=== PATIENT | female | born 1975 | race Caucasian/White ===

== ENCOUNTER 2020-05-17 10:04 | Outpatient (REF) | payer MEDICARE, SELFPAY ==
--- NOTE | 2020-05-17 09:30 | EMG_ITS ---
HISTORY OF PRESENT ILLNESS: This is a 45-year-old woman with a 5-month history of right foot weakness and numbness, previous history of lumbar diskectomy in 2007. She cannot dorsiflex the foot. There has been some improvement recently. PHYSICAL EXAMINATION: On examination, she has weakness of the right foot, especially and EHL have no function. Tibialis anterior 4+/5 normal. IMPRESSION: Peroneal neuropathy, rule out L5 radiculopathy. 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 EMG evidence of denervation in peroneal nerve distribution on the right with sparing of the tibialis anterior muscle relatively. An L5 radiculopathy cannot be ruled out. Clinical correlation is suggested. MD MIKEL Dodge/RACHELL / [id number]
== END 2020-05-17 10:05 | disposition home or self-care (01) ==
LOC: HO.NEURO 10:04
PROVIDERS: PCP Internal Medicine; Visit Provider Internal Medicine
DX: M54.41 Lumbago with sciatica, right side (principal)
CPT/HCPCS: 95860; 95886; 95910

== ENCOUNTER 2021-12-13 13:43 | Outpatient (REF) | payer MEDICARE, SELFPAY ==
--- NOTE | ~2021-12-13 | MM_ITS ---
EXAMINATION: MM DIAGNOSTIC DIGITAL BREAST TOMOSYNTHESIS, RIGHT US DIAGNOSTIC ULTRASOUND BREAST, RIGHT CLINICAL INFORMATION: 46-year-old with palpable ridge anterior lower right breast noted by patient for past week. No discharge. Due for yearly. Prior outside mammography at unknown facility, unavailable. Family history breast cancer, maternal aunt. The lifetime risk of breast cancer based on the Tyrer-Cuzick Model is 17%. COMPARISON: None. TECHNIQUE: Digital breast tomosynthesis is performed in both the craniocaudal and mediolateral oblique views along with computer-aided detection (CAD). Synthesized 2D images are generated from the tomosynthesis. Ultrasound right breast is targeted to the area of clinical concern anterior lower breast. Patient is able to point to area of concern at time of imaging. Grayscale imaging and color Doppler are performed without and with harmonics. FINDINGS: There are scattered areas of fibroglandular density (ACR BI-RADS breast composition Category b). There are no significant masses, abnormal calcifications, or other abnormalities. No architectural abnormality. The axilla and skin contours are unremarkable. No skin thickening or coarsening of the Antwan's ligaments. No mammographic correlate for patient's symptoms. Ultrasound right breast demonstrates no cystic or solid mass, architectural abnormality, or focal duct ectasia. No skin thickening or edema tracking in soft tissue planes. Results are discussed with the patient at time of visit. Patient should be managed based on the clinical impression. If clinically indicated, further evaluation may be considered with surgical consult. Decision to proceed with biopsy should be based on clinical grounds and degree of clinical concern. MM/MM diagnostic mammo BI IMPRESSION: -No mammographic evidence of malignancy. -Unremarkable right breast ultrasound. ASSESSMENT: BI-RADS 1: Negative RECOMMENDATION: 1. Patient should be managed based on the clinical impression. If clinically indicated, further evaluation may be considered with surgical consult. Decision to proceed with biopsy should be based on clinical grounds and degree of clinical concern. 2. Otherwise, routine annual screening mammography. This patient's information was entered into a reminder system with a target due date for their next mammogram.
== END 2021-12-13 13:44 | disposition home or self-care (01) ==
LOC: HO.MAMMO 13:43
PROVIDERS: PCP Internal Medicine; Visit Provider Student in an Organized Health Care Education/Training Program
DX: N63.15 Unspecified lump in the right breast, overlapping quadrants (principal); Z80.3 Family history of malignant neoplasm of breast
CPT/HCPCS: 76642; 77062; 77066

== ENCOUNTER 2022-12-23 13:52 | Outpatient (REF) | payer MEDICARE, SELFPAY ==
--- NOTE | ~2022-12-23 | MM_ITS ---
EXAMINATION: MM SCREENING DIGITAL BREAST TOMOSYNTHESIS, BILATERAL CLINICAL INFORMATION: Screening. Asymptomatic. The lifetime risk of breast cancer based on the Tyrer-Cuzick Model is 20.7.%. COMPARISON: Mammography: This study is compared with prior exams dating back to 2021. TECHNIQUE: Digital breast tomosynthesis is performed in both the craniocaudal and mediolateral oblique views along with computer-aided detection (CAD). Synthesized 2D images are generated from the tomosynthesis. FINDINGS: There are scattered areas of fibroglandular density (ACR BI-RADS breast composition Category b). There is a focal asymmetry in the upper inner quadrant of the right breast. . There is a small focal asymmetry in the upper outer quadrant of the right breast. Additional mammographic imaging of these findings are advised. Sonography may be performed at the discretion of the diagnostic radiologist. There are no other significant findings in the right breast. In the left breast, near are no significant masses, abnormal calcifications, or other abnormalities. MM/MM tomosynthesis screening BI IMPRESSION: Focal asymmetries of the right breast warrant additional mammographic imaging. Targeted sonography may be performed at the discretion of the diagnostic radiologist. No mammographic signs of malignancy left breast. Please note that the breast cancer risk assessment score above exceeds 20%. ASSESSMENT: BI-RADS BI-RADS 0 - Incomplete: Needs additional Imaging. RECOMMENDATION: 1. Additional views of the right breast 2. Targeted ultrasound if warranted after review of the additional views. 3. Radiology department staff will contact the patient for additional imaging. Additional Imaging required This examination should not preclude the clinical evaluation of a suspicious palpable abnormality. This patient's information was entered into a reminder system with a target due date for their next mammogram.
== END 2022-12-23 13:53 | disposition home or self-care (01) ==
LOC: HO.MAMMO 13:52
PROVIDERS: PCP Internal Medicine; Visit Provider Internal Medicine
DX: Z12.31 Encounter for screening mammogram for malignant neoplasm of breast (principal)
CPT/HCPCS: 77063; 77067

== ENCOUNTER → 2022-12-23 14:00 | Outpatient (BNV) | payer MEDICARE, SELFPAY | PROVIDERS: PCP Internal Medicine; Visit Provider Radiology Diagnostic Radiology | DX: Z12.31 Encounter for screening mammogram for malignant neoplasm of breast (principal) | CPT/HCPCS: 77063; 77067 ==

== ENCOUNTER 2023-01-30 13:27 | Outpatient (REF) | payer MEDICARE, SELFPAY ==
--- NOTE | ~2023-01-30 | US_ITS ---
EXAMINATION: MM DIAGNOSTIC DIGITAL BREAST TOMOSYNTHESIS, RIGHT US BREAST LIMITED, RIGHT MAMMOGRAPHY: CLINICAL INFORMATION: Follow-up focal asymmetries seen right breast on screening examination. The lifetime risk of breast cancer based on the Tyrer-Cuzick Model is 20.7%. COMPARISON: Mammography: 01/10/2023, 01/12/2022. TECHNIQUE: Digital right breast tomosynthesis is performed in both the craniocaudal and mediolateral oblique views along with computer-aided detection (CAD). Synthesized 2D images are generated from the tomosynthesis. In addition, full-field 3 right mediolateral view, 3-D right mediolateral spot compression view, 3-D right MLO spot compression view, and 3-D right CC spot compression views were performed. FINDINGS: There are scattered areas of fibroglandular density (ACR BI-RADS breast composition Category b). There are numerous small circumscribed masses in both breasts measuring 4-5 mm, statistically benign, most likely representing small cysts. In the left breast posterior depth, approximately 2:30 o'clock axis, there is a lobular mass measuring 7 x 7 mm with internal regions of fat density, likely representing a region of fat necrosis or a breast hamartoma. This will be evaluated with ultrasound. Results were provided to the patient at time of visit by the technologist. ULTRASOUND: CLINICAL INFORMATION: Evaluate right breast lobular 7 mm mass, posterior depth, 2:30 o'clock axis. COMPARISON: 12/13/2021. TECHNIQUE: Targeted sonographic evaluation was performed using a high frequency linear transducer. Selected archived documentation. FINDINGS: RIGHT BREAST: In the 2:00 axis of the right breast, 12 cm from the nipple, just beneath the skin, is a mixed echogenic and hypoechoic lobular mass measuring approximately 0.7 x 0.5 x 1.0 cm. This has features most consistent with a region of fat necrosis. As per the technologist, there is bruising at the skin in this region. This correlates well with the abnormality seen on mammography. No suspicious abnormalities identified. US/US breast RT limited mamm only IMPRESSION: Findings at the 2:00 axis of the right breast consistent with a region of subcutaneous fat necrosis. No findings suspicious for malignancy. Numerous circumscribed small low density right breast masses on mammography, and in retrospect several are also present in the left breast as well. These are statistically benign and consistent with numerous small cysts. Recommend the patient resume annual routine screening mammography. OVERALL ASSESSMENT: Mammography: BI-RADS 2 - Benign Findings Ultrasound: BI-RADS 2 - Benign Findings RECOMMENDATION: 1 year F/U This patient's information was entered into a reminder system with a target due date for their next mammogram.
== END 2023-01-30 13:28 | disposition home or self-care (01) ==
LOC: HO.MAMMO 13:27
PROVIDERS: PCP Internal Medicine; Visit Provider Internal Medicine
DX: N64.89 Other specified disorders of breast (principal)
CPT/HCPCS: 76642; 77061; 77065

== ENCOUNTER → 2023-01-30 13:30 | Outpatient (BNV) | payer MEDICARE, SELFPAY | PROVIDERS: PCP Internal Medicine; Visit Provider Radiology Diagnostic Radiology | DX: R92.8 Other abnormal and inconclusive findings on diagnostic imaging of breast (principal) | CPT/HCPCS: 76642; 77065 ==

== ENCOUNTER 2023-07-23 11:54 | Outpatient (REF) | payer MEDICARE, SELFPAY | END 2023-07-23 11:55 | disposition home or self-care (01) | LOC: HO.CHCLNP 11:54 | PROVIDERS: Visit Provider Internal Medicine | DX: L02.414 Cutaneous abscess of left upper limb (principal) | CPT/HCPCS: 87070; 87205 ==

== ENCOUNTER 2024-01-29 15:43 | Outpatient (REF) | payer MEDICARE, SELFPAY ==
[2024-01-29 18:09] LABS: Creatinine Urine 110.52 mg/dL; Microalbumin Urine < 5.0 mg/L
[2024-01-29 18:11] LABS: Alanine Aminotransferase 43 U/L (0-31); Albumin Level 4.2 g/dL (3.5-5.0); Alkaline Phosphatase 203 U/L (39-117); Anion Gap 14 (12-20); Aspartate Amino Transferase 31 U/L (5-31); Bilirubin Total 0.3 mg/dL (0.0-1.0); Blood Urea Nitrogen 22 mg/dL (9-16); Calcium 9.8 mg/dL (8.4-10.2); Carbon Dioxide 26 mmol/L (22-29); Chloride 105 mmol/L (96-108); Cholesterol 269 mg/dL (<200); Estimated Glomerular Filt Rate 41; Glucose Random 103 mg/dL (60-115); HDL Cholesterol 42 mg/dL (>40); LDL Cholesterol Calculated 182 mg/dL (<100); Sodium 141 mmol/L (135-145); Triglycerides 229 mg/dL (<150)
== END 2024-01-29 15:44 | disposition home or self-care (01) ==
LOC: HO.CHCLDS 15:43
PROVIDERS: Visit Provider Internal Medicine
DX: R80.9 Proteinuria, unspecified (principal)
CPT/HCPCS: 36415; 80053; 80061; 82570

== ENCOUNTER 2024-03-24 10:55 | Outpatient (AMB) | payer MEDICARE, MEDICAID, SELFPAY ==
[2024-03-24 10:56] VITALS: BP 102/60; PULSE 87; O2SAT 97; BMI 33.6
--- NOTE | 2024-03-24 10:56 | HO.NEPHOV_ITS ---
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 She recently underwent back surgey Currently has Right foot drop She has a history of using IV [facility]roine [facility] Social History Patient Tobacco Use Status: Never used Tobacco Tobacco use type: Cigarette Review of Systems Const Denies fever(s) and Denies weight loss Card Denies chest pain Resp Denies cough and Denies hemoptysis GI Denies abdominal pain, Denies diarrhea and Denies nausea Musc Denies back pain Neuro Denies focal weakness Physical Exam Vital Signs: Last Vital Signs Pulse 87 03/24/24 10:56 BP 102/60 03/24/24 10:56 Pulse Ox 97 03/24/24 10:56 Oxygen Delivery Method Room Air 03/24/24 10:56 BMI result Body Mass Index 33.6 Awake. Comfortable. Neck is supple. Mucosa moist. Lungs air entry Heart S1-S2 heard no gallop. Abdomen soft. Extremities no edema. No involuntary movements. No myoclonus. Multiple scars from peripheral IV injection Results Reviewed Nephrology Results: Sodium 137 mmol/L (135-145) 03/26/24 Potassium 4.5 mmol/L (3.3-5.1) 03/26/24 Chloride 101 mmol/L (96-108) 03/26/24 Carbon Dioxide 27 mmol/L (22-29) 03/26/24 BUN 12 mg/dL (9-16) 03/26/24 Creatinine 1.44 mg/dL (0.5-1.4) H 03/26/24 Calcium 9.9 mg/dL (8.4-10.2) 03/26/24 Urine Protein Negative mg/dL (Neg-Trace) 03/24/24 Urine Creatinine 242.20 mg/dL 03/24/24 Renal US 03/31/24 Assessment & Plan Assessment & Plan (1) CKD (chronic kidney disease): Code(s): N18.9 - Chronic kidney disease, unspecified Category: Medical Plan 49-year-old woman with IV drug abuse has CKD. Recent creatinine was 1.3 mg/dL. Glomerular nephritis should be ruled out. Obstruction seems unlikely nevertheless needs to be ruled out. I have initiated workup as outlined below. The meantime continue current medications Maintain blood pressure less than 130/80 Continue overt nephrotoxic agents including NSAIDs. Further workup will depend on the baseline investigations. I will keep you updated Orders: Orders Complement C4 03/26/24 N18.9 - Chronic kidney disease, unspecified UA and rflx microscopic 03/26/24 N18.9 - Chronic kidney disease, unspecified Hemoglobin A1c 03/26/24 N18.9 - Chronic kidney disease, unspecified SETH Reflex Titer and Pattern 03/26/24 N18.9 - Chronic kidney disease, unspecified Neutrophil Cytoplasma Ab 03/26/24 N18.9 - Chronic kidney disease, unspecified Complement C3 03/26/24 N18.9 - Chronic kidney disease, unspecified Protein Electrophoresis, Serum 03/26/24 N18.9 - Chronic kidney disease, unspecified Basic Metabolic Panel 03/26/24 N18.9 - Chronic kidney disease, unspecified Total Protein Urine Random 03/24/24 N18.9 - Chronic kidney disease, unspecified Creatinine Urine 03/24/24 N18.9 - Chronic kidney disease, unspecified US renal BI 03/31/24 N18.9 - Chronic kidney disease, unspecified Coding Level of Care Code New Pt Level 4 (37863) Diagnoses CKD (chronic kidney disease) N18.9
== END 2024-03-24 11:18 | disposition home or self-care (01) ==
PROVIDERS: PCP Internal Medicine; Referring Provider Internal Medicine; Visit Provider Internal Medicine Hypertension Specialist
DX: N18.9 Chronic kidney disease, unspecified (principal)
CPT/HCPCS: 99204

== ENCOUNTER 2024-03-24 10:55 | Outpatient (REF) | payer MEDICARE, MEDICAID, SELFPAY ==
[2024-03-24 13:04] LABS: Appearance Urine Clear; Color Urine Dark Yellow; Glucose Urine UA Negative (Negative); Leukocyte Esterase Urine Moderate (2+) (Negative); Nitrite Urine Negative (Negative); UMIC TRIGGER UA YES; Urine Blood Negative (Negative); Urine Ketones Negative (Negative); Urine Protein Negative (Neg-Trace)
[2024-03-24 13:09] LABS: Bacteria Urine Trace (None Seen); Hyaline Casts Urine 0-2 /LPF (0-2); RBC Urine 0-2 /HPF (0-2)
[2024-03-24 13:32] LABS: Total Protein Urine Random 17 mg/dL (<12)
== END 2024-03-24 10:56 | disposition home or self-care (01) ==
LOC: HO.LAB 10:55
PROVIDERS: PCP Internal Medicine; Referring Provider Internal Medicine; Visit Provider Internal Medicine Hypertension Specialist
DX: N18.9 Chronic kidney disease, unspecified (principal)
CPT/HCPCS: 81001; 81003; 82570; 84156; 99202

== ENCOUNTER 2024-03-26 13:47 | Outpatient (REF) | payer MEDICARE, MEDICAID, SELFPAY ==
[2024-03-26 15:21] LABS: Estimated Average Glucose 108 mg/dL; Hemoglobin A1C 105.3995 umol/L; Hemoglobin A1c % 5.4 % (<6.0); Total Hemoglobin (HGBA1C) 3003.7186 umol/L
[2024-03-26 17:55] LABS: Anion Gap 14 (12-20); Blood Urea Nitrogen 12 mg/dL (9-16); Calcium 9.9 mg/dL (8.4-10.2); Carbon Dioxide 27 mmol/L (22-29); Chloride 101 mmol/L (96-108); Estimated Glomerular Filt Rate 39; Glucose Random 87 mg/dL (60-115); Potassium 4.5 mmol/L (3.3-5.1); Sodium 137 mmol/L (135-145)
[2024-03-29 11:34] LABS: Complement C3 197 mg/dL (83-193)
[2024-03-29 22:48] LABS: Prot Elec - Albumin 4.4 g/dL (3.8-4.8); Prot Elec - Alpha1 0.4 g/dL (0.2-0.3); Prot Elec - Alpha2 0.8 g/dL (0.5-0.9); Prot Elec - Beta 1 0.5 g/dL (0.4-0.6); Prot Elec - Beta 2 0.4 g/dL (0.2-0.5); Prot Elec - Gamma 1.6 g/dL (0.8-1.7); Prot Elec - Total Protein 8.1 g/dL (6.1-8.1)
[2024-03-30 16:14] LABS: Neutrophil Cyto Ab Screen NEGATIVE (NEGATIVE)
[2024-04-01 11:03] LABS: Anti Nuclear Antibody Pattern Nuclear, Homogeneous; Anti Nuclear Antibody Screen POSITIVE (NEGATIVE)
== END 2024-03-26 13:48 | disposition home or self-care (01) ==
LOC: HO.LAB 13:47
PROVIDERS: PCP Internal Medicine; Visit Provider Internal Medicine Hypertension Specialist
DX: N18.9 Chronic kidney disease, unspecified (principal); Z13.1 Encounter for screening for diabetes mellitus
CPT/HCPCS: 36415; 80048; 83036; 84165; 86036; 86038; 86039; 86160

== ENCOUNTER 2024-03-31 15:58 | Outpatient (REF) | payer MEDICARE, MEDICAID, SELFPAY ==
--- NOTE | ~2024-03-31 | US_ITS ---
EXAMINATION: US RETROPERITONEAL LIMITED (RENAL ONLY) CLINICAL INFORMATION: Chronic kidney disease, unspecified. COMPARISON: None available. TECHNIQUE: Real-time imaging of the kidneys using grayscale and color Doppler technique. FINDINGS: RIGHT KIDNEY: 11 x 4 x 4 cm (SAG x AP x TRV). Volume is 96 cc solid or cystic lesion. No hydronephrosis. LEFT KIDNEY: 9 x 4 x 4 cm (SAG x AP x TRV). Volume is 79 cc. There is a 4 mm hyperechoic lesion in the anterior upper pole. No hydronephrosis. US/US renal BI IMPRESSION: 4 mm lesion, left kidney nonspecific. Recommend dedicated contrast enhanced CT renal mass protocol. No hydronephrosis.. Electronically signed by: Kelvin Hector MD 04/30/2024 03:35 PM EST
== END 2024-03-31 15:59 | disposition home or self-care (01) ==
LOC: HO.US 15:58
PROVIDERS: PCP Internal Medicine; Visit Provider Internal Medicine Hypertension Specialist
DX: N18.9 Chronic kidney disease, unspecified (principal)
CPT/HCPCS: 76775

== ENCOUNTER → 2024-03-31 16:01 | Outpatient (BNV) | payer MEDICARE, MEDICAID, SELFPAY | PROVIDERS: PCP Internal Medicine; Visit Provider Radiology Diagnostic Radiology | DX: N18.9 Chronic kidney disease, unspecified (principal) | CPT/HCPCS: 76775 ==

== ENCOUNTER 2024-05-05 10:05 | Outpatient (AMB) | payer MEDICARE, MEDICAID, SELFPAY ==
[2024-05-05 10:08] VITALS: BP 114/68; PULSE 89; O2SAT 96; BMI 33.9
--- NOTE | 2024-05-05 10:08 | HO.NEPHOV ---
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 She recently underwent back surgey Currently has Right foot drop She has a history of using IV [facility]roine [facility] Social History Patient Tobacco Use Status: Never used Tobacco Tobacco use type: Cigarette Physical Exam Vital Signs: Last Vital Signs Pulse 89 05/05/24 10:08 BP 114/68 05/05/24 10:08 Pulse Ox 96 05/05/24 10:08 Oxygen Delivery Method Room Air 05/05/24 10:08 BMI result Body Mass Index 33.9 Awake. Comfortable. Neck is supple. Mucosa moist. Lungs air entry Heart S1-S2 heard no gallop. Abdomen soft. Extremities no edema. No involuntary movements. No myoclonus. Multiple scars from peripheral IV injection Results Reviewed Results Reviewed: RIGHT KIDNEY: 11 x 4 x 4 cm (SAG x AP x TRV). Volume is 96 cc solid or cystic lesion. No hydronephrosis. LEFT KIDNEY: 9 x 4 x 4 cm (SAG x AP x TRV). Volume is 79 cc. There is a 4 mm hyperechoic lesion in the anterior upper pole. No hydronephrosis. US/US renal BI IMPRESSION: 4 mm lesion, left kidney nonspecific. Recommend dedicated contrast enhanced CT renal mass protocol. No hydronephrosis.. Nephrology Results: Sodium 137 mmol/L (135-145) 03/26/24 Potassium 4.5 mmol/L (3.3-5.1) 03/26/24 Chloride 101 mmol/L (96-108) 03/26/24 Carbon Dioxide 27 mmol/L (22-29) 03/26/24 BUN 12 mg/dL (9-16) 03/26/24 Creatinine 1.44 mg/dL (0.5-1.4) H 03/26/24 Calcium 9.9 mg/dL (8.4-10.2) 03/26/24 Urine Protein Negative mg/dL (Neg-Trace) 03/24/24 Urine Creatinine 242.20 mg/dL 03/24/24 Renal US 03/31/24 Assessment & Plan Assessment & Plan (1) CKD (chronic kidney disease): Code(s): N18.9 - Chronic kidney disease, unspecified Category: Medical Plan 49-year-old woman with IV drug abuse/ Heroine - has CKD. creatinine was 1.3 mg/dL. Repeat creatinine was 1.44 No evidence of active Glomerular nephritis No RBCs or protienuria No Obstruction based on USG Interstitial Nephritis cannot be ruled out yet UA has WBCs Repeat UA and urine culture If Urine c/s is negative, will proceed with kidney biopsy The meantime continue current medications Maintain blood pressure less than 130/80 Continue overt nephrotoxic agents including NSAIDs. Discussed stopping heroine use. 4 mm renal cyst on left kidney Repeat USG in 6- 12 months Orders: Orders Creatinine Today N18.9 - Chronic kidney disease, unspecified, N39.0 - Urinary tract infection, site not specified UA and rflx microscopic Today N18.9 - Chronic kidney disease, unspecified, N39.0 - Urinary tract infection, site not specified Urine Culture Today N18.9 - Chronic kidney disease, unspecified, N39.0 - Urinary tract infection, site not specified Blood Urea Nitrogen Today N18.4 - Chronic kidney disease, stage 4 (severe), N18.9 - Chronic kidney disease, unspecified, N39.0 - Urinary tract infection, site not specified Coding Level of Care Code Est Pt Level 4 (19558) Diagnoses CKD (chronic kidney disease) N18.9
== END 2024-05-05 10:31 | disposition home or self-care (01) ==
PROVIDERS: PCP Internal Medicine; Visit Provider Internal Medicine Hypertension Specialist
DX: N18.9 Chronic kidney disease, unspecified (principal)
CPT/HCPCS: 99214

== ENCOUNTER → 2024-05-05 10:05 | Outpatient (BNVA) | payer MEDICARE, MEDICAID, SELFPAY | PROVIDERS: PCP Internal Medicine; Visit Provider Internal Medicine Hypertension Specialist | DX: N18.9 Chronic kidney disease, unspecified (principal) | CPT/HCPCS: 99212 ==

== ENCOUNTER 2024-06-09 11:02 | Outpatient (AMB) | payer MEDICARE, MEDICAID, SELFPAY ==
[2024-06-09 11:04] VITALS: BP 114/62; PULSE 97; O2SAT 98; BMI 34.4
--- NOTE | 2024-06-09 11:04 | HO.NEPHOV_ITS ---
Vital Signs 06/09/24 11:04 Height 5 ft 8 in Weight 226 lb BMI 34.4 BP 114/62 Blood Pressure Location Lt brachial Position Sitting Pulse 97 Pulse Source Pulse Oximeter Pulse Oximetry (%) 98 Oxygen Delivery Method Room Air Intake Visit Reasons: 6 wks follow up Breadman Required: No Accompanied by: Self / Same As Patient Allergies haloperidol [From Haldol] Allergy (Unknown, Verified 06/09/24 11:07) Unknown Medication List - Last Reconciled 06/09/24 by Lazarus Sykes MD amlodipine 5 mg PO DAILY bupropion HCl XL 300 mg PO DAILY dextroamphetamine-amphetamine 30 mg (Adderall) 60 mg PO DAILY methadone 145 mg PO Q4H sertraline 200 mg PO DAILY HPI Comments Details: 49-year-old woman with a history of IV drug abuse referred for LUIS. She recently underwent back surgey Currently has Right foot drop She has a history of using IV HEroine 06/09/24 Tried statin, but stopepd due to knee pain. [facility] Social History Patient Tobacco Use Status: Never used Tobacco Tobacco use type: Cigarette Physical Exam Vital Signs: Last Vital Signs Pulse 97 06/09/24 11:04 BP 114/62 06/09/24 11:04 Pulse Ox 98 06/09/24 11:04 Oxygen Delivery Method Room Air 06/09/24 11:04 BMI result Body Mass Index 34.4 Results Reviewed Nephrology Results: Sodium 137 mmol/L (135-145) 03/26/24 Potassium 4.5 mmol/L (3.3-5.1) 03/26/24 Chloride 101 mmol/L (96-108) 03/26/24 Carbon Dioxide 27 mmol/L (22-29) 03/26/24 BUN 12 mg/dL (9-16) 03/26/24 Creatinine 1.44 mg/dL (0.5-1.4) H 03/26/24 Calcium 9.9 mg/dL (8.4-10.2) 03/26/24 Urine Protein Negative mg/dL (Neg-Trace) 03/24/24 Urine Creatinine 242.20 mg/dL 03/24/24 Renal US 03/31/24 Assessment & Plan Assessment & Plan (1) CKD (chronic kidney disease): Code(s): N18.9 - Chronic kidney disease, unspecified Category: Medical Plan 49-year-old woman with IV drug abuse/ Heroine - has CKD. creatinine was 1.3 mg/dL. Repeat creatinine was 1.44 No evidence of active Glomerular nephritis No RBCs or protienuria No Obstruction based on USG Interstitial Nephritis cannot be ruled out yet UA has WBCs Repeat UA and urine culture If Urine c/s is negative, will proceed with kidney biopsy The meantime continue current medications Maintain blood pressure less than 130/80 Continue overt nephrotoxic agents including NSAIDs. Discussed stopping heroine use. 4 mm renal cyst on left kidney Repeat USG in 6- 12 months Orders: Orders Basic Metabolic Panel 4 Months N18.9 - Chronic kidney disease, unspecified Coding Level of Care Code Est Pt Level 4 (95043) Diagnoses CKD (chronic kidney disease) N18.9
== END 2024-06-09 11:21 | disposition home or self-care (01) ==
PROVIDERS: PCP Internal Medicine; Visit Provider Internal Medicine Hypertension Specialist
DX: N18.9 Chronic kidney disease, unspecified (principal)
CPT/HCPCS: 99214

== ENCOUNTER → 2024-06-09 11:02 | Outpatient (BNVA) | payer MEDICARE, MEDICAID, SELFPAY | PROVIDERS: PCP Internal Medicine; Visit Provider Internal Medicine Hypertension Specialist | DX: N18.9 Chronic kidney disease, unspecified (principal) | CPT/HCPCS: 99212 ==

== ENCOUNTER 2024-07-05 13:08 | Outpatient (AMB) | payer MEDICARE, MEDICAID, SELFPAY ==
--- NOTE | 2024-07-05 13:12 | A.OFFVIS_ITS ---
Vital Signs 07/05/24 13:14 Height 5 ft 8 in Weight 224 lb 13.944 oz BMI 34.2 BP 113/57 L Blood Pressure Location Lt brachial Position Sitting Pulse 86 Intake Visit Reasons: Elevated LFTS Intake Note: Dana presents in the office as a new patient for Elevated LFTs. CC: She states that she is has constipation because she does still occasionally use drugs. She is trying to have a referral to get on zepbound. She was told to see a specialist for that! Cultural Historian Required: No Allergies haloperidol [From Haldol] Allergy (Unknown, Verified 07/05/24 13:14) Unknown HPI Comments Details: 49 y.o F with PMH of IVDU, CKD stage III, HTN, who is here for elevated LFTs. Reports finding about abnormal LFTs almost 6 months ago. Reports ongoing IVDU but doesn't share needles - last used yesterday. Reports has been checked for HCV and was negative 2 years ago. Prev hx of heavy etOH drinking for 5-10 years, was drinking upwards of 32oz of hard liquor/day completely sober x 14 years now. No abd pain, N,V,D. No blood in stool. Has never had a colonoscopy. Cologuard in 2023 was negative per her report. [facility] Social History Patient Tobacco Use Status: Never used Tobacco Tobacco use type: Cigarette Review of Systems Const All systems reviewed & are unremarkable except as noted in HPI and below Physical Exam Vital Signs: Last Vital Signs Pulse 86 07/05/24 13:14 BP 113/57 L 07/05/24 13:14 BMI result Body Mass Index 34.2 No apparent distress Nonicteric Abdomen soft, nondistended Alert and oriented x3, normal gait Assessment & Plan Assessment & Plan (1) Elevated LFTs: Code(s): R79.89 - Other specified abnormal findings of blood chemistry Category: Medical (2) IVDU (intravenous drug user): Code(s): F19.90 - Other psychoactive substance use, unspecified, uncomplicated Category: Social Hx Plan LFTs <3UNL. Ddx include infectious hep, etOH related fatty liver, metALD, AIH, iron overload, wilsons etc. Plan: - Labs and US ordered - Further mgmt determined by results Follow up 3 months Orders: Orders HCV RNA QN PROG TO GENOTYPE Today F19.90 - Other psychoactive substance use, unspecified, uncomplicated, R79.89 - Other specified abnormal findings of blood chemistry Alpha Fetoprotein Today R79.89 - Other specified abnormal findings of blood chemistry Comprehensive Met. Panel Today R79.89 - Other specified abnormal findings of blood chemistry Gamma Glutamyl Transpeptidase Today R79.89 - Other specified abnormal findings of blood chemistry Hepatitis A IgG Today R79.89 - Other specified abnormal findings of blood chemistry Hepatitis B Core Antibody Today R79.89 - Other specified abnormal findings of blood chemistry Hepatitis B Surface Antigen Today R79.89 - Other specified abnormal findings of blood chemistry Hepatitis C Antibody Today R79.89 - Other specified abnormal findings of blood chemistry HIV Ab/Ag Today R79.89 - Other specified abnormal findings of blood chemistry IRON PROFILE Today R79.89 - Other specified abnormal findings of blood chemistry Transglutaminase IgA Today R79.89 - Other specified abnormal findings of blood chemistry Hemoglobin A1c Today R79.89 - Other specified abnormal findings of blood chemistry Alpha 1 Anti-trypsin Today R79.89 - Other specified abnormal findings of blood chemistry Ceruloplasmin Today R79.89 - Other specified abnormal findings of blood chemistry Ferritin Today R79.89 - Other specified abnormal findings of blood chemistry Hepatitis B Surface Antibody Today R79.89 - Other specified abnormal findings of blood chemistry Immunoglobulin A Today R79.89 - Other specified abnormal findings of blood chemistry Liver Kidney Microsomal Ab Today R79.89 - Other specified abnormal findings of blood chemistry Mitochondrial Antibody Today R79.89 - Other specified abnormal findings of blood chemistry Phosphatidylethanol, Blood Today R79.89 - Other specified abnormal findings of blood chemistry Smooth Muscle Antibody Today R79.89 - Other specified abnormal findings of blood chemistry TSH reflex Free T4 Today R79.89 - Other specified abnormal findings of blood chemistry Lipid Panel Today R79.89 - Other specified abnormal findings of blood chemistry US abdomen complete Today R79.89 - Other specified abnormal findings of blood chemistry Coding Level of Care Code New Pt Level 4 (44559) Complex EM visit Add On G2211 Diagnoses Elevated LFTs R7. IVDU (intravenous drug user) F19.90
[2024-07-05 13:14] VITALS: BP 113/57; PULSE 86; BMI 34.2
== END 2024-07-05 14:08 | disposition home or self-care (01) ==
PROVIDERS: PCP Internal Medicine; Visit Provider Internal Medicine
DX: R79.89 Other specified abnormal findings of blood chemistry (principal); F19.90 Other psychoactive substance use, unspecified, uncomplicated
CPT/HCPCS: 99204; G2211

== ENCOUNTER → 2024-07-05 13:08 | Outpatient (BNVA) | payer MEDICARE, MEDICAID, SELFPAY | PROVIDERS: PCP Internal Medicine; Visit Provider Internal Medicine | DX: R79.89 Other specified abnormal findings of blood chemistry (principal); F19.90 Other psychoactive substance use, unspecified, uncomplicated | CPT/HCPCS: 99202 ==

== ENCOUNTER 2024-07-15 13:34 | Outpatient (REF) | payer MEDICARE, SELFPAY ==
--- NOTE | ~2024-07-15 | US_ITS ---
EXAMINATION: US ABDOMEN HISTORY: R79.89 - Other specified abnormal findings of blood chemistry TECHNIQUE: Real-time grayscale ultrasound imaging of the abdomen was performed and images were reviewed. COMPARISON: Correlation is made with a renal ultrasound dated 03/31/2024. FINDINGS: Liver: The liver is normal in size and demonstrates homogeneous echotexture. No focal mass or intrahepatic biliary ductal dilatation is identified. Gallbladder and biliary tree: There are multiple calculi in the gallbladder. There is no wall thickening or pericholecystic fluid. There is no sonographic Meadows sign. The common bile duct is dilated, measuring 10 mm in diameter. Kidneys: The right kidney measures 9.6 cm in length. The left kidney measures 8.2 cm in length. Again seen is a 6 mm echogenic lesion at the upper pole of the left kidney which may represent an angiomyolipoma. The kidneys are otherwise unremarkable, without evidence of hydronephrosis or calculi. Pancreas: The pancreas is not well visualized. Spleen: The spleen is enlarged, measuring 14.0 cm in length. Abdominal aorta and inferior vena cava: The visualized portions of the abdominal aorta and inferior vena cava are normal in caliber. There is no free fluid in the abdomen. US/US abdomen complete IMPRESSION: 1. Cholelithiasis. Dilated common bile duct. This could be secondary to choledocholithiasis or mass. MRI of the abdomen with MRCP is suggested. 2. 6 mm echogenic lesion at the upper pole of the left kidney which could represent an angiomyolipoma. This could likely be characterized on MRI of the abdomen. 3. Splenomegaly. Electronically signed by: Lawson Madison MD 07/16/2024 07:26 AM EST
== END 2024-07-15 13:35 | disposition home or self-care (01) ==
LOC: HO.US 13:34
PROVIDERS: PCP Internal Medicine; Visit Provider Internal Medicine
DX: R79.89 Other specified abnormal findings of blood chemistry (principal)
CPT/HCPCS: 76700

== ENCOUNTER → 2024-07-15 13:42 | Outpatient (BNV) | payer MEDICARE, SELFPAY | PROVIDERS: PCP Internal Medicine; Visit Provider Radiology Diagnostic Radiology | DX: K80.00 Calculus of gallbladder with acute cholecystitis without obstruction (principal); N28.1 Cyst of kidney, acquired | CPT/HCPCS: 76700; 76981 ==

== ENCOUNTER → 2024-07-31 14:58 | Outpatient (BNV) | payer MEDICARE, SELFPAY | PROVIDERS: PCP Internal Medicine; Visit Provider Radiology Diagnostic Radiology | DX: K80.43 Calculus of bile duct with acute cholecystitis with obstruction (principal); R16.0 Hepatomegaly, not elsewhere classified; D17.71 Benign lipomatous neoplasm of kidney | CPT/HCPCS: 74183 ==

== ENCOUNTER 2024-07-31 15:02 | Outpatient (REF) | payer MEDICARE, SELFPAY ==
[2024-07-31] MEDS: gadobutroL 10 ML VIAL IVPUSH (16:25)
== END 2024-07-31 15:03 | disposition home or self-care (01) ==
LOC: HO.MRI 15:02
PROVIDERS: PCP Internal Medicine; Visit Provider Internal Medicine
DX: R74.8 Abnormal levels of other serum enzymes (principal); K83.8 Other specified diseases of biliary tract
CPT/HCPCS: 74183; A9585

== ENCOUNTER 2024-09-01 10:31 | Day surgery (SDC) | payer MEDICARE, SELFPAY ==
--- OUTSIDE RECORDS SUMMARY | 2024-08-10 06:54 | XMS_ITS | Encounter Summary ---
Author Organization [employer] Address [address] [place] [address] [place] [address] Care Team Providers Care Fur Blower Name Role Phone Dougie Vela MD Primary Care Prov ider Encounter Details Date Type Department Care Team ([facility] Contact Info) Description 06/13/2022 Orders Only [facility] MEDICINE [address] [place] [address] Dougie Vela MD [address] [place], [place] [phone] Cellulitis of right breast (Primary Dx); Primary hypertension Social History Tobacco Use Types Packs/Day Years Used Date Smoking Tobacco: Never Passive Smoke Exposure: Never Smokeless Tobacco: Never Alcohol Use Standard Drinks/Week Comments Never 0 (1 standard drink = 0.6 oz pur e alcohol) Comments Unknown Sex and Gender Information Value Date Recorded Sex Assigned at Female 04/22/2022 10:37 AM EDT Legal Sex Female 10:37 AM EDT Gender Identity Female 04/22/2022 10:37 AM EDT Sexual Orientation Straight 04/22/2022 10 :37 AM EDT COVID-19 Exposure Response Date Recorded In the last 10 days, have yo u been in contact with someone who was confirmed or suspected to have Coronavirus/COVID-19? No / Unsure 05/31/2022 10:45 AM EST documented as of this encounter Plan of Treatment Upcoming Encounters Date Type Department Care Team ([facility] Contact Info) Description 08/10/2024 3:30 PM EST Telemedicine [facility] CH[facility] MED & PEDS [address] [place], [place] [phone] Dougie Vela MD [address] [place] [address] 09/01/2024 3:00 PM EDT Telemedicine [facility] CH[facility] MED & PEDS [address] [place], [place] [phone] Dougie Vela MD [address] [place], [place] [phone] Scheduled Orders Name Type Priority Associated Diagnoses Orde r Schedule Electrolyte Panel Lab Routine Primary hypertension Expected: 06/21/2022 (Approximate), Expires: 06/21/2023 documented as of this encounter Procedures Procedure Name Priority Date/Time Associated Diagnosis Comments BASIC METABOLIC PANEL Routine 06/21/2022 3:34 PM EST Primary hypertension documented in this encounter Results * (ABNORMAL) Basic Metabolic Panel (06/21/2022 3:34 PM EST) Glucose 71 65 - 139 mg/dL [facility] [place] [facility] Comment: ? Non-fasting reference interval Urea Nitrogen (BUN) 46(H) 7 - 25 mg/dL [facility] [place] [facility] Creatinine, Serum 2.44(H) 0.50 - 0.99 mg/dL [facility] [place] [facility] eGFR 24(L) > OR = 60 mL/min/1. 73m2 [facility] [place] [facility] Comment: The eGFR is based on the CKD-EPI 2020 equation. To calculate the new eGFR from a previous Creatinine or Cystatin C result, go to https://www.kidney.org/professionals/ kdoqi/gfr%5Fcalculator BUN/Creatinine Ratio 19 6 - 22 (calc) [facility] Sodium 136 135 - 146 mmol/L [facility] [place] [facility] Potassium 5.0 3.5 - 5.3 mmol/L [facility] [place] [facility] Chloride 102 98 - 110 mmol/L [facility] [place] [facility] Carbon Dioxide 27 20 - 32 mmol/L [facility] Calcium 9.6 8.6 - 10.2 mg/dL [facility] [place] [facility] Blood Venous blood specimen / Unknown 06/21/2022 3:34 PM EST 06/21/2022 3:34 PM EST Narrative [facility] - 06/22/2022 1:37 AM EST FASTING:NO FASTING: NO us Dougie Cook MD LAB BLOOD ORDERABL ES Final Result [facility] [address], [place] [address] [facility] [address] [facility], ([address]) [place] [address] documented in this encounter Visit Diagnoses Diagnosis Cellulitis of right breast- Primary Primary hypertension Unspecified essential hypertension documented in this encounter Care Teams Fur Blower Relationship Specialty Start Date End Date Dougie Vela MD [address] [place] [phone] PCP - General Internal Medicine 03/28/20 documented as of this encounter
--- OUTSIDE RECORDS SUMMARY | 2024-08-10 06:54 | XMS_ITS | Encounter Summary ---
Author Organization [employer] Address [address] [place] [address] [place] [address] Care Team Providers Care Transformation Architect Name Role Phone Dougie Vela MD Primary Care Prov ider Reason for Visit * Reason Onset Date Comments Medication Question 05/18/2024 Encounter Details Date Type Department Care Team ([facility] st Contact Info) Description 05/18/2024 Telephone [facility] MEDICINE [address] [place] [address] Dougie Vela MD [address] [place] [address] Medication Question Social History Tobacco Use Types Packs/Day Years Used Date Smoking Tobacco: Never Passive Smoke Exposure: Never Smokeless Tobacco: Never Alcohol Use Standard Drinks/Week Comments Never 0 (1 standard drink = 0.6 oz pur e alcohol) Depression Answer Date Recorded Patient Health Questionnaire-9 Score 10 02/26/2024 Patient Health Questionnaire-9 Score 10 02/26/2024 Last PHQ-9: Questionnaire Data Not on file 0 02/26/2024 Housing Stability Answer Date Recorded What is your housing situation today? I have tanisha holloway 02/26/[address] you li ve. Do you have problems with any of the following? None of the above 02/26/2024 Food Insecurity Answer Date Recorded Within the past 12 months, y ou worried that your food would run out before you got money to buy more: Never True 02/26/2024 Within the past 12 months,th e food you bought just didn't last and you didn't have enough money to get more: Never True 10/2023 Transportation Answer Date Recorded In the past 12 months, has l ack of transportation kept you from medical appts, meetings, work or from getting things needed for daily living? No 02/26/2024 Utilities Answer Date Recorded In the past 12 months, has t he electric, gas, oil or water company threatened to shut off services in your home? No 02/26/2024 Depression Answer Date Recorded Patient Health Questionnaire-2 Score 4 02/26/2024 Internet Access Answer Date Recorded Internet Access Q1 Yes 02/26/2024 Internet Access Q2 Not on file 02/26/2024 Comments Unknown Sex and Gender Information Value Date Recorded Sex Assigned at Female 04/22/2022 10:37 AM EDT Legal Sex Female 10:37 AM EDT Gender Identity Female 04/22/2022 10:37 AM EDT Sexual Orientation Straight 04/22/2022 10 :37 AM EDT documented as of this encounter Miscellaneous Notes * Telephone Encounter - Bev Gonzales RN - 05/18/2024 3:58 PM EST TC placed to pt who states that she would like to be prescribed a GLP-1 drug like Wegovy to 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 The pt was advised that the medication will most likely need prior authorization from her insurance but the request will be sent to PCP for review. Pt agreeable to this plan and stated understanding. * Telephone Encounter - Mauro Trejo - 05/18/2024 3:38 PM EST Tc from pt requesting a callback in regards a med that pt will like some info on (wegovy) Callback number [phone] documented in this encounter Plan of Treatment Upcoming Encounters Date Type Department Care Team (Late st Contact Info) Description 08/10/2024 3:30 PM EST Telemedicine [facility] CH[facility] MED & PEDS [address] [place], [place] [phone] Dougie Vela MD [address] [place], [place] [phone] 09/01/2024 3:00 PM EDT Telemedicine [facility] CH[facility] MED & PEDS [address] [place] [address] Dougie Vela MD [address] [place] [address] documented as of this encounter Visit Diagnoses Not on filedocumented in this encounter Additional Health Concerns Assessment Noted Time PHQ-9 Depression Total Score: 10 024 12:43 PM EDT documented as of this encounter Care Teams Transformation Architect Relationship Specialty Start Date End Date Dougie Vela MD [address] [place] [address] PCP - General Internal Medicine 03/28/20 documented as of this encounter
--- OUTSIDE RECORDS SUMMARY | 2024-08-10 06:54 | XMS_ITS | Encounter Summary ---
Author Organization [employer] Address [address] [place] [address] 7[address] [place] [address] Care Team Providers Care Agricultural Technician Name Role Phone Dougie Vela MD Primary Care Prov ider Encounter Details Date Type Department Care Team (Late st Contact Info) Description 07/31/2024 Orders Only [facility] External Provider, [facility] Social History Tobacco Use Types Packs/Day Years [...] AM EDT documented as of this encounter Plan of Treatment Upcoming Encounters Date Type Department Care Team ([facility] st Contact Info) Description 08/10/2024 3:30 PM EST Telemedicine [facility] MED & PEDS [address] [place], [place] [phone] Dougie Vela MD [address] [place] [address] 09/01/2024 3:00 PM EDT Telemedicine [facility] MED & PEDS [address] [place] [address] Dougie Vela MD [address] [place] [address] documented as of this encounter Procedures Procedure Name Priority Date/Time Associated Diagnosis Comments MR ABDOMEN W AND WO CONTRAST Routine 07/31/2024 6:00 PM EST documented in this encounter Results * MR Abdomen w/ and w/o Contrast (07/31/2024 6:00 PM EST) Anatomical Region Laterality Modality Abdomen Magnetic Resonan ce 07/31/2024 6:00 PM EST Narrative 07/31/2024 6:01 PM EST ? [facility] ?[address] ?[place] [address] ? Magnetic Resonance Report ? Signed ? Patient: Reid,Dana ?MR#: [id number] ? : 1975 ?Acct:[id number] ? Age/Sex: 49 / F ?ADM Date: 07/31/25 ? Loc: HO.MRI ? Attending Dr: Palak Morales MD ? Ordering Physician: Palak Morales MD ?? Date of Service: 07/31/24 ?? Procedure(s): MR abdomen wo/w con ?? Accession Number(s): [id number] ? cc: FossDougie Collins MD; Palak Morales MD ? CLINICAL HISTORY: R74.8 - Abnormal levels of other serum enzymes , pt was not NPO for test ? MR abdomen with and without gadolinium ? Comparison: [place]/SR - US ABDOMEN COMPLETE - 07/15/24 13:41 EST ? Findings: ?? Liver, pancreas, adrenal glands are within normal limits. ?? Cholelithiasis. No wall thickening or pericholecystic fluid. ?? Dilated CBD measuring up to 13 mm with multiple stones in the mid to ?? distal duct measuring up to 3 mm. ?? Splenomegaly measuring 16 cm in the AP dimension. ?? Small focus of signal dropout in the upper pole of the left kidney likely ?? an angiomyolipoma. ?? No hydronephrosis. ?? No ascites. ? IMPRESSION: ? 1. Choledocholithiasis with CBD dilation up to 13 mm. ?? 2. Splenomegaly measuring 16 cm. ?? 3. Small left renal upper pole angiomyolipoma. ? This document has been electronically signed by: Baron Collazo MD on ?? 07/31/2024 18:00:05 ? Dictated By: ?Baron Collazo MD ? Signed By: ?<Electronically signed by Baron Collazo MD in OV> ?07/31/24 1801 ? DD/ 1800 ? TD/TT: 07/31/24 1800 ? Vacuum Cleaner Operator: ? Procedure Note Michael Ray - 07/31/2024 [place] [address] Magnetic Resonance Report Signed Patient: Angelica Reid#: [id number] : 1975Acct:[id number] Age/Sex: 49 / FADM Date: 07/31/24 Loc: HO.MRI Attending Dr: Palak Morales MD Ordering Physician: Palak Morales MD Date of Service: 07/31/24 Procedure(s): MR abdomen wo/w con Accession Number(s): [id number] cc: Dougie Vela MD; Palak Morales MD CLINICAL HISTORY: R74.8 - Abnormal levels of other serum enzymes , pt wasnot NPO for test MR abdomen with and without gadolinium Comparison: US/[place]/SR - US ABDOMEN COMPLETE - 07/15/24 13:41 EST Findings: Liver, pancreas, adrenal glands are within normal limits. Cholelithiasis. No wall thickening or pericholecystic fluid. Dilated CBD measuring up to 13 mm with multiple stones in the mid to distal duct measuring up to 3 mm. Splenomegaly measuring 16 cm in the AP dimension. Small focus of signal dropout in the upper pole of the left kidney likely an angiomyolipoma. No hydronephrosis. No ascites. IMPRESSION: 1. Choledocholithiasis with CBD dilation up to 13 mm. 2. Splenomegaly measuring 16 cm. 3. Small left renal upper pole angiomyolipoma. This document has been electronically signed by: Baron Collazo MD on 07/31/2024 18:00:05 Dictated By: Baron Collazo MD Signed By: <Electronically signed by Baron Collazo MD in OV> 07/31/24 1801 DD/ 1800 TD/TT: 07/31/24 1800 Vacuum Cleaner Operator: [facility] External Provider IMG MRI PROCEDURES Edited Result - Final documented in this encounter Visit Diagnoses Not on filedocumented in this encounter Additional Health Concerns Assessment Noted Time PHQ-9 Depression Total Score: 10 024 12:43 PM EDT documented as of this encounter Care Teams Agricultural Technician Relationship Specialty Start Date End Date [facility] Dougie Cook MD [address] [place] [address] PCP - General Internal Medicine 03/28/20 documented as of this encounter
--- OUTSIDE RECORDS SUMMARY | 2024-08-10 06:54 | XMS_ITS | Encounter Summary ---
Author Organization [employer] Address [address] [place] [address] Care Team Providers Care Supervisor Small Appliance Assembly Name Role Phone Dougie Vela MD Primary Care Prov ider Encounter Details Date Type Department Care Team ([facility] Contact Info) Description 11/13/2022 Orders Only [facility] MED & PEDS [address] [place] [address] Sona Hart LPN Social History Tobacco Use Types Packs/Day Years [...] Encounters Date Type Department Care Team (Late Contact Info) Description 08/10/2024 3:30 PM EST Telemedicine [facility] CHC MED & PEDS [address] [place] [address] Dougie Vela MD [address] [place] [address] 09/01/2024 3:00 PM EDT Telemedicine [facility] MED & PEDS [address] [place] [address] Dougie Vela MD [address] [place] [address] documented as of this encounter Visit Diagnoses Not on filedocumented in this encounter Care Teams Supervisor Small Appliance Assembly Relationship Specialty Start Date End Date Dougie Vela MD [address] [place] [address] PCP - General Internal Medicine 03/28/20 documented as of this encounter
--- OUTSIDE RECORDS SUMMARY | 2024-08-10 06:54 | XMS_ITS | Encounter Summary ---
Author Organization [employer] Address [address] [place] [address] Care Team Providers Care Aoc Aadc Operations Staff Officer Name Role Phone Dougie Vela MD Primary Care Prov ider Reason for Visit * Reason Onset Date Comments Results 07/30/2024 Referral 07/30/2024 Encounter Details Date Type Department Care Team ([facility] st Contact Info) Description 07/30/2024 Telephone [facility] CH[facility] MED & PEDS [address] [place] [address] Dougie Vela MD [address] [place] [address] Results; Referral Social History Tobacco Use Types Packs/Day Years [...] encounter Miscellaneous Notes * Telephone Encounter - Wing Wesley RN - 08/06/2024 4:18 PM EST Tc to pt as PCP recommended televisit to discuss weight loss options. Televisit made for 08/10 at 3:30 pm. Pt also requesting for PCP to go over MRI results of abdomen done on 07/31 at the televisit. Was ordered by external provider. * Telephone Encounter - Wing Wesley RN - 07/30/2024 2:12 PM EST Images from the original note were not included. Please advise, tc to pt to relay below results and MRI orders. Pt states Dr. Morales already ordered a MRI of the bile duct. In addition pt is requesting for a new referral to be prescribed weight loss medication. States bariatric surgery does not prescribe and she does not want bariatric surgery. Pt last seen on 06/03/24.Stated message would be sent to PCP. Pt verbalized understanding and agreement with plan. Dougie Cook MD [place] [facility] Med & Peds Nurses Please call the patient regarding her abnormal result. U/s Showed dilated common bile duct. Will order MRI 6 mm echogenic lesion at the left kidney will order a MRI documented in this encounter Plan of Treatment Upcoming Encounters Date Type Department Care Team (Late st Contact Info) Description 08/10/2024 3:30 PM EST Telemedicine [facility] MED & PEDS [address] [place] [address] Dougie Vela MD [address] [place] [address] 09/01/2024 3:00 PM EDT Telemedicine [facility] MED & PEDS [address] [place] [address] Dougie Vela MD [address] [place] [address] documented as of this encounter Visit Diagnoses Not on filedocumented in this encounter Additional Health Concerns Assessment Noted Time PHQ-9 Depression Total Score: 10 024 12:43 PM EDT documented as of this encounter Care Teams Aoc Aadc Operations Staff Officer Relationship Specialty Start Date End Date Dougie Vela MD [address] [place] [address] PCP - General Internal Medicine 03/28/20 documented as of this encounter
--- OUTSIDE RECORDS SUMMARY | 2024-08-10 06:54 | XMS_ITS | Encounter Summary ---
Author Organization [employer] Address [address] [place] [address] 7 [place] [address] Care Team Providers Care Fuller Brush Man Name Role Phone Dougie Vela MD Primary Care Prov ider Encounter Details Date Type Department Care Team ([facility] st Contact Info) Description 05/07/2024 Orders Only [facility] MED & PEDS [address] [place], [place] [phone] Dougie Vela MD [address] [place] [address] Social History Tobacco Use Types Packs/Day Years [...] Info) Description 08/10/2024 3:30 PM EST Telemedicine [facility] MED & PEDS [address] [place] [address] Douige Vela MD [address] [place] [address] 09/01/2024 3:00 PM EDT Telemedicine [facility] MED & PEDS [address] [place] [address] Dougie Vela MD [address] [place] [address] documented as of this encounter Visit Diagnoses Not on filedocumented in this encounter Additional Health Concerns Assessment Noted Time PHQ-9 Depression Total Score: 10 024 12:43 PM EDT documented as of this encounter Care Teams Fuller Brush Man Relationship Specialty Start Date End Date Dougie Vela MD [address] [place] [address] PCP - General Internal Medicine 03/28/20 documented as of this encounter
--- OUTSIDE RECORDS SUMMARY | 2024-08-10 06:54 | XMS_ITS | Encounter Summary ---
Author Organization [employer] Address [address] [place] [address] 7[address] [place] [address] Care Team Providers Care Configuration Management Advisor Name Role Phone Dougie Vela MD Primary Care Prov ider Encounter Details Date Type Department Care Team (Late st Contact Info) Description 07/15/2024 Orders Only [facility] External Provider, [facility] Social History Tobacco Use Types Packs/Day [...] Upcoming Encounters Date Type Department Care Team ([facility] st Contact Info) Description 08/10/2024 3:30 PM EST Telemedicine [facility] [address] [place] [address] Dougie Vela MD [address] [place] [address] 09/01/2024 3:00 PM EDT Telemedicine [facility] [address] [place] [address] Dougie Vela MD [address] [place] [address] documented as of this encounter Procedures Procedure Name Priority Date/Time Associated Diagnosis Comments US ABDOMEN COMPLETE Routine 07/15/2024 1 :43 PM EST documented in this encounter Results * US Abdomen Complete (07/15/2024 1:43 PM EST) Anatomical Region Laterality Modality Abdomen Ultrasound 07/15/2024 1:43 PM EST Narrative 07/16/2024 7:29 AM EST ? [facility] ?[address] ?[place] [address] ? Ultrasound Report ? Signed ? Patient: Reid,Dana ?MR#: [id number] ? : 1975 ?Acct:[id number] ? Age/Sex: 49 / F ?ADM Date: 01/23/25 ? Loc: HO.US ? Attending Dr: Palak Morales MD ? Ordering Physician: Palak Morales MD ?? Date of Service: 07/15/24 ?? Procedure(s): US abdomen complete ?? Accession Number(s): [id number] ? cc: Dougie Vela MD; Palak Morales MD ? EXAMINATION: ??US ABDOMEN ? HISTORY: R79.89 - Other specified abnormal findings of blood chemistry ? TECHNIQUE: Real-time grayscale ultrasound imaging of the abdomen was ?? performed and images were reviewed. ? COMPARISON: Correlation is made with a renal ultrasound dated 03/31/2024. ? FINDINGS: ?? Liver: ??The liver is normal in size and demonstrates homogeneous ?? echotexture. ??No focal mass or intrahepatic biliary ductal dilatation ?? is identified. ? Gallbladder and biliary tree: There are multiple calculi in the ?? gallbladder. There is no wall thickening or pericholecystic fluid. ? There is no sonographic Meadows sign. ??The common bile duct is dilated, ?? measuring 10 mm in diameter. ? Kidneys: ??The right kidney measures 9.6 cm in length. The left kidney ?? measures 8.2 cm in length. Again seen is a 6 mm echogenic lesion at the ?? upper pole of the left kidney which may represent an angiomyolipoma. ? The kidneys are otherwise unremarkable, without evidence of ?? hydronephrosis or calculi. ? Pancreas: The pancreas is not well visualized. ? Spleen: The spleen is enlarged, measuring 14.0 cm in length. ? Abdominal aorta and inferior vena cava: The visualized portions of the ?? abdominal aorta and inferior vena cava are normal in caliber. ? There is no free fluid in the abdomen. ? US/US abdomen complete ?? IMPRESSION: ? 1. Cholelithiasis. Dilated common bile duct. This could be secondary to ?? choledocholithiasis or mass. MRI of the abdomen with MRCP is suggested. ? 2. 6 mm echogenic lesion at the upper pole of the left kidney which ?? could represent an angiomyolipoma. This could likely be characterized ?? on MRI of the abdomen. ? 3. Splenomegaly. ? Electronically signed by: ??Lawson Madison MD ??07/16/2024 07:26 AM EST ?? RP ? Dictated By: ?Lawson Madison MD ? Signed By: ?<Electronically signed by Lawson Madison MD in OV> ?07/16/24725 ? DD/ 1343 ? TD/TT: 07/15/24 1357 ? Electrophysiology Tech: ? Procedure Note Donotuseinterpreter, Image - 07/16/2024 [place] [id number] Ultrasound Report Signed Patient: Angelica Reid#: [id number] : 1975Acct:[id number] Age/Sex: 49 / FADM Date: 07/15/24 Loc: .US Attending Dr: Palak Morales MD Ordering Physician: Palak Morales MD Date of Service: 07/15/24 Procedure(s): US abdomen complete Accession Number(s): [id number] cc: Dougie Vela MD; Palak Morales MD EXAMINATION: US ABDOMEN HISTORY: R79.89 - Other specified abnormal findings of blood chemistry TECHNIQUE: Real-time grayscale ultrasound imaging of the abdomen was performed and images were reviewed. COMPARISON: Correlation is made with a renal ultrasound dated 03/31/2024. FINDINGS: Liver: The liver is normal in size and demonstrates homogeneous echotexture. No focal mass or intrahepatic biliary ductal dilatation is identified. Gallbladder and biliary tree: There are multiple calculi in the gallbladder. There is no wall thickening or pericholecystic fluid. There is no sonographic Meadows sign. The common bile duct is dilated, measuring 10 mm in diameter. Kidneys: The right kidney measures 9.6 cm in length. The left kidney measures 8.2 cm in length. Again seen is a 6 mm echogenic lesion at the upper pole of the left kidney which may represent an angiomyolipoma. The kidneys are otherwise unremarkable, without evidence of hydronephrosis or calculi. Pancreas: The pancreas is not well visualized. Spleen: The spleen is enlarged, measuring 14.0 cm in length. Abdominal aorta and inferior vena cava: The visualized portions of the abdominal aorta and inferior vena cava are normal in caliber. There is no free fluid in the abdomen. US/US abdomen complete IMPRESSION: 1. Cholelithiasis. Dilated common bile duct. This could be secondary to choledocholithiasis or mass. MRI of the abdomen with MRCP is suggested. 2. 6 mm echogenic lesion at the upper pole of the left kidney which could represent an angiomyolipoma. This could likely be characterized on MRI of the abdomen. 3. Splenomegaly. Electronically signed by: Lawson Madison MD 07/16/2024 07:26 AM [facility] Dictated By: Lawson Madison MD Signed By: <Electronically signed by Lawson Madison MD in OV> 07/16/24 0726 DD/ 1343 TD/TT: 07/15/24 1357 Electrophysiology Tech: [facility] External Provider IMG US PROCEDURES Final Result documented in this encounter Visit Diagnoses Not on filedocumented in this encounter Additional Health Concerns Assessment Noted Time PHQ-9 Depression Total Score: 10 024 12:43 PM EDT documented as of this encounter Care Teams Configuration Management Advisor Relationship Specialty Start Date End Date Dougie Vela MD [address] [place] [address] PCP - General Internal Medicine 03/28/20 documented as of this encounter
--- OUTSIDE RECORDS SUMMARY | 2024-08-10 06:54 | XMS_ITS | Clinical Summary ---
Author Organization [facility] Address [address] [place] [address] Care Team Providers Care Cover Making Machine Operator Name Role Phone Shay Castro MD Primary Care Provider Allergies Active Allergy Reactions Criticality Noted Date Comments Haloperidol Nausea And Vomiting 02/07/2020 Medications Medication Sig Dispensed Refills Start Date End Date Status amphetamine-dextroa mphetamine (ADDERALL XR) 30 MG 24 hr capsule Take 60 mg by mouth daily. 0 01/16/2020 Active buPROPion (WELLBUTRIN XL) 300 MG 24 hr tablet 0 02/04/2020 Active busPIRone (BUSPAR) 5 MG tablet 0 02/06/2020 Active escitalopram (LEXAPRO) tablet 10 mg 0 02/04/2020 Active escitalopram (LEXAPRO) 20 MG tablet 0 02/06/2020 Active methylPREDNISolone (MEDROL DOSEPACK) 4 MG tabletIndications:C hronic right-sided low back pain with right-sided sciatica follow package directions 21 tablet 0 02/07/2020 Active Active Problems No known active problems Family History Medical History Relation Name Comments Diabetes Father Cancer Maternal Aunt breast Cancer Maternal Grandmother Alcohol abuse Mother Lupus Mother Diabetes Paternal Aunt Diabetes Paternal Grandfather Depression Paternal Grandmother Relation Name Status Comments Father Alive Maternal Aunt Maternal Grandmother Mother Alive Paternal Aunt Paternal Grandfather Paternal Grandmother Social History Tobacco Use Types Packs/Day Years Used Date Smoking Tobacco: Former Cigarettes 1 8 Q uit: 2004 Smokeless Tobacco: Never Alcohol Use Standard Drinks/Week Comments No 0 (1 standard drink = 0.6 oz pur e alcohol) no drinks in 13 yrs Sex and Gender Information Value Date Recorded Sex Assigned at Not on file Gender Identity Not on file Sexual Orientation Not on file Plan of Treatment Health Maintenance Due Date Last Done Comments Hepatitis B Vaccines (1 of 3 - 3-dose series) 1973 Hepatitis C Screening 1975 COVID-19 Vaccine (#1) 1973 Pneumococcal Vaccine (1 of 2 - PCV) 1979 Depression Screening 1985 Preventative Health Evaluation 1991 DTap / Tdap / Td (1 - Tdap) 1992 Cervical Cancer Screening (P ap Smear) 1994 Colon Cancer Screening (Colonoscopy) 2018 Breast Cancer Screening (Mammogram) 2023 Shingrix-Zoster Vaccine (1 of 2) 2023 Influenza Vaccine (#1) 2024 RSV Ped < 20 months Aged Out No longe r eligible based on patient's age to complete this topic Care Teams Cover Making Machine Operator Relationship Specialty Start Date End Date Shay Castro MD [address] [place] [address] PCP - General Family Medicine 02/07/20
--- OUTSIDE RECORDS SUMMARY | 2024-08-10 06:54 | XMS_ITS | Encounter Summary ---
Author Organization [employer] Address [address] [place] [address] [address] [place] [address] Care Team Providers Care Residential Tech Name Role Phone Dougie eVla MD Primary Care Prov ider Encounter Details Date Type Department Care Team (Latest Contact Info) Description 08/06/2024 Travel Social History Tobacco Use Types Packs/Day Years [...] Info) Description 08/10/2024 3:30 PM EST Telemedicine [facility] [address] [place] [address] Dougie Vela MD [address] [place] [address] 09/01/2024 3:00 PM EDT Telemedicine [facility] [address] [place] [address] Dougie Vela MD [address] [place] [address] documented as of this encounter Visit Diagnoses Not on filedocumented in this encounter Additional Health Concerns Assessment Noted Time PHQ-9 Depression Total Score: 10 024 12:43 PM EDT documented as of this encounter Care Teams Residential Tech Relationship Specialty Start Date End Date Dougie Vela MD [address] [place] [address] PCP - General Internal Medicine 03/28/20 documented as of this encounter
--- OUTSIDE RECORDS SUMMARY | 2024-08-10 06:54 | XMS_ITS | Encounter Summary ---
Author Organization [employer] Address [address] [place] [address] Care Team Providers Care Decaler Name Role Phone Dougie Vela MD Primary Care Prov ider Reason for Referral * Imaging (Routine) - Closed Specialty Diagnoses / Procedures Referred By Michael t Referred To Contact Radiology Diagnoses Cyst of left kidney Procedures MR Abdomen w/o Contrast Dougie Vela MD [address] [place] [address] Phone: tel: fax: [address] Phone: tel: fax: Referral ID Status Reason Start Date Expiration Date Visits Re quested Visits Authorized [id number] Closed 07/30/2024 07/30/2025 1 1 * Imaging (Routine) - Closed Specialty Diagnoses / Procedures Referred By Contac t Referred To Contact Radiology Diagnoses Common bile duct dilatation Procedures MR MRCP Dougie Vela MD [address] [place] [address] Phone: tel: fax: [address] Phone: tel: fax: Referral ID Status Reason Start Date Expiration Date Visits Re quested Visits Authorized [id number] Closed 07/30/2024 07/30/2025 1 1 Encounter Details Date Type Department Care Team (Late st Contact Info) Description 07/30/2024 Orders Only [facility] [address] [place] [address] Dougie Vela MD [address] [place] [address] Common bile duct dilatation (Primary Dx); Cyst of left kidney Social History Tobacco Use Types Packs/Day Years [...] Description 08/10/2024 3:30 PM EST Telemedicine [facility] [address] [place] [address] Dougie Vela MD [address] [place] [address] 09/01/2024 3:00 PM EDT Telemedicine [facility] [address] [place] [address] Dougie Vela MD [address] [place] [address] Scheduled Orders Name Type Priority Associated Diagnoses Orde r Schedule MR MRCP Imaging Routine Common bile duct dilatation Expected: 07/30/2024, Expires: 07/30/2025 MR Abdomen w/o Contrast Imaging Routine Cyst of left kidney Expected: 07/30/2024, Expires: 07/30/2025 documented as of this encounter Visit Diagnoses Diagnosis Common bile duct dilatation- Primary Other specified disorders of biliary tract Cyst of left kidney Unspecified congenital cystic kidney disease documented in this encounter Additional Health Concerns Assessment Noted Time PHQ-9 Depression Total Score: 10 024 12:43 PM EDT documented as of this encounter Care Teams Decaler Relationship Specialty Start Date End Date Dougie Vela MD [address] [place] [address] PCP - General Internal Medicine 03/28/20 documented as of this encounter
--- OUTSIDE RECORDS SUMMARY | 2024-08-10 06:54 | XMS_ITS | Clinical Summary ---
Author Organization [facility] Address [address] [place] [address] Care Team Providers Care Tip Cutter Name Role Phone Unavailable Primary Care Provider Unavailabl e Source Comments PLEASE NOTE, if this patient is a minor, it may be UNLAWFUL to discuss sensitive information that is contained in these records (such as FAMILY PLANNING, MENTAL HEALTH or SUBSTANCE ABUSE) with the minor patient's parent or other person without the patient's specific authorization.[facility] Allergies Active Allergy Reactions Criticality Noted Date Comments Haloperidol Other (See Comments) 09/20/2016 dystonia Medications ARIPiprazole (ABILIFY) 15 mg tablet 7 Active SUBOXONE 8-2 mg SL film 7 Active buPROPion (WELLBUTRIN XL) 300 mg 24 hr tablet 7 Active clonazePAM (KLONOPIN) 1 mg tablet 7 Active dextroamphetamin e-amphetamine (ADDERALL XR) 30 mg 24 hr capsule 7 Active gabapentin (NEURONTIN) 300 mg capsule 7 Active methocarbamol (ROBAXIN) 750 mg tablet 7 Active NARCAN 4 mg/actuation nasal spray 7 Active sertraline (ZOLOFT) 100 mg tablet 7 Active traZODone (DESYREL) 100 mg tablet 7 Active docusate sodium (COLACE) 100 mg capsuleIndicatio ns:Constipation, unspecified constipation type Take 1 Cap by mouth 2 (two) times daily as needed for constipation 60 Cap 3 7 Active albuterol sulfate hfa 90 mcg/actuation inhalerIndicatio ns:Mild intermittent asthma without complication Inhale 2 Puffs into the lungs every 6 (six) hours as needed for shortness of breath or wheezing 1 Inhaler 1 7 Active multivitamins with calcium and minerals-folic acid 267 mcg per tablet Take 1 Tab by mouth once daily 30 Tab 3 7 Active Active Problems Problem Noted Date Diagnosed Date Depression with anxiety 09/20/2016 Overview (09/20/2016): Has anxiety/depression, ADHD, following at [facility]. On meds. Mild intermittent asthma without complication Opioid abuse ([facility]) 09/20/2016 Overview (09/20/2016): H/O IV Heroin use, recent admission to [facility] 07/2016 with possible OD and right ankle displaced fracture, fracture of the base of the third, fourth and possible second metatarsals. Now in remission since 07/29/16, [facility]. Closed fracture of right ankle 09/20/2016 Overview (09/20/2016): admitted to [facility] 07/2016 with possible Heroin OD and right ankle displaced fracture, fracture of the base of the third, fourth and possible second metatarsals. A closed reduction of the ankle fracture was attempted with insufficient reduction/alignment. Orthopedic surgery did ORIF and I&D of the right ankle on 07/31. Following [facility]. Obesity (BMI 30.0-34.9) 09/20/2016 Chronic midline low back pain with right-sided s ciatica 09/20/2016 Overview (09/20/2016): Per pt she had herniated disc, s/p microdiscectomy in [place] in 2007. Dyslipidemia 09/20/2016 Constipation 09/20/2016 Social History Tobacco Use Types Packs/Day Years Used Date Smoking Tobacco: Former Alcohol Use Standard Drinks/Week Comments No 0 (1 standard drink = 0.6 oz pur e alcohol) Social Connections Answer Date Recorded Social Connections and Isolation 0 02/14/2019 Financial Resource Strain Answer Date R ecorded Financial Resource Strain 0 2018 Stress Answer Date Recorded Stress 0 02/14/2019 Physical Activity Answer Date Recorded Physical Activity 0 02/14/2019 Food Insecurity Answer Date Recorded Food 0 02/14/2019 Transportation Needs Answer Date Record ed Transportation 0 02/14/2019 Housing Stability Answer Date Recorded Housing 0 02/14/2019 Safety and Environment Answer Date Drew rded Safety 0 02/14/2019 Utilities Answer Date Recorded Utilities 0 02/14/2019 Employment Answer Date Recorded Employment 0 02/14/2019 Comments No Sex and Gender Information Value Date Recorded Sex Assigned at Not on file Legal Sex Female 11:06 AM PST Gender Identity Not on file Sexual Orientation Not on file Last Filed Vital Signs Vital Sign Reading Time Taken Comments Blood Pressure 120/74 09/20/2016 9:33 AM EDT Pulse 92 09/20/2016 9:33 AM EDT Temperature 36.1 ??C (97 ??F) 09/20/2016 9:33 AM EDT Respiratory Rate 20 09/20/2016 9:33 AM EDT Oxygen Saturation - - Inhaled Oxygen Concentration - - Weight 104.3 kg (230 lb) 09/20/2016 9:33 AM EDT Pt has boot Height 175.3 cm (5' 9 ) 09/20/2016 9:33 AM EDT Body Mass Index 33.97 09/20/2016 9:33 AM EDT Plan of Treatment Not on file Insurance [facility] Member Subscriber Plan / Payer (Ef fective 2015-Present) Name:Dana Reid Relation to Subscriber:Self Name:Dana Reid Payer ID:[id number] Group ID:Not on file Type:Medicaid Address: [facility] [id number] [id number]
--- OUTSIDE RECORDS SUMMARY | 2024-08-10 06:54 | XMS_ITS | Encounter Summary ---
Author Organization [employer] Address [address] [place] [address] [place] [address] Care Team Providers Care Skidway Man Name Role Phone Dougie Vela MD Primary Care Prov ider Reason for Visit * Reason Onset Date Comments Call Back Request 07/14/2024 Encounter Details Date Type Department Care Team ([facility] st Contact Info) Description 07/14/2024 Telephone [facility] [address] [place] [address] Dougie Vela MD [address] [place] [address] Call Back Request Social History Tobacco Use Types Packs/Day Years [...] encounter Miscellaneous Notes * Telephone Encounter - Abeba Kirk - 07/28/2024 2:08 PM EST Tc from pt requesting a call back . States has tried contacting [facility] and was inform they do not prescribe any weight lost injection . Pt wants to see if pcp can referral her to a different location that prescribes injections for weight lost . Please call pt to further discuss. * Telephone Encounter - Fiona Knutson RN - 07/15/2024 1:29 PM EST TC to pt in regards to message below. Pt states that she has been trying to get on medication for quite some time and no one will prescribe it. Pt states that she cannot talk at the moment and would like to have a call back. Nurse to set call for tomorrow. * Telephone Encounter - Mauro Trejo - 07/14/2024 2:53 PM EST Tc from pt requesting a callback as she will like to try (Zepbound) weight loss medication as pt inform she doesn't want to do the surgery. Callback requested [phone] documented in this encounter Plan of Treatment Upcoming Encounters Date Type Department Care Team (Late st Contact Info) Description 08/10/2024 3:30 PM EST Telemedicine [facility] [address] [place] [address] Dougie Vela MD [address] [place] [address] 09/01/2024 3:00 PM EDT Telemedicine [facility] [address] [place] [address] Dougie Vela MD [address] [place] [address] documented as of this encounter Visit Diagnoses Not on filedocumented in this encounter Additional Health Concerns Assessment Noted Time PHQ-9 Depression Total Score: 10 024 12:43 PM EDT documented as of this encounter Care Teams Skidway Man Relationship Specialty Start Date End Date Dougie Vela MD [address] [place] [address] PCP - General Internal Medicine 03/28/20 documented as of this encounter
--- OUTSIDE RECORDS SUMMARY | 2024-08-10 06:55 | XMS_ITS | Clinical Summary ---
Author Organization [employer] Address [address] [place] [address] 7[address] [place] [address] Care Team Providers Care Moveman Name Role Phone Dougie Vela MD Primary Care Prov ider Allergies Active Allergy Reactions Criticality Noted Date Comments Haloperidol Hallucinations Low 05/31/2022 Medications albuterol (ProAir HFA) 108 (90 Base) MCG/ACT inhaler Inhale 2 puffs. 7 Active Adderall XR 30 MG 24 hr capsule TAKE 2 CAPSULE BY MOUTH ONCE A DAY BRAND NAME ONLY 2 Active Blood Pressure Monitoring (Omron 3 Series BP Monitor) device Check blood pressure on arm as directed 2 Active buPROPion XL (Wellbutrin XL) 300 MG 24 hr tablet Take 300 mg by mouth in the morning. 2 Active naloxone (Narcan) 4 mg/0.1 mL nasal spray 7 Active sertraline (Zoloft) 100 MG tablet 2 Active traZODone (Desyrel) 50 MG tablet Take 50 mg by mouth if needed at bedtime. 2 Active docusate sodium (Colace) 100 MG capsuleIndication s:Drug-induced constipation TAKE 1 CAPSULE BY MOUTH TWICE A DAY 180 capsule 3 Active gabapentin (Neurontin) 100 MG capsule Take 1 capsule (100 mg) by mouth every 8 (eight) hours. 90 capsule 4 Active atorvastatin (Lipitor) 20 MG tablet TAKE 1 TABLET BY MOUTH EVERY DAY 90 tablet 1 4 Active amLODIPine (Norvasc) 5 MG tabletIndications :Primary hypertension TAKE 1 TABLET BY MOUTH EVERY DAY 90 tablet 1 4 Active Active Problems Problem Noted Date Diagnosed Date Chronic pain of right ankle 07/11/2024 Assessment & Plan (07/11/2024 4:02 PM EST): Patient had right ankle fracture wants to see ortho, will place referral Stage 3b chronic kidney disease 02/26/2024 Assessment & Plan (02/26/2024 1:30 PM EDT): Will refer to nephrology for follow up Elevated liver enzymes 02/26/2024 Assessment & Plan (02/26/2024 1:31 PM EDT): Elevated liver enzymes, alk phos and ggt, has hx of fatty liver, will refer to gi for evaluation Drug-induced constipation 07/01/2022 Assessment & Plan (07/01/2022 3:33 PM EST): Will provide docusate to be taken BID, increase water and fiber in diet LUIS (acute kidney injury) 07/01/2022 Assessment & Plan (07/01/2022 3:37 PM EST): Her creatine decreased to 1.9, her baseline is around 1.1-1.2, started on amlodipine 5mg, stopped lisinopril and hydrochlorothiazide, told to maintain well hydrated new lab ordered to be done on Primary hypertension 07/01/2022 Assessment & Plan (07/11/2024 4:04 PM EST): Controlled, continue low sodium diet and exercise as tolerated, keep bp log, target <140/90 Assessment & Plan (02/26/2024 1:27 PM EDT): Controlled, no changes will be made, keep low sodium diet and exercise as tolerated Assessment & Plan (02/15/2024 10:43 PM EDT): Controlled on amlodipine, keep low sodium diet and exercise as tolerated, follow up in 4 months, keep bp log target <140/90 Assessment & Plan (03/10/2023 10:21 PM EDT): Patient not monitoring her bp, refer today was 116/82, reinforced importance of monitoring, will order new cmp for renal/liver follow up. Assessment & Plan (11/22/2022 10:11 PM EDT): Patient only taking amlodipine 5mg, refers since her bp was stable for a couple of weeks she stopped monitoring her bp, told to restart daily monitoring, reinforced low sodium diet and exercise as tolerated, will order new blood work to evaluate renal function, follow up in 3 months Assessment & Plan (07/31/2022 12:57 PM EST): Stable, continue amlodipine, no side effects reported, new BMP will be ordered for renal function follow up Assessment & Plan (07/01/2022 3:38 PM EST): Controlled with amlodipine 5mg, no changes will be made, reinforced low sodium diet and exercise as tolerated Cellulitis of right breast 05/31/2022 Assessment & Plan (07/01/2022 3:36 PM EST): Patient injects her breast, right side got infected, on examination no induration, no discharge, no erythema, no tenderness. Told to clean with soap and water, wound healing by secondary intention, in case of new symptoms or changes revisit clinic. Assessment & Plan (05/31/2022 11:24 AM EST): No indurations or signs of abscess. Will rx cephalexin and bactrim. Chronic midline low back pain with right-sided s ciatica 09/20/2016 Overview (05/31/2022): Per pt she had herniated disc, s/p microdiscectomy in [place] in 2007. Closed fracture of right ankle 09/20/2016 Overview (05/31/2022): admitted to [facility] 07/2016 with possible Heroin OD and right ankle displaced fracture, fracture of the base of the third, fourth and possible second metatarsals. A closed reduction of the ankle fracture was attempted with insufficient reduction/alignment. Orthopedic surgery did ORIF and I&D of the right ankle on 07/31. Following [facility]. Constipation 09/20/2016 Assessment & Plan (11/22/2022 10:11 PM EDT): Will add metamucil, reinforced high fiber diet, increase water intake Depression with anxiety 09/20/2016 Overview (05/31/2022): Has anxiety/depression, ADHD, following at [facility]. On meds. Dyslipidemia 09/20/2016 Assessment & Plan (02/26/2024 1:29 PM EDT): Ascvd 7.0% will start on atorvastatin, risk vs benefits discussed, follow up in 3 months Mild intermittent asthma without complication Obesity (BMI 30.0-34.9) 09/20/2016 Assessment & Plan (07/11/2024 3:49 PM EST): Will refer to bariatric surgery for evaluation Opioid abuse 09/20/2016 Overview (05/31/2022): H/O IV Heroin use, recent [place] [facility] [place] with possible OD and right ankle displaced fracture, fracture of the base of the third, fourth and possible second metatarsals. Now in remission since 07/29/16, now in suboxone clinic through [facility]. Encounters Date Type Department Care Team Description 08/06/2024 Travel 07/31/2024 Orders Only [facility] External Provider, [facility] 07/30/2024 Telephone [facility] [address] [place] [address] Dougie Vela MD Results; Referral 07/30/2024 Orders Only [facility] [address] [place], [place] [phone] Dougie Vela MD Common bile duct dilatation (Primary Dx); Cyst of left kidney 07/15/2024 Orders Only [facility] External Provider, [facility] 07/14/2024 Telephone [facility] [address] [place] [phone] Dougie Vela MD Call Back Request 06/09/[address] [address] Dougie Vela MD Referral 06/03/2024 3:30 PM EST Office Visit [facility] [address] [place], [place] [phone] Dougie Vela MD Obesity (BMI 30.0-34.9) (Primary Dx); Chronic pain of right ankle; Primary hypertension 06/03/2024 Travel 05/27/2024 Telephone [facility] [address] [place] [phone] Dougie Vela MD Medication Question 05/23/2024 Refill [facility] [address] [place] [address] Dougie Vela MD Primary hypertension 05/23/2024 Refill [facility] [address] [place], [place] [phone] Madhu Godinez MD Primary hypertension 05/18/2024 Telephone [facility] [address] [place] [phone] Dougie Vela MD Medication Question from Last 3 Months Immunizations Name Administration Dates Next Due Pfizer Covid-19 Vaccine 12+ zelda-sucrose (Merino C ap) 08/27/2021 Social History Tobacco Use Types Packs/Day Years Used Date Smoking Tobacco: Never Passive Smoke Exposure: Never Smokeless Tobacco: Never Tobacco Cessation:Counseling Given: Not Answered Alcohol Use Standard Drinks/Week Comments Never 0 (1 standard drink = 0.6 oz pur e alcohol) Depression Answer Date Recorded Patient Health Questionnaire-9 Score 10 02/26/2024 Patient Health Questionnaire-9 Score 10 02/26/2024 Last PHQ-9: Questionnaire Data Not on file 0 02/26/2024 Housing Stability Answer Date Recorded What is your housing situation today? I have tanisha sing 02/26/[address] you li [...] Orientation Straight 04/22/2022 10 :37 AM EDT Last Filed Vital Signs Vital Sign Reading Time Taken Comments Blood Pressure 138/76 06/03/2024 3:49 PM EST Pulse 72 06/03/2024 3:49 PM EST Temperature 35.9 ??C (96.7 ??F) 06/03/2024 3:49 PM ES T Respiratory Rate 20 06/03/2024 3:49 PM EST Oxygen Saturation 98% 01/27/2024 3:41 PM EDT Inhaled Oxygen Concentration - - Weight 98.9 kg (218 lb) 06/03/2024 3:49 PM EST Height 172.7 cm (5' 8 ) 06/03/2024 3:49 PM EST Body Mass Index 33.15 06/03/2024 3:49 PM EST Plan of Treatment Upcoming Encounters Date Type Department Care Team (Late st Contact Info) Description 08/10/2024 3:30 PM EST [facility] [address] [place] [address] Dougie Vela MD [address] [place] [address] 09/01/2024 3:00 PM EDT Telemedicine [facility] [address] [place] [address] Dougie Vela MD [address] [place] [address] Health Maintenance Due Date Last Done Comments CT Colonography 1973 Colonoscopy 1973 FIT 1973 FOBT 1975 Sigmoidoscopy 1973 Alcohol/Substance Use Screening 1985 Family Planning (PISQ) 1988 DTaP/Tdap/Td Vaccines (1 - Tdap) 1992 Hepatitis A Vaccines (1 of 2 - Risk 2-dose series) 1992 Hepatitis B Vaccines (1 of 3 - 19+ 3-dose series) 1992 Pneumococcal Vaccine: 50+ Years (1 of 2 - PCV) 1992 COVID-19 Vaccine ( season) 2024 09/24/2023, 05/03/2022, 08/27/2021, Additional history exists Influenza Vaccine (#1) 2024 Tobacco Screening 07/23/2024 07/23/2023 Depression Monitoring (PHQ-9) 08/25/2024 02/26/2024, 02/26/2024 Mammogram 01/30/2025 01/30/2023, 07/0 08/2022, 12/13/2021 Depression Screening 02/25/2025 02/26/2024, 02/26/20 24 SDOH Screening 02/25/2025 02/26/2024 Pap Smear 03/19/2025 03/19/2022 Colorectal Cancer Screening 12/09/2025 FIT DNA/Cologuard 12/09/2025 Cervical Cancer Screening 03/19/2027 HPV/Cotest 03/19/2027 03/19/2022 Lipid Panel 01/28/2029 01/29/2024, 01/03/2022 RSV Patients and Patients Aged 60 years or older (1 - 1-dose 75+ series) 2048 HIV Screening Completed 01/03/2022 Hepatitis C Screening Completed 12/13/2022, 022 Zoster Vaccines Completed 12/03/2023, 09/24/2023 HIB Vaccines Aged Out No longer eligi ble based on patient's age to complete this topic HPV Vaccines Aged Out No longer eligi ble based on patient's age to complete this topic IPV Vaccines Aged Out No longer eligi ble based on patient's age to complete this topic Meningococcal Vaccine Aged Out No ru jv eligible based on patient's age to complete this topic RSV under 20 months Aged Out No longe r eligible based on patient's age to complete this topic Rotavirus Vaccines Aged Out No longer eligible based on patient's age to complete this topic Procedures Procedure Name Priority Date/Time Associated Diagnosis Comments MR ABDOMEN W AND WO CONTRAST Routine 07/31/2024 6:00 PM EST US ABDOMEN COMPLETE Routine 07/15/2024 1 :43 PM EST LIPID PANEL, STANDARD Routine 01/29/2024 3:45 PM EDT Albuminuria BI MAMMOGRAM DIAGNOSTIC RIGHT Routine 01/30/2023 3:05 PM EDT HEPATITIS C AB W/REFL TO HCV RNA, QN, PCR Routine 12/13/2022 2:32 PM EDT Primary hypertension THINPREP IMAGING PAP AND HPV MRNA E6/E7 WITH REFLEX TO HPV 16,18/45 Routine 03/19/2022 2:17 PM EDT HIV 1/2 ANTIGEN/ANTIBODY, FOURTH GENERATION W/RFL Routine 01/03/2022 12:04 PM EDT from Last 3 Months or Most Recently Relevant to Health Maintenance Results * MR Abdomen w/ and w/o Contrast (07/31/2024 6:00 PM EST) Anatomical Region Laterality Modality Abdomen Magnetic Resonan ce 07/31/2024 6:00 PM EST Narrative 07/31/2024 6:01 PM EST ? [facility] ?[address] ?[place] [address] ? Magnetic Resonance Report ? Signed ? Patient: Reid,Dana ?MR#: [id number] ? : 1975 ?Acct:[id number] ? Age/Sex: 49 / F ?ADM Date: 07/31/24 ? Loc: HO.MRI ? Attending Dr: Palak Morales MD ? Ordering Physician: Palak Morales MD ?? Date of Service: 07/31/24 ?? Procedure(s): MR abdomen wo/w con ?? Accession Number(s): [id number] ? cc: FossDougie Collins MD; Palak Morales MD ? CLINICAL HISTORY: R74.8 - Abnormal levels of other serum enzymes , pt was not NPO for test ? MR abdomen with and without gadolinium ? Comparison: US/FL/SR - US ABDOMEN COMPLETE - 07/15/24 13:41 [...] DD/ 1800 ? TD/TT: 07/31/24 1800 ? Audit Consultant: ? Procedure Note Cory, Michael - 07/31/[address] [place] [address] Magnetic Resonance Report Signed Patient: Angelica Reid#: [id number] : 1975Acct:[id number] Age/Sex: 49 / FADM Date: 07/31/24 Loc: HO.MRI Attending Dr: Palak Morales MD Ordering Physician: Palak Morales MD Date of Service: 07/31/24 Procedure(s): MR abdomen wo/w con Accession Number(s): [id number] cc: Dougie Vela MD; Palak Morales MD CLINICAL HISTORY: R74.8 - Abnormal levels of other serum enzymes , pt wasnot NPO for test MR abdomen with and without gadolinium Comparison: US/FL/SR - US ABDOMEN COMPLETE - 07/15/24 13:41 [...] 07/31/24 1801 DD/ 1800 TD/TT: 07/31/24 1800 Audit Consultant: [facility] External Provider IMG MRI PROCEDURES Edited Result - Final * US Abdomen Complete (07/15/2024 1:43 PM EST) Anatomical Region Laterality Modality Abdomen Ultrasound 07/15/2024 1:43 PM EST Narrative 07/16/2024 7:29 AM EST ? [place] [facility] ?[address] ?[place] [address] ? Ultrasound Report ? Signed ? Patient: Reid,Dana ?MR#: [id number] ? : 1975 ?Acct:[id number] ? Age/Sex: 49 / F ?ADM Date: 07/15/24 ? Loc: HO.US ? Attending Dr: Palak Morales MD ? Ordering Physician: Palak Morales MD ?? Date of Service: 07/15/24 ?? Procedure(s): US abdomen complete ?? Accession Number(s): [id number] ? cc: Foss Dougie Cook MD; Palak Morales MD ? EXAMINATION: ??US [...] signed by Lawson Madison MD in OV> ?07/16/24 0726 ? DD/ 1343 ? TD/TT: 07/15/24 1357 ? Audit Consultant: ? Procedure Note Donotshaunter, Image - 07/16/2024 [place] [address] Ultrasound Report Signed Patient: Angelica Reid#: [id number] : 1975Acct:[id number] Age/Sex: 49 / FADM Date: 07/15/24 Loc: HO.US Attending Dr: Palak Morales MD Ordering Physician: Palak Morales MD Date of Service: 07/15/24 Procedure(s): US abdomen complete Accession Number(s): [id number] cc: Dougie Vela MD; Palak Morales MD [...] by: Lawson Madison MD 07/16/2024 07:26 AM EST Dictated By: Lawson Madison MD Signed By: <Electronically signed by Lawson Madison MD in OV> 07/16/24 0726 DD/ 1343 TD/TT: 07/15/24 1357 Audit Consultant: us [facility] External Provider IMG US PROCEDURES Final Result * (ABNORMAL) Lipid Panel, Standard (01/29/2024 3:45 PM EDT) Triglycerides 229(H) <150 mg/dL [facility] Comment:Desirable Triglyceri de: less than 150 mg/dLBorderline High Triglyceride 150-199 mg/dLHigh Triglyceride: 200-499 mg/dLVery High Triglyceride: greater than or equal to 5OO mg/dL Cholesterol 269(H) <200 mg/dL [facility] Comment:Desirable Cholestero l: less than 200 mg/dLBorderline High Cholesterol: 200-239 mg/dLHigh Cholesterol: greater than 239 mg/dL LDL Cholesterol Calculated 182(H) <100 mg/dL [facility] Comment:Desirable LDL: less than 100 mg/dLNear Optimal/Above Optimal LDL: 110- 129 mg/dLBorderline High LDL: 130-159 mg/dLHigh LDL: 160-189 mg/dLVery High LDL: greater than or equal to 190 mg/dL HDL Cholesterol 42 >40 mg/dL [facility] Comment:Desirable HDL: great er than 40 mg/dL Note: This HDL assay may give artificially low results in patients with liver disease. Blood Venous blood specimen / Unknown 01/29/2024 3:45 PM EDT 01/29/2024 5:43 PM EDT us Dougie Cook MD LAB BLOOD ORDERABL ES Final Result [facility] [address] [place] [address] [phone] * Mammogram Diagnostic Right (01/30/2023 3:05 PM EDT) Anatomical Region Laterality Modality Breast Right Mammography 01/30/2023 3:05 PM EDT Narrative 01/30/2023 3:32 PM EDT ? [facility] ? [address] ?[place] [address] ? Ultrasound Report ? Signed ? Patient: Reid,Dana ?MR#: [id number] ? : 1975 ?Acct:[id number] ? Age/Sex: 47 / F ?ADM Date: 01/30/23 ? Loc: HO.MAMMO ? Attending Dr: Dougie Cook MD ? Ordering Physician: Dougie Vela MD ?? Date of Service: 01/30/23 ?? Procedure(s): US breast RT limited mamm only ?? Accession Number(s): [id number] ? cc: Dougie Vela MD ? EXAMINATION: ?? MM DIAGNOSTIC DIGITAL BREAST TOMOSYNTHESIS, RIGHT ?? US BREAST LIMITED, RIGHT ? MAMMOGRAPHY: ?? CLINICAL INFORMATION: ? Follow-up focal asymmetries seen right breast on screening examination. ? The lifetime risk of breast cancer based on the Aarti-Kelleyck Model is ?? 20.7%. ? COMPARISON: ?? Mammography: 01/10/2023, 01/12/2022. ? TECHNIQUE: ?? Digital right breast tomosynthesis is performed in both the ?? craniocaudal and mediolateral oblique views along with computer-aided ?? detection (CAD). Synthesized 2D images are generated from the ?? tomosynthesis. In addition, full-field 3 right mediolateral view, 3-D ?? right mediolateral spot compression view, 3-D right MLO spot ?? compression view, and 3-D right CC spot compression views were ?? performed. ? FINDINGS: ?? There are scattered areas of fibroglandular density (ACR BI-RADS breast ?? composition Category b). ? There are numerous small circumscribed masses in both breasts measuring ?? 4-5 mm, statistically benign, most likely representing small cysts. ? In the left breast posterior depth, approximately 2:30 o'clock axis, ?? there is a lobular mass measuring 7 x 7 mm with internal regions of fat ?? density, likely representing a region of fat necrosis or a breast ?? hamartoma. This will be evaluated with ultrasound. ? Results were provided to the patient at time of visit by the ?? technologist. ? ULTRASOUND: ?? CLINICAL INFORMATION: ?? Evaluate right breast lobular 7 mm mass, posterior depth, 2:30 o'clock ?? axis. ? COMPARISON: ?? 12/13/2021. ? TECHNIQUE: ?? Targeted sonographic evaluation was performed using a high frequency ?? linear transducer. ??Selected archived documentation. ? FINDINGS: ? RIGHT BREAST: ? In the 2:00 axis of the right breast, 12 cm from the nipple, just ?? beneath the skin, is a mixed echogenic and hypoechoic lobular mass ?? measuring approximately 0.7 x 0.5 x 1.0 cm. This has features most ?? consistent with a region of fat necrosis. As per the technologist, ?? there is bruising at the skin in this region. This correlates well with ?? the abnormality seen on mammography. ? No suspicious abnormalities identified. ? US/US breast RT limited mamm only ?? IMPRESSION: ?? Findings at the 2:00 axis of the right breast consistent with a region ?? of subcutaneous fat necrosis. No findings suspicious for malignancy. ? Numerous circumscribed small low density right breast masses on ?? mammography, and in retrospect several are also present in the left ?? breast as well. These are statistically benign and consistent with ?? numerous small cysts. ?? Recommend the patient resume annual routine screening mammography. ? OVERALL ASSESSMENT: ?? Mammography: BI-RADS 2 - Benign Findings ?? Ultrasound: BI-RADS 2 - Benign Findings ? RECOMMENDATION: ?? 1 year F/U ? This patient's information was entered into a reminder system with a ?? target due date for their next mammogram. ? Dictated By: ?Raffaele Freedman MD ? Signed By: ?<Electronically signed by Raffaele Freedman MD in OV> ?08/10/23 1529 ? DD/ 1505 ? TD/TT: ? Audit Consultant: ? Procedure Note Donlimater, Image - 01/31/2023 [place] [facility] [address] [place] [address] Ultrasound Report Signed Patient: Angelica Reid#: [id number] : 1975Acct:[id number] Age/Sex: 47 / FADM Date: 01/30/23 Loc: HO.MAMMO Attending Dr: Dougie Cook MD Ordering Physician: Dougie Vela MD Date of Service: 01/30/23 Procedure(s): US breast RT limited mamm only Accession Number(s): [id number] cc: Dougie Vela MD EXAMINATION: MM DIAGNOSTIC DIGITAL BREAST TOMOSYNTHESIS, RIGHT US BREAST LIMITED, RIGHT MAMMOGRAPHY: CLINICAL INFORMATION: Follow-up focal asymmetries seen right breast on screening examination. The lifetime risk of breast cancer based on the Tyrer-Cuzick Model is 20.7%. COMPARISON: Mammography: 01/10/2023, 01/12/2022. TECHNIQUE: Digital right breast tomosynthesis is performed in both the craniocaudal and mediolateral oblique views along with computer-aided detection (CAD). Synthesized 2D images are generated from the tomosynthesis. In addition, full-field 3 right mediolateral view, 3-D right mediolateral spot compression view, 3-D right MLO spot compression view, and 3-D right CC spot compression views were performed. FINDINGS: There are scattered areas of fibroglandular density (ACR BI-RADS breast composition Category b). There are numerous small circumscribed masses in both breasts measuring 4-5 mm, statistically benign, most likely representing small cysts. In the left breast posterior depth, approximately 2:30 o'clock axis, there is a lobular mass measuring 7 x 7 mm with internal regions of fat density, likely representing a region of fat necrosis or a breast hamartoma. This will be evaluated with ultrasound. Results were provided to the patient at time of visit by the technologist. ULTRASOUND: CLINICAL INFORMATION: Evaluate right breast lobular 7 mm mass, posterior depth, 2:30 o'clock axis. COMPARISON: 12/13/2021. TECHNIQUE: Targeted sonographic evaluation was performed using a high frequency linear transducer. Selected archived documentation. FINDINGS: RIGHT BREAST: In the 2:00 axis of the right breast, 12 cm from the nipple, just beneath the skin, is a mixed echogenic and hypoechoic lobular mass measuring approximately 0.7 x 0.5 x 1.0 cm. This has features most consistent with a region of fat necrosis. As per the technologist, there is bruising at the skin in this region. This correlates well with the abnormality seen on mammography. No suspicious abnormalities identified. US/US breast RT limited mamm only IMPRESSION: Findings at the 2:00 axis of the right breast consistent with a region of subcutaneous fat necrosis. No findings suspicious for malignancy. Numerous circumscribed small low density right breast masses on mammography, and in retrospect several are also present in the left breast as well. These are statistically benign and consistent with numerous small cysts. Recommend the patient resume annual routine screening mammography. OVERALL ASSESSMENT: Mammography: BI-RADS 2 - Benign Findings Ultrasound: BI-RADS 2 - Benign Findings RECOMMENDATION: 1 year F/U This patient's information was entered into a reminder system with a target due date for their next mammogram. Dictated By: Raffaele Freedman MD Signed By: <Electronically signed by Raffaele Freedman MD in OV> 01/30/23 1529 DD/ 1505 TD/TT: Audit Consultant: Dougie Cook MD IM BI PROCEDURES Edited Result - Final * Hepatitis C Antibody with Reflex to HCV, RNA, Quantitative, Real-Time PCR (12/13/2022 2:32 PM EDT) Hepatitis C Antibody NON-REACT NELY NON-REACT NELY [facility] Comment: HCV antibody was non-reactive. There is no laboratory evidence of HCV infection. In most cases, no further action is required. However, if recent HCV exposure is suspected, a test for HCV RNA (test code 91249) is suggested. For additional information please refer to http://education.Lyatiss/faq/FKJ21v8 (This link is being provided for informational/ educational purposes only.) Blood Venous blood specimen / Unknown 12/13/2022 2:32 PM EDT 12/13/2022 2:33 PM EDT Narrative [facility] - 12/14/2022 7:42 AM EDT FASTING:NO FASTING: NO Dougie Cook MD LAB BLOOD ORDERABL ES Final Result [address], [place] [address] [facility] [phone] * THINPREP TIS PAP AND HPV mRNA E6/E7 WITH REFLEX TO HPV 16,18/45 (03/19/2022 2:17 PM EDT) [facility] Clinical Information: None given CONVERTED LEGACY LABS COMMENT SEE COMMENT [facility] Comment: EXPLANATORY NOTE: ? The Pap is a screening test for cervical cancer. It is ?? not a diagnostic test and is subject to false negative ?? and false positive results. It is most reliable when a ?? satisfactory sample, regularly obtained, is submitted ?? with relevant clinical findings and history, and when ?? the Pap result is evaluated along with historic and ?? current clinical information. ?? COMMENT: This Pap test has been evaluated with computer assisted technology. CONVERTED LEGACY LABS Preschool Assistant Director : SEE COMMENT CONVERTED LEGACY LABS Comment: ED, CT(ASCP) CT screening location: ?? [facility] ?? [address] [place] [address] ?? [place], [place] [address] HPV nRNA E6/E7 Not Detected Not Detected CONVERTED LEGACY LABS Comment: Methodology: Final Inspector Paper-Mediated Amplification This assay detects E6/E7 viral messenger RNA (mRNA) from 14 high-risk HPV types (16,18,31,33,35,39,45,51,52,56,58,59,66,68). ? Cervical sources are required for HPV testing. If a vaginal source from a patient who has had a total hysterectomy with removal of cervix was ?? submitted, please contact the testing laboratory for alternative testing options. ?? For additional information, please refer to http://education.Lyatiss/faq/APT354y9 (This link if provided for information/ educational purposes only.) Infection Shift in vaginal meenu suggestive of bacterial vaginosis. CONVERTED LEGACY LABS Interpretation/R esult: Negative for intraepithelial lesion or malignancy. CONVERTED LEGACY LABS LMP: 06/2021 CONVERTED LEGACY LABS Prev. BX: NONE GIVEN CONVERTED LEGACY LABS Prev. PAP: 4X ABNL PAP,COLPOSCOPY NIL AFTER CONVERTED LEGACY LABS Review Preschool Assistant Director : SEE COMMENT CONVERTED LEGACY LABS Comment: SL, CT(ASCP) CT screening location: [address] ??[address] SOURCE: None given CONVERTED LEGACY LABS Statement Of Adequacy: SEE COMMENT CONVERTED LEGACY LABS Comment: Satisfactory for evaluation. Endocervical/transformation zone component absent. 03/19/2022 2:17 PM EDT Amalia SAHNI LAB PATHOLOGY ORDERABLES Final Result CONVERTED LEGACY LABS * (ABNORMAL) HIV 1/2 ANTIGEN/ANTIBODY,FOURTH GENERATION W/RFL (01/03/2022 12:04 PM EDT) HIV-1/2 ANTIGEN AND ANTIBODIES, 4TH GENERATION W/ REFLEX REPEATEDLY REACTIVE(A) [facility] Comment: The repeatedly reactive screening assay result is confirmed by duplicate repeat testing, and indicates a POSSIBLE presence of HIV-1 antibodies or HIV-2 ?? antibodies, and/or HIV-1 p24 antigen. Additional testing is required for diagnosis. ? Therefore, these screening results must be correlated ?? with results of reflex confirmatory tests, including the HIV-1/HIV-2 antibody differentiation assay and, if necessary, HIV-1 RNA, Qualitative Real-Time PCR. ?? The 4th generation HIV-1/2 Antigen/Antibody combination immunoassay is a screening test and should not be used alone for diagnosis. Repeatedly reactive results from the 4th generation screening test are only indicative of HIV infection when those screening results are confirmed to be positive by either the HIV-1/2 Antibody Differentiation Assay or the HIV-1 RNA, Qualitative Real-Time PCR test. ?? PLEASE NOTE: This information has been disclosed to you from records whose confidentiality may be protected by state law. If your state requires such protection, then the state law prohibits you from making any further disclosure of the information without the specific written consent of the person to whom it pertains, or as otherwise permitted by law. A general authorization for the release of medical or other information is NOT sufficient for this purpose. ?? The performance of this assay has not been clinically validated in patients less than 2 years old. ?? 01/03/2022 12:0 4 PM EDT Dougie Cook MD LAB BLOOD ORDERABL ES Final Result [facility] Anywhere [address] from Last 3 Months or Most Recently Relevant to Health Maintenance Insurance MEDICARE ADVANTAGE HMO Care Teams Moveman Relationship Specialty Start Date End Date Dougie Vela MD [address] [place] [address] PCP - General Internal Medicine 03/28/20
[2024-08-30 15:56] VITALS: BMI 34.1
--- NOTE | 2024-08-31 08:16 | HO.ANESPROP2 ---
Documented by User: Shahla Nugent NP 08/31/24 08:20 HPI - Anesthesia Eval Consult details Narrative: 49yo F for ERCP IVDA - reports daily heroin Methadone? PMFSH Active Problems Active Problems: All Active Problems Dilated bile duct (Acute) Elevated alkaline phosphatase level (Acute) IVDU (intravenous drug user) (Acute) Elevated LFTs (Acute) UTI (urinary tract infection) (Acute) CKD (chronic kidney disease) (Acute) Past Medical History Medical History (Updated 08/30/24 @ 16:01 by Keily Damon, RN) Ambulates with cane Asthma CKD (chronic kidney disease) IVDU (intravenous drug user) Foot drop, right Surgical History Surgical History (Updated 08/30/24 @ 15:29 by Keily Damon, RN) History of back surgery Social History Social History (Updated 08/30/24 @ 15:59 by Keily Damon, GELACIO) Household Members: Friend(s) Housing: House Are you a primary respiratory care instructor to a significant other at home: No Do you presently have visiting nurse or other home services: No Comment: right foot drop Patient Tobacco Use Status: Former Tobacco user Tobacco use type: Cigarette Smoked in Last 30 Days: No Use of substances other than those prescribed or required for medical reasons: Yes Substance Use Type: Heroin and IV Drugs Substance Use Frequency: Daily Have you been hit, kicked, punched, or otherwise hurt by someone within the past year? If so, by whom?: No Are you DNR?: No Advance Directives: No Advance Directives Information Provided: Yes Advance Directives on File: No Recently lost weight without trying: No Meds Allergies Allergy/AdvReac Type Severity Reaction Status Date / Time haloperidol [From Haldol] Allergy Unknown Unknown Verified 07/05/24 13:14 Home Medications ?Medication ?Instructions ?Recorded ?Confirmed ?Last Taken ?Type amlodipine 5 mg tablet 5 mg PO DAILY 03/24/24 08/30/24 Unknown History bupropion HCl 300 mg 24 hr tablet, 300 mg PO DAILY 03/24/24 08/30/24 Unknown History extended release methadone 10 mg/5 mL oral solution 145 mg PO DAILY 03/24/24 08/30/24 Unknown History sertraline 100 mg tablet 200 mg PO DAILY 03/24/24 08/30/24 Unknown History dextroamphetamine-amphetamine ER 60 cap PO DAILY 07/05/24 08/30/24 Unknown History 30 mg 24hr capsule,extend release (Adderall XR) trazodone 150 mg tablet 150 mg PO BEDTIME 07/05/24 08/30/24 Unknown History Exam Height,Weight and Vital Signs: Height 5 ft 8 in Weight 101.605 kg Pertinent Lab Results Pertinent Lab Results: Laboratory Tests 03/26/24 14:38 Sodium 137 Potassium 4.5 Chloride 101 Carbon Dioxide 27 BUN 12 Creatinine 1.44 H Total Protein (PEP) 8.1 Albumin (PEP) 4.4 Assessment and Plan Assessment Anesthesia Assessment: Chart Reviewed Documented by User: Ivania Hallman MD 09/01/24 13:15 [facility] Past Medical History Medical History (Updated 08/30/24 @ 16:01 by Keily Damon, GELACIO) Ambulates with cane Asthma CKD (chronic kidney disease) IVDU (intravenous drug user) Foot drop, right Family History Family history of problems with anesthesia: No Surgical History Surgical History (Updated 08/30/24 @ 15:29 by Keily Damon, RN) History of back surgery History of Problems with Anesthesia: No Social History Social History (Updated 08/30/24 @ 15:59 by Keily Damon RN) Household Members: Friend(s) Housing: House Are you a primary respiratory care instructor to a significant other at home: No Do you presently have visiting nurse or other home services: No Comment: right foot drop Patient Tobacco Use Status: Former Tobacco user Tobacco use type: Cigarette Smoked in Last 30 Days: No Use of substances other than those prescribed or required for medical reasons: Yes Substance Use Type: Heroin and IV Drugs Substance Use Frequency: Daily Have you been hit, kicked, punched, or otherwise hurt by someone within the past year? If so, by whom?: No Are you DNR?: No Advance Directives: No Advance Directives Information Provided: Yes Advance Directives on File: No Recently lost weight without trying: No Meds Allergies Allergy/AdvReac Type Severity Reaction Status Date / Time haloperidol [From Haldol] Allergy Unknown Unknown Verified 07/05/24 13:14 Home Medications ?Medication ?Instructions ?Recorded ?Confirmed ?Last Taken ?Type amlodipine 5 mg tablet 5 mg PO DAILY 03/24/24 08/30/24 Unknown History bupropion HCl 300 mg 24 hr tablet, 300 mg PO DAILY 03/24/24 08/30/24 Unknown History extended release methadone 10 mg/5 mL oral solution 145 mg PO DAILY 03/24/24 08/30/24 Unknown History sertraline 100 mg tablet 200 mg PO DAILY 03/24/24 08/30/24 Unknown History dextroamphetamine-amphetamine ER 60 cap PO DAILY 07/05/24 08/30/24 Unknown History 30 mg 24hr capsule,extend release (Adderall XR) trazodone 150 mg tablet 150 mg PO BEDTIME 07/05/24 08/30/24 Unknown History Exam Airway Mallampati Class: II TM Dist: >3cm Neck ROM: Full Heart: rrr Lungs: cta Assessment and Plan Assessment Anesthesia Assessment: Anesthesia Plan Discussed Final Anesthetic Review Family History of Problems with Anesthesia: No History of Problems with Anesthesia: No NPO: Yes ASA Class: III Final Preanesthetic Review: No Changes in Pt Med Stat, Meds/Allgs Chart Reviewed and Consent Obtained/Reviewed Patient Risk: Low Procedure Risk: Low Anesthetic Plan Anesthetic Plan: GA Disposition: Standard PACU
[2024-09-01] VITALS (8 sets, daily range): BP systolic 109–149; BP diastolic 50–67; PULSE 63–96; RESP 14–18; TEMP 36.1–36.7; O2SAT 95–100
--- NOTE | ~2024-09-01 | FL_ITS ---
EXAMINATION: FL GUIDANCE ONLY HISTORY: ERCP COMPARISON: Correlation is made with an MRI of the abdomen dated 07/31/2024. TECHNIQUE: Fluoroscopy time: 62.4 seconds. Cumulative Dose: 33.21 mGy. Images: 4. FINDINGS: Images demonstrate partial opacification of the common bile duct which is normal in caliber. There is a faintly visualized filling defect in the distal common bile duct, compatible with a calculus. FL/FL guidance in OR IMPRESSION: Fluoroscopy during procedure. Please see procedure report for additional information. Electronically signed by: Lawson Madison MD 09/01/2024 03:52 PM EDT
[2024-09-01 11:56] LABS: Amphetamine Screen Urine Not Detected (Not Detect); Barbiturates, Urine Not Detected (Not Detect); Benzodiazepines Screen Urine Not Detected (Not Detect); Buprenorphine Scr Not Detected (Not Detect); Cannabinoid Screen Urine Not Detected (Not Detect); Cocaine Screen Urine Not Detected (Not Detect); Fentanyl, urine POSITIVE (Not Detect); Methadone Screen, Urine Positive (Not Detect); Opiate Screen Urine POSITIVE (Not Detect); Oxycodone Screen Urine Not Detected (Not Detect); Phencyclidine Screen Urine Not Detected (Not Detect)
[2024-09-01] MEDS: Lactated Ringers 1,000 ML 100 ML IVCONT (12:00)
--- NOTE | 2024-09-01 13:08 | MHC.SHP ---
Pre-Procedural Eval Section A - 24 Hr Update-Section A only Date of Service: 09/01/24 Section B - Complete if H&P > 30 days Chief Complaint: Calculus of bile duct without cholangitis or anu Relevant Family History (Specify if Yes): No Relevant Social History: Other (specify) Present Medications: see Short Stay Collaborative assessment Medical History: Significant History (Ambulates with cane Asthma CKD (chronic kidney disease) IVDU (intravenous drug user) Foot drop, right) History of Previous Operations: Relevant previous surgery/procedure and date(s) (History of back surgery) Allergies: Allergies Allergy/AdvReac Type Severity Reaction Status Date / Time haloperidol [From Haldol] Allergy Unknown Unknown Verified 07/05/24 13:14 Review of Systems Sugical H&P ROS: Negative: Constitution, Cardiovascular, Respiratory, Neurological, Psychiatric, Hem-Onc, Allergic/Immunologic, Gastrointestinal, Genitourinary, Musculoskeletal, Integumentary, Endocrine and Eyes/Ears/Nose/Throat Exam Surgical H&P Exam: Normal: HEENT, Normal: Heart, Normal: Lungs, Normal: Extremities, Normal: Abdomen and Normal: Neurological and Significant Findings: Skin (romero on arms, and scars ) Plan Diagnosis/Plan: Unchanged I have reviewed the history and physical and performed a pertinent physical examination on my patient. No changes have occurred unless specified. ERCP due to CBD stones seen on MRI imaging Time Spent With Patient Time: Total time managing care of this patient today ____ minutes.
--- NOTE | 2024-09-01 15:23 | P.OP_ITS ---
Operative Note Operative Note Date of Service: 09/01/24 Narrative: Description:?Endoscopic retrograde cholangiopancreatography (ERCP) , EGD PROCEDURE:? 1/Endoscopic retrograde cholangiopancreatography with sphincterotomy, stone extraction and interpretation of intra op cholangiogram 2/EGD with pyloric balloon dilation INDICATION FOR THE PROCEDURE:?Patient with a history of choledocholithiasis noted on MRCP MEDICATIONS:?General anesthesia. The risks of the procedure were made aware to the patient and consisted of medication reaction, bleeding, perforation, aspiration, and post ERCP pancre atitis. DESCRIPTION OF PROCEDURE:?After informed consent and appropriate sedation, the duodenoscope was inserted into the oropharynx, down the esophagus, and into the stomach. The scope was then advanced but could not be advanced to the pyloric outlet which was tight. An EGD scope was then used and using a balloon the pylorus was dilated to 20 mm. The ERCP was then reintroduced and passed easily. The ampulla was scarred and atrophic. The tome was lined up, and using wire guided technique entered the CBD. Contrast was used and revealed a few filling defects in the distal CBD which was dilated. A sphincterotomy was then performed and an 12 mm extraction balloon was used to removed x 3 oblong shaped yellowish -green stones measuring about 8-10 mm in diameter. An occlusion cholangiogram revealed no filling defects. FINDINGS: 1. choledocholithiasis 2. pyloric outlet obstruction s/p dilation RECOMMENDATIONS: 1. clears today and advance diet tomorrow 2. if any worsening abdominal pain, fever, jaundice needs to come to the ED
[2024-09-01] MEDS: Mag&Al/Sim/Diphenhyd/Lidocaine 10 ML ORAL.SUSP PO (15:45)
[2024-09-01] MEDS: ondansetron HCL 4 MG/2 ML VIAL IVPUSH (16:03)
== END 2024-09-01 16:50 | disposition home or self-care (01) ==
PROVIDERS: Nurse Practitioner; PCP Internal Medicine; Visit Provider Internal Medicine Gastroenterology
PROC: (CPT 43260; principal; 2024-09-01 13:50)
DX: K80.50 Calculus of bile duct without cholangitis or cholecystitis without obstruction (principal); K83.8 Other specified diseases of biliary tract; R79.89 Other specified abnormal findings of blood chemistry; J45.909 Unspecified asthma, uncomplicated; N18.9 Chronic kidney disease, unspecified; F19.90 Other psychoactive substance use, unspecified, uncomplicated
CPT/HCPCS: 43274; 80307; C1726; J0330; J0690; J1100; J1610; J2003; J2405; J2704; J3010; Q9967

== ENCOUNTER → 2024-09-01 10:31 | Outpatient (BNV) | payer MEDICARE, SELFPAY | PROVIDERS: PCP Internal Medicine; Visit Provider Internal Medicine Gastroenterology | DX: K80.50 Calculus of bile duct without cholangitis or cholecystitis without obstruction (principal) | CPT/HCPCS: 43274 ==

== ENCOUNTER 2024-10-13 12:15 | Outpatient (AMB) | payer MEDICARE, MEDICAID, SELFPAY ==
--- NOTE | 2024-10-13 12:13 | HO.NEPHOV ---
Vital Signs 10/13/24 12:14 Height 5 ft 8 in Weight 230 lb BMI 35.0 BP 110/58 L Blood Pressure Location Lt brachial Position Sitting Pulse 93 Pulse Source Pulse Oximeter Pulse Oximetry (%) 97 Oxygen Delivery Method Room Air Intake Visit Reasons: 4mon follow up /labs LVM Allergies haloperidol [From Haldol] Allergy (Unknown, Verified 10/13/24 12:14) Unknown Medication List - Last Reconciled 10/13/24 by Lazarus Sykes MD amlodipine 5 mg PO DAILY bupropion HCl XL 300 mg PO DAILY dextroamphetamine-amphetamine 30 mg ER (Adderall XR) 60 caps PO DAILY methadone 145 mg PO DAILY rosuvastatin 10 mg PO BEDTIME sertraline 200 mg PO DAILY trazodone 150 mg PO BEDTIME HPI Comments Details: 49-year-old woman with a history of IV drug abuse referred for LUIS. She recently underwent back surgey Currently has Right foot drop She has a history of using IV HEroine 06/09/24; Tried statin, but stopepd due to knee pain. [facility] Medical History Ambulates with cane Asthma CKD (chronic kidney disease) IVDU (intravenous drug user) Foot drop, right Surgical History History of back surgery Social History Household Members: Friend(s) Housing: House Are you a primary intensive care unit nurse to a significant other at home: No Do you presently have visiting nurse or other home services: No Comment: right foot drop Patient Tobacco Use Status: Former Tobacco user Tobacco use type: Cigarette Substance Use Type: Heroin and IV Drugs Physical Exam Vital Signs: Last Vital Signs Pulse 93 10/13/24 12:14 BP 110/58 L 10/13/24 12:14 Pulse Ox 97 10/13/24 12:14 Oxygen Delivery Method Room Air 10/13/24 12:14 BMI result Body Mass Index 35.0 Awake. Comfortable. Neck is supple. Mucosa moist. Lungs air entry Heart S1-S2 heard no gallop. Abdomen soft. Extremities no edema. No involuntary movements. No myoclonus. Multiple scars from peripheral IV injection Results Reviewed Nephrology Results: Urine Protein Negative mg/dL (Neg-Trace) 10/13/24 Urine Creatinine 124.77 mg/dL 10/13/24 Assessment & Plan Assessment & Plan (1) CKD (chronic kidney disease): Code(s): N18.9 - Chronic kidney disease, unspecified Category: Medical Plan 49-year-old woman with IV drug abuse/ Heroine - has CKD. creatinine was 1.3 mg/dL. Repeat creatinine was 1.44 and down to 1.2 as of September 2024 No evidence of active Glomerulo nephritis No RBCs or protienuria No Obstruction based on USG Interstitial Nephritis cannot be ruled out yet UA has WBCs Repeat UA and urine culturewas negative, will hold off on kidney biopsy continue current medications Maintain blood pressure less than 130/80 Continue to avoid nephrotoxic agents including NSAIDs. Discussed stopping heroine use. 4 mm renal cyst on left kidney Repeat USG in 6- 12 months Orders: Orders Comprehensive Met. Panel 6 Months N18.9 - Chronic kidney disease, unspecified Complete Blood Count Auto Diff 6 Months N18.9 - Chronic kidney disease, unspecified UA and rflx microscopic 10/13/24 N18.9 - Chronic kidney disease, unspecified Total Protein Urine Random 10/13/24 N18.9 - Chronic kidney disease, unspecified Creatinine Urine 10/13/24 N18.9 - Chronic kidney disease, unspecified Creatinine Urine 6 Months N18.9 - Chronic kidney disease, unspecified UA and rflx microscopic 6 Months N18.9 - Chronic kidney disease, unspecified Total Protein Urine Random 6 Months N18.9 - Chronic kidney disease, unspecified Coding Level of Care Code Est Pt Level 4 (49207) Diagnoses CKD (chronic kidney disease) N18.9
[2024-10-13 12:14] VITALS: BP 110/58; PULSE 93; O2SAT 97; BMI 35.0
--- OUTSIDE RECORDS SUMMARY | 2024-10-13 14:30 | XMS_ITS | Clinical Summary ---
Author Organization [facility] Address [address] [place] [address] Care Team Providers Care Diabetologist Name Role Phone Unavailable Primary Care Provider [...] mcg/actuation inhalerIndicatio ns:Mild intermittent asthma without complication ([facility]) Inhale 2 Puffs into the lungs every 6 (six) hours as needed for shortness of breath or wheezing 1 Inhaler 1 7 Active multivitamins with calcium and minerals-folic acid 267 mcg per tablet Take 1 Tab by mouth once daily 30 Tab 3 7 Active Active Problems Problem Noted Date Diagnosed Date Depression with anxiety 09/20/2016 Overview (09/20/2016): Has anxiety/depression, ADHD, following at [facility]. On meds. Mild intermittent asthma without complication ([facility]) 09/20/2016 Opioid abuse ([facility]) 09/20/2016 Overview (09/20/2016): H/O IV Heroin use, recent admission to [facility] 07/2016 with possible OD and right ankle displaced fracture, fracture of the base of the third, fourth and possible second metatarsals. Now in remission since 07/29/16, now in suboxone clinic through [facility]. Closed fracture of right ankle 09/20/2016 Overview (09/20/2016): admitted to [facility] 07/2016 with possible Heroin OD and right [...] she had herniated disc, s/p microdiscectomy in [place] in 2007. Dyslipidemia 09/20/2016 Constipation 09/20/2016 Social [...] Plan of Treatment Not on file Insurance [facility] Member Subscriber Plan / Payer (Ef fective 2015-Present) Name:Dana Reid Relation to Subscriber:Self Name:Dana Reid Payer ID:[id number] Group ID:Not on file Type:Medicaid Address: [facility] [id number] [place] [address]
--- OUTSIDE RECORDS SUMMARY | 2024-10-13 14:31 | XMS_ITS | Encounter Summary ---
Author Organization [employer] Address [address] [place] [address] 7 [place] [address] Care Team Providers Care Supervisor Inspection And Testing Name Role Phone Dougie Vela MD Primary Care Prov ider Encounter Details Date Type Department Care Team ([facility] st Contact Info) Description 05/07/2024 Orders Only [facility] [address] [place], [place] [phone] Dougie Vela MD [address] [place] [address] Social History Tobacco Use Types Packs/Day Years [...] as of this encounter Plan of Treatment Not on file documented as of this encounter Visit Diagnoses Not on filedocumented in this encounter Additional Health Concerns Assessment Noted Time PHQ-9 Depression Total Score: 10 024 12:43 PM EDT documented as of this encounter Care Teams Supervisor Inspection And Testing Relationship Specialty Start Date End Date Dougie Vela MD [address] [place] [address] PCP - General Internal Medicine 03/28/20 documented as of this encounter
--- OUTSIDE RECORDS SUMMARY | 2024-10-13 14:31 | XMS_ITS | Encounter Summary ---
Author Organization [employer] Address [address] [place] [address] [place] [address] Care Team Providers Care Business Improvement Manager Name Role Phone Dougie Vela MD Primary Care Prov ider Reason for Visit * Reason Onset Date Comments Appointment Request 09/01/2024 Encounter Details Date Type Department Care Team ([facility] st Contact Info) Description 09/01/2024 Telephone [facility] [address] [place] [address] Dougie Vela MD [address] [place] [address] Appointment Request Social History Tobacco Use Types Packs/Day [...] encounter Miscellaneous Notes * Telephone Encounter - Mireya Sanders - 09/01/2024 2:06 PM EDT Tc from pt to reports she's at hospital and needs reschedule telephone visit. Tongue And Groove Machine Setter unable to cancel appt status was arrived . documented in this encounter Plan of Treatment Not on file documented as of this encounter Visit Diagnoses Not on filedocumented in this encounter Additional Health Concerns Assessment Noted Time PHQ-9 Depression Total Score: 10 024 12:43 PM EDT documented as of this encounter Care Teams Business Improvement Manager Relationship Specialty Start Date End Date Dougie Vela MD [address] [place] [address] PCP - General Internal Medicine 03/28/20 documented as of this encounter
--- OUTSIDE RECORDS SUMMARY | 2024-10-13 14:31 | XMS_ITS | Encounter Summary ---
Author Organization [employer] Address [address] [place] [address] [place] [address] Care Team Providers Care Conference Organizer Name Role Phone Dougie Vela MD Primary Care Prov ider Reason for Visit * Reason Comments Med Change Request Encounter Details Date Type Department Care Team ([facility] st Contact Info) Description 08/16/2024 Refill [facility] MED [facility] PEDS [address] [place], [place] [phone] Dougie Vela MD [address] [place] [address] Social History Tobacco Use Types Packs/Day Years [...] documented as of this encounter Care Teams Conference Organizer Relationship Specialty Start Date End Date Dougie Vela MD [address] [place] [address] PCP - General Internal Medicine 03/28/20 documented as of this encounter
--- OUTSIDE RECORDS SUMMARY | 2024-10-13 14:31 | XMS_ITS | Encounter Summary ---
Author Organization [employer] Address [address] [place] [address] [address] [place] [address] Care Team Providers Care Home Companion Name Role Phone Dougie Vela MD Primary Care Prov ider Encounter Details Date Type Department Care Team (Late st Contact Info) Description 06/13/2022 Orders Only [facility] [address] [place] [address] Dougie Vela MD [address] [place] [address] Cellulitis of right breast (Primary Dx); Primary [...] as of this encounter Plan of Treatment Scheduled Orders Name Type Priority Associated Diagnoses [...] EST) Glucose 71 65 - 139 mg/dL [employer] [employer] Comment: ? Non-fasting reference interval Urea Nitrogen (BUN) 46(H) 7 - 25 mg/dL [facility] [place] [facility] Creatinine, Serum 2.44(H) 0.50 - 0.99 mg/dL [facility] [place] [facility] eGFR 24(L) > OR = 60 mL/min/1. 73m2 [facility] [place] [facility] Comment: The eGFR is based on the CKD-EPI 2020 equation. To calculate the new eGFR from a previous Creatinine or Cystatin C result, go to https://www.kidney.org/professionals/ kdoqi/gfr%5Fcalculator BUN/Creatinine Ratio 19 6 - 22 (calc) [facility] [place] [facility] Sodium 136 135 - 146 mmol/L [facility] [place] [facility] Potassium 5.0 3.5 - 5.3 mmol/L [facility] [place] [facility] Chloride 102 98 - 110 mmol/L [facility] [place] [facility] Carbon Dioxide 27 20 - 32 mmol/L [facility] [place] [facility] Calcium 9.6 8.6 - 10.2 mg/dL [facility] [place] [facility] Blood Venous blood specimen / Unknown 06/21/2022 3:34 PM EST 06/21/2022 3:34 PM EST Narrative [facility] - 06/22/2022 1:37 AM EST FASTING:NO FASTING: NO us Dougie Cook MD LAB BLOOD ORDERABL ES Final Result [facility] [address], [place] [address] [employer] [place] [facility] [address] [facility], (N[address]) [place] [address] documented in this encounter Visit Diagnoses Diagnosis Cellulitis of right breast- Primary Primary hypertension Unspecified essential hypertension documented in this encounter Care Teams Home Companion Relationship Specialty Start Date End Date Dougie Vela MD [address] [place] [address] PCP - General Internal Medicine 03/28/20 documented as of this encounter
--- OUTSIDE RECORDS SUMMARY | 2024-10-13 14:31 | XMS_ITS | Clinical Summary ---
Author Organization [facility] Address [address] [place] [address] Care Team Providers Care Driver Retraining Instructor Name Role Phone Shay Castro MD Primary Care Provider [phone] Allergies Active Allergy Reactions Criticality Noted Date [...] age to complete this topic Care Teams Driver Retraining Instructor Relationship Specialty Start Date End Date Shay Castro MD PCP - General Family Medicine 02/07/20
--- OUTSIDE RECORDS SUMMARY | 2024-10-13 14:31 | XMS_ITS | Encounter Summary ---
Author Organization [employer] Address [address] [place] [address] [place] [address] Care Team Providers Care Able Bodied Tankerman Name Role Phone Dougie Vela MD Primary Care Prov ider Reason for Visit * Reason Onset Date Comments Medication Question 08/13/2024 Encounter Details Date Type Department Care Team ([facility] st Contact Info) Description 08/13/2024 Telephone [facility] MEDICINE [address] [place] [address] Dougie Vela MD [address] [place] [phone] Medication Question Social History Tobacco Use Types [...] encounter Miscellaneous Notes * Telephone Encounter - Carolyn Reno RN - 08/16/2024 10:30 AM EST TC to pt pharmacy to confirm pharmacy ability to fill script. Pharmacy stated that prior auth needsto be completed prior to fill. Routing information to PA specialist. * Telephone Encounter - Carolyn Reno RN - 08/13/2024 4:21 PM EST TC to pt. Pt requesting to be prescribed zepbound. Pt stated that current insurance will cover 2 injections per month. Pt stated bariatric surgery was unable to prescribe zepbound. Author informed ptthat message will be routed to provider for review and recommendation. * Telephone Encounter - Juventino Corey - 08/13/2024 3:44 PM EST Tc from pt requesting a script for Zepbound and that pt called insurance and insurance will cover only 2 injection per month. Pt is requesting to start injection at a higher dosage. documented in this encounter Plan of Treatment Not on file documented as of this encounter Visit Diagnoses Not on filedocumented in this encounter Additional Health Concerns Assessment Noted Time PHQ-9 Depression Total Score: 10 024 12:43 PM EDT documented as of this encounter Care Teams Able Bodied Tankerman Relationship Specialty Start Date End Date Dougie Vela MD [address] [place] [address] PCP - General Internal Medicine 03/28/20 documented as of this encounter
--- OUTSIDE RECORDS SUMMARY | 2024-10-13 14:31 | XMS_ITS | Clinical Summary ---
Author Organization [employer] Address [address] [place] [address] 7[address] [place] [address] Care Team Providers Care Web Pressman Name Role Phone Dougie Vela MD Primary [...] TWICE A DAY 180 capsule 3 Active amLODIPine (Norvasc) 5 MG tabletIndications :Primary hypertension TAKE 1 TABLET BY MOUTH EVERY DAY 90 tablet 1 4 Active Tirzepatide-Weigh t Management (Zepbound) 2.5 MG/0.5ML solution auto-injector Inject 0.5 mL (2.5 mg) under the skin every 14 (fourteen) days. 1 mL 5 Active gabapentin (Neurontin) 100 MG capsule Take 1 capsule (100 mg) by mouth every 8 (eight) hours. 90 capsule 5 Active rosuvastatin (Crestor) 10 MG tablet Take 1 tablet (10 mg) by mouth Once per day. 30 tablet 11 5 09/14/19 26 Active Active Problems Problem Noted Date Diagnosed [...] on Primary hypertension 07/01/2022 Assessment & Plan (09/13/2024 3:11 PM EDT): Controlled, no changes will be made, continue low sodium diet and exercise as tolerated, follow up in 4 months Assessment & Plan (07/11/2024 4:04 PM EST): [...] she had herniated disc, s/p microdiscectomy in [place] in 2007. Closed fracture of right ankle 09/20/2016 Overview (05/31/2022): admitted to [facility] 07[place]2016 with possible Heroin OD and right [...] Overview (05/31/2022): Has anxiety/depression, ADHD, following at [facility] On meds. Dyslipidemia 09/20/2016 Assessment & Plan (02/26/2024 1:29 PM EDT): Ascvd 7.0% will start on atorvastatin, risk vs benefits discussed, follow up in 3 months Mild intermittent asthma without complication Obesity (BMI 30.0-34.9) 09/20/2016 Assessment & Plan (07/11/2024 3:49 PM EST): Will refer to bariatric surgery for evaluation Opioid abuse 09/20/2016 Overview (05/31/2022): H/O IV Heroin use, recent admission to [facility] 07/2016 with possible OD and right ankle displaced fracture, fracture of the base of the third, fourth and possible second metatarsals. Now in remission since 2/6/17, now in suboxone clinic through [facility]. Encounters Date Type Department Care Team Description 09/13/2024 2:15 PM EDT Telemedicine [facility] MED & PEDS [address] [place] [address] Dougie Vela MD Chronic pain of left knee (Primary Dx); Primary hypertension 09/13/2024 Travel 09/01/2024 Telephone [facility] MED & PEDS [address] [place] [address] Dougie Vela MD No Show 09/01/2024 Telephone [facility] MED & PEDS [address] [place] [address] Dougie Vela MD 09/01/2024 Telephone [facility] MEDICINE [address] [place] [address] Dougie Vela MD Appointment Request 09/01/2024 Orders Only GENERIC EXTERNAL DATA DEPARTMENT Provider, Generic External Data 09/01/2024 Travel 08/31/2024 Telephone [facility] MED & PEDS [address] [place] [address] Dougie Vlea MD chart prep (/ ) 08/20/2024 Telephone [facility] MED & PEDS [address] [place] [address] Dougie Vela MD Prior Authorization (Zepbound 2.5) 08/16/2024 Refill [facility] MED & PEDS [address] [place] [address] Dougie Vela MD 08/16/2024 Orders Only [facility] MED & PEDS [address] [place] [address] Dougie Vela MD 08/13/2024 Telephone [facility] MEDICINE [address] [place] [address] Dougie Vela MD Medication Question 08/10/2024 3:30 PM EST Telemedicine [facility] MED & PEDS [address] [place] [address] Dougie Vela MD Calculus of gallbladder without cholecystitis without obstruction (Primary Dx); Obesity (BMI 30.0-34.9) 08/10/2024 Travel 08/06/2024 Travel 07/31/2024 Orders Only [facility] External Provider, [facility] 07/30/2024 Telephone [facility] MED [facility] PEDS [address] [place] [address] Dougie Vela MD Results; Referral 07/30/2024 Orders Only [facility] MEDICINE [address] [place] [address] Dougie Vela MD Common bile duct dilatation (Primary Dx); Cyst of left kidney 07/15/2024 Orders Only [facility] External Provider, [facility] from Last 3 Months Immunizations Name Administration [...] 06/03/2024 3:49 PM EST Plan of Treatment Health Maintenance Due Date Last Done Comments CT Colonography 1973 Colonoscopy 1973 FIT 1973 FOBT 1973 Sigmoidoscopy 1973 Alcohol/Substance Use Screening 1985 Family Planning (PISQ) 1988 DTaP/Tdap/Td Vaccines (1 - Tdap) 1992 Hepatitis B Vaccines (1 of 3 - 19+ 3-dose series) 1992 Pneumococcal Vaccine: 50+ Years (1 of 2 - PCV) 1992 COVID-19 Vaccine ( - season) 2024 09/24/2023, 05/03/2022, 08/27/2021, Additional history exists Influenza Vaccine (#1) 2024 Tobacco Screening 07/23/2024 07/23/2023 Depression Monitoring 08/25/2024 02/26/2024, 024 Mammogram 01/30/2025 01/30/2023, 07/0 08/2022, 12/13/2021 Depression [...] on patient's age to complete this topic Hepatitis A Vaccines Aged Out No long er eligible based on patient's age to complete [...] Procedure Name Priority Date/Time Associated Diagnosis Comments FL GUIDANCE IN OR Routine 09/01/2024 2:4 0 PM EDT DRUG MONITOR, PANEL 1, SCREEN, URINE Routine 09/01/2024 11:32 AM EDT MR ABDOMEN W AND WO CONTRAST Routine [...] Recently Relevant to Health Maintenance Results * FL Guidance in OR (09/01/2024 2:40 PM EDT) Anatomical Region Laterality Modality X-Ray Angiograph y 09/01/2024 2:40 PM EDT Narrative 09/01/2024 3:55 PM EDT ? [facility] ?[address] ?[place] [address] ? Fluoroscopy Report ? Signed ? Patient: Reid,Dana ?MR#: [id number] ? : 1975 ?Acct:[id number] ? Age/Sex: 49 / F ?ADM Date: 09/01/24 ? Loc: HO.SSS ? Attending Dr: Gertrude Flaherty MD ? Ordering Physician: Gertrude Flaherty MD ?? Date of Service: 09/01/24 ?? Procedure(s): FL guidance in OR ?? Accession Number(s): [id number] ? cc: Dougie Vela MD; Gertrude Flaherty MD ? EXAMINATION: ??FL GUIDANCE ONLY ? HISTORY: ERCP ? COMPARISON: ?? Correlation is made with an MRI of the abdomen dated 07/31/2024. ? TECHNIQUE: ?? Fluoroscopy time: 62.4 seconds. ?? Cumulative Dose: 33.21 mGy. ?? Images: 4. ? FINDINGS: ?? Images demonstrate partial opacification of the common bile duct which ?? is normal in caliber. There is a faintly visualized filling defect in ?? the distal common bile duct, compatible with a calculus. ? FL/FL guidance in OR ?? IMPRESSION: ?? Fluoroscopy during procedure. Please see procedure report for ?? additional information. ? Electronically signed by: ??Lawson Madison MD ??09/01/2024 03:52 PM EDT ? Dictated By: ?Lawson Madison MD ? Signed By: ?<Electronically signed by Lawson Madison MD in OV> ?09/01/24 1552 ? DD/ 1440 ? TD/TT: 09/01/24 1520 ? Woods Warden: ? Procedure Note Donlimater, Image - 09/01/[address] [address] Fluoroscopy Report Signed Patient: Angelica Reid#: [id number] : 1975Acct:[id number] Age/Sex: 49 / FADM Date: 09/01/24 Loc: .[facility] Attending Dr: Gertrude Flaherty MD Ordering Physician: Gertrude Flaherty MD Date of Service: 09/01/24 Procedure(s): FL guidance in OR Accession Number(s): [id number] cc: Dougie Vela MD; Gertrude Flaherty MD EXAMINATION: FL GUIDANCE ONLY HISTORY: ERCP COMPARISON: Correlation is made with an MRI of the abdomen dated 07/31/2024. TECHNIQUE: Fluoroscopy time: 62.4 seconds. Cumulative Dose: 33.21 mGy. Images: 4. FINDINGS: Images demonstrate partial opacification of the common bile duct which is normal in caliber. There is a faintly visualized filling defect in the distal common bile duct, compatible with a calculus. FL/FL guidance in OR IMPRESSION: Fluoroscopy during procedure. Please see procedure report for additional information. Electronically signed by: Lawson Madison MD 09/01/2024 03:52 PM EDT Dictated By: Lawson Madison MD Signed By: <Electronically signed by Lawson Madison MD in OV> 09/01/24 1552 DD/ 1440 TD/TT: 09/01/24 1520 Woods Warden: [facility] External Provider IMG IR PROCEDURES Final Result * (ABNORMAL) Drug Monitoring, Panel 1, Screen, Urine (09/01/2024 11:32 AM EDT) Opiate Screen Urine POSITIVE(A) Not Detect [facility] Comment:Opiate cut-off is 30 0 ng/mL.Positive results are unconfirmed and should not be used fornon-medical purposes. Barbiturates, Urine Not Detected Not Detect [facility] Comment:Barbiturate cut-off is 200 ng/mL.Positive results are unconfirmed and should not be used fornon-medical purposes. Phencyclidine Screen Urine Not Detected Not Detect [facility] Comment:Phencyclidine cut-of f is 25 ng/mL.Positive results are unconfirmed and should not be used fornon-medical purposes. Amphetamine Screen Urine Not Detected Not Detect [facility] Comment:Amphetamine cut-off is 1000 ng/mL.Positive results are unconfirmed and should not be used fornon-medical purposes. Benzodiazepines Screen Urine Not Detected Not Detect [facility] Comment:Benzodiazepine cut-o ff is 200 ng/mL.Positive results are unconfirmed and should not be used fornon-medical purposes. Cocaine Screen Urine Not Detected Not Detect [facility] Comment:Cocaine cut-off is 3 00 ng/mL.Positive results are unconfirmed and should not be used fornon-medical purposes. Cannabinoid Screen Urine Not Detected Not Detect [facility] Comment:Cannabinoid cut-off is 50 ng/mL.Positive results are unconfirmed and should not be used fornon-medical purposes. Methadone Screen, Urine Positive(A) Not Detect ng/mL [facility] Comment:Methadone cut-off is 300 ng/mL.Positive results are unconfirmed and should not be used fornon-medical purposes. FENTANYL URINE POSITIVE(A) Not Detect [facility] Comment:Fentanyl cut-off is 1 ng/mL.Positive results are unconfirmed and should not be used fornon-medical purposes. Oxycodone Urine Screen Not Detected Not Detect ng/mL [facility] Comment:Oxycodone cut-off is 100 ng/mL.Positive results are unconfirmed and should not be used fornon-medical purposes. Buprenorphine Screen Not Detected Not Detect ng/mL [facility] Comment:Buprenorphine cut-of f is 5 ng/mL.Positive results are unconfirmed and should not be used fornon-medical purposes. 09/01/2024 11:3 2 AM EDT 09/01/2024 11:39 AM EDT us Generic External Data Provider LAB URINE ORDERAB LES Final Result [facility] [address] [place] [address] [phone] * MR Abdomen w/ and w/o Contrast (07/31/2024 6:00 PM EST) Anatomical Region Laterality Modality Abdomen Magnetic Resonan ce 07/31/2024 6:00 PM EST Narrative 07/31/2024 6:01 PM EST ? [facility] ?[address] ?[place] [address] ? Magnetic Resonance Report ? Signed ? Patient: Reid,Dana ?MR#: [id number] ? : 1975 ?Acct:[id number] ? Age/Sex: 49 / F ?ADM Date: 07/31/24 ? Loc: HO.MRI ? Attending Dr: Palak Morales MD ? Ordering Physician: Palak Morales MD ?? Date of Service: 07/31/24 ?? Procedure(s): MR abdomen wo/w con ?? Accession Number(s): [id number] ? cc: Dougie Vela MD; Palak Morales MD ? CLINICAL HISTORY: R74.8 - Abnormal levels of other serum enzymes , pt was not NPO for test ? MR abdomen with and without gadolinium ? Comparison: US/NH/SR - US ABDOMEN COMPLETE - 07/15/24 13:41 [...] on ?? 07/31/2024 18:00:05 ? Dictated By: ?Baorn Collazo MD ? Signed By: ?<Electronically signed by Baron Collazo MD in OV> ?07/31/24 1801 ? DD/ 1800 ? TD/TT: 07/31/24 1800 ? Woods Warden: ? Procedure Note Cory, Michael - 07/31/2024 [place] [address] Magnetic Resonance Report Signed Patient: Angelica Reid#: [id number] : 1975Acct:[id number] Age/Sex: 49 / FADM Date: 07/31/24 Loc: HO.MRI Attending Dr: Palak Morales MD Ordering Physician: Palak Morales MD Date of Service: 07/31/24 Procedure(s): MR abdomen wo/w con Accession Number(s): [id number] cc: Dougie Vela MD; Palak Morales MD CLINICAL HISTORY: R74.8 - Abnormal levels of other serum enzymes , pt wasnot NPO for test MR abdomen with and without gadolinium Comparison: US/NH/SR - US ABDOMEN COMPLETE - 07/15/24 13:41 [...] 07/31/24 1801 DD/ 1800 TD/TT: 07/31/24 1800 Woods Warden: [facility] External Provider IMG MRI PROCEDURES Edited Result - Final * US Abdomen Complete (07/15/2024 1:43 PM EST) Anatomical Region Laterality Modality Abdomen Ultrasound 07/15/2024 1:43 PM EST Narrative 07/16/2024 7:29 AM EST ? [facility] ?[address] ?[place] [address] ? Ultrasound Report ? Signed ? Patient: Reid,Dana ?MR#: [id number] ? : 1975 ?Acct:[id number] ? Age/Sex: 49 / F ?ADM Date: 07/15/24 ? Loc: HO.US ? Attending Dr: Palak Morales MD ? Ordering Physician: Palak Morales MD ?? Date of Service: 07/15/24 ?? Procedure(s): US abdomen complete ?? Accession Number(s): [id number] ? cc: Dougie Vela MD; Palak Morales [...] ??Lawson Madison MD ??07/16/2024 07:26 AM EST ? Dictated By: ?Lawson Madison MD ? Signed By: ?<Electronically signed by Lawson Madison MD in OV> ?07/16/24 0726 ? DD/ 1343 ? TD/TT: 07/15/24 1357 ? Woods Warden: ? Procedure Note Michael Ray - 07/16/2024 [place] [address] Ultrasound Report Signed Patient: Angelica Reid#: [id number] : 1975Acct:[id number] Age/Sex: 49 / FADM Date: 07/15/24 Loc: HO.US Attending Dr: Palak Morales MD Ordering Physician: Palak Morales MD Date of Service: 07/15/24 Procedure(s): US abdomen complete Accession Number(s): [id number] cc: Dougie Vela MD; Palak Morales MD [...] 07/16/24 0726 DD/ 1343 TD/TT: 07/15/24 1357 Woods Warden: us [facility] External Provider IMG US PROCEDURES Final Result * (ABNORMAL) Lipid Panel, Standard (01/29/2024 3:45 PM EDT) Triglycerides 229(H) <150 mg/dL [facility] Comment:Desirable Triglyceri de: less than 150 mg/dLBorderline High Triglyceride 150-199 mg/dLHigh Triglyceride: 200-499 mg/dLVery High Triglyceride: greater than or equal to 5OO mg/dL Cholesterol 269(H) <200 mg/dL [facility] Comment:Desirable Cholestero l: less than 200 mg/dLBorderline High Cholesterol: 200-239 mg/dLHigh Cholesterol: greater than 239 mg/dL LDL Cholesterol Calculated 182(H) <100 mg/dL [facility] Comment:Desirable LDL: less than 100 mg/dLNear Optimal/Above Optimal LDL: 110- 129 mg/dLBorderline High LDL: 130-159 mg/dLHigh LDL: 160-189 mg/dLVery High LDL: greater than or equal to 190 mg/dL HDL Cholesterol 42 >40 mg/dL [facility] Comment:Desirable HDL: great er than 40 mg/dL Note: This HDL assay may give artificially low results in patients with liver disease. Blood Venous blood specimen / Unknown 01/29/2024 3:45 PM EDT 01/29/2024 5:43 PM EDT Dougie Cook MD LAB BLOOD ORDERABL ES Final Result [facility] [address] [place] [phone] * Mammogram Diagnostic Right (01/30/2023 3:05 PM EDT) Anatomical Region Laterality Modality Breast Right Mammography 01/30/2023 3:05 PM EDT Narrative 01/30/2023 3:32 PM EDT ? [facility] ? [address] ?[place] [address] ? Ultrasound Report ? Signed ? Patient: Reid,Dana ?MR#: [id number] ? : 1975 ?Acct:[id number] ? Age/Sex: 47 / F ?ADM Date: 08/10/23 ? Loc: HO.MAMMO ? Attending Dr: Dougie Cook MD ? Ordering Physician: Dougie Vela MD ?? Date of Service: 01/30/23 ?? Procedure(s): US breast RT limited mamm only ?? Accession Number(s): [id number] ? cc: Dougie Vela MD ? EXAMINATION: ?? MM DIAGNOSTIC DIGITAL BREAST TOMOSYNTHESIS, RIGHT ?? US BREAST LIMITED, RIGHT ? MAMMOGRAPHY: ?? CLINICAL INFORMATION: ? Follow-up focal asymmetries seen right breast on screening examination. ? The lifetime risk of breast cancer based on the Tyrer-Cuzick Model is ?? 20.7%. ? COMPARISON: ?? [...] signed by Raffaele Freedman MD in OV> ?01/30/23 1529 ? DD/ 1505 ? TD/TT: ? Woods Warden: ? Procedure Note Cory, Image - 01/31/2023 [facility] [address] [place] [address] Ultrasound Report Signed Patient: Angelica Reid#: [id number] : 1975Acct:[id number] Age/Sex: 47 / FADM Date: 01/30/23 Loc: HO.MAMMO Attending Dr: Dougie Cook MD Ordering Physician: Dougie Vela MD Date of Service: 01/30/23 Procedure(s): US breast RT limited mamm only Accession Number(s): [id number] cc: Dougie Vela MD EXAMINATION: MM DIAGNOSTIC [...] in OV> 01/30/23 1529 DD/ 1505 TD/TT: Woods Warden: Dougie Cook MD IMG BI PROCEDURES Edited Result - Final * Hepatitis C Antibody with Reflex to HCV, RNA, Quantitative, Real-Time PCR (12/13/2022 2:32 PM EDT) Hepatitis C Antibody NON-REACT NELY NON-REACT NELY [facility] Comment: HCV antibody was non-reactive. There is no laboratory evidence of HCV infection. In most cases, no further action is required. However, if recent HCV exposure is suspected, a test for HCV RNA (test code 64751) is suggested. For additional information please refer to http://education.Smart [employer]/faq/UPZ92l4 (This link is being provided for informational/ educational purposes only.) Blood Venous blood specimen / Unknown 12/13/2022 2:32 PM EDT 12/13/2022 2:33 PM EDT Narrative [facility] - 12/14/2022 7:42 AM EDT FASTING:NO FASTING: NO Dougie Cook MD LAB BLOOD ORDERABL ES Final Result [facility] [address], [place] [address] [employer] [facility] [employer] [address] [place] [address] * THINPREP TIS PAP AND HPV mRNA E6/E7 WITH REFLEX TO HPV 16,18/45 (03/19/2022 2:17 PM EDT) Clinical Information: None given CONVERTED LEGACY LABS [...] with computer assisted technology. CONVERTED LEGACY LABS Steam Station Supervisor : SEE COMMENT CONVERTED LEGACY LABS Comment: ED, CT(ASCP) CT screening location: ?? [facility] ?? [address] [place] [address] ?? [place], [place] [address] HPV nRNA E6/E7 Not Detected Not Detected [facility] LAB[facility] Comment: Methodology: Corporate Technical Recruiter-Mediated Amplification This assay detects E6/E7 viral messenger RNA (mRNA) from 14 high-risk HPV types (16,18,31,33,35,39,45,51,52,56,58,59,66,68). ? Cervical sources are required for HPV testing. If a vaginal source from a patient who has had a total hysterectomy with removal of cervix was ?? submitted, please contact the testing laboratory for alternative testing options. ?? For additional information, please refer to http://education.[employer]/faq/VTG552f5 (This link if provided for information/ educational purposes only.) Infection Shift in vaginal meenu suggestive of bacterial vaginosis. CONVERTED LEGACY LABS Interpretation/R esult: Negative for intraepithelial lesion or malignancy. CONVERTED LEGACY LABS LMP: 06/2021 CONVERTED LEGACY LABS Prev. BX: NONE GIVEN CONVERTED LEGACY LABS Prev. PAP: 4X ABNL PAP,COLPOSCOPY NIL AFTER CONVERTED LEGACY LABS Review Steam Station Supervisor : SEE COMMENT CONVERTED LEGACY LABS Comment: SL, CT(ASCP) CT screening location: [address] ??[id number] SOURCE: None given CONVERTED LEGACY LABS Statement Of Adequacy: SEE COMMENT CONVERTED [facility]GACY LABS Comment: Satisfactory for evaluation. Endocervical/transformation zone component absent. 03/19/2022 2:17 PM EDT Amalia SAHNI LAB PATHOLOGY ORDERABLES Final Result CONVERTED LEGACY LABS * (ABNORMAL) HIV 1/2 ANTIGEN/ANTIBODY,FOURTH GENERATION W/RFL (01/03/2022 12:04 PM EDT) Pathologist [facility] HIV-1/2 ANTIGEN AND ANTIBODIES, 4TH GENERATION W/ REFLEX REPEATEDLY REACTIVE(A) NON-REAC TIVE [facility] Comment: The repeatedly reactive screening [...] old. ?? 01/03/2022 12:0 4 PM EDT us Dougie Cook MD LAB BLOOD ORDERABL ES Final Result [facility] [address] from Last 3 Months or Most Recently Relevant to Health Maintenance Insurance [employer] MEDICARE ADVANTAGE HMO Care Teams Web Pressman Relationship Specialty Start Date End Date Dougie Vela MD [address] [place] [address] PCP - General Internal Medicine 03/28/20
--- OUTSIDE RECORDS SUMMARY | 2024-10-13 14:31 | XMS_ITS | Encounter Summary ---
Author Organization [employer] Address [address] [place] [address] 7 [place] [address] Care Team Providers Care Women Nurse Name Role Phone Dougie Vela MD Primary Care Prov ider Encounter Details Date Type Department Care Team ([facility] st Contact Info) Description 08/16/2024 Orders Only [facility] [address] [place], [place] [phone] Dougie Vela MD [address] [place] [address] Social History Tobacco Use Types Packs/Day Years [...] documented as of this encounter Care Teams Women Nurse Relationship Specialty Start Date End Date Dougie Vela MD [address] [place] [address] PCP - General Internal Medicine 03/28/20 documented as of this encounter
--- OUTSIDE RECORDS SUMMARY | 2024-10-13 14:31 | XMS_ITS | Encounter Summary ---
Author Organization [employer] Address [address] [place] [address] [place] [address] Care Team Providers Care Board Of Directors Name Role Phone Dougie Vela MD Primary Care Prov ider Encounter Details Date Type Department Care Team ([facility] st Contact Info) Description 11/13/2022 Orders Only [facility]S [address] [place] [address] Sona Hart LPN Social History Tobacco Use [...] on filedocumented in this encounter Care Teams Board Of Directors Relationship Specialty Start Date End Date Dougie Vela MD [address] [place] [address] PCP - General Internal Medicine 03/28/20 documented as of this encounter
--- OUTSIDE RECORDS SUMMARY | 2024-10-13 14:31 | XMS_ITS | Encounter Summary ---
Author Organization [email or web address] Address [address] [place] [address] [place] [address] Care Team Providers Care Buffing Line Set Up Worker Name Role Phone Dougie Vela MD Primary Care Prov ider Reason for Visit * Reason Onset Date Comments Medication Question 05/18/2024 Encounter Details Date Type Department Care Team ([facility] st Contact Info) Description 05/18/2024 Telephone [facility] MEDICINE [address] [place] [address] Dougie Vela MD [address] [place] [phone] Medication Question Social History Tobacco Use Types [...] prescribed a GLP-1 drug like Wegovy to it help desk associate in weight loss. The pt was advised [...] like some info on (wegovy) Callback number [phone] documented in this encounter Plan of Treatment Not on file documented as of this encounter Visit Diagnoses Not on filedocumented in this encounter Additional Health Concerns Assessment Noted Time PHQ-9 Depression Total Score: 10 024 12:43 PM EDT documented as of this encounter Care Teams Buffing Line Set Up Worker Relationship Specialty Start Date End Date Dougie Vela MD [address] [place] [address] [phone] PCP - General Internal Medicine 03/28/20 documented as of this encounter
== END 2024-10-13 12:34 | disposition home or self-care (01) ==
LOC: HO.HKAS 12:16
PROVIDERS: PCP Internal Medicine; Visit Provider Internal Medicine Hypertension Specialist
DX: N18.9 Chronic kidney disease, unspecified (principal)
CPT/HCPCS: 99214

== ENCOUNTER 2024-10-13 12:15 | Outpatient (REF) | payer MEDICARE, MEDICAID, SELFPAY ==
--- OUTSIDE RECORDS SUMMARY | 2024-10-13 14:53 | XMS_ITS | Encounter Summary ---
Author Organization [employer] Address [address] [place] [address] [place] [address] Care Team Providers Care Circular Saw Filer Name Role Phone Dougie Vela MD Primary Care Prov ider Reason for Visit * Reason Comments Med Change Request Encounter Details Date Type Department Care Team ([facility] st Contact Info) Description 08/16/2024 Refill [facility]S [address] [place], [place] [phone] Dougie Vela MD [address] [place] [address] Social History Tobacco Use Types Packs/Day Years [...] documented as of this encounter Care Teams Circular Saw Filer Relationship Specialty Start Date End Date Dougie Vela MD [address] [place] [address] PCP - General Internal Medicine 03/28/20 documented as of this encounter
--- OUTSIDE RECORDS SUMMARY | 2024-10-13 14:53 | XMS_ITS | Encounter Summary ---
Author Organization [employer] Address [address] [place] [address] [place] [address] Care Team Providers Care Supervisor Refining Name Role Phone Dougie Vela MD Primary Care Prov ider Encounter Details Date Type Department Care Team ([facility] st Contact Info) Description 11/13/2022 Orders Only [facility] MED & PEDS [address] [place] [address] Sona Hart LPN Social History Tobacco Use [...] filedocumented in this encounter Care Teams Supervisor Refining Relationship Specialty Start Date End Date Dougie Vela MD [address] [place] [address] PCP - General Internal Medicine 03/28/20 documented as of this encounter
--- OUTSIDE RECORDS SUMMARY | 2024-10-13 14:53 | XMS_ITS | Clinical Summary ---
Author Organization [facility] Address [address] [place] [address] Care Team Providers Care Music Industry Internship Name Role Phone Shay Castro MD Primary Care Provider [phone] Allergies Active Allergy Reactions Criticality Noted Date [...] age to complete this topic Care Teams Music Industry Internship Relationship Specialty Start Date End Date Shay Castro MD PCP - General Family Medicine 02/07/20
--- OUTSIDE RECORDS SUMMARY | 2024-10-13 14:53 | XMS_ITS | Clinical Summary ---
Author Organization [facility] Address [address] [place] [address] Care Team Providers Care Volunteer Specialist Name Role Phone Unavailable Primary Care Provider [...] mcg/actuation inhalerIndicatio ns:Mild intermittent asthma without complication ([facility]) Inhale 2 Puffs into the lungs every [...] Has anxiety/depression, ADHD, following at [facility]. On meds. Mild intermittent asthma without complication ([facility]) 09/20/2016 Opioid abuse ([facility]) 09/20/2016 Overview (09/20/2016): H/O IV Heroin use, recent admission [place] [facility] 07/[place] with possible OD and right ankle displaced fracture, fracture of the base of the third, fourth and possible second metatarsals. Now in remission since 07/29/16, now in suboxone clinic through [facility]. Closed fracture of right ankle 09/20/2016 Overview (09/20/2016): admitted to [facility] 07/2016 with possible Heroin OD and right [...] she had herniated disc, s/p microdiscectomy in [place] in 2007. Dyslipidemia 09/20/2016 Constipation 09/20/2016 Social [...] Plan of Treatment Not on file Insurance [facility] Member Subscriber Plan / Payer (Ef fective 2015-Present) Name:Dana Reid Relation to Subscriber:Self Name:Dana Reid Payer ID:[id number] Group ID:Not on file Type:Medicaid Address: [facility] [id number] [place] [address]
--- OUTSIDE RECORDS SUMMARY | 2024-10-13 14:53 | XMS_ITS | Encounter Summary ---
Author Organization [employer] Address [address] [place] [address] 7 [place] [address] Care Team Providers Care Slitting Machine Operator Helper Name Role Phone Dougie Vela MD Primary Care Prov ider Encounter Details Date Type Department Care Team ([facility] st Contact Info) Description 08/16/2024 Orders Only [facility] MED & PEDS [address] [place], [place] [phone] Dougie Vela MD [address] [place] [address] Social History Tobacco Use Types Packs/Day Years [...] documented as of this encounter Care Teams Slitting Machine Operator Helper Relationship Specialty Start Date End Date Dougie Vela MD [address] [place] [address] PCP - General Internal Medicine 03/28/20 documented as of this encounter
--- OUTSIDE RECORDS SUMMARY | 2024-10-13 14:53 | XMS_ITS | Encounter Summary ---
Author Organization [employer] Address [address] [place] [address] [place] [address] Care Team Providers Care Management Professor Name Role Phone Dougie Vela MD Primary Care Prov ider Reason for Visit * Reason Onset Date Comments Medication Question 08/13/2024 Encounter Details Date Type Department Care Team ([facility] st Contact Info) Description 08/13/2024 Telephone [facility] MEDICINE [address] [place] [address] Dougie Vela MD [address] [place] [address] Medication Question Social History Tobacco Use Types [...] documented as of this encounter Care Teams Management Professor Relationship Specialty Start Date End Date Dougie Vlea MD [address] [place] [address] PCP - General Internal Medicine 03/28/20 documented as of this encounter
--- OUTSIDE RECORDS SUMMARY | 2024-10-13 14:54 | XMS_ITS | Encounter Summary ---
Author Organization [employer] Address [address] [place] [address] 7 [place] [address] Care Team Providers Care Cork Grinder Name Role Phone Dougie Vela MD Primary Care Prov ider Encounter Details Date Type Department Care Team ([facility] st Contact Info) Description 05/07/2024 Orders Only [facility] MED & PEDS [address] [place], [place] [phone] Dougie Vela MD [address] [place] [address] Social History Tobacco Use Types Packs/Day Years [...] documented as of this encounter Care Teams Cork Grinder Relationship Specialty Start Date End Date Dougie Vela MD [address] [place] [address] PCP - General Internal Medicine 03/28/20 documented as of this encounter
--- OUTSIDE RECORDS SUMMARY | 2024-10-13 14:54 | XMS_ITS | Clinical Summary ---
Author Organization [employer] Address [address] [place] [address] 7t [place] [address] Care Team Providers Care Calendering Supervisor Name Role Phone Dougie Vela MD Primary [...] right ankle 09/20/2016 Overview (05/31/2022): admitted to [facility] 07/2016 with possible Heroin OD and right [...] Overview (05/31/2022): Has anxiety/depression, ADHD, following at [facility]. On meds. Dyslipidemia 09/20/2016 Assessment & Plan (02/26/2024 1:29 PM EDT): Ascvd 7.0% will start on atorvastatin, risk vs benefits discussed, follow up in 3 months Mild intermittent asthma without complication Obesity (BMI 30.0-34.9) 09/20/2016 Assessment & Plan (07/11/2024 3:49 PM EST): Will refer to bariatric surgery for evaluation Opioid abuse 09/20/2016 Overview (05/31/2022): H/O IV Heroin use, recent admission to [facility] 07/2016 with possible OD and right ankle displaced fracture, fracture of the base of the third, fourth and possible second metatarsals. Now in remission since 2/6/17, now in suboxone clinic through [facility]. Encounters Date Type Department Care Team Description 09/13/2024 2:15 PM EDT Telemedicine [facility] MED & PEDS [address] [place] [address] Dougie Vela MD Chronic pain of left knee (Primary Dx); Primary hypertension 09/13/2024 Travel 09/01/2024 Telephone [facility] MED & PEDS [address] [place] [address] Dougie Vela MD No Show 09/01/2024 Telephone [facility] MED & PEDS [address] [place] [address] Dougie Vela MD 09/01/[address] [facility] MEDICINE [address] [place] [address] Dougie Vela MD Appointment Request 09/01/2024 Orders Only GENERIC EXTERNAL DATA DEPARTMENT Provider, Generic External Data 09/01/2024 Travel 08/31/2024 Telephone [facility] MED & PEDS [address] [place] [address] Dougie Vela MD chart prep (/ ) 08/20/2024 Telephone [facility] MED & PEDS [address] [place] [address] Dougie Vela MD Prior Authorization ([employer] 2.5) 08/16/2024 Refill [facility] MED & PEDS [address] [place] [address] Dougie Vela MD 08/16/2024 Orders Only [facility] MED & PEDS [address] [place] [address] Dougie Vela MD 08/13/[address] [facility] MEDICINE [address] [place] [address] Dougie Vela MD Medication Question 08/10/2024 3:30 PM EST Telemedicine [facility] MED & PEDS [address] [place] [address] Dougie Vela MD Calculus of gallbladder without cholecystitis without obstruction (Primary Dx); Obesity (BMI 30.0-34.9) 08/10/2024 Travel 08/06/2024 Travel 07/31/2024 Orders Only [facility] External Provider, [facility] 07/30/[address] [facility]C MED & PEDS [address] [place] [address] Dougie Vela MD Results; Referral 07/30/2024 Orders Only [facility] MEDICINE [address] [place] [address] Dougie Vela MD Common bile duct dilatation (Primary Dx); Cyst of left kidney 07/15/2024 Orders Only [facility] External Provider, [facility] from Last 3 Months Immunizations Name Administration [...] EDT Narrative 09/01/2024 3:55 PM EDT ? [facility] ?[address] ?[place] [address] ? Fluoroscopy Report ? Signed ? Patient: Reid,Dana ?MR#: [id number] ? : 1975 ?Acct:[id number] ? Age/Sex: 49 / F ?ADM Date: 09/01/24 ? Loc: HO.SSS ? Attending Dr: Gertrude Flaherty MD ? Ordering Physician: Gertrude Flaherty MD ?? Date of Service: 09/01/24 ?? Procedure(s): FL guidance in OR ?? Accession Number(s): [id number] ? cc: Dougie Vela MD; Gertrude Flaherty [...] DD/ 1440 ? TD/TT: 09/01/24 1520 ? Mechanotherapist: ? Procedure Note Donlimater, Image - 09/01/[address] [address] Fluoroscopy Report Signed Patient: Angelica Reid#: [id number] : 1975Acct:[id number] Age/Sex: 49 / FADM Date: 09/01/24 Loc: .[facility] Attending Dr: Gertrude Flaherty MD Ordering Physician: Gertrude Flaherty MD Date of Service: 09/01/24 Procedure(s): FL guidance in OR Accession Number(s): [id number] cc: Dougie Vela MD; Gertrude Flaherty MD [...] 09/01/24 1552 DD/ 1440 TD/TT: 09/01/24 1520 Mechanotherapist: [facility] External Provider IMG IR PROCEDURES Final Result * (ABNORMAL) Drug Monitoring, Panel 1, Screen, Urine (09/01/2024 11:32 AM EDT) Opiate Screen Urine POSITIVE(A) Not Detect [facility] Comment:Opiate cut-off is 30 0 ng/mL.Positive results are unconfirmed and should not be used fornon-medical purposes. Barbiturates, Urine Not Detected Not Detect [facility] Comment:Barbiturate cut-off is 200 ng/mL.Positive results are unconfirmed and should not be used fornon-medical purposes. Phencyclidine Screen Urine Not Detected Not Detect [facility] Comment:Phencyclidine cut-of f is 25 ng/mL.Positive results are unconfirmed and should not be used fornon-medical purposes. Amphetamine Screen Urine Not Detected Not Detect [facility] Comment:Amphetamine cut-off is 1000 ng/mL.Positive results are unconfirmed and should not be used fornon-medical purposes. Benzodiazepines Screen Urine Not Detected Not Detect [facility] Comment:Benzodiazepine cut-o ff is 200 ng/mL.Positive results are unconfirmed and should not be used fornon-medical purposes. Cocaine Screen Urine Not Detected Not Detect [facility] Comment:Cocaine cut-off is 3 00 ng/mL.Positive results are unconfirmed and should not be used fornon-medical purposes. Cannabinoid Screen Urine Not Detected Not Detect [facility] Comment:Cannabinoid cut-off is 50 ng/mL.Positive results are unconfirmed and should not be used fornon-medical purposes. Methadone Screen, Urine Positive(A) Not Detect ng/mL [facility] Comment:Methadone cut-off is 300 ng/mL.Positive results are unconfirmed and should not be used fornon-medical purposes. FENTANYL URINE POSITIVE(A) Not Detect [facility] Comment:Fentanyl cut-off is 1 ng/mL.Positive results are unconfirmed and should not be used fornon-medical purposes. Oxycodone Urine Screen Not Detected Not Detect ng/mL [facility] Comment:Oxycodone cut-off is 100 ng/mL.Positive results are unconfirmed and should not be used fornon-medical purposes. Buprenorphine Screen Not Detected Not Detect ng/mL [facility] Comment:Buprenorphine cut-of f is 5 ng/mL.Positive results are unconfirmed and should not be used fornon-medical purposes. 09/01/2024 11:3 2 AM EDT 09/01/2024 11:39 AM EDT us Generic External Data Provider LAB URINE ORDERAB LES Final Result [facility] [address] [place] [address] [phone] * MR Abdomen w/ and w/o Contrast (07/31/2024 6:00 PM EST) Anatomical Region Laterality Modality Abdomen Magnetic Resonan ce 07/31/2024 6:00 PM EST Narrative 07/31/2024 6:01 PM EST ? [facility] ?[address] ?[place] [address] ? Magnetic Resonance Report ? Signed ? Patient: Reid,Dana ?MR#: [id number] ? : 1975 ?Acct:[id number] ? Age/Sex: 49 / F ?ADM Date: 07/31/24 ? Loc: HO.MRI ? Attending Dr: Palak Morales MD ? Ordering Physician: Palak Morales MD ?? Date of Service: 07/31/24 ?? Procedure(s): MR abdomen wo/w con ?? Accession Number(s): [id number] ? cc: Dougie Vela MD; Palak Morales [...] DD/ 1800 ? TD/TT: 07/31/24 1800 ? Mechanotherapist: ? Procedure Note Cory, Michael - 07/31/2024 [place] [address] Magnetic Resonance Report Signed Patient: Angelica Reid#: [id number] : 1975Acct:[id number] Age/Sex: 49 / FADM Date: 07/31/24 Loc: HO.MRI Attending Dr: Palak Morales MD Ordering Physician: Palak Morales MD Date of Service: 07/31/24 Procedure(s): MR abdomen wo/w con Accession Number(s): [id number] cc: Dougie Vela MD; Palak Morales MD [...] 07/31/24 1801 DD/ 1800 TD/TT: 07/31/24 1800 Mechanotherapist: [facility] External Provider IMG MRI PROCEDURES Edited Result - Final * US Abdomen Complete (07/15/2024 1:43 PM EST) Anatomical Region Laterality Modality Abdomen Ultrasound 07/15/2024 1:43 PM EST Narrative 07/16/2024 7:29 AM EST ? [facility] ?[address] ?[place] [address] ? Ultrasound Report ? Signed ? Patient: Reid,Dana ?MR#: [id number] ? : 1975 ?Acct:[id number] ? Age/Sex: 49 / F ?ADM Date: 07/15/24 ? Loc: HO.US ? Attending Dr: Palak Morales MD ? Ordering Physician: Palak Morales MD ?? Date of Service: 07/15/24 ?? Procedure(s): US abdomen complete ?? Accession Number(s): [id number] ? cc: Dougie Vela MD; Palak Morales [...] DD/ 1343 ? TD/TT: 07/15/24 1357 ? Mechanotherapist: ? Procedure Note Michael Ray - 07/16/2024 [place] [address] Ultrasound Report Signed Patient: Angelica Reid#: [id number] : 1975Acct:[id number] Age/Sex: 49 / FADM Date: 07/15/24 Loc: HO.US Attending Dr: Palak Morales MD Ordering Physician: Palak Morales MD Date of Service: 07/15/24 Procedure(s): US abdomen complete Accession Number(s): [id number] cc: Dougie Vela MD; Palak Morales MD [...] 07/16/24 0726 DD/ 1343 TD/TT: 07/15/24 1357 Mechanotherapist: us [facility] External Provider IMG US PROCEDURES Final Result * (ABNORMAL) Lipid Panel, Standard (01/29/2024 3:45 PM EDT) Triglycerides 229(H) <150 mg/dL [facility] Comment:Desirable Triglyceri de: less than 150 mg/dLBorderline High Triglyceride 150-199 mg/dLHigh Triglyceride: 200-499 mg/dLVery High Triglyceride: greater than or equal to 5OO mg/dL Cholesterol 269(H) <200 mg/dL [facility] Comment:Desirable Cholestero l: less than 200 mg/dLBorderline High Cholesterol: 200-239 mg/dLHigh Cholesterol: greater than 239 mg/dL LDL Cholesterol Calculated 182(H) <100 mg/dL [facility] Comment:Desirable LDL: less than 100 mg/dLNear Optimal/Above Optimal LDL: 110- 129 mg/dLBorderline High LDL: 130-159 mg/dLHigh LDL: 160-189 mg/dLVery High LDL: greater than or equal to 190 mg/dL HDL Cholesterol 42 >40 mg/dL [facility] Comment:Desirable HDL: great er than 40 mg/dL Note: This HDL assay may give artificially low results in patients with liver disease. Blood Venous blood specimen / Unknown 01/29/2024 3:45 PM EDT 01/29/2024 5:43 PM EDT Dougie Cook MD LAB BLOOD ORDERABL ES Final Result [facility] [address] [place] [address] [phone] * Mammogram Diagnostic Right (01/30/2023 3:05 PM EDT) Anatomical Region Laterality Modality Breast Right Mammography 01/30/2023 3:05 PM EDT Narrative 01/30/2023 3:32 PM EDT ? [facility] ? [address] ?[place] [address] ? Ultrasound Report ? Signed ? Patient: Reid,Dana ?MR#: [id number] ? : 1975 ?Acct:[id number] ? Age/Sex: 47 / F ?ADM Date: 08/10/23 ? Loc: HO.MAMMO ? Attending Dr: Dougie Cook MD ? Ordering Physician: Dougie Vela MD ?? Date of Service: 01/30/23 ?? Procedure(s): US breast RT limited mamm only ?? Accession Number(s): [id number] ? cc: Dougie Vela MD ? EXAMINATION: [...] 1529 ? DD/ 1505 ? TD/TT: ? Mechanotherapist: ? Procedure Note Cory, Image - 01/31/2023 [facility] [address] [place] [address] Ultrasound Report Signed Patient: Angelica Reid#: [id number] : 1975Acct:[id number] Age/Sex: 47 / FADM Date: 01/30/23 Loc: HO.MAMMO Attending Dr: Dougie Cook MD Ordering Physician: Dougie Vela MD Date of Service: 01/30/23 Procedure(s): US breast RT limited mamm only Accession Number(s): [id number] cc: Dougie Vela MD EXAMINATION: MM DIAGNOSTIC [...] in OV> 01/30/23 1529 DD/ 1505 TD/TT: Mechanotherapist: Dougie Cook MD IMG BI PROCEDURES Edited Result - Final * Hepatitis C Antibody with Reflex to HCV, RNA, Quantitative, Real-Time PCR (12/13/2022 2:32 PM EDT) Hepatitis C Antibody NON-REACT NELY NON-REACT NELY [facility] Comment: HCV antibody was non-reactive. There is no laboratory evidence of HCV infection. In most cases, no further action is required. However, if recent HCV exposure is suspected, a test for HCV RNA (test code 28186) is suggested. For additional information please refer to http://education.[employer]/faq/CDS20a3 (This link is being provided for informational/ educational purposes only.) Blood Venous blood specimen / Unknown 12/13/2022 2:32 PM EDT 12/13/2022 2:33 PM EDT Narrative [facility] - 12/14/2022 7:42 AM EDT FASTING:NO FASTING: NO Dougie Cook MD LAB BLOOD ORDERABL ES Final Result [facility] [address], [place] [address] [facility] [address] [place] [address] * THINPREP TIS PAP AND HPV mRNA [...] with computer assisted technology. CONVERTED LEGACY LABS [employer] [facility] : SEE COMMENT CONVERTED LEGACY LABS Comment: ED, CT(ASCP) CT screening location: ?? [facility] ?? [address] [place] [address] ?? [place], [place] [address] HPV nRNA E6/E7 Not Detected Not Detected CONVERTED LEGACY LABS Comment: Methodology: Heating And Cooling Systems Engineer-Mediated Amplification This assay detects E6/E7 viral messenger RNA (mRNA) from 14 high-risk HPV types (16,18,31,33,35,39,45,51,52,56,58,59,66,68). ? Cervical sources are required for HPV testing. If a vaginal source from a patient who has had a total hysterectomy with removal of cervix was ?? submitted, please contact the testing laboratory for alternative testing options. ?? For additional information, please refer to http://education.[employer]/faq/MHY227g1 (This link if provided for information/ educational purposes only.) Infection Shift in vaginal meenu suggestive of bacterial vaginosis. CONVERTED LEGACY LABS Interpretation/R esult: Negative for intraepithelial lesion or malignancy. CONVERTED LEGACY LABS LMP: 06/2021 CONVERTED LEGACY LABS Prev. BX: NONE GIVEN CONVERTED LEGACY LABS Prev. PAP: 4X ABNL PAP,COLPOSCOPY NIL AFTER CONVERTED LEGACY LABS Review [employer] : SEE COMMENT CONVERTED LEGACY LABS Comment: SL, CT(ASCP) CT screening location: [address] ??[address] SOURCE: None given CONVERTED LEGACY LABS Statement Of Adequacy: SEE COMMENT CONVERTED LEGACY LABS Comment: Satisfactory for evaluation. Endocervical/transformation zone component absent. 03/19/2022 2:17 PM EDT Amalia SAHNI LAB PATHOLOGY ORDERABLES Final Result CONVERTED LEGACY LABS * (ABNORMAL) HIV 1/2 ANTIGEN/ANTIBODY,FOURTH GENERATION W/RFL (01/03/2022 12:04 PM EDT) Pathologist [facility] HIV-1/2 ANTIGEN AND ANTIBODIES, 4TH GENERATION W/ REFLEX REPEATEDLY REACTIVE(A) NON-REAC TIVE [facility] Comment: The repeatedly reactive screening [...] MD LAB BLOOD ORDERABL ES Final Result [facility] [address] from Last 3 Months or Most Recently Relevant to Health Maintenance Insurance [employer] MEDICARE ADVANTAGE HMO Care Teams Calendering Supervisor Relationship Specialty Start Date End Date Dougie Vela MD [address] [place] [address] PCP - General Internal Medicine 03/28/20
--- OUTSIDE RECORDS SUMMARY | 2024-10-13 14:54 | XMS_ITS | Encounter Summary ---
Author Organization [employer] Address [address] [place] [address] [place] [address] Care Team Providers Care Binding Machine Operator Name Role Phone Dougie Vela MD Primary Care Prov ider Reason for Visit * Reason Onset Date Comments Medication Question 05/18/2024 Encounter Details Date Type Department Care Team ([facility] st Contact Info) Description 05/18/2024 Telephone [facility] MEDICINE [address] [place] [address] Dougie Vela MD [address] [place] [phone] Medication Question Social History Tobacco Use Types [...] prescribed a GLP-1 drug like Wegovy 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 The pt was advised [...] like some info on (wegovy) Callback number [phone] documented in this encounter Plan of Treatment Not on file documented as of this encounter Visit Diagnoses Not on filedocumented in this encounter Additional Health Concerns Assessment Noted Time PHQ-9 Depression Total Score: 10 024 12:43 PM EDT documented as of this encounter Care Teams Binding Machine Operator Relationship Specialty Start Date End Date Dougie Vela MD [address] [place] [address] [phone] PCP - General Internal Medicine 03/28/20 documented as of this encounter
--- OUTSIDE RECORDS SUMMARY | 2024-10-13 14:54 | XMS_ITS | Encounter Summary ---
Author Organization [employer] Address [address] [place] [address] [place] [address] Care Team Providers Care Conservator Artifacts Name Role Phone Dougie Vela MD Primary Care Prov ider Reason for Visit * Reason Onset Date Comments Appointment Request 09/01/2024 Encounter Details Date Type Department Care Team ([facility] st Contact Info) Description 09/01/2024 Telephone [facility] MEDICINE [address] [place] [address] Dougie Vela MD [address] [place] [phone] Appointment Request Social History Tobacco Use Types [...] at hospital and needs reschedule telephone visit. License Clerk unable to cancel appt status was arrived . documented in this encounter Plan of Treatment Not on file documented as of this encounter Visit Diagnoses Not on filedocumented in this encounter Additional Health Concerns Assessment Noted Time PHQ-9 Depression Total Score: 10 024 12:43 PM EDT documented as of this encounter Care Teams Conservator Artifacts Relationship Specialty Start Date End Date Dougie Vela MD [address] [place] [address] PCP - General Internal Medicine 03/28/20 documented as of this encounter
--- OUTSIDE RECORDS SUMMARY | 2024-10-13 14:54 | XMS_ITS | Encounter Summary ---
Author Organization [employer] Address [address] [place] [address] 7t [place] [address] Care Team Providers Care Pencil Inspector Name Role Phone Dougie Vela MD Primary Care Prov ider Encounter Details Date Type Department Care Team (Late st Contact Info) Description 06/13/2022 Orders Only [facility] MEDICINE [address] [place] [address] Dougie Vela MD [address] [place] [address] Cellulitis of right breast (Primary Dx); Primary [...] EST) Glucose 71 65 - 139 mg/dL [employer] [place] [employer] Comment: ? Non-fasting reference interval Urea Nitrogen (BUN) 46(H) 7 - 25 mg/dL [employer] [place] [employer] Creatinine, Serum 2.44(H) 0.50 - 0.99 mg/dL [employer] [place] [employer] eGFR 24(L) > OR = 60 mL/min/1. 73m2 [employer] [place] [employer] Comment: The eGFR is based on the CKD-EPI 2020 equation. To calculate the new eGFR from a previous Creatinine or Cystatin C result, go to https://www.kidney.org/professionals/ kdoqi/gfr%5Fcalculator BUN/Creatinine Ratio 19 6 - 22 (calc) [employer] [place] [employer] [facility] Sodium 136 135 - 146 mmol/L [employer] [place] [employer] Potassium 5.0 3.5 - 5.3 mmol/L [employer] [place] [employer] [facility] Chloride 102 98 - 110 mmol/L [employer] [place] [employer] Carbon Dioxide 27 20 - 32 mmol/L [employer] [place] [employer] [facility] Calcium 9.6 8.6 - 10.2 mg/dL [employer] [place] [employer] Blood Venous blood specimen / Unknown 06/21/2022 3:34 PM EST 06/21/2022 3:34 PM EST Narrative [facility] - 06/22/2022 1:37 AM EST FASTING:NO FASTING: NO us Dougie Cook MD LAB BLOOD ORDERABL ES Final Result [facility] [address], [place] [address] [employer] [place] [employer] [address] [facility], (Nl[address]) [place] [address] documented in this encounter Visit Diagnoses Diagnosis Cellulitis of right breast- Primary Primary hypertension Unspecified essential hypertension documented in this encounter Care Teams Pencil Inspector Relationship Specialty Start Date End Date Dougie Vela MD [address] [place] [id number] PCP - General Internal Medicine 03/28/20 documented as of this encounter
[2024-10-13 17:49] LABS: Appearance Urine Clear; Color Urine Yellow; Glucose Urine UA Negative (Negative); Leukocyte Esterase Urine Moderate (2+) (Negative); Nitrite Urine Negative (Negative); UMIC TRIGGER UA YES; Urine Blood Negative (Negative); Urine Ketones Negative (Negative); Urine Protein Negative (Neg-Trace)
[2024-10-13 17:52] LABS: Bacteria Urine None Seen (None Seen); Hyaline Casts Urine 0-2 /LPF (0-2); RBC Urine 0-2 /HPF (0-2); Squamous Epithelial Cell Urine 0-2 /HPF (0-2)
[2024-10-13 18:35] LABS: Creatinine Urine 124.77 mg/dL; Total Protein Urine Random 9 mg/dL (<12)
== END 2024-10-13 12:16 | disposition home or self-care (01) ==
LOC: HO.HKASLDS 12:15
PROVIDERS: PCP Internal Medicine; Visit Provider Internal Medicine Hypertension Specialist
DX: N18.9 Chronic kidney disease, unspecified (principal); F11.11 Opioid abuse, in remission
CPT/HCPCS: 81001; 82570; 84156; 99212

== ENCOUNTER 2024-11-03 09:41 | Outpatient (REF) | payer MEDICARE, MEDICAID, SELFPAY ==
--- NOTE | ~2024-11-03 | XR_ITS ---
EXAMINATION: XR KNEE 3 VIEWS LEFT HISTORY: M25.562 - Pain in left knee COMPARISON: There are no prior studies available for comparison. FINDINGS: Standing AP views of both knees and additional lateral and sunrise patellar views of the left knee are submitted. Osseous mineralization is normal. There is no fracture or dislocation. The joint spaces are preserved. The soft tissues are unremarkable. There is no joint effusion. XR/XR knee LT 3V IMPRESSION: Unremarkable examination of the left knee. Electronically signed by: Lawson Madison MD 11/04/2024 08:29 AM EDT
--- OUTSIDE RECORDS SUMMARY | 2024-11-04 10:31 | XMS_ITS | Encounter Summary ---
Author Organization [employer] Address [address] [place] [address] 7 [place] [address] Care Team Providers Care Manager Internal Name Role Phone Dougie Vela MD Primary Care Prov ider Encounter Details Date Type Department Care Team ([facility] st Contact Info) Description 05/07/2024 Orders Only [facility] MED & PEDS [address] [place], [place] [phone] Dougie Vela MD [address] [place] [address] Social History Tobacco Use Types Packs/Day Years [...] documented as of this encounter Care Teams Manager Internal Relationship Specialty Start Date End Date Dougie Vela MD [address] [place] [address] PCP - General Internal Medicine 03/28/20 documented as of this encounter
--- OUTSIDE RECORDS SUMMARY | 2024-11-04 10:31 | XMS_ITS | Encounter Summary ---
Author Organization [employer] Address [address] [place] [address] [place] [address] Care Team Providers Care Revenue Investigator Name Role Phone Dougie Vela MD Primary Care Prov ider Reason for Visit * Reason Onset Date Comments Medication Question 05/18/2024 Encounter Details Date Type Department Care Team ([facility] st Contact Info) Description 05/18/2024 Telephone [facility] MEDICINE [address] [place] [address] Dougie Vela MD [address] [place] [address] Medication Question Social History Tobacco Use Types [...] prescribed a GLP-1 drug like 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 The pt was [...] like some info on (wegovy) Callback number [phone] documented in this encounter Plan of Treatment Not on file documented as of this encounter Visit Diagnoses Not on filedocumented in this encounter Additional Health Concerns Assessment Noted Time PHQ-9 Depression Total Score: 10 024 12:43 PM EDT documented as of this encounter Care Teams Revenue Investigator Relationship Specialty Start Date End Date Dougie Vela MD [address] [place] [id number] PCP - General Internal Medicine 03/28/20 documented as of this encounter
--- OUTSIDE RECORDS SUMMARY | 2024-11-04 10:31 | XMS_ITS | Clinical Summary ---
Author Organization [facility] Address [address] [place] [address] Care Team Providers Care Quality Assurance Representative Name Role Phone Unavailable Primary Care Provider [...] mcg/actuation inhalerIndicatio ns:Mild intermittent asthma without complication ([facility]) Inhale 2 Puffs into the lungs every [...] without complication ([facility]) 09/20/2016 Opioid abuse ([facility]) 09/20/2016 Overview (09/20/2016): H/O IV Heroin use, recent admission to [facility] 07/2016 with possible OD and right ankle displaced fracture, fracture of the base of the third, fourth and possible second metatarsals. Now in remission since 07/29/16, now in suboxone clinic through [facility]. Closed fracture of right ankle 09/20/2016 Overview (09/20/2016): admitted to [facility] 07/2016 with possible Heroin OD and right [...] she had herniated disc, s/p microdiscectomy in [place] in 2007. Dyslipidemia 09/20/2016 Constipation 09/20/2016 Social [...] Plan of Treatment Not on file Insurance [facility] Member Subscriber Plan / Payer (Ef fective 2015-Present) Name:Dana Reid Relation to Subscriber:Self Name:Dana Reid Payer ID:[id number] Group ID:Not on file Type:Medicaid Address: [facility] [address] [place] [address]
--- OUTSIDE RECORDS SUMMARY | 2024-11-04 10:31 | XMS_ITS | Clinical Summary ---
Author Organization [facility] Address [address] [place] [address] Care Team Providers Care Clay Burner Name Role Phone Shay Castro MD Primary Care Provider [phone] Allergies Active Allergy Reactions Criticality Noted Date [...] age to complete this topic Care Teams Clay Burner Relationship Specialty Start Date End Date Shay Castro MD PCP - General Family Medicine 02/07/20
--- OUTSIDE RECORDS SUMMARY | 2024-11-04 10:31 | XMS_ITS | Encounter Summary ---
Author Organization [employer] Address [address] [place] [address] 7 [place] [address] Care Team Providers Care Apparel Machinery Instructor Name Role Phone Dougie Vela MD Primary Care Prov ider Reason for Visit * Reason Comments Med Change Request Encounter Details Date Type Department Care Team ([facility] st Contact Info) Description 08/16/2024 Refill [facility] MED & PEDS [address] [place], [place] [phone] Dougie Vela MD [address] [place] [address] Social History Tobacco Use Types Packs/Day Years [...] documented as of this encounter Care Teams Apparel Machinery Instructor Relationship Specialty Start Date End Date Dougie Vela MD [address] [place] [address] PCP - General Internal Medicine 03/28/20 documented as of this encounter
--- OUTSIDE RECORDS SUMMARY | 2024-11-04 10:31 | XMS_ITS | Encounter Summary ---
Author Organization [employer] Address [address] [place] [address] [place] [address] Care Team Providers Care Data Security Coordinator Name Role Phone Dougie Vela MD Primary Care Prov ider Reason for Visit * Reason Onset Date Comments Medication Question 08/13/2024 Encounter Details Date Type Department Care Team ([facility] st Contact Info) Description 08/13/2024 Telephone [facility] MEDICINE [address] [place] [address] Dougie Vela MD [address] [place] [address] Medication Question Social History Tobacco Use Types [...] documented as of this encounter Care Teams Data Security Coordinator Relationship Specialty Start Date End Date Dougie Vela MD [address] [place] [address] PCP - General Internal Medicine 03/28/20 documented as of this encounter
--- OUTSIDE RECORDS SUMMARY | 2024-11-04 10:31 | XMS_ITS | Encounter Summary ---
Author Organization [employer] Address [address] [place] [address] [place] [address] Care Team Providers Care Life Skills Educator Name Role Phone Dougie Vela MD Primary Care Prov ider Encounter Details Date Type Department Care Team ([facility] st Contact Info) Description 11/13/2022 Orders Only [facility] CHC MED & PEDS [address] [place] [address] Sona Hart LPN Social History Tobacco Use [...] on filedocumented in this encounter Care Teams Life Skills Educator Relationship Specialty Start Date End Date Dougie Vela MD [address] [place] [address] PCP - General Internal Medicine 03/28/20 documented as of this encounter
--- OUTSIDE RECORDS SUMMARY | 2024-11-04 10:31 | XMS_ITS | Encounter Summary ---
Author Organization [employer] Address [address] [place] [address] 7 [place] [address] Care Team Providers Care Linux Kernel Developer Name Role Phone Dougie Vela MD Primary Care Prov ider Encounter Details Date Type Department Care Team ([facility] st Contact Info) Description 08/16/2024 Orders Only [facility] CHC MED & PEDS [address] [place], [place] [phone] Dougie Vela MD [address] [place] [address] Social History Tobacco Use Types Packs/Day Years [...] documented as of this encounter Care Teams Linux Kernel Developer Relationship Specialty Start Date End Date Dougie Vela MD [address] [place] [address] PCP - General Internal Medicine 03/28/20 documented as of this encounter
--- OUTSIDE RECORDS SUMMARY | 2024-11-04 10:32 | XMS_ITS | Data Portability ---
Author Organization [facility], [facility] Address [address] [place] [address] Care Team Providers Care Mail Clerks Supervisor Name Role Phone BEBETO LESLIE Primary Care Provider [phone] Assessment No assessment recorded. Plan of Treatment Reminders Order Date Submit Date Provider Last Modified By Organization Details Last Modified Time Details Appointments None recorded. Lab None recorded. Referral None recorded. Procedures None recorded. Surgeries None recorded. Imaging XR, ankle + foot - # 118 ---3V ANKLE WB, 2V FOOT WB NEW PATIENT [id number] [email or web address] [facility], [address] [facility], [facility] [address], [address], 14:35:46 Medication Orders None recorded. Patient TargetsNo targets recorded. Patient InstructionsNo instructions recorded. Reason for Referral None Reported. Results Created Date Observation Date Name Description Value Unit Range Abnormal Flag Note LastModifiedBy Organization Detail LastModifiedTime 07/23/19 25 07/23/2024 XR, ankle + foot http:/ [email or web address] ?Encry pted=s hAaTro YD8dLq bEUv6g %2BXZw aYqtaq 0bqfl% 2Fg9IQ a4ajBk vP9nXo QUaueC m3YtLR FvZlgJ JJ8mAn HZtai3 1r0807 AC0Kqb H%2BNW aekKiQ trMwF INTERFACE [facility] [address], [place], [address], 07/23/2024 15:44:03 07/23/19 25 07/23/2024 XR, ankle + foot http:/ [email or web address] ?Encry pted=s hAaTro YD8dLq bEUv6g %2BXZw aYqtaq 0bqfl% 2Fg9IQ a4ajBk vP9nXo QUaueC m3YtLR FvZlgJ JJ8mAn HZtai3 2m3982 AC0Kqb H%2BNW aekKiQ trMwF INTERFACE [facility] [address], [place], [address], 07/23/2024 15:44:05 Result Notes None recorded. Problems Name Problem SNOMED Code Status Onset Date Resolution Date Notes Provider Name and Address Organization Details Recorded Time No complaint s 940767883 Active Status: 'I'; Not Available [facility] 4 09:15:25 Ankle pain 664265081 Active 2024 Roxann Solis PA-C [address], [place], [address] , [facility] 5 14:32:34 Acquired cavovarus deformity of right foot 774568265726 9104 Active 2024 Roxann Solis PA-C [address], [place], [address] , [facility] 5 14:32:34 Closed trimalleo lar fracture 1785519 Active 2016 Problem Code: S82.851A ; Problem Code Type: ICD-10; Status: 'A'; Not Available [facility] 4 11:43:00 Problem Notes None recorded. Procedures Surgical History None recorded. Imaging Results Imaging Date Name Status LastModified by [facility] Details LastModified Time 07/23/2024 XR, ankle + foot completed INTERFACE [employer] [address], [place], [address], 07/23/2024 15:44:03 07/23/2024 XR, ankle + foot completed INTERFACE [employer] [facility] [address], [place], [address], 07/23/2024 15:44:05 Procedure Notes None recorded. Medical Equipment None Reported. Allergies Allergen ID Allergen Name Allergen Category Reaction Reaction Severity Criticality Documentation Date Start Date Code Code System Note Provider Name and Address Organization Details Recorded Time 48533 Haldol medicatio n Not available Not available Not available 08/25/20232016 99397 9 RxNorm Aller gyNam e: 'Hald ol Soln' ; Not Available [employer] 14:03:43 Medications Name Sig Start Date Stop Date Status Note LastModified by Organization Details LastModified Time atorvastatin 20 mg tablet TAKE 1 TABLET (20 MG) BY MOUTH ONCE PER DAY. active Not Available Not Available No t Available trazodone 50 mg tablet TAKE 1 TO 2 TABLETS BY MOUTH AT BEDTIME NEEDED active Not Available Not Available No t Available sertraline 100 mg tablet TAKE 2 TABLETS BY MOUTH EVERY DAY active Not Available Not Available No t Available amlodipine 5 mg tablet TAKE 1 TABLET BY MOUTH EVERY DAY active Not Available Not Available No t Available sulfamethoxa zole 800 mg-trimethop rim 160 mg tablet TAKE 1 TABLET BY MOUTH TWICE A DAY FOR 7 DAYS active Not Available Not Available No t Available Adderall XR 30 mg capsule,exte nded release active Not Available Not Available Not Available trazodone 150 mg tablet active Not Available Not Available Not Available gabapentin 100 mg capsule TAKE 1 CAPSULE (100 MG) BY MOUTH EVERY 8 HOURS active Not Available Not Available No t Available rosuvastatin 10 mg tablet TAKE 1 TABLET BY MOUTH EVERY DAY active Not Available Not Available No t Available bupropion HCl XL 300 mg 24 hr tablet, extended release TAKE 1 TABLET BY MOUTH EVERY DAY IN THE MORNING active Not Available Not Available No t Available ramelteon 8 mg tablet TAKE 1 TABLET BY MOUTH EVERY NIGHT AT BEDTIME NEEDED INSOMNIA active Not Available Not Available No t Available oxycodone HCl-oxycodon e-ASA 1 every [address] under this medication 2020 active Statu s: 'Curr ent'; Not Available Not Available Not Available Vitals Date Recorded Body height Body mass index (BMI) Body weight Provider Name and Address Organization Details Last Updated DateTime 07/23/2024 172.72 cm 33.5 kg/m2 70652.32 g GABE DAVISOS [facility] 07/23/2024 16:16:58 Date Recorded Body height Body mass index (BMI) Body weight Provider Name and Address Organization Details Last Updated DateTime 10/15/2024 172.72 cm 34.2 kg/m2 436247.28 g Carolyn Meghan [facility] 10/15/2024 15:39:10 Social History None recorded. Functional Status None recorded. Mental Status None recorded. Family History Nothing Reported. Medical History No medical history recorded. Gynecological HistoryNo gynecological history recorded. Obstetrics History GPAL:G 0 P 0 0 0 0 Past Encounters Encounter ID Performer Location Encounter Start Date Encounter Closed Date Diagnosis/Indication Diagnosis SNOMED-CT Code Diagnosis ICD10 Code Diagnosis Note [id number] Roxann Solis PA-C [facility] [address] [place] [address] 07/23/2024 15:28:02 08/02/2024 14:35:46 Ankle pain 786453312 M25.571 Acquired c avovarus deformity of right foot 2805721945 471302 M21.6X1 [id number] Roxann Solis PA-C [facility] [address] [place] [address] 10/15/2024 15:35:03 10/22/2024 12:50:07 Acquired cavovarus deformity of right foot 2912911076 913860 M21.6X1 Health Concerns Section Related Observation LastModified by Organization Detai ls LastModified Time None Recorded Concern Status LastModified by Organization Details LastModified Time None Recorded Advance Directives Directive None Recorded Payers Encounter Date Sequence Insurance Name Policy Number Policy Roberts Covered Member ID Roberts Member ID Guarantor Name 07/23/2024 1 [facility] (MEDICARE REPLACEMENT/A DVANTAGE - PPO) [id number] Dana Reid [id number] Dana Reid 07/23/2024 2 [place] [facility] Dana Reid [id number] Dana Reid 10/15/2024 1 [facility] (MEDICARE REPLACEMENT/A DVANTAGE - PPO) [id number] Dana Reid [id number] Dana Reid 10/15/2024 2 [place] [facility] Dana Reid [id number] Dana Svetlana Franklin Notes Date Note Type Note Provider Name and Address Organization Details Recorded Time 07/23/2024 text/html I am seeing this patient under the supervision of Dr. Rodriguez, who was available but who did not see the patient. HPI: Patient is a 49-year-old female presenting today in regards to right foot and ankle pain. We recall that she is status post right posterior tibial tendon transfer to the lateral cuneiform, medial capsular and spring ligament releases, ankle hardware removal in 2020 for treatment of L5 radiculopathy, peroneal weakness, and foot drop with cavovarus deformity. Unfortunately she feels that the surgery did not make a significant difference. She continues to feel she is walking on the lateral border of her foot and feels that this has gotten worse. She has tried physical therapy in the past without much relief. She was last seen here in 2021. She is contemplating wanting to go forward with triple arthrodesis but is hesitant to proceed with another surgery. Denies any interval trauma. Denies any fevers, chills, or paresthesias. PFMSH, Meds and ROS reviewed, updated and signed by me, and is located in the patient's chart. PHYSICAL EXAMINATION: The patient is well appearing and in no apparent distress. Alert and oriented x 3. With shoe removed, she has a tendency toward cavovarus when standing. In the seated position, her ankle and hindfoot rests in a varus position. She has well-healed incisions. She is able to dorsiflex her ankle to neutral and her tibialis anterior tendon is intact. I am not able to palpate her transferred posterior tibial tendon. She has absent peroneal function. There is stiffness of the hindfoot such that it cannot be fully corrected out of varus. Her ankle is stable to varus and valgus stress. Her neurovascular exam is at his baseline. RADIOLOGY: X-rays were ordered, obtained, and reviewed today in our office. 5 views of the right foot and ankle reveal cavovarus alignment with mild hindfoot arthritis IMPRESSION: Persistent cavovarus deformity and peroneal weakness status post surgery in 2020 PLAN: Discussed the findings and situation with the patient today. We had a long discussion regarding her symptoms and treatment options. She was previously wearing a carbon fiber AFO brace. We discussed use of an articulating polypropylene AFO brace that she does have some ankle sagittal plane motion and it seems that her pain is related to weakness from her peroneal's. We discussed the role of triple hindfoot arthrodesis which I do think would be an appropriate surgery for her when she wants to proceed with this. She will follow-up in 2 to 3 months for recheck. Call with questions or concerns. The patient is ambulatory, but has weakness and/or instability of their extremity which requires stabilization from this semi-rigid/rigid orthosis to improve their function. Verbal and written instructions for the use and application of this item were given. Patient was instructed that should the brace result in increased pain, decreased sensation, increased swelling or an overall worsening of their medical condition, to please contact our office immediately. Roxann Solis PA-C [address] [facility] [address] [facility], [place], [address], [facility] 07/27/2024 12:27:30 10/15/2024 text/html I am seeing this patient under the supervision of Dr. Rodriguez, who was available but who did not see the patient. HPI: Patient is a 49-year-old female presenting today for re-check in regards to right foot and ankle pain. We recall that she is status post right posterior tibial tendon transfer to the lateral cuneiform, medial capsular and spring ligament releases, ankle hardware removal in 2020 for treatment of L5 radiculopathy, peroneal weakness, and foot drop with cavovarus deformity. Unfortunately she feels that the surgery did not make a significant difference. She continues to feel she is walking on the lateral border of her foot and feels that this has gotten worse. She has tried physical therapy in the past without much relief. She was last seen here in June. She was able to obtain a polypropylene AFO brace and feels that this is helping somewhat although continues to have pain. Denies any interval trauma. Denies any fevers, chills, or paresthesias. PFMSH, Meds and ROS reviewed, updated and signed by me, and is located in the patient's chart.PHYSICAL EXAMINATION: The patient is well appearing and in no apparent distress. Alert and oriented x 3. With shoe removed, she has a tendency toward cavovarus when standing. In the seated position, her ankle and hindfoot rests in a varus position. She has well-healed incisions. She is able to dorsiflex her ankle to neutral and her tibialis anterior tendon is intact. I am not able to palpate her transferred posterior tibial tendon. She has absent peroneal function. There is stiffness of the hindfoot such that it cannot be fully corrected out of varus. Her ankle is stable to varus and valgus stress. Her neurovascular exam is at his baseline. IMPRESSION: Persistent cavovarus deformity and peroneal weakness status post surgery in 2020 PLAN: Discussed the findings and situation with the patient today. We had a long discussion regarding her symptoms and treatment options. She will continue with her polypropylene AFO brace. We discussed the role of triple hindfoot arthrodesis which I do think would be an appropriate surgery for her when she wants to proceed with this. She will follow-up in 2 to 3 months for recheck. Call with questions or concerns. Roxann Solis PA-C [address], [place], [address], [facility] 10/18/2024 14:32:48 OBGyn Episode No OBEpisode recorded.
--- OUTSIDE RECORDS SUMMARY | 2024-11-04 10:32 | XMS_ITS | Clinical Summary ---
Author Organization [employer] Address [address] [place] [address] 7t [place] [address] Care Team Providers Care Air Quality Specialist Name Role Phone Dougie Vela MD Primary [...] she had herniated disc, s/p microdiscectomy in [place] in 2007. 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 Now in remission since 2/6/17, now in suboxone clinic through [facility]. Encounters Date Type Department Care Team Description 10/13/2024 Orders Only GENERIC EXTERNAL DATA DEPARTMENT Provider, Generic External Data 09/13/2024 2:15 PM EDT Telemedicine [facility] [address] [place] [address] Dougie Vela MD Chronic pain of left knee (Primary Dx); Primary hypertension 09/13/2024 Travel 09/01/2024 Telephone [facility] [address] [place] [address] Dougie Vela MD No Show 09/01/2024 Telephone [facility] [address] [place] [address] Dougie Vela MD 09/01/2024 Telephone [facility] [address] [place] [address] [phone] Dougie Vela MD Appointment Request 09/01/2024 Orders Only GENERIC EXTERNAL DATA DEPARTMENT Provider, Generic External Data 09/01/2024 Travel 08/31/2024 Telephone [facility] [address] [place] [address] Dougie Vela MD chart prep (/ ) 08/20/2024 Telephone [facility] [address] [place] [address] Dougie Vela MD Prior Authorization (Zepbound 2.5) 08/16/2024 Refill [facility] [address] [place] [address] Dougie Vela MD 08/16/2024 Orders Only [facility] [address] [place] [address] Dougie Vela MD 08/13/2024 Telephone [facility] [address] [place] [phone] Dougie Vela MD Medication Question 08/10/2024 3:30 PM EST Telemedicine [facility] [address] [place] [address] Dougie Vela MD Calculus of gallbladder without cholecystitis without obstruction (Primary Dx); Obesity (BMI 30.0-34.9) 08/10/2024 Travel from Last 3 Months Immunizations Immunization [...] Protein, Total, Random Urine 9 <12 mg/dL [facility] 10/13/2024 12:4 0 PM EDT 10/13/2024 5:44 PM EDT Generic External Data Provider LAB URINE ORDERAB LES Final Result Performing Organization Address City/[facility]/ZIP Co de Phone Number [facility] [address] [place] [phone] * Creatinine, Random Urine (10/13/2024 12:40 PM EDT) Creatinine, Urine 124.77 mg/dL [facility] 10/13/2024 12:4 0 PM EDT 10/13/2024 5:44 PM EDT Generic External Data Provider LAB URINE ORDERAB LES Final Result Performing Organization Address City/[facility]/ZIP Co de Phone Number [facility] [address] [place] [phone] * (ABNORMAL) Urinalysis Complete (10/13/2024 12:40 PM EDT) Color Urine Yellow [facility] Appearance Urine Clear [facility] PH 6.0 5.0 - 9.0 [facility] Glucose Urine UA Negative Negative mg/dL [facility] Urine Blood Negative Negative [facility] Specific [place] - Urine 1.020 1.005 - 1.025 [facility] Urine Protein Negative Neg-Trace mg/dL [facility] Urine Ketones Negative Negative mg/dL [facility] Nitrite Urine Negative Negative [facility] Leukocyte Esterase Urine Moderate (2+)(A) Negative [facility] RBC Urine 0-2 0 - 2 /HPF [facility] Urine WBC 6-10(A) 0 - 5 /HPF [facility] Urine Squamous Epithelial Cell 0-2 0 - 2 /HPF [facility] Urine Bacteria None Seen None Seen [facility] Hyaline Casts, Urine 0-2 0 - 2 /LPF [facility] 10/13/2024 12:4 0 PM EDT 10/13/2024 5:44 PM EDT us Generic External Data Provider LAB URINE ORDERAB LES Final Result Performing Organization Address City/State/[facility] Co de Phone Number [facility] [address] [place] [phone] * FL Guidance in OR (09/01/2024 2:40 PM EDT) Anatomical Region Laterality Modality X-Ray Angiograph y 09/01/2024 2:40 PM EDT Narrative 09/01/2024 3:55 PM EDT ? [facility] ?[address] ?[place] [address] ? Fluoroscopy Report ? Signed ? Patient: Reid,Dana ?MR#: [id number] ? : 1975 ?Acct:[id number] ? Age/Sex: 49 / F ?ADM Date: 09/01/24 ? Loc: HO.SSS ? Attending Dr: Gertrude Flhaerty MD ? Ordering Physician: Gertrude Flaherty MD ?? Date of Service: 09/01/24 ?? Procedure(s): FL guidance in OR ?? Accession Number(s): [id number] ? cc: Dougie Vela MD; Gertrude Flaherty [...] DD/ 1440 ? TD/TT: 09/01/24 1520 ? Flat Lock Operator: ? Procedure Note Donotuseinterpreter, Image - 09/01/2024 [place] [address] Fluoroscopy Report Signed Patient: Angelica Reid#: [id number] : 1975Acct:[id number] Age/Sex: 49 / FADM Date: 09/01/24 Loc: .[facility] Attending Dr: Gertrude Flaherty MD Ordering Physician: Gertrude Flaherty MD Date of Service: 09/01/24 Procedure(s): FL guidance in OR Accession Number(s): [id number] cc: Dougie Vela MD; Gertrude Flaherty MD [...] 09/01/24 1552 DD/ 1440 TD/TT: 09/01/24 1520 Flat Lock Operator: [facility] External Provider IMG IR PROCEDURES Final [...] ORDERAB LES Final Result [facility] [address] [place] [phone] * (ABNORMAL) Lipid Panel, Standard (01/29/2024 3:45 PM EDT) Triglycerides 229(H) <150 mg/dL [facility] Comment:Desirable Triglyceri de: less than 150 [...] mg/dL HDL Cholesterol 42 >40 mg/dL [facility] Comment:Desirable HDL: great er than 40 mg/dL Note: This HDL assay may give artificially low results in patients with liver disease. Blood Venous blood specimen / Unknown 01/29/2024 3:45 PM EDT 01/29/2024 5:43 PM EDT us Dougie Cook MD LAB BLOOD ORDERABL ES Final Result Performing Organization Address [facility]/State/ZIP Co de Phone Number [facility] [address] [place] [address] [phone] * Mammogram Diagnostic Right (01/30/2023 3:05 PM EDT) Anatomical Region Laterality Modality Breast Right Mammography 01/30/2023 3:05 PM EDT Narrative 01/30/2023 3:32 PM EDT ? [facility] ? [address] ?[place] [address] ? Ultrasound Report ? Signed ? Patient: Reid,Dana ?MR#: [id number] ? : 1975 ?Acct:[id number] ? Age/Sex: 47 / F ?ADM Date: 01/30/23 ? Loc: HO.MAMMO ? Attending Dr: Dougie Cook MD ? Ordering Physician: Dougie Vela MD ?? Date of Service: 01/30/23 ?? Procedure(s): US breast RT limited mamm only ?? Accession Number(s): [id number] ? cc: Dougie Vela MD ? EXAMINATION: [...] 1529 ? DD/ 1505 ? TD/TT: ? Flat Lock Operator: ? Procedure Note Donotolvininterpreter, Image - 01/31/2023 [place] [facility] [address] [place] [address] Ultrasound Report Signed Patient: Angelica Reid#: [id number] : 1975Acct:[id number] Age/Sex: 47 / FADM Date: 01/30/23 Loc: HO.MAMMO Attending Dr: Dougie Cook MD Ordering Physician: Dougie Vela MD Date of Service: 01/30/23 Procedure(s): US breast RT limited mamm only Accession Number(s): [id number] cc: Douige Vela MD EXAMINATION: MM DIAGNOSTIC DIGITAL BREAST [...] in OV> 01/30/23 1529 DD/ 1505 TD/TT: Flat Lock Operator: Dougie Cook MD [facility] PROCEDURES Edited Result - Final * Hepatitis C Antibody with Reflex to HCV, RNA, Quantitative, Real-Time PCR (12/13/2022 2:32 PM EDT) Hepatitis C Antibody NON-REACT NELY NON-REACT NELY [facility] Comment: HCV antibody was non-reactive. There is no laboratory evidence of HCV infection. In most cases, no further action is required. However, if recent HCV exposure is suspected, a test for HCV RNA (test code 22090) is suggested. For additional information please refer to http://education.RatePoint/faq/RKP63m8 (This link is being provided for informational/ educational purposes only.) Blood Venous blood specimen / Unknown 12/13/2022 2:32 PM EDT 12/13/2022 2:33 PM EDT Narrative [facility] - 12/14/2022 7:42 AM EDT FASTING:NO FASTING: NO us Dougie Cook MD LAB BLOOD ORDERABL ES Final Result [facility] [address] [place] [address], [place] [address] [facility] [address] [place] [phone] * THINPREP TIS PAP AND HPV mRNA [...] with computer assisted technology. CONVERTED [facility]GACY LABS Biostatistics Manager : SEE COMMENT [facility] Comment: ED, CT(ASCP) CT screening location: ?? [facility] ?? [address] [place] [address] ?? [place] [address] HPV nRNA E6/E7 Not Detected Not Detected CONVERTED [employer] [facility] Comment: Methodology: Cogeneration Technician-Mediated Amplification This assay detects E6/E7 viral messenger RNA (mRNA) from 14 high-risk HPV types (16,18,31,33,35,39,45,51,52,56,58,59,66,68). ? Cervical sources are required for HPV testing. If a vaginal source from a patient who has had a total hysterectomy with removal of cervix was ?? submitted, please contact the testing laboratory for alternative testing options. ?? For additional information, please refer to http://education.RatePoint/faq/HVL798m6 (This link if provided for information/ educational purposes only.) Infection Shift in vaginal meenu suggestive of bacterial vaginosis. CONVERTED [facility] Interpretation/R esult: Negative for intraepithelial lesion or malignancy. [facility] LMP: 06/2021 [facility] Prev. BX: NONE GIVEN [facility]VERTED [facility] Prev. PAP: 4X ABNL PAP,COLPOSCOPY NIL AFTER CONVERTED [facility]GACY LAB[facility] Review Biostatistics Manager : SEE COMMENT [facility]VERTED [facility] Comment: SL, CT(ASCP) CT screening location: [address] ??[phone] SOURCE: None given [facility]VERTED [facility] Statement Of Adequacy: SEE COMMENT [facility] Comment: Satisfactory for evaluation. Endocervical/transformation zone component absent. 03/19/2022 2:17 PM EDT [facility] LAB PATHOLOGY ORDERABLES Final Result [facility] * (ABNORMAL) HIV 1/2 ANTIGEN/ANTIBODY,FOURTH GENERATION W/RFL (01/03/2022 12:04 PM EDT) Pathologist [facility] HIV-1/2 ANTIGEN AND ANTIBODIES, 4TH GENERATION W/ REFLEX REPEATEDLY REACTIVE(A) [facility] Comment: The repeatedly reactive [...] ORDERABL ES Final Result Performing Organization Address [facility]/State/[facility] Co ma Phone Number [facility] [address] from Last 3 Months or Most Recently Relevant to Health Maintenance Insurance MEDICARE ADVANTAGE HMO Care Teams Air Quality Specialist Relationship Specialty Start Date End Date Dougie Vela MD [address] [place] [phone] PCP - General Internal Medicine 03/28/20
--- OUTSIDE RECORDS SUMMARY | 2024-11-04 10:32 | XMS_ITS | Encounter Summary ---
Author Organization [employer] Address [address] [place] [address] [place] [address] Care Team Providers Care Community Living Coach Name Role Phone Dougie Vela MD Primary Care Prov ider Reason for Visit * Reason Onset Date Comments Appointment Request 09/01/2024 Encounter Details Date Type Department Care Team ([facility] st Contact Info) Description 09/01/2024 Telephone [facility] [address] [place] [address] Dougie Vela MD [address] [place] [phone] Appointment Request Social History Tobacco Use Types [...] at hospital and needs reschedule telephone visit. Activity Assistant unable to cancel appt status was arrived . documented in this encounter Plan of Treatment Not on file documented as of this encounter Visit Diagnoses Not on filedocumented in this encounter Additional Health Concerns Assessment Noted Time PHQ-9 Depression Total Score: 10 024 12:43 PM EDT documented as of this encounter Care Teams Community Living Coach Relationship Specialty Start Date End Date Dougie Vela MD [address] [place] [phone] PCP - General Internal Medicine 03/28/20 documented as of this encounter
--- OUTSIDE RECORDS SUMMARY | 2024-11-04 10:32 | XMS_ITS | Encounter Summary ---
Author Organization [employer] Address [address] [place] [address] 7t [place] [address] Care Team Providers Care Working Manager Name Role Phone Dougie Vela MD Primary Care Prov ider Encounter Details Date Type Department Care Team (Late st Contact Info) Description 06/13/2022 Orders Only [facility] [address] [place] [address] Dougie Vela MD [address] [place] [address] Cellulitis of right breast (Primary Dx); Primary [...] EST) Glucose 71 65 - 139 mg/dL [facility] [employer] Comment: ? Non-fasting reference interval Urea Nitrogen (BUN) 46(H) 7 - 25 mg/dL [facility] Creatinine, Serum 2.44(H) 0.50 - 0.99 mg/dL [facility] eGFR 24(L) > OR = 60 mL/min/1. 73m2 [facility] Comment: The eGFR is based on the CKD-EPI 2020 equation. To calculate the new eGFR from a previous Creatinine or Cystatin C result, go to https://www.kidney.org/professionals/ kdoqi/gfr%5Fcalculator BUN/Creatinine Ratio 19 6 - 22 (calc) [facility] Sodium 136 135 - 146 mmol/L [facility] Potassium 5.0 3.5 - 5.3 mmol/L [facility] Chloride 102 98 - 110 mmol/L [facility] Carbon Dioxide 27 20 - 32 mmol/L [facility] Calcium 9.6 8.6 - 10.2 mg/dL [facility] Blood Venous blood specimen / Unknown 06/21/2022 3:34 PM EST 06/21/2022 3:34 PM EST Narrative [facility] - 06/22/2022 1:37 AM EST FASTING:NO FASTING: NO us Dougie Cook MD LAB BLOOD ORDERABL ES Final Result [facility] [address], [place] [address] [facility] [address] [facility] ([address]) [place] [address] documented in this encounter Visit Diagnoses Diagnosis Cellulitis of right breast- Primary Primary hypertension Unspecified essential hypertension documented in this encounter Care Teams Working Manager Relationship Specialty Start Date End Date Dougie Vela MD [address] [place] [phone] PCP - General Internal Medicine 03/28/20 documented as of this encounter
== END 2024-11-03 09:42 | disposition home or self-care (01) ==
LOC: HO.HOSX 09:41
PROVIDERS: Visit Provider Physician Assistant
DX: M25.562 Pain in left knee (principal); M17.12 Unilateral primary osteoarthritis, left knee
CPT/HCPCS: 73562; 99202

== ENCOUNTER 2024-11-03 14:43 | Outpatient (AMB) | payer MEDICARE, SELFPAY ==
--- OUTSIDE RECORDS SUMMARY | 2024-11-03 14:47 | XMS_ITS | Encounter Summary ---
Author Organization [employer] Address [address] [place] [address] 7 [place] [address] Care Team Providers Care Water Reuse Program Manager Name Role Phone Dougie Vela MD Primary Care Prov ider Encounter Details Date Type Department Care Team ([facility] st Contact Info) Description 08/16/2024 Orders Only [facility] CHC MED & PEDS [address] [place], [place] [phone] Dougie Vela MD [address] [place] [address] Social History Tobacco Use Types Packs/Day Years [...] documented as of this encounter Care Teams Water Reuse Program Manager Relationship Specialty Start Date End Date Dougie Vela MD [address] [place] [address] PCP - General Internal Medicine 03/28/20 documented as of this encounter
--- OUTSIDE RECORDS SUMMARY | 2024-11-03 14:47 | XMS_ITS | Clinical Summary ---
Author Organization [facility] Address [address] [place] [address] Care Team Providers Care Staker Surveying Name Role Phone Shay Castro MD Primary Care Provider [phone] Allergies Active Allergy Reactions Criticality Noted Date [...] age to complete this topic Care Teams Staker Surveying Relationship Specialty Start Date End Date Shay Castro MD PCP - General Family Medicine 02/07/20
--- OUTSIDE RECORDS SUMMARY | 2024-11-03 14:47 | XMS_ITS | Encounter Summary ---
Author Organization [employer] Address [address] [place] [address] 7 [place] [address] Care Team Providers Care Fly Winder Name Role Phone Dougie Vela MD Primary Care Prov ider Reason for Visit * Reason Comments Med Change Request Encounter Details Date Type Department Care Team ([facility] st Contact Info) Description 08/16/2024 Refill [facility] CHC MED & PEDS [address] [place], [place] [phone] Dougie Vela MD [address] [place] [address] Social History Tobacco Use Types Packs/Day Years [...] documented as of this encounter Care Teams Fly Winder Relationship Specialty Start Date End Date Dougie Vela MD [address] [place] [address] PCP - General Internal Medicine 03/28/20 documented as of this encounter
--- OUTSIDE RECORDS SUMMARY | 2024-11-03 14:47 | XMS_ITS | Clinical Summary ---
Author Organization [facility] Address [address] [place] [address] Care Team Providers Care Public Relations Name Role Phone Unavailable Primary Care Provider [...] mcg/actuation inhalerIndicatio ns:Mild intermittent asthma without complication ([facility]) Inhale 2 Puffs into the lungs every 6 (six) hours as needed for shortness of breath or wheezing 1 Inhaler 1 7 Active multivitamins with calcium and minerals-folic acid 267 mcg per tablet Take 1 Tab by mouth once daily 30 Tab 3 7 Active Active Problems Problem Noted Date Diagnosed Date Depression with anxiety 09/20/2016 Overview (09/20/2016): Has anxiety/depression, ADHD, following at [facility]. On meds. Mild intermittent asthma without complication ([facility]) 09/20/2016 Opioid abuse (HCC-[facility]) 09/20/2016 Overview (09/20/2016): H/O IV Heroin use, recent admission to [facility] 07/2016 with possible OD and right ankle displaced fracture, fracture of the base of the third, fourth and possible second metatarsals. Now in remission since 07/29/16, now in suboxone clinic through [facility]. Closed fracture of right ankle 09/20/2016 Overview (09/20/2016): admitted to [facility] 07/2016 with possible Heroin OD and right [...] she had herniated disc, s/p microdiscectomy in [place] in 2007. Dyslipidemia 09/20/2016 Constipation 09/20/2016 Social [...] Plan of Treatment Not on file Insurance [facility] Member Subscriber Plan / Payer (Ef fective 2015-Present) Name:Dana Reid Relation to Subscriber:Self Name:Dana Reid Payer ID:[id number] Group ID:Not on file Type:Medicaid Address: [facility] [id number] [place] [address]
--- OUTSIDE RECORDS SUMMARY | 2024-11-03 14:47 | XMS_ITS | Encounter Summary ---
Author Organization [employer] Address [address] [place] [address] [place] [address] Care Team Providers Care Cracker Off Name Role Phone Dougie Vela MD Primary Care Prov ider Reason for Visit * Reason Onset Date Comments Medication Question 08/13/2024 Encounter Details Date Type Department Care Team ([facility] st Contact Info) Description 08/13/2024 Telephone [facility] MEDICINE [address] [place] [address] Dougie Vela MD [address] [place] [phone] Medication Question Social History Tobacco Use Types [...] documented as of this encounter Care Teams Cracker Off Relationship Specialty Start Date End Date Dougie Vela MD [address] [place] [address] PCP - General Internal Medicine 03/28/20 documented as of this encounter
--- OUTSIDE RECORDS SUMMARY | 2024-11-03 14:47 | XMS_ITS | Encounter Summary ---
Author Organization [employer] Address [address] [place] [address] [place] [address] Care Team Providers Care Procurement Representative Name Role Phone Dougie Vela MD Primary Care Prov ider Encounter Details Date Type Department Care Team ([facility] st Contact Info) Description 11/13/2022 Orders Only [facility] CHC MED & PEDS [address] [place] [address] Sona Hart LPN Social History Tobacco Use [...] on filedocumented in this encounter Care Teams Procurement Representative Relationship Specialty Start Date End Date Dougie Vela MD [address] [place] [address] PCP - General Internal Medicine 03/28/20 documented as of this encounter
--- OUTSIDE RECORDS SUMMARY | 2024-11-03 14:48 | XMS_ITS | Encounter Summary ---
Author Organization [employer] Address [address] [place] [address] 7[address] [place] [address] Care Team Providers Care Cutting And Splicing Supervisor Name Role Phone Dougie Vela MD Primary Care Prov ider Encounter Details Date Type Department Care Team (Late st Contact Info) Description 06/13/2022 Orders Only [facility] MEDICINE [address] [place] [address] Dougie Vela MD [address] [place] [address] Cellulitis of right breast (Primary Dx); Primary [...] EST) Glucose 71 65 - 139 mg/dL [employer] [place] [employer] Comment: ? Non-fasting reference interval Urea Nitrogen (BUN) 46(H) 7 - 25 mg/dL [employer] [place] [facility] Creatinine, Serum 2.44(H) 0.50 - 0.99 mg/dL [employer] [place] [facility] [employer] eGFR 24(L) > OR = 60 mL/min/1. 73m2 [employer] [place] [employer] Comment: The eGFR is based on the CKD-EPI 2020 equation. To calculate the new eGFR from a previous Creatinine or Cystatin C result, go to https://www.kidney.org/professionals/ kdoqi/gfr%5Fcalculator BUN/Creatinine Ratio 19 6 - 22 (calc) [employer] [place] [employer] [facility] Sodium 136 135 - 146 mmol/L [employer] [place] [facility] Potassium 5.0 3.5 - 5.3 mmol/L [employer] [place] [employer] [facility] Chloride 102 98 - 110 mmol/L [employer] [place] [employer] [facility] [employer] Carbon Dioxide 27 20 - 32 mmol/L [employer] [place] [employer] [facility] Calcium 9.6 8.6 - 10.2 mg/dL [employer] [place] [facility] [facility] [employer] Blood Venous blood specimen / Unknown 06/21/2022 3:34 PM EST 06/21/2022 3:34 PM EST Narrative [facility] - 06/22/2022 1:37 AM EST FASTING:NO FASTING: NO us Dougie Cook MD LAB BLOOD ORDERABL ES Final Result [facility] [address], [place] [address] [employer] [place] [facility] 200 [facility], (N[address]) [place] [address] documented in this encounter Visit Diagnoses Diagnosis Cellulitis of right breast- Primary Primary hypertension Unspecified essential hypertension documented in this encounter Care Teams Cutting And Splicing Supervisor Relationship Specialty Start Date End Date Dougie Vela MD [address] [place] [id number] PCP - General Internal Medicine 03/28/20 documented as of this encounter
--- OUTSIDE RECORDS SUMMARY | 2024-11-03 14:48 | XMS_ITS | Clinical Summary ---
Author Organization [employer] Address [address] [place] [address] 7t [place] [address] Care Team Providers Care Farm Equipment Assembler Name Role Phone Dougie Vela MD Primary [...] she had herniated disc, s/p microdiscectomy in [place] in 2007. Closed fracture of right ankle 09/20/2016 Overview (05/31/2022): [place] [facility] [place] with possible Heroin OD and right [...] Overview (05/31/2022): Has anxiety/depression, ADHD, following at [facility]. On meds. Dyslipidemia 09/20/2016 Assessment & Plan (02/26/2024 1:29 PM EDT): Ascvd 7.0% will start on atorvastatin, risk vs benefits discussed, follow up in 3 months Mild intermittent asthma without complication Obesity (BMI 30.0-34.9) 09/20/2016 Assessment & Plan (07/11/2024 3:49 PM EST): Will refer to bariatric surgery for evaluation Opioid abuse 09/20/2016 Overview (05/31/2022): H/O IV Heroin use, recent admission to [facility] [place] with possible OD and right ankle displaced fracture, fracture of the base of the third, fourth and possible second metatarsals. Now in remission since 2/6/17, now in suboxone clinic through [facility]. Encounters Date Type Department Care Team Description 10/13/2024 Orders Only GENERIC EXTERNAL DATA DEPARTMENT Provider, Generic External Data 09/13/2024 2:15 PM EDT Telemedicine [facility] [address] [place] [address] Dougie Vela MD Chronic pain of left knee (Primary Dx); Primary hypertension 09/13/2024 Travel 09/01/2024 Telephone [facility] [address] [place] [address] Dougie Vela MD No Show 09/01/2024 Telephone [facility] [address] [place] [address] Dougie Vela MD 09/01/2024 Telephone [facility] [address] [place] [address] [phone] Dougie Vela MD Appointment Request 09/01/2024 Orders Only GENERIC EXTERNAL DATA DEPARTMENT Provider, Generic External Data 09/01/2024 Travel 08/31/2024 Telephone [facility] [address] [place] [address] Dougie Vela MD chart prep (/ ) 08/20/2024 Telephone [facility] [address] [place] [address] Dougie Vela MD Prior Authorization (Zepbound 2.5) 08/16/2024 Refill [facility] [address] [place] [address] Dougie Vela MD 08/16/2024 Orders Only [facility] [address] [place] [address] Dougie Vela MD 08/13/2024 Telephone [facility] [address] [place] [address] Dougie Vela MD Medication Question 08/10/2024 3:30 PM EST Telemedicine [facility] [address] [place] [address] Dougie Vela MD Calculus of gallbladder without cholecystitis without obstruction (Primary Dx); Obesity (BMI 30.0-34.9) 08/10/2024 Travel 08/06/2024 Travel from Last 3 Months Immunizations Immunization Administration Dates Next Due Pfizer Covid-19 Vaccine [...] is your housing situation today? I have tanishafauzia holloway 02/26/[address] you [...] the past 12 months, has t he [employer], gas, oil or water fundfindr threatened to shut off services in your [...] Vaccine (#1) 2024 Tobacco Screening 07/23/2024 07/23/2023 Mammogram 01/30/2025 01/30/2023, 07/0 08/2022, 12/13/2021 Depression [...] patient's age to complete this topic Meningococcal B Vaccine Aged Out No l onger eligible based on patient's age to complete [...] Procedure Name Priority Date/Time Associated Diagnosis Comments URINE PROTEIN, TOTAL, RANDOM (W/O CREATININE) Routine 10/13/2024 12:40 PM EDT CREATININE, RANDOM URINE Routine 10/13/2024 12:40 PM EDT URINALYSIS, COMPLETE Routine 10/13/2024 12:40 PM EDT FL GUIDANCE IN OR Routine 09/01/2024 2:4 0 PM EDT DRUG MONITOR, PANEL 1, SCREEN, URINE Routine 09/01/2024 11:32 AM EDT LIPID PANEL, STANDARD Routine 01/29/2024 3:45 PM [...] Recently Relevant to Health Maintenance Results * Urine Protein, Total, Random without Creatinine (10/13/2024 12:40 PM EDT) Protein, Total, Random Urine 9 <12 mg/dL [facility] 10/13/2024 12:4 0 PM EDT 10/13/2024 5:44 PM EDT Generic External Data Provider LAB URINE ORDERAB LES Final Result Performing Organization Address [facility]/ZIP Co de Phone Number [facility] [address] [place] [phone] * Creatinine, Random Urine (10/13/2024 12:40 PM EDT) Creatinine, Urine 124.77 mg/dL [facility] 10/13/2024 12:4 0 PM EDT 10/13/2024 5:44 PM EDT Generic External Data Provider LAB URINE ORDERAB LES Final Result Performing Organization Address [facility]/ZIP Co de Phone Number [facility] [address] [place] [phone] * (ABNORMAL) Urinalysis Complete (10/13/2024 12:40 PM EDT) Color Urine Yellow [facility] Appearance Urine Clear [facility] PH 6.0 5.0 - 9.0 [facility] Glucose Urine UA Negative Negative mg/dL [facility] Urine Blood Negative Negative [facility] Specific [place] - Urine 1.020 1.005 - 1.025 [facility] Urine Protein Negative Neg-Trace mg/dL [facility] Urine Ketones Negative Negative mg/dL [facility] Nitrite Urine Negative Negative [facility] Leukocyte Esterase Urine Moderate (2+)(A) Negative [facility] RBC Urine 0-2 0 - 2 /HPF [facility] Urine WBC 6-10(A) 0 - 5 /HPF [facility] Urine Squamous Epithelial Cell 0-2 0 - 2 /HPF [facility] Urine Bacteria None Seen None Seen [facility] Hyaline Casts, Urine 0-2 0 - 2 /LPF [facility] 10/13/2024 12:4 0 PM EDT 10/13/2024 5:44 PM EDT us Generic External Data Provider LAB URINE ORDERAB LES Final Result [facility] [address] [place] [address] [phone] * FL Guidance in OR (09/01/2024 2:40 PM EDT) Anatomical Region Laterality Modality X-Ray Angiograph y 09/01/2024 2:40 PM EDT Narrative 09/01/2024 3:55 PM EDT ? [facility] ?[address] ?[place] [address] ? Fluoroscopy Report ? Signed ? Patient: Reid,Dana ?MR#: [id number] ? : 1975 ?Acct:[id number] ? Age/Sex: 49 / F ?ADM Date: /12/25 ? Loc: HO.SSS ? Attending Dr: Gertrude Flaherty MD ? Ordering Physician: Gertrude Flaherty MD ?? Date of Service: 09/01/24 ?? Procedure(s): FL guidance in OR ?? Accession Number(s): [id number] ? cc: Dougie Vela MD; Gertrude Flaherty [...] ??Lawson Madison MD ??09/01/2024 03:52 PM EDT ?? RP ? Dictated By: ?Lawson Madison MD ? Signed By: ?<Electronically signed by Lawson Madison MD in OV> ?09/01/24 1552 ? DD/ 1440 ? TD/TT: 09/01/24 1520 ? Conference Center Coordinator: ? Procedure Note Donlimater, Image - 09/01/2024 [place] [address] Fluoroscopy Report Signed Patient: Angelica Reid#: [id number] : 1975Acct:[id number] Age/Sex: 49 / FADM Date: 09/01/24 Loc: [facility] Attending Dr: Gertrude Flaherty MD Ordering Physician: Gertrude Flaherty MD Date of Service: 09/01/24 Procedure(s): FL guidance in OR Accession Number(s): [id number] cc: Dougie Vela MD; Gertrude Flaherty MD [...] Lawson Madison MD 09/01/2024 03:52 PM EDT RP Dictated By: Lawson Madison MD Signed By: <Electronically signed by Lawson Madison MD in OV> 09/01/24 1552 DD/ 1440 TD/TT: 09/01/24 1520 Conference Center Coordinator: [facility] External Provider IMG IR PROCEDURES Final Result * (ABNORMAL) Drug Monitoring, Panel 1, Screen, Urine (09/01/2024 11:32 AM EDT) Opiate Screen Urine POSITIVE(A) Not Detect [facility] Comment:Opiate cut-off is 30 0 ng/mL.Positive results are unconfirmed and should not be used fornon-medical purposes. Barbiturates, Urine Not Detected Not Detect [facility] Comment:Barbiturate cut-off is 200 ng/mL.Positive results are unconfirmed and should not be used fornon-medical purposes. Phencyclidine Screen Urine Not Detected Not Detect [facility] Comment:Phencyclidine cut-of f is 25 ng/mL.Positive results are unconfirmed and should not be used fornon-medical purposes. Amphetamine Screen Urine Not Detected Not Detect [facility] Comment:Amphetamine cut-off is 1000 ng/mL.Positive results are unconfirmed and should not be used fornon-medical purposes. Benzodiazepines Screen Urine Not Detected Not Detect [facility] Comment:Benzodiazepine cut-o ff is 200 ng/mL.Positive results are unconfirmed and should not be used fornon-medical purposes. Cocaine Screen Urine Not Detected Not Detect [facility] Comment:Cocaine cut-off is 3 00 ng/mL.Positive results are unconfirmed and should not be used fornon-medical purposes. Cannabinoid Screen Urine Not Detected Not Detect [facility] Comment:Cannabinoid cut-off is 50 ng/mL.Positive results are unconfirmed and should not be used fornon-medical purposes. Methadone Screen, Urine Positive(A) Not Detect ng/mL [facility] Comment:Methadone cut-off is 300 ng/mL.Positive results are unconfirmed and should not be used fornon-medical purposes. FENTANYL URINE POSITIVE(A) Not Detect [facility] Comment:Fentanyl cut-off is 1 ng/mL.Positive results are unconfirmed and should not be used fornon-medical purposes. Oxycodone Urine Screen Not Detected Not Detect ng/mL [facility] Comment:Oxycodone cut-off is 100 ng/mL.Positive results are unconfirmed and should not be used fornon-medical purposes. Buprenorphine Screen Not Detected Not Detect ng/mL [facility] Comment:Buprenorphine cut-of f is 5 ng/mL.Positive results are unconfirmed and should not be used fornon-medical purposes. 09/01/2024 11:3 2 AM EDT 09/01/2024 11:39 AM EDT us Generic External Data Provider LAB URINE ORDERAB LES Final Result [facility] [address] [place] [address] [phone] * (ABNORMAL) Lipid Panel, Standard (01/29/2024 3:45 PM EDT) Triglycerides 229(H) <150 mg/dL [facility] Comment:Desirable Triglyceri de: less than 150 mg/dLBorderline High Triglyceride 150-199 mg/dLHigh Triglyceride: 200-499 mg/dLVery High Triglyceride: greater than or equal to 5OO mg/dL Cholesterol 269(H) <200 mg/dL [facility] Comment:Desirable Cholestero l: less than 200 mg/dLBorderline High Cholesterol: 200-239 mg/dLHigh Cholesterol: greater than 239 mg/dL LDL Cholesterol Calculated 182(H) <100 mg/dL [facility] Comment:Desirable LDL: less than 100 mg/dLNear Optimal/Above Optimal LDL: 110- 129 mg/dLBorderline High LDL: 130-159 mg/dLHigh LDL: 160-189 mg/dLVery High LDL: greater than or equal to 190 mg/dL HDL Cholesterol 42 >40 mg/dL [facility] Comment:Desirable HDL: great er than 40 mg/dL Note: This HDL assay may give artificially low results in patients with liver disease. Blood Venous blood specimen / Unknown 01/29/2024 3:45 PM EDT 01/29/2024 5:43 PM EDT us Dougie Cook MD LAB BLOOD ORDERABL ES Final Result [facility] [address] [facility] [place] [address] [phone] * Mammogram Diagnostic Right (01/30/2023 3:05 PM EDT) Anatomical Region Laterality Modality Breast Right Mammography 01/30/2023 3:05 PM EDT Narrative 01/30/2023 3:32 PM EDT ? [facility] ? [address] ?[place] [address] ? Ultrasound Report ? Signed ? Patient: Reid,Dana ?MR#: [id number] ? : 1975 ?Acct:[id number] ? Age/Sex: 47 / F ?ADM Date: 01/30/23 ? Loc: HO.MAMMO ? Attending Dr: Dougie Cook MD ? Ordering Physician: Dougie Vela MD ?? Date of Service: 01/30/23 ?? Procedure(s): US breast RT limited mamm only ?? Accession Number(s): [id number] ? cc: Dougie Vela MD ? EXAMINATION: [...] 1529 ? DD/ 1505 ? TD/TT: ? Conference Center Coordinator: ? Procedure Note Khanhter, Image - [facility] [address] [place] [address] Ultrasound Report Signed Patient: Angelica Reid#: [id number] : 1975Acct:[id number] Age/Sex: 47 / FADM Date: 01/30/23 Loc: HO.MAMMO Attending Dr: Dougie Cook MD Ordering Physician: Dougie Vela MD Date of Service: 01/30/23 Procedure(s): US breast RT limited mamm only Accession Number(s): [id number] cc: Dougie Vela MD EXAMINATION: MM DIAGNOSTIC [...] in OV> 01/30/23 1529 DD/ 1505 TD/TT: Conference Center Coordinator: Dougie Cook MD [facility] Edited Result - Final * Hepatitis C Antibody with Reflex to HCV, RNA, Quantitative, Real-Time PCR (12/13/2022 2:32 PM EDT) Hepatitis C Antibody NON-REACT NELY NON-REACT NELY [facility] [facility] Comment: HCV antibody was non-reactive. There is no laboratory evidence of HCV infection. In most cases, no further action is required. However, if recent HCV exposure is suspected, a test for HCV RNA (test code 19964) is suggested. For additional information please refer to http://education.[employer]/faq/OOL27i1 (This link is being provided for informational/ educational purposes only.) Blood Venous blood specimen / Unknown 12/13/2022 2:32 PM EDT 12/13/2022 2:33 PM EDT Narrative [facility] - 12/14/2022 7:42 AM EDT FASTING:NO FASTING: NO Dougie Cook MD LAB BLOOD ORDERABL ES Final Result [facility] [address] [place] [address], [address] [place] [address] [facility] [address] [place] [phone] * THINPREP TIS PAP AND HPV mRNA [...] with computer assisted technology. CONVERTED LEGACY LABS Neuroscience Specialist : SEE COMMENT CONVERTED LEGACY LABS Comment: ED, CT(ASCP) CT screening location: ?? [facility] ?? [address] [place] [address] ?? [place] [address] HPV nRNA E6/E7 Not Detected Not Detected CONVERT[facility]GACY LABS Comment: Methodology: Paint Supervisor-Mediated Amplification This assay detects E6/E7 viral messenger RNA (mRNA) from 14 high-risk HPV types (16,18,31,33,35,39,45,51,52,56,58,59,66,68). ? Cervical sources are required for HPV testing. If a vaginal source from a patient who has had a total hysterectomy with removal of cervix was ?? submitted, please contact the testing laboratory for alternative testing options. ?? For additional information, please refer to http://[employer]/faq/BPU344o2 (This link if provided for information/ educational purposes only.) Infection Shift in vaginal meenu suggestive of bacterial vaginosis. CONVERTED LEGACY LABS Interpretation/R esult: Negative for intraepithelial lesion or malignancy. CONVERTED LEGACY LABS LMP: 06/2021 CONVERTED LEGACY LABS Prev. BX: NONE GIVEN CONVERTED LEGACY LABS Prev. PAP: 4X ABNL PAP,COLPOSCOPY NIL AFTER CONVERTED LEGACY LABS Review Neuroscience Specialist : SEE COMMENT CONVERTED LEGACY LABS Comment: SL, CT(ASCP) CT screening location: [address] ??[address] SOURCE: None given CONVERTED LEGACY LABS Statement Of Adequacy: SEE COMMENT CONVERTED LEGACY LABS Comment: Satisfactory for evaluation. Endocervical/transformation zone component absent. 03/19/2022 2:17 PM EDT Amalia SAHNI LAB PATHOLOGY ORDERABLES Final Result CONVERTED LEGACY LABS * (ABNORMAL) HIV 1/2 ANTIGEN/ANTIBODY,FOURTH GENERATION W/RFL (01/03/2022 12:04 PM EDT) HIV-1/2 ANTIGEN AND ANTIBODIES, 4TH GENERATION W/ REFLEX REPEATEDLY REACTIVE(A) NON-[facility] Comment: The repeatedly reactive screening [...] MD LAB BLOOD ORDERABL ES Final Result Performing Organization Address City/State/[facility] Co de Phone Number [facility] [address] from Last 3 Months or Most Recently Relevant to Health Maintenance Insurance MEDICARE ADVANTAGE HMO Care Teams Farm Equipment Assembler Relationship Specialty Start Date End Date Dougie Vela MD [address] [place] [phone] PCP - General Internal Medicine 03/28/20
--- OUTSIDE RECORDS SUMMARY | 2024-11-03 14:48 | XMS_ITS | Encounter Summary ---
Author Organization [email or web address] Address [address] [place] [address] [place] [address] Care Team Providers Care Leather Splitter Name Role Phone Dougie Vela MD Primary Care Prov ider Reason for Visit * Reason Onset Date Comments Appointment Request 09/01/2024 Encounter Details Date Type Department Care Team ([facility] st Contact Info) Description 09/01/2024 Telephone [facility] [address] [place] [address] Dougie Vela MD [address] [place] [phone] Appointment Request Social History Tobacco Use Types [...] at hospital and needs reschedule telephone visit. Supervisor [employer] unable to cancel appt status was arrived . documented in this encounter Plan of Treatment Not on file documented as of this encounter Visit Diagnoses Not on filedocumented in this encounter Additional Health Concerns Assessment Noted Time PHQ-9 Depression Total Score: 10 024 12:43 PM EDT documented as of this encounter Care Teams Leather Splitter Relationship Specialty Start Date End Date Dougie Vela MD [address] [place] [phone] PCP - General Internal Medicine 03/28/20 documented as of this encounter
--- OUTSIDE RECORDS SUMMARY | 2024-11-03 14:48 | XMS_ITS | Encounter Summary ---
Author Organization [employer] Address [address] [place] [address] [address] [place] [address] Care Team Providers Care Head Pastry Chef Name Role Phone Dougie Vela MD Primary Care Prov ider Encounter Details Date Type Department Care Team ([facility] st Contact Info) Description 05/07/2024 Orders Only [facility] [address] [place], [place] [phone] Dougie Vela MD [address] [place] [address] Social History Tobacco Use Types Packs/Day Years [...] documented as of this encounter Care Teams Head Pastry Chef Relationship Specialty Start Date End Date Dougie Vela MD [address] [place] [address] PCP - General Internal Medicine 03/28/20 documented as of this encounter
--- OUTSIDE RECORDS SUMMARY | 2024-11-03 14:48 | XMS_ITS | Encounter Summary ---
Author Organization [employer] Address [address] [place] [address] [place] [address] Care Team Providers Care Plug Overwrap Machine Tender Name Role Phone Dougie Vela MD Primary Care Prov ider Reason for Visit * Reason Onset Date Comments Medication Question 05/18/2024 Encounter Details Date Type Department Care Team ([facility] st Contact Info) Description 05/18/[address] 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 The pt was [...] like some info on (wegovy) Callback number [phone] documented in this encounter Plan of Treatment Not on file documented as of this encounter Visit Diagnoses Not on filedocumented in this encounter Additional Health Concerns Assessment Noted Time PHQ-9 Depression Total Score: 10 024 12:43 PM EDT documented as of this encounter Care Teams Plug Overwrap Machine Tender Relationship Specialty Start Date End Date Dougie Vela MD [address] [place] [address] [phone] PCP - General Internal Medicine 03/28/20 documented as of this encounter
--- NOTE | 2024-11-03 14:55 | MHC.OFFVIS ---
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 Patient reports her pain has been present for about 3 months. States intermittent pain that is located inside her knee. Difficulty with climbing stairs when her pain is present. Denies injury. No numbness or tingling. She is not able to take much for OTC pain relief due to a fatty liver and stage 3 CKD. Hx of right foot drop and right ankle surgery. She uses a cane with ambulation. No other treatment. 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 She denies injury. States the pain has been present for several weeks. Pain is located along the medial aspect of the knee but also along the anterior aspect and explains it to being deep inside the joint. She has discomfort with stairs. She ambulates with a cane due to right-sided foot drop. [facility] Medical History (Updated 11/03/24 @ 15:17 by Palak Prado PA-C) Ambulates with cane Asthma CKD (chronic kidney disease) IVDU (intravenous drug user) Foot drop, right Surgical History (Updated 11/03/24 @ 15:03 by PRIYANKA Singh) Hx of endoscopic retrograde cholangiopancreatography History of surgery on lower extremity History of back surgery Social History (Updated 11/03/24 @ 15:01 by PRIYANKA Singh) Household Members: Friend(s) Housing: House Are you a primary medicare interviewer to a significant other at home: No Do you presently have visiting nurse or other home services: No Comment: right foot drop Patient Tobacco Use Status: Former Tobacco user Tobacco use type: Cigarette Substance Use Type: Heroin and IV Drugs Current occupational status: disabled Review of Systems Const All systems reviewed & are unremarkable except as noted in HPI and below Physical Exam Vital Signs: BMI result Body Mass Index 35.0 Const General: cooperative and no acute distress Orientation/consciousness: patient oriented x3 Resp Effort & Inspection: normal respiratory effort and able to speak in complete sentences Cardio Peripheral pulses: Peripheral pulses 2+ throughout Neuro General: patient oriented x3 Extrem Other: Left knee skin is normal to inspection. No open wounds or abrasions. Significant tenderness over the medial joint line. Range of motion full with no crepitus. Calf supple nontender neurovascularly intact. Results Reviewed Results Reviewed: X-rays of the left knee obtained in the office today and reviewed by me show mild medial compartment and patellofemoral arthritis. Assessment & Plan Assessment & Plan (1) Arthritis of left knee: Code(s): M17.12 - Unilateral primary osteoarthritis, left knee Category: Medical Plan: We discussed options today which include physical therapy, knee bracing and steroid injection. She is unable to take anti-inflammatories and needs to limit her Tylenol use due to fatty liver disease and stage III CKD. She was fit for a knee brace today to help with ambulation and stability. She will hold off on an injection at this time. I did place an order for physical therapy which she is unsure if she will attend but the order is available for her. If there is any questions or concerns she will contact our office otherwise follow up as needed. Orders: Orders XR knee LT 3V Today M25.562 - Pain in left knee Coding Level of Care Code New Pt Level 3 (64121) Complex EM visit Add On G2211 Diagnoses Arthritis of left knee M17.12
[2024-11-03 15:06] VITALS: BMI 35.0
== END 2024-11-03 15:43 | disposition home or self-care (01) ==
LOC: HO.HOS 14:44
PROVIDERS: PCP Internal Medicine; Visit Provider Physician Assistant
DX: M17.12 Unilateral primary osteoarthritis, left knee (principal)
CPT/HCPCS: 99203; G2211

== ENCOUNTER → 2024-11-03 14:49 | Outpatient (BNV) | payer MEDICARE, MEDICAID, SELFPAY | PROVIDERS: Visit Provider Radiology Diagnostic Radiology | DX: M25.562 Pain in left knee (principal) | CPT/HCPCS: 73562 ==

== ENCOUNTER 2025-03-02 14:34 | Outpatient (AMB) | payer MEDICARE, MEDICAID, SELFPAY ==
--- NOTE | 2025-03-02 14:35 | A.OFFVIS_ITS ---
Vital Signs 03/02/25 14:37 Height 5 ft 8 in Weight 220 lb 7.396 oz BMI 33.5 BP 150/76 H Blood Pressure Location Lt brachial Position Sitting Pulse 85 Intake Visit Reasons: 3 mo lab and US f/u R/S from 12/27/24 Intake Note: Dana presents in the office as a 3 month follow up. CC: States that her ankles has been swelling with red and itchiness. she states that she was having lots of edema. Constipation has not been here and there and states that she has the methadone and uses off and on. Allergies haloperidol (From Haldol) Allergy (Unknown, Verified 03/02/25 14:37) Unknown nickel Allergy (Verified 03/02/25 14:37) Rash HPI Comments Details: 49 y.o F with PMH of IVDU, CKD stage III, HTN, who is here for elevated LFTs. Reports finding about abnormal LFTs almost 6 months ago. Reports ongoing IVDU but doesn't share needles - last used yesterday. Reports has been checked for HCV and was negative 2 years ago. Prev hx of heavy etOH drinking for 5-10 years, was drinking upwards of 32oz of hard liquor/day completely sober x 14 years now. No abd pain, N,V,D. No blood in stool. Has never had a colonoscopy. Cologuard in 2023 was negative per her report. 03/02/25: here for follow up. US 06/2024 was + for choledocholithiasis. s/p ERCP 08/2024. Today, reports no acute issues including abd pain, N,V,D. Reports increasing lower extremity swelling. Cont to use IV heroin. Does not think methadone was helpful. [facility] Medical History (Updated 03/02/25 @ 15:05 by Palak Morales MD) Ambulates with cane Asthma CKD (chronic kidney disease) IVDU (intravenous drug user) Foot drop, right Surgical History (Updated 11/03/24 @ 15:03 by PRIYANKA Singh) Hx of endoscopic retrograde cholangiopancreatography History of surgery on lower extremity History of back surgery Social History (Updated 11/03/24 @ 15:01 by PRIYANKA Singh) Household Members: Friend(s) Housing: House Are you a primary child care associate to a significant other at home: No Do you presently have visiting nurse or other home services: No Comment: right foot drop Patient Tobacco Use Status: Former Tobacco user Tobacco use type: Cigarette Substance Use Type: Heroin and IV Drugs Current occupational status: disabled Review of Systems Const All systems reviewed & are unremarkable except as noted in HPI and below Physical Exam Vital Signs: Last Vital Signs Pulse 85 03/02/25 14:37 BP 150/76 H 03/02/25 14:37 BMI result Body Mass Index 33.5 No apparent distress Nonicteric Abdomen soft, nondistended Alert and oriented x3, normal gait multiple track romero on both arms Results Reviewed Results Reviewed: LABS SC[facility]ED [facility]: Reviewed. Immune to Hep A and B. HCV Ab NEGATIVE. AIH, ceruloplasmin, A1At normal. Iron levels LOW. Assessment & Plan Assessment & Plan (1) Elevated LFTs: Code(s): R79.89 - Other specified abnormal findings of blood chemistry Category: Medical (2) IVDU (intravenous drug user): Code(s): F19.90 - Other psychoactive substance use, unspecified, uncomplicated Category: Social Hx (3) Choledocholithiasis: Code(s): K80.50 - Calculus of bile duct without cholangitis or cholecystitis without obstruction Category: Medical (4) Elevated alkaline phosphatase level: Code(s): R74.8 - Abnormal levels of other serum enzymes Category: Medical (5) Bilateral edema of lower extremity: Code(s): R60.0 - Localized edema Category: Medical Plan 1. Elevated LFTs IVDU ongoing but neg for chronic hep. Other work up for chronic liver disease negative (see under scanned). Discussed with the pt that would favor repeat LFTs post ERCP since predominantly had ALP and GGT elevation. If normalize, no further work up. If still isolated ALP high may need to be fractionated +/- liver bx for seronegative PBC. Plan: - Labs - US Abd with elastography - Resources discussed for safely using IVDU including helplines such as never use alone hotline. 2. Choledocholithiasis Now s/p ERCP. Plan: - Surg referral for interval anu 3. She also reports lower extremity swelling, no ascites. Urinary protein very small. Plan: - Will check echo. Follow up 3 months Orders: Orders Prothrombin Time INR Today R79.89 - Other specified abnormal findings of blood chemistry CA echo transthoracic complete Today R60.0 - Localized edema Complete Blood Count no Diff Today R79.89 - Other specified abnormal findings of blood chemistry Comprehensive Met. Panel Today R79.89 - Other specified abnormal findings of blood chemistry Alkaline Phosphatase Isoenzyme Today R79.89 - Other specified abnormal findings of blood chemistry Liver Panel Today R79.89 - Other specified abnormal findings of blood chemistry US abdomen comp w elastography Today R79.89 - Other specified abnormal findings of blood chemistry Referrals General Surgery Referral K80.50 - Calculus of bile duct without cholangitis or cholecystitis without obstruction Coding Level of Care Code Est Pt Level 4 (55549) Complex EM visit Add On G2211 Diagnoses Elevated LFTs R79.89 IVDU (intravenous drug user) F19.90 Choledocholithiasis K80.50 Elevated alkaline phosphatase level R74.8 Bilateral edema of lower extremity R60.0
[2025-03-02 14:37] VITALS: BP 150/76; PULSE 85; BMI 33.5
--- OUTSIDE RECORDS SUMMARY | 2025-03-02 17:50 | XMS_ITS | Clinical Summary ---
Author Organization [employer] Address [address] [place] [address] 7t [place] [address] Care Team Providers Care Event Representative Name Role Phone Dougie Vela MD [...] TWICE A DAY 180 capsule 3 Active Tirzepatide-Weigh t Management (Zepbound) 2.5 MG/0.5ML [...] 30 tablet 11 5 09/14/19 26 Active amLODIPine (Norvasc) 5 MG tabletIndications :Primary hypertension TAKE 1 TABLET BY MOUTH EVERY DAY 90 tablet 1 5 Active Active Problems Problem Noted Date Diagnosed [...] disc, s/p microdiscectomy in [place] in 2007. Closed fracture of right ankle 09/20/2016 Overview (05/31/2022): admitted to [facility] 07/2016 with possible Heroin OD and right [...] Overview (05/31/2022): Has anxiety/depression, ADHD, following at [facility]. On meds. Dyslipidemia 09/20/2016 Assessment & Plan (02/26/2024 1:29 PM EDT): Ascvd 7.0% will start on atorvastatin, risk vs benefits discussed, follow up in 3 months Mild intermittent asthma without complication Obesity (BMI 30.0-34.9) 09/20/2016 Assessment & Plan (07/11/2024 3:49 PM EST): Will refer to bariatric surgery for evaluation Opioid abuse 09/20/2016 Overview (05/31/2022): H/O IV Heroin use, recent admission to [facility] 07/2016 with possible OD and right ankle displaced fracture, fracture of the base of the third, fourth and possible second metatarsals. Now in remission since 2/6/17, now in suboxone clinic through [facility]. Encounters Date Type Department Care Team Description 01/07/2025 Refill [facility] MED & PEDS [address] [place] [address] Dougie Vela MD Primary hypertension 12/20/2024 Orders Only [facility] [address] [place] [address] Provider, MD Kristel from Last 3 Months Immunizations Immunization Administration [...] 72 06/03/2024 3:49 PM EST Temperature 35.9 C (96.7 F) 06/03/2024 3:49 PM EST Respiratory Rate 20 06/03/2024 3:49 PM EST Oxygen Saturation 98% 01/27/2024 3:41 PM EDT Inhaled Oxygen Concentration - - Weight 98.9 kg (218 lb) 06/03/2024 3:49 PM EST Height 172.7 cm (5' 8 ) 06/03/2024 3:49 PM EST Body Mass Index 33.15 06/03/2024 3:49 PM EST Plan of Treatment Health Maintenance Due Date Last Done Comments CT Colonography 1973 Colonoscopy 1973 FIT 1973 Sigmoidoscopy 1973 Disability Screening 1973 Alcohol/Substance Use Screening 1985 Family Planning (PISQ) 1988 DTaP/Tdap/Td Vaccines (1 - Tdap) 1992 Hepatitis B Vaccines (1 of 3 - 19+ 3-dose series) 1992 Pneumococcal Vaccine: 50+ Years (1 of 2 - PCV) 1992 FOBT 12/10/2023 12/09/2022 Tobacco Screening 07/23/2024 07/23/2023 Depression Monitoring 08/25/2024 02/26/2024, 024 Mammogram 01/30/2025 01/30/2023, 07/0 08/2022, 12/13/2021 COVID-19 Vaccine ( season) 2025 09/24/2023, 05/03/2022, 08/27/2021, Additional history exists Influenza Vaccine (#1) 2025 SDOH Screening 02/25/2025 02/26/2024 Pap Smear 03/19/2025 03/19/2022 Colorectal Cancer Screening 12/09/2025 FIT DNA/Cologuard 12/09/2025 12/09/2022 Cervical Cancer Screening 03/19/2027 HPV/Cotest 03/19/2027 03/19/2022 Lipid Panel 01/28/2029 01/29/2024, 01/03/2022 RSV Patients and Patients Aged 60 years or older (1 - 1-dose 75+ series) 2048 HIV Screening Completed 01/03/2022, 09/20/2016 Hepatitis C Screening Completed 12/13/2022, 022 Zoster [...] Procedure Name Priority Date/Time Associated Diagnosis Comments LIPID PANEL, STANDARD Routine 01/29/2024 3:45 PM EDT Albuminuria BI MAMMOGRAM DIAGNOSTIC RIGHT Routine 01/30/2023 3:05 PM EDT HEPATITIS C AB W/REFL TO HCV RNA, QN, PCR Routine 12/13/2022 2:32 PM EDT Primary hypertension HM FIT DNA/COLOGUARD CANCER SCREENING Routine 12/09/2022 4:01 PM EDT THINPREP IMAGING PAP AND HPV MRNA E6/E7 WITH REFLEX TO HPV 16,18/45 Routine 03/19/2022 2:17 PM EDT HIV 1/2 ANTIGEN/ANTIBODY, FOURTH GENERATION W/RFL Routine 01/03/2022 12:04 PM EDT from Last 3 Months or Most Recently Relevant to Health Maintenance Results * (ABNORMAL) Lipid Panel, Standard (01/29/2024 3:45 PM EDT) Triglycerides 229(H) <150 mg/dL [facility] Comment:Desirable Triglyceri de: less than 150 mg/dLBorderline High Triglyceride 150-199 mg/dLHigh Triglyceride: 200-499 mg/dLVery High Triglyceride: greater than or equal to 5OO mg/dL Cholesterol 269(H) <200 mg/dL [facility] Comment:Desirable Cholestero l: less than 200 mg/dLBorderline High Cholesterol: 200-239 mg/dLHigh Cholesterol: greater than 239 mg/dL LDL Cholesterol Calculated 182(H) <100 mg/dL [facility] Comment:Desirable LDL: less than 100 mg/dLNear Optimal/Above Optimal LDL: 110- 129 mg/dLBorderline High LDL: 130-159 mg/dLHigh LDL: 160-189 mg/dLVery High LDL: greater than or equal to 190 mg/dL HDL Cholesterol 42 >40 mg/dL [facility] Comment:Desirable HDL: great er than 40 mg/dL Note: This HDL assay may give artificially low results in patients with liver disease. Blood Venous blood specimen / Unknown 01/29/2024 3:45 PM EDT 01/29/2024 5:43 PM EDT us Dougie Cook MD LAB BLOOD ORDERABL ES Final Result [facility] [address] [place] [address] [phone] * Mammogram Diagnostic Right (01/30/2023 3:05 PM EDT) Anatomical Region Laterality Modality Breast Right Mammography 01/30/2023 3:05 PM EDT Narrative 01/30/2023 3:32 PM EDT [facility] [address] [place] [address] Ultrasound Report Signed Patient: Dana Reid MR#: [id number] : 1975 Acct:[id number] Age/Sex: 47 / F ADM Date: 01/30/23 Loc: HO.MAMMO Attending Dr: Dougie Cook MD Ordering Physician: Dougie Vela MD Date of Service: 01/30/23 Procedure(s): US breast RT limited mamm only Accession Number(s): [id number] cc: Dougie Vela MD EXAMINATION: MM DIAGNOSTIC [...] in OV> 01/30/23 1529 DD/ 1505 TD/TT: Visual Display Manager: Procedure Note Donotuseinterpreter, Image - 01/31/2023 [facility] [address] [place] [address] Ultrasound Report Signed Patient: Angelica Reid#: [id number] : 1975Acct:[id number] Age/Sex: 47 / FADM Date: 01/30/23 Loc: HO.MAMMO Attending Dr: Dougie Cook MD Ordering Physician: Dougie Vela MD Date of Service: 01/30/23 Procedure(s): US breast RT limited mamm only Accession Number(s): [id number] cc: Dougie Vela MD EXAMINATION: MM DIAGNOSTIC [...] in OV> 01/30/23 1529 DD/ 1505 TD/TT: Visual Display Manager: Dougie Cook MD [facility] BI PROCEDURES Edited Result - Final * Hepatitis C Antibody with Reflex to HCV, RNA, Quantitative, Real-Time PCR (12/13/2022 2:32 PM EDT) Hepatitis C Antibody NON-REACT NELY NON-REACT NELY [employer] [place] [facility] Comment: HCV antibody was non-reactive. There is no laboratory evidence of HCV infection. In most cases, no further action is required. However, if recent HCV exposure is suspected, a test for HCV RNA (test code 83888) is suggested. For additional information please refer to http://education.Kleek/faq/VFH36e1 (This link is being provided for informational/ educational purposes only.) Blood Venous blood specimen / Unknown 12/13/2022 2:32 PM EDT 12/13/2022 2:33 PM EDT Narrative [facility] - 12/14/2022 7:42 AM EDT FASTING:NO FASTING: NO Dougie Cook MD LAB BLOOD ORDERABL ES Final Result [facility] [address], [place] [address] [employer] [place] [facility] [address] [place] [address] * FIT DNA/Cologuard Cancer Screening (12/09/2022 4:01 PM EDT) Stool [facility] Provider HEALTH MAINTENANCE Final Result * THINPREP TIS PAP AND HPV mRNA E6/E7 WITH REFLEX TO HPV 16,18/45 (03/19/2022 2:17 PM EDT) Clinical Information: None given [facility] COMMENT SEE COMMENT [facility] Comment: EXPLANATORY NOTE: The Pap is a screening test for cervical cancer. It is not a diagnostic test and is subject to false negative and false positive results. It is most reliable when a satisfactory sample, regularly obtained, is submitted with relevant clinical findings and history, and when the Pap result is evaluated along with historic and current clinical information. COMMENT: This Pap test has been evaluated with computer assisted technology. [facility] Claims Director : SEE COMMENT [facility] Comment: ED, CT(ASCP) CT screening location: [place] [address] HPV nRNA E6/E7 Not Detected Not Detected [facility] Comment: Methodology: Paperhanger Apprentice-Mediated Amplification This assay detects E6/E7 viral messenger RNA (mRNA) from 14 high-risk HPV types (16,18,31,33,35,39,45,51,52,56,58,59,66,68). Cervical sources are required for HPV testing. If a vaginal source from a patient who has had a total hysterectomy with removal of cervix was submitted, please contact the testing laboratory for alternative testing options. For additional information, please refer to http://education.Kleek/faq/BLG427h1 (This link if provided for information/ educational purposes only.) Infection Shift in vaginal meenu suggestive of bacterial vaginosis. [facility] Interpretation/R esult: Negative for intraepithelial lesion or malignancy. [facility] LMP: 06/2021 [facility] Prev. BX: NONE GIVEN [facility] Prev. PAP: 4X ABNL PAP,COLPOSCOPY NIL AFTER [facility] Review Claims Director : SEE COMMENT [facility] Comment: SL, CT(ASCP) CT screening location: [place] [address] SOURCE: None given [facility] Statement Of Adequacy: SEE COMMENT [facility] Comment: Satisfactory for evaluation. Endocervical/transformation zone component absent. 03/19/2022 2:17 PM EDT Amalia Alcaraz CNM LAB PATHOLOGY ORDERABLES Final Result [facility] * (ABNORMAL) HIV 1/2 ANTIGEN/ANTIBODY,FOURTH GENERATION W/RFL (01/03/2022 12:04 PM EDT) Pathologist [facility] HIV-1/2 ANTIGEN AND ANTIBODIES, 4TH GENERATION W/ REFLEX REPEATEDLY REACTIVE(A) NON-REAC TIVE [facility] Comment: The repeatedly reactive screening assay result is confirmed by duplicate repeat testing, and indicates a POSSIBLE presence of HIV-1 antibodies or HIV-2 antibodies, and/or HIV-1 p24 antigen. Additional testing is required for diagnosis. Therefore, these screening results must be correlated with results of reflex confirmatory tests, including the HIV-1/HIV-2 antibody differentiation assay and, if necessary, HIV-1 RNA, Qualitative Real-Time PCR. The 4th generation HIV-1/2 Antigen/Antibody combination immunoassay is a screening test and should not be used alone for diagnosis. Repeatedly reactive results from the 4th generation screening test are only indicative of HIV infection when those screening results are confirmed to be positive by either the HIV-1/2 Antibody Differentiation Assay or the HIV-1 RNA, Qualitative Real-Time PCR test. PLEASE NOTE: This information has been disclosed [...] information is NOT sufficient for this purpose. The performance of this assay has not been clinically validated in patients less than 2 years old. 01/03/2022 12:0 4 PM EDT Dougie Cook MD LAB BLOOD ORDERABL ES Final Result [facility] [address] from Last 3 Months or Most Recently Relevant to Health Maintenance Insurance [employer] HMO Care Teams Event Representative Relationship Specialty Start Date End Date Dougie Vela MD [address] [place] [phone] PCP - General Internal Medicine 03/28/20
--- OUTSIDE RECORDS SUMMARY | 2025-03-02 17:50 | XMS_ITS | Encounter Summary ---
Author Organization [employer] Address [address] [place] [address] [place] [address] Care Team Providers Care Strike Plate Attacher Name Role Phone Dougie Vela MD Primary Care Prov ider Reason for Visit * Reason Onset Date Comments Appointment Request 09/01/2024 Encounter Details Date Type Department Care Team ([facility] st Contact Info) Description 09/01/2024 Telephone [facility] MEDICINE [address] [place] [address] Dougie Vela MD [address] [place] [address] Appointment Request Social History Tobacco Use Types [...] at hospital and needs reschedule telephone visit. Campus Security Director unable to cancel appt status was arrived . documented in this encounter Plan of Treatment Not on file documented as of this encounter Visit Diagnoses Not on filedocumented in this encounter Additional Health Concerns Assessment Noted Time PHQ-9 Depression Total Score: 10 024 12:43 PM EDT documented as of this encounter Care Teams Strike Plate Attacher Relationship Specialty Start Date End Date Dougie Vela MD [address] [place] [address] PCP - General Internal Medicine 03/28/20 documented as of this encounter
--- OUTSIDE RECORDS SUMMARY | 2025-03-02 17:50 | XMS_ITS | Encounter Summary ---
Author Organization [employer] Address [address] [place] [address] Care Team Providers Care Point Of Sale Associate Name Role Phone Dougie Vela MD Primary Care Prov ider Reason for Visit * Reason Onset Date Comments Prior Authorization 11/22/2024 Encounter Details Date Type Department Care Team ([facility] st Contact Info) Description 11/22/2024 Telephone [facility] CHC MED & PEDS [address] [place] [address] Dougie Vela MD [address] [place] [address] Prior Authorization Social History Tobacco Use Types Packs/Day Years [...] encounter Miscellaneous Notes * Telephone Encounter - Imani Sarkar LPN - 11/22/2024 3:59 PM EDT Please review pt message below and advise, Pt has been generated twice with insurance decision Being Denials TC from pt stating a PA is needed for a new script for Tirzepatide-Weight Management (Zepbound) 2.5MG/0.5ML solution auto-injector . Pt says new script needs to include this medication is also for high cholesterol, hypertension and fatty liver. Contact pt at [phone] * Telephone Encounter - Eduardo Tamayo - 11/22/2024 1:26 PM EDT TC from pt stating a PA is needed for a new script for Tirzepatide-Weight Management (Zepbound) 2.5MG/0.5ML solution auto-injector . Pt says new script needs to include this medication is also for high cholesterol, hypertension and fatty liver. Contact pt at [phone] documented in this encounter Plan of Treatment Not on file documented as of this encounter Visit Diagnoses Not on filedocumented in this encounter Additional Health Concerns Assessment Noted Time PHQ-9 Depression Total Score: 10 024 12:43 PM EDT documented as of this encounter Care Teams Point Of Sale Associate Relationship Specialty Start Date End Date Dougie Vela MD [address] [place] [address] PCP - General Internal Medicine 03/28/20 documented as of this encounter
--- OUTSIDE RECORDS SUMMARY | 2025-03-02 17:50 | XMS_ITS | Encounter Summary ---
Author Organization [employer] Address [address] [place] [address] [place] [address] Care Team Providers Care African Studies Professor Name Role Phone Dougie Vela MD Primary Care Prov ider Reason for Visit * Reason Onset Date Comments Medication Question 08/13/2024 Encounter Details Date Type Department Care Team ([facility] st Contact Info) Description 08/13/2024 Telephone [facility] MEDICINE [address] [place] [address] Dougie Vela MD [address] [place] [phone] Medication Question Social History Tobacco Use Types [...] documented as of this encounter Care Teams African Studies Professor Relationship Specialty Start Date End Date Dougie Vela MD [address] [place] [address] PCP - General Internal Medicine 03/28/20 documented as of this encounter
--- OUTSIDE RECORDS SUMMARY | 2025-03-02 17:50 | XMS_ITS | Encounter Summary ---
Author Organization [employer] Address [address] [place] [address] [place] [address] Care Team Providers Care Medical Orderly Name Role Phone Dougie Vela MD Primary Care Prov ider Reason for Visit * Reason Onset Date Comments Medication Question 05/18/2024 Encounter Details Date Type Department Care Team ([facility] st Contact Info) Description 05/18/2024 Telephone [facility] MEDICINE [address] [place] [address] Dougie Vela MD [address] [place] [address] Medication Question Social History Tobacco Use Types [...] prescribed a GLP-1 drug like Wegovy to diamond driller helper in weight loss. The pt was [...] like some info on (wegovy) Callback number [phone] documented in this encounter Plan of Treatment Not on file documented as of this encounter Visit Diagnoses Not on filedocumented in this encounter Additional Health Concerns Assessment Noted Time PHQ-9 Depression Total Score: 10 024 12:43 PM EDT documented as of this encounter Care Teams Medical Orderly Relationship Specialty Start Date End Date Dougie Vela MD [address] [place] [address] [phone] PCP - General Internal Medicine 03/28/20 documented as of this encounter
--- OUTSIDE RECORDS SUMMARY | 2025-03-02 17:50 | XMS_ITS | Encounter Summary ---
Author Organization [employer] Address [address] [place] [address] 7 [place] [address] Care Team Providers Care Photographic Process Worker Name Role Phone Dougie Vela MD Primary Care Prov ider Encounter Details Date Type Department Care Team ([facility] st Contact Info) Description 08/16/[address] [facility] CHC MED & PEDS [address] [place], [place] [phone] Dougie Vela MD [address] [place] [address] Social History Tobacco Use Types Packs/Day Years [...] documented as of this encounter Care Teams Photographic Process Worker Relationship Specialty Start Date End Date Dougie Vela MD [address] [place] [address] PCP - General Internal Medicine 03/28/20 documented as of this encounter
--- OUTSIDE RECORDS SUMMARY | 2025-03-02 17:50 | XMS_ITS | Clinical Summary ---
Author Organization [facility] Address [address] [place] [address] Care Team Providers Care Research And Development Chemist Name Role Phone Unavailable Primary Care Provider [...] mcg/actuation inhalerIndicatio ns:Mild intermittent asthma without complication ([facility]) Inhale 2 Puffs into the lungs [...] Overview (09/20/2016): Has anxiety/depression, ADHD, following at [facility]. On meds. Mild intermittent asthma without complication ([facility]) 09/20/2016 Opioid abuse ([facility]) 09/20/2016 Overview (09/20/2016): H/O IV Heroin use, recent admission to [facility] 07/2016 with possible OD and right ankle displaced fracture, fracture of the base of the third, fourth and possible second metatarsals. Now in remission since 07/29/16, now in suboxone clinic through [facility]. Closed fracture of right ankle 09/20/2016 Overview (09/20/2016): admitted to [facility] 07/2016 with possible Heroin OD and right [...] she had herniated disc, s/p microdiscectomy in [place] in 2007. Dyslipidemia 09/20/2016 Constipation 09/20/2016 Social [...] 92 09/20/2016 9:33 AM EDT Temperature 36.1 C (97 F) 09/20/2016 9:33 AM EDT Respiratory Rate 20 09/20/2016 9:33 AM EDT Oxygen Saturation - - Inhaled Oxygen Concentration - - Weight 104.3 kg (230 lb) 09/20/2016 9:33 AM EDT Pt has boot Height 175.3 cm (5' 9 ) 09/20/2016 9:33 AM EDT Body Mass Index 33.97 09/20/2016 9:33 AM EDT Plan of Treatment Not on file Insurance [facility] Member Subscriber Plan / Payer (Ef fective 2015-Present) Name:Dana Reid Relation to Subscriber:Self Name:Dana Reid Payer ID:[id number] Group ID:Not on file Type:Medicaid Address: [facility] [address] [place] [address]
--- OUTSIDE RECORDS SUMMARY | 2025-03-02 17:50 | XMS_ITS | Encounter Summary ---
Author Organization [email or web address] Address [address] [place] [address] [address] [place] [address] Care Team Providers Care Office Helper Clerical Name Role Phone Dougie Vela MD Primary Care Prov ider Reason for Visit * Reason Comments Med Change Request Encounter Details Date Type Department Care Team ([facility] st Contact Info) Description 08/16/2024 Refill [facility] MED & PEDS [address] [place], [place] [phone] Dougie Vela MD [address] [place] [address] Social History Tobacco Use Types Packs/Day Years [...] documented as of this encounter Care Teams Office Helper Clerical Relationship Specialty Start Date End Date Dougie Vela MD [address] [place] [address] PCP - General Internal Medicine 03/28/20 documented as of this encounter
--- OUTSIDE RECORDS SUMMARY | 2025-03-02 17:50 | XMS_ITS | Clinical Summary ---
Author Organization [facility] Address [address] [place] [address] Care Team Providers Care Medical Reception Specialist Name Role Phone Shay Castro MD Primary Care Provider [phone] Allergies Active Allergy Reactions Criticality Noted Date [...] (1 of 2) 2023 Influenza Vaccine (#1) 2025 RSV Ped < 20 months Aged Out No longe r eligible based on patient's age to complete this topic Care Teams Medical Reception Specialist Relationship Specialty Start Date End Date Shay Castro MD PCP - General Family Medicine 02/07/20
--- OUTSIDE RECORDS SUMMARY | 2025-03-02 17:50 | XMS_ITS | Encounter Summary ---
Author Organization [employer] Address [address] [place] [address] 7[address] [place] [address] Care Team Providers Care Hydroelectric Station Operator Name Role Phone Dougie Vela MD Primary Care Prov ider Encounter Details Date Type Department Care Team (Late st Contact Info) Description 12/20/2024 Orders Only [facility] CHC MED & PEDS [address] [place] [address] ProviderKristel MD Social History Tobacco Use Types Packs/Day Years [...] your housing situation today? I have tanisha jewel 02/26/[address] you li [...] t he electric, gas, oil or water [employer] threatened to shut off services in your [...] on file documented as of this encounter Procedures Procedure Name Priority Date/Time Associated Diagnosis Comments HM FIT DNA/COLOGUARD CANCER SCREENING Routine 12/09/2022 4:01 PM EDT documented in this encounter Results * FIT DNA/Cologuard Cancer Screening (12/09/2022 4:01 PM EDT) Stool Historical Provider HEALTH MAINTENANCE Final Result documented in this encounter Visit Diagnoses Not on filedocumented in this encounter Additional Health Concerns Assessment Noted Time PHQ-9 Depression Total Score: 10 024 12:43 PM EDT documented as of this encounter Care Teams Hydroelectric Station Operator Relationship Specialty Start Date End Date Dougie Vela MD [address] [place] [phone] PCP - General Internal Medicine 03/28/20 documented as of this encounter
--- OUTSIDE RECORDS SUMMARY | 2025-03-02 17:50 | XMS_ITS | Encounter Summary ---
Author Organization [employer] Address [address] [place] [address] 7t [place] [address] Care Team Providers Care Deicer Repairer Pneumatic Name Role Phone Dougie Vela MD Primary Care Prov ider Encounter Details Date Type Department Care Team (Late st Contact Info) Description 06/13/2022 Orders Only [facility] MEDICINE [address] [place] [address] Dougie Vela MD 505 [place] [address] Cellulitis of right breast (Primary Dx); Primary [...] EST) Glucose 71 65 - 139 mg/dL [facility] [place] [employer] Comment: Non-fasting reference interval Urea Nitrogen (BUN) 46(H) 7 - 25 mg/dL [facility] [place] [facility] Creatinine, Serum 2.44(H) 0.50 - 0.99 mg/dL [facility] [place] [employer] [facility] eGFR 24(L) > OR = 60 mL/min/1. 73m2 [facility] [place] [facility] Comment: The eGFR is based on the CKD-EPI 2020 equation. To calculate the new eGFR from a previous Creatinine or Cystatin C result, go to https://www.kidney.org/professionals/ kdoqi/gfr%5Fcalculator BUN/Creatinine Ratio 19 6 - 22 (calc) [facility] [place] [employer] [facility] Sodium 136 135 - 146 mmol/L [facility] [place] [employer] [facility] Potassium 5.0 3.5 - 5.3 mmol/L [facility] [place] [employer] [facility] Chloride 102 98 - 110 mmol/L [facility] [place] [facility] Carbon Dioxide 27 20 - 32 mmol/L [facility] [place] [employer] [facility] Calcium 9.6 8.6 - 10.2 mg/dL [facility] [place] [facility] Blood Venous blood specimen / Unknown 06/21/2022 3:34 PM EST 06/21/2022 3:34 PM EST Narrative [facility] - 06/22/2022 1:37 AM EST FASTING:NO FASTING: NO us Dougie Cook MD LAB BLOOD ORDERABL ES Final Result [facility] [address], [place] [address] [facility] [place] [facility] 200 [facility], (Nl2) [place] [address] documented in this encounter Visit Diagnoses Diagnosis Cellulitis of right breast- Primary Primary hypertension Unspecified essential hypertension documented in this encounter Care Teams Deicer Repairer Pneumatic Relationship Specialty Start Date End Date FossDougie Collins MD [address] [place] [address] PCP - General Internal Medicine 03/28/20 documented as of this encounter
--- OUTSIDE RECORDS SUMMARY | 2025-03-02 17:50 | XMS_ITS | Encounter Summary ---
Author Organization [employer] Address [address] [place] [address] [place] [address] Care Team Providers Care Facility Maintenance Worker Name Role Phone Dougie eVla MD Primary Care Prov ider Encounter Details Date Type Department Care Team ([facility] st Contact Info) Description 11/13/2022 Orders Only [facility] CHC MED & PEDS 505 [place] [address] Sona Hart LPN Social History Tobacco Use [...] on filedocumented in this encounter Care Teams Facility Maintenance Worker Relationship Specialty Start Date End Date Dougie Vela MD 505 [place] [address] PCP - General Internal Medicine 03/28/20 documented as of this encounter
--- OUTSIDE RECORDS SUMMARY | 2025-03-02 17:50 | XMS_ITS | Encounter Summary ---
Author Organization [employer] Address [address] [place] [address] 7t [place] [address] Care Team Providers Care Db2 Developer Name Role Phone Dougie Vela MD Primary Care Prov ider Encounter Details Date Type Department Care Team ([facility] st Contact Info) Description 05/07/2024 Orders Only [facility] CHC MED & PEDS 505 [place], [place] [phone] Dougie Vela MD 505 [place] [address] Social History Tobacco Use Types Packs/Day Years [...] documented as of this encounter Care Teams Db2 Developer Relationship Specialty Start Date End Date Dougie Vela MD 505 [place] [address] PCP - General Internal Medicine 03/28/20 documented as of this encounter
== END 2025-03-02 15:12 | disposition home or self-care (01) ==
PROVIDERS: PCP Internal Medicine; Visit Provider Internal Medicine
DX: R79.89 Other specified abnormal findings of blood chemistry (principal); F19.90 Other psychoactive substance use, unspecified, uncomplicated; K80.50 Calculus of bile duct without cholangitis or cholecystitis without obstruction; R74.8 Abnormal levels of other serum enzymes; R60.0 Localized edema
CPT/HCPCS: 99214; G2211

== ENCOUNTER 2025-03-02 14:34 | Outpatient (REF) | payer MEDICARE, MEDICAID, SELFPAY | END 2025-03-02 14:35 | disposition home or self-care (01) | LOC: HO.LAB 14:34 | PROVIDERS: PCP Internal Medicine; Visit Provider Internal Medicine | DX: K80.50 Calculus of bile duct without cholangitis or cholecystitis without obstruction (principal); R79.89 Other specified abnormal findings of blood chemistry; F19.90 Other psychoactive substance use, unspecified, uncomplicated; R74.8 Abnormal levels of other serum enzymes; R60.0 Localized edema | CPT/HCPCS: 99212 ==

== ENCOUNTER 2025-03-08 14:47 | Outpatient (REF) | payer MEDICARE, MEDICAID, SELFPAY ==
--- NOTE | ~2025-03-08 | MM_ITS ---
EXAMINATION: MM SCREENING DIGITAL BREAST TOMOSYNTHESIS, BILATERAL CLINICAL INFORMATION: Screening. Asymptomatic. COMPARISON: Mammography: Comparison is made with available priors TECHNIQUE: Digital breast mammography with tomosynthesis is performed in both the craniocaudal and mediolateral oblique views along with computer-aided detection (CAD). FINDINGS: There are scattered areas of fibroglandular density (ACR BI-RADS breast composition Category b). There are no significant masses, abnormal calcifications, or other abnormalities. MM/MM tomosynthesis screening BI IMPRESSION: No mammographic evidence of malignancy. ASSESSMENT: BI-RADS BI-RADS 1 - Negative RECOMMENDATION: Routine annual mammography screening. 1 year F/U This examination should not preclude the clinical evaluation of a suspicious palpable abnormality. This patient's information was entered into a reminder system with a target due date for their next mammogram. Electronically signed by: Janett Peters DO 03/11/2025 02:28 PM EDT
--- OUTSIDE RECORDS SUMMARY | 2025-03-08 18:29 | XMS_ITS | Encounter Summary ---
Author Organization [employer] Address [address] [place] [address] 7 [place] [address] Care Team Providers Care Electronics Manufacturer Name Role Phone Dougie Vela MD Primary Care Prov ider Encounter Details Date Type Department Care Team ([facility] st Contact Info) Description 05/07/2024 Orders Only [facility] CHC MED & PEDS [address] [place], [place] [phone] Dougie Vela MD [address] [place] [address] Social History Tobacco Use Types Packs/Day Years [...] documented as of this encounter Care Teams Electronics Manufacturer Relationship Specialty Start Date End Date Dougie Vela MD [address] [place] [address] PCP - General Internal Medicine 03/28/20 documented as of this encounter
--- OUTSIDE RECORDS SUMMARY | 2025-03-08 18:29 | XMS_ITS | Clinical Summary ---
Author Organization [employer] Address [address] [place] [address] 7t [place] [address] Care Team Providers Care Tax Accountant Name Role Phone Dougie Vela MD Primary [...] she had herniated disc, s/p microdiscectomy in [place] in 2007. Closed fracture of right ankle 09/20/2016 Overview (05/31/2022): admitted to [facility] [...] Overview (05/31/2022): Has anxiety/depression, ADHD, following at [facility]. On meds. Dyslipidemia 09/20/2016 Assessment & Plan [...] since 2/6/17, now in suboxone clinic through [facility]. Encounters Date Type Department Care Team Description 01/07/2025 Refill [facility] MED & PEDS [address] [place] [address] Dougie Vela MD Primary hypertension 12/20/2024 Orders Only [facility] MED & PEDS [address] [place] [address] Provider, MD Kristel from Last 3 Months [...] 3:45 PM EDT) Triglycerides 229(H) <150 mg/dL [facility] Comment:Desirable Triglyceri de: less than 150 mg/dLBorderline High Triglyceride 150-199 mg/dLHigh Triglyceride: 200-499 mg/dLVery High Triglyceride: greater than or equal to 5OO mg/dL Cholesterol 269(H) <200 mg/dL [facility] Comment:Desirable Cholestero l: less than 200 mg/dLBorderline High Cholesterol: 200-239 mg/dLHigh Cholesterol: greater than 239 mg/dL LDL Cholesterol Calculated 182(H) <100 mg/dL [facility] Comment:Desirable LDL: less than 100 mg/dLNear Optimal/Above Optimal LDL: 110- 129 mg/dLBorderline High LDL: 130-159 mg/dLHigh LDL: 160-189 mg/dLVery High LDL: greater than or equal to 190 mg/dL HDL Cholesterol 42 >40 mg/dL [facility] Comment:Desirable HDL: great er than 40 mg/dL Note: This HDL assay may give artificially low results in patients with liver disease. Blood Venous blood specimen / Unknown 01/29/2024 3:45 PM EDT 01/29/2024 5:43 PM EDT us Dougie Cook MD LAB BLOOD ORDERABL ES Final Result [facility] [address] [place] [address] [phone] * Mammogram Diagnostic Right (01/30/2023 3:05 PM EDT) Anatomical Region Laterality Modality Breast Right Mammography 01/30/2023 3:05 PM EDT Narrative 01/30/2023 3:32 PM EDT [facility] [address] [place] [address] Ultrasound Report Signed Patient: aDna Reid MR#: [id number] : 1975 Acct:[id number] Age/Sex: 47 / F ADM Date: 01/30/23 Loc: HO.MAMMO Attending Dr: Dougie Cook MD Ordering Physician: Dougie Vela MD Date of Service: 01/30/23 Procedure(s): US breast RT limited mamm only Accession Number(s): [id number] cc: Dougie Vela MD EXAMINATION: MM DIAGNOSTIC [...] in OV> 01/30/23 1529 DD/ 1505 TD/TT: Gas Appliance Servicer Helper: Procedure Note Donotuseinterpreter, Image - 01/31/2023 [facility] [address] [place] [address] Ultrasound Report Signed Patient: Angelica Reid#: [id number] : 1975Acct:[id number] Age/Sex: 47 / FADM Date: 01/30/23 Loc: HO.MAMMO Attending Dr: Dougie Cook MD Ordering Physician: Dougie Vela MD Date of Service: 01/30/23 Procedure(s): US breast RT limited mamm only Accession Number(s): [id number] cc: Dougie Vela MD EXAMINATION: MM DIAGNOSTIC [...] in OV> 01/30/23 1529 DD/ 1505 TD/TT: Gas Appliance Servicer Helper: Dougie Cook MD [facility] BI PROCEDURES Edited Result - Final * Hepatitis C Antibody with Reflex to HCV, RNA, Quantitative, Real-Time PCR (12/13/2022 2:32 PM EDT) Hepatitis C Antibody NON-REACT NELY NON-REACT NELY [employer] [place] [employer] Comment: HCV antibody was non-reactive. There is no laboratory evidence of HCV infection. In most cases, no further action is required. However, if recent HCV exposure is suspected, a test for HCV RNA (test code 12309) is suggested. For additional information please refer to http://education.[employer]/faq/TPQ26d5 (This link is being provided for informational/ educational purposes only.) Blood Venous blood specimen / Unknown 12/13/2022 2:32 PM EDT 12/13/2022 2:33 PM EDT Narrative [facility] - 12/14/2022 7:42 AM EDT FASTING:NO FASTING: NO Dougie Cook MD LAB BLOOD ORDERABL ES Final Result [facility] [address], [place] [address] [employer] [address] [place] [address] * FIT DNA/Cologuard Cancer Screening (12/09/2022 4:01 PM EDT) Stool [facility] Provider HEALTH MAINTENANCE Final Result [...] with computer assisted technology. CONVERTED LEGACY LABS Civil Division Deputy Sheriff : SEE COMMENT CONVERTED LEGACY LABS Comment: ED, CT(ASCP) CT screening location: [place] [address] HPV nRNA E6/E7 Not Detected Not Detected CONVERTED LEGACY LABS Comment: Methodology: Hogshead Hand-Mediated Amplification This assay detects E6/E7 viral messenger RNA (mRNA) from 14 high-risk HPV types (16,18,31,33,35,39,45,51,52,56,58,59,66,68). Cervical sources are required for HPV testing. If a vaginal source from a patient who has had a total hysterectomy with removal of cervix was submitted, please contact the testing laboratory for alternative testing options. For additional information, please refer to http://education.[employer]/faq/LGA632t2 (This link if provided for information/ educational purposes only.) Infection Shift in vaginal meenu suggestive of bacterial vaginosis. CONVERTED LEGACY LABS Interpretation/R esult: Negative for intraepithelial lesion or malignancy. CONVERTED LEGACY LABS LMP: 06/2021 CONVERTED LEGACY LABS Prev. BX: NONE GIVEN CONVERTED LEGACY LABS Prev. PAP: 4X ABNL PAP,COLPOSCOPY NIL AFTER CONVERTED LEGACY LABS Review Civil Division Deputy Sheriff : SEE COMMENT CONVERTED LEGACY LABS Comment: SL, CT(ASCP) CT screening location: [place] [address] SOURCE: None given CONVERTED LEGACY LABS Statement [...] GENERATION W/ REFLEX REPEATEDLY REACTIVE(A) NON-REAC TIVE [facility] Comment: The repeatedly reactive screening [...] MD LAB BLOOD ORDERABL ES Final Result [facility] [address] from Last 3 Months or Most Recently Relevant to Health Maintenance Insurance [facility] MEDICARE ADVANTAGE HMO Care Teams Tax Accountant Relationship Specialty Start Date End Date Dougie Vela MD [address] [place] [address] PCP - General Internal Medicine 03/28/20
--- OUTSIDE RECORDS SUMMARY | 2025-03-08 18:29 | XMS_ITS | Encounter Summary ---
Author Organization [employer] Address [address] [place] [address] [place] [address] Care Team Providers Care Assistant Oceanographer Name Role Phone Dougie Vela MD Primary Care Prov ider Reason for Visit * Reason Onset Date Comments Appointment Request 09/01/2024 Encounter Details Date Type Department Care Team ([facility] st Contact Info) Description 09/01/2024 Telephone [facility] MEDICINE [address] [place] [address] Dougie Vlea MD [address] [place] [address] Appointment Request Social History Tobacco Use Types [...] at hospital and needs reschedule telephone visit. Plant Technician/Control Room Operator unable to cancel appt status was arrived . documented in this encounter Plan of Treatment Not on file documented as of this encounter Visit Diagnoses Not on filedocumented in this encounter Additional Health Concerns Assessment Noted Time PHQ-9 Depression Total Score: 10 024 12:43 PM EDT documented as of this encounter Care Teams Assistant Oceanographer Relationship Specialty Start Date End Date Dougie Vela MD [address] [place] [address] PCP - General Internal Medicine 03/28/20 documented as of this encounter
--- OUTSIDE RECORDS SUMMARY | 2025-03-08 18:29 | XMS_ITS | Encounter Summary ---
Author Organization [employer] Address [address] [place] [address] 7t [place] [address] Care Team Providers Care Heel Room Supervisor Name Role Phone Dougie Vela MD Primary Care Prov ider Encounter Details Date Type Department Care Team (Late st Contact Info) Description 06/13/2022 Orders Only [facility] MEDICINE [address] [place] [address] Dougie Vela MD [address] [place] [address] Cellulitis of right breast (Primary Dx); Primary [...] EST) Glucose 71 65 - 139 mg/dL [facility] [employer] Comment: Non-fasting reference interval Urea Nitrogen (BUN) 46(H) 7 - 25 mg/dL [facility] Creatinine, Serum 2.44(H) 0.50 - 0.99 mg/dL [facility] eGFR 24(L) > OR = 60 mL/min/1. 73m2 [facility] Comment: The eGFR is based on the CKD-EPI 2020 equation. To calculate the new eGFR from a previous Creatinine or Cystatin C result, go to https://www.kidney.org/professionals/ kdoqi/gfr%5Fcalculator BUN/Creatinine Ratio 19 6 - 22 (calc) [facility] Sodium 136 135 - 146 mmol/L [facility] Potassium 5.0 3.5 - 5.3 mmol/L [facility] [employer] [facility] Chloride 102 98 - 110 mmol/L [facility] Carbon Dioxide 27 20 - 32 mmol/L [facility] Calcium 9.6 8.6 - 10.2 mg/dL [facility] Blood Venous blood specimen / Unknown 06/21/2022 3:34 PM EST 06/21/2022 3:34 PM EST Narrative [facility] - 06/22/2022 1:37 AM EST FASTING:NO FASTING: NO us Dougie Cook MD LAB BLOOD ORDERABL ES Final Result [facility] [address], [place] [address] [facility] 200 [facility], (Nl2) [place] [address] documented in this encounter Visit Diagnoses Diagnosis Cellulitis of right breast- Primary Primary hypertension Unspecified essential hypertension documented in this encounter Care Teams Heel Room Supervisor Relationship Specialty Start Date End Date FossDougie Collins MD [address] [place] [address] PCP - General Internal Medicine 03/28/20 documented as of this encounter
--- OUTSIDE RECORDS SUMMARY | 2025-03-08 18:29 | XMS_ITS | Encounter Summary ---
Author Organization [employer] Address [address] [place] [address] [place] [address] Care Team Providers Care Emissions Inspector Name Role Phone Dougie Vela MD Primary Care Prov ider Reason for Visit * Reason Comments Med Change Request Encounter Details Date Type Department Care Team ([facility] st Contact Info) Description 08/16/2024 Refill [facility] CHC MED & PEDS 505 [place], [place] [phone] Dougie Vela MD 505 [place] [address] Social History Tobacco Use Types Packs/Day Years [...] documented as of this encounter Care Teams Emissions Inspector Relationship Specialty Start Date End Date Dougie Vela MD [address] [place] [address] PCP - General Internal Medicine 03/28/20 documented as of this encounter
--- OUTSIDE RECORDS SUMMARY | 2025-03-08 18:29 | XMS_ITS | Encounter Summary ---
Author Organization [employer] Address [address] [place] [address] 7 [place] [address] Care Team Providers Care Mattress Filling Machine Tender Name Role Phone Dougie Vela MD Primary Care Prov ider Encounter Details Date Type Department Care Team ([facility] st Contact Info) Description 08/16/2024 Orders Only [facility] CHC MED & PEDS 505 [place], [place] [phone] Dougie Vela MD [address] [place] [address] Social History Tobacco Use Types Packs/Day Years [...] documented as of this encounter Care Teams Mattress Filling Machine Tender Relationship Specialty Start Date End Date Dougie Vela MD [address] [place] [address] PCP - General Internal Medicine 03/28/20 documented as of this encounter
--- OUTSIDE RECORDS SUMMARY | 2025-03-08 18:29 | XMS_ITS | Encounter Summary ---
Author Organization [employer] Address [address] [place] [address] [place] [address] Care Team Providers Care Fence Post Driver Name Role Phone Dougie Vela MD Primary Care Prov ider Encounter Details Date Type Department Care Team ([facility] st Contact Info) Description 11/13/2022 Orders Only [facility] CHC MED & PEDS [address] [place] [address] Sona Hart LPN Social History Tobacco Use [...] on filedocumented in this encounter Care Teams Fence Post Driver Relationship Specialty Start Date End Date Dougie Vela MD [address] [place] [address] PCP - General Internal Medicine 03/28/20 documented as of this encounter
--- OUTSIDE RECORDS SUMMARY | 2025-03-08 18:29 | XMS_ITS | Encounter Summary ---
Author Organization [employer] Address [address] [place] [address] [place] [address] Care Team Providers Care Pizza Baker Name Role Phone Dougie Vela MD Primary Care Prov ider Reason for Visit * Reason Onset Date Comments Medication Question 05/18/2024 Encounter Details Date Type Department Care Team ([facility] st Contact Info) Description 05/18/2024 Telephone [facility] MEDICINE [address] [place] [address] Dougie Vela MD [address] [place] [phone] Medication Question Social History Tobacco Use Types [...] prescribed a GLP-1 drug like Wegovy to drop hammer 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 The pt was [...] like some info on (wegovy) Callback number [phone] documented in this encounter Plan of Treatment Not on file documented as of this encounter Visit Diagnoses Not on filedocumented in this encounter Additional Health Concerns Assessment Noted Time PHQ-9 Depression Total Score: 10 024 12:43 PM EDT documented as of this encounter Care Teams Pizza Baker Relationship Specialty Start Date End Date Dougie Vela MD [address] [place] [phone] PCP - General Internal Medicine 03/28/20 documented as of this encounter
--- OUTSIDE RECORDS SUMMARY | 2025-03-08 18:29 | XMS_ITS | Encounter Summary ---
Author Organization [employer] Address [address] [place] [address] 7t [place] [address] Care Team Providers Care Hotel Houseman Name Role Phone Dougie Vela MD Primary Care Prov ider Encounter Details Date Type Department Care Team (Late st Contact Info) Description 12/20/2024 Orders Only [facility] CHC MED & PEDS [address] [place] [address] ProviderKristel MD Social History Tobacco Use Types [...] t he electric, gas, oil or water [employer] threatened to shut off services in your [...] documented as of this encounter Care Teams Hotel Houseman Relationship Specialty Start Date End Date Dougie Vela MD [address] [place] [address] PCP - General Internal Medicine 03/28/20 documented as of this encounter
--- OUTSIDE RECORDS SUMMARY | 2025-03-08 18:29 | XMS_ITS | Encounter Summary ---
Author Organization [employer] Address [address] [place] [address] [place] [address] Care Team Providers Care Tombstone Carver Name Role Phone Dougie Vela MD Primary Care Prov ider Reason for Visit * Reason Onset Date Comments Medication Question 08/13/2024 Encounter Details Date Type Department Care Team ([facility] st Contact Info) Description 08/13/2024 Telephone [facility] MEDICINE [address] [place] [address] Dougie Vela MD [address] [place] [address] Medication Question Social History Tobacco Use Types [...] documented as of this encounter Care Teams Tombstone Carver Relationship Specialty Start Date End Date Dougie Vela MD [address] [place] [address] PCP - General Internal Medicine 03/28/20 documented as of this encounter
--- OUTSIDE RECORDS SUMMARY | 2025-03-08 18:29 | XMS_ITS | Clinical Summary ---
Author Organization [facility] Address [address] [place] [address] Care Team Providers Care Form Carpenter Name Role Phone Unavailable Primary Care Provider [...] mcg/actuation inhalerIndicatio ns:Mild intermittent asthma without complication ([facility]) Inhale 2 Puffs into the [...] Overview (09/20/2016): Has anxiety/depression, ADHD, following at [facility]. On meds. Mild intermittent asthma without complication ([facility]) 09/20/2016 Opioid abuse ([facility]) 09/20/2016 Overview (09/20/2016): H/O IV Heroin use, recent admission to [facility] 07/2016 with possible OD and right ankle displaced fracture, fracture of the base of the third, fourth and possible second metatarsals. Now in remission since 07/29/16, now in suboxone clinic through [facility]. Closed fracture of right ankle 09/20/2016 Overview (09/20/2016): admitted to [facility] 07/2016 with possible Heroin OD and right [...] she had herniated disc, s/p microdiscectomy in [place] in 2007. Dyslipidemia 09/20/2016 Constipation 09/20/2016 Social [...] Plan of Treatment Not on file Insurance [facility] JAYLEN Member Subscriber Plan / Payer (Ef fective 2015-Present) Name:Dana Reid Relation to Subscriber:Self Name:Dana Reid Payer ID:[id number] Group ID:Not on file Type:Medicaid Address: [facility] [id number] [place] [address]
== END 2025-03-08 14:48 | disposition home or self-care (01) ==
LOC: HO.MAMMO 14:47
PROVIDERS: PCP Internal Medicine; Visit Provider Internal Medicine
DX: Z12.31 Encounter for screening mammogram for malignant neoplasm of breast (principal)
CPT/HCPCS: 77063; 77067

== ENCOUNTER → 2025-03-08 15:00 | Outpatient (BNV) | payer MEDICARE, MEDICAID, SELFPAY | PROVIDERS: PCP Internal Medicine; Visit Provider Internal Medicine | DX: Z12.31 Encounter for screening mammogram for malignant neoplasm of breast (principal) | CPT/HCPCS: 77063; 77067 ==

== ENCOUNTER 2025-04-08 14:01 | Outpatient (AMB) | payer MEDICARE, MEDICAID, SELFPAY ==
--- NOTE | 2025-04-08 14:05 | A.OFFVIS_ITS ---
Vital Signs 04/08/25 14:15 Height 5 ft 8 in Weight 222 lb BMI 33.8 BP 117/57 L Blood Pressure Location Rt brachial Position Sitting Pulse 83 Intake Visit Reasons: gallbladder problems Intake Note: Patient is seen in office for evaluation of the gallbladder. Pt c/o: RUQ pain that gets worse after eating. Denies nausea, vomiting. MRI: 07/31/24 Pan Helper Required: No Accompanied by: Self / Same As Patient Allergies haloperidol (From Haldol) Allergy (Unknown, Verified 04/08/25 14:13) Unknown nickel Allergy (Verified 04/08/25 14:13) Rash Medication List - Last Reconciled 04/08/25 by Wilfredo Wilburn MD amlodipine 5 mg PO DAILY bupropion HCl XL 300 mg PO DAILY dextroamphetamine-amphetamine 30 mg ER (Adderall XR) 60 caps PO DAILY gabapentin 100 mg PO Q8H methadone 115 mg PO DAILY rosuvastatin 10 mg PO BEDTIME trazodone 200 mg PO BEDTIME PRN HPI Comments Details: 49-year-old female patient presenting for evaluation of cholelithiasis. She has a previous history of choledocholithiasis identified by ultrasound with ductal dilatation. Subsequent MRI of the abdomen confirmed a common bile duct stone. She underwent ERCP by Dr. Flaherty on 09/01/2024. Since this time she feels improved however she does note occasional episodes of epigastric abdominal pain radiating into the right upper quadrant. This seems to be associated with food although she is unable to give any specific patterns which are causing the pain. She denies nausea, vomiting, fever or chills. She denies a previous history of abdominal surgeries. Ultrasound of the abdomen confirmed multiple gallstones within the gallbladder. She reports a history of fatty liver with a previous history of heavy alcohol use. Her history is also significant for a chronic kidney disease and IV drug use (heroin active user). She has undergone previous spine surgery and ankle surgery and currently has a right foot drop for which she uses a cane. [facility] Medical History Ambulates with cane Asthma CKD (chronic kidney disease) IVDU (intravenous drug user) Foot drop, right Surgical History Hx of endoscopic retrograde cholangiopancreatography History of surgery on lower extremity History of back surgery Social History Household Members: Friend(s) Housing: House Are you a primary healthcare administration intern to a significant other at home: No Do you presently have visiting nurse or other home services: No Comment: right foot drop Patient Tobacco Use Status: Former Tobacco user Tobacco use type: Cigarette Substance Use Type: Heroin and IV Drugs Current occupational status: disabled Review of Systems Const All systems reviewed & are unremarkable except as noted in HPI and below Physical Exam Vital Signs: Last Vital Signs Pulse 83 04/08/25 14:15 BP 117/57 L 04/08/25 14:15 BMI result Body Mass Index 33.8 Const General: cooperative and no acute distress Nutritional Appearance: well nourished Orientation/consciousness: patient oriented x3 Limitations: no limitations HEENT Head: Yes normocephalic and Yes atraumatic Ears: hearing grossly normal bilaterally Resp Effort & Inspection: normal respiratory effort, no audible wheezes, no cough and no respiratory distress Cardio Jugular venous distension: no JVD GI Other: Negative Meadows sign Inspection: Yes normal to inspection, No distended and No incision Palpation (GI): Soft to palpation, nontender, no guarding and not rigid Percussion: Yes normal to percussion Auscultation: normal bowel sounds Rectal Exam - Female: deferred Skin Other: Warm, dry, no rash Neuro General: patient oriented x3 Extrem General: Yes no clubbing, cyanosis or edema Assessment & Plan Assessment & Plan (1) Choledocholithiasis: Code(s): K80.50 - Calculus of bile duct without cholangitis or cholecystitis without obstruction Category: Medical Plan 49-year-old female patient with a previous history of choledocholithiasis, status post ERCP with stone removal presenting now for further management of cholelithiasis. She does have occasional symptoms including epigastric abdominal pain especially after eating. We discussed laparoscopic or possible open cholecystectomy to prevent further stones from causing biliary obstruction and after discussion of the procedure, risks, and alternatives, she consents to the procedure. She will be scheduled as a short-stay surgery. Coding Level of Care Code New Pt Level 4 (09832) Diagnoses Choledocholithiasis K80.50
[2025-04-08 14:15] VITALS: BP 117/57; PULSE 83; BMI 33.8
--- OUTSIDE RECORDS SUMMARY | 2025-04-08 16:44 | XMS_ITS | Encounter Summary ---
Author Organization [email or web address] Address [address] [place] [address] [place] [address] Care Team Providers Care Viscosity Worker Name Role Phone Dougie Vela MD Primary Care Prov ider Reason for Visit * Reason Onset Date Comments Medication Question 08/13/2024 Encounter Details Date Type Department Care Team ([facility] st Contact Info) Description 08/13/2024 Telephone [facility] MEDICINE [address] [place] [address] Dougie Vela MD [address] [place] [phone] Medication Question Social History Tobacco Use Types [...] documented as of this encounter Care Teams Viscosity Worker Relationship Specialty Start Date End Date Dougie Vela MD [address] [place] [address] PCP - General Internal Medicine 03/28/20 documented as of this encounter
--- OUTSIDE RECORDS SUMMARY | 2025-04-08 16:44 | XMS_ITS | Encounter Summary ---
Author Organization [employer] Address [address] [place] [address] [place] [address] Care Team Providers Care Pbx Repairer Name Role Phone Dougie Vela MD Primary Care Prov ider Encounter Details Date Type Department Care Team ([facility] st Contact Info) Description 11/13/2022 Orders Only [facility] CHC MED & PEDS [address] [place] [address] Sona Hart LPN Social History Tobacco Use [...] on filedocumented in this encounter Care Teams Pbx Repairer Relationship Specialty Start Date End Date Dougie Vela MD [address] [place] [address] PCP - General Internal Medicine 03/28/20 documented as of this encounter
--- OUTSIDE RECORDS SUMMARY | 2025-04-08 16:44 | XMS_ITS | Encounter Summary ---
Author Organization [employer] Address [address] [place] [address] 7 [place] [address] Care Team Providers Care Net Web Application Developer Name Role Phone Dougie Vela MD Primary Care Prov ider Encounter Details Date Type Department Care Team ([facility] st Contact Info) Description 05/07/2024 Orders Only [facility] CHC MED & PEDS [address] [place], [place] [phone] Dougie Vela MD [address] [place] [address] Social History Tobacco Use Types Packs/Day Years [...] documented as of this encounter Care Teams Net Web Application Developer Relationship Specialty Start Date End Date Dougie Vela MD [address] [place] [address] PCP - General Internal Medicine 03/28/20 documented as of this encounter
--- OUTSIDE RECORDS SUMMARY | 2025-04-08 16:44 | XMS_ITS | Clinical Summary ---
Author Organization [facility] Address [address] [place] [address] Care Team Providers Care Spinning Machine Operator Name Role Phone Unavailable Primary Care Provider [...] Overview (09/20/2016): Has anxiety/depression, ADHD, following at [facility]. On meds. Mild intermittent asthma without complication Opioid abuse 09/20/2016 Overview (09/20/2016): H/O IV Heroin use, recent admission to [facility] 07/2016 with possible OD and right ankle displaced fracture, fracture of the base of the third, fourth and possible second metatarsals. Now in remission since 07/29/16, now in suboxone clinic through [facility]. Closed fracture of right ankle 09/20/2016 Overview (09/20/2016): admitted to [facility] 07/2016 with possible Heroin OD and right [...] she had herniated disc, s/p microdiscectomy in [place] in 2007. Dyslipidemia 09/20/2016 Constipation 09/20/2016 Social [...] Plan of Treatment Not on file Insurance [facility] Member Subscriber Plan / Payer (Ef fective 2015-Present) Name:Dana Reid Relation to Subscriber:Self Name:Dana Reid Payer ID:[id number] Group ID:Not on file Type:Medicaid Address: [facility] [id number] [place] [address]
--- OUTSIDE RECORDS SUMMARY | 2025-04-08 16:44 | XMS_ITS | Encounter Summary ---
Author Organization [employer] Address [address] [place] [address] 7 [place] [address] Care Team Providers Care Vice President Compliance Name Role Phone Dougie Vela MD Primary Care Prov ider Encounter Details Date Type Department Care Team ([facility] st Contact Info) Description 08/16/2024 Orders Only [facility] CHC MED & PEDS [address] [place], [place] [phone] Dougie Vela MD [address] [place] [address] Social History Tobacco Use Types Packs/Day Years [...] documented as of this encounter Care Teams Vice President Compliance Relationship Specialty Start Date End Date Dougie Vela MD [address] [place] [address] PCP - General Internal Medicine 03/28/20 documented as of this encounter
--- OUTSIDE RECORDS SUMMARY | 2025-04-08 16:44 | XMS_ITS | Clinical Summary ---
Author Organization [facility] Address [address] [place] [address] Care Team Providers Care Oiler And Greaser Name Role Phone Shay Castro MD Primary Care Provider [phone] Allergies Active Allergy Reactions Criticality Noted Date [...] age to complete this topic Care Teams Oiler And Greaser Relationship Specialty Start Date End Date Shay Castro MD PCP - General Family Medicine 02/07/20
--- OUTSIDE RECORDS SUMMARY | 2025-04-08 16:44 | XMS_ITS | Encounter Summary ---
Author Organization [employer] Address [address] [place] [address] [place] [address] Care Team Providers Care Continuing Education Specialist Name Role Phone Dougie Vela MD Primary Care Prov ider Reason for Visit * Reason Comments Med Change Request Encounter Details Date Type Department Care Team ([facility] st Contact Info) Description 08/16/2024 Refill [facility] CHC MED & PEDS [address] [place], [place] [phone] Dougie Vela MD [address] [place] [address] Social History Tobacco Use Types Packs/Day Years [...] documented as of this encounter Care Teams Continuing Education Specialist Relationship Specialty Start Date End Date Dougie Vela MD [address] [place] [address] PCP - General Internal Medicine 03/28/20 documented as of this encounter
--- OUTSIDE RECORDS SUMMARY | 2025-04-08 16:45 | XMS_ITS | Encounter Summary ---
Author Organization [employer] Address [address] [place] [address] 7t [place] [address] Care Team Providers Care Fire Protection Fabricator Name Role Phone Dougie Vela MD Primary Care Prov ider Encounter Details Date Type Department Care Team (Late st Contact Info) Description 12/20/2024 Orders Only [facility] CHC MED & PEDS [address] [place] [address] ProviderKristel MD Social History Tobacco Use Types [...] t he electric, gas, oil or water [employer] threatened to shut off services in your [...] documented as of this encounter Care Teams Fire Protection Fabricator Relationship Specialty Start Date End Date Dougie Vela MD [address] [place] [phone] PCP - General Internal Medicine 03/28/20 documented as of this encounter
--- OUTSIDE RECORDS SUMMARY | 2025-04-08 16:45 | XMS_ITS | Encounter Summary ---
Author Organization [employer] Address [address] [place] [address] [place] [address] Care Team Providers Care Legal Word Processor Name Role Phone Dougie Vela MD Primary Care Prov ider Reason for Visit * Reason Onset Date Comments Medication Question 05/18/2024 Encounter Details Date Type Department Care Team ([facility] st Contact Info) Description 05/18/2024 Telephone [facility] MEDICINE [address] [place] [address] Dougie Vela MD [address] [place] [phone] Medication Question Social History Tobacco Use Types [...] prescribed a GLP-1 drug like Wegovy 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 The pt [...] like some info on (wegovy) Callback number [phone] documented in this encounter Plan of Treatment Not on file documented as of this encounter Visit Diagnoses Not on filedocumented in this encounter Additional Health Concerns Assessment Noted Time PHQ-9 Depression Total Score: 10 024 12:43 PM EDT documented as of this encounter Care Teams Legal Word Processor Relationship Specialty Start Date End Date Dougie Vela MD [address] [place] [phone] PCP - General Internal Medicine 03/28/20 documented as of this encounter
--- OUTSIDE RECORDS SUMMARY | 2025-04-08 16:45 | XMS_ITS | Clinical Summary ---
Author Organization [employer] Address [address] [place] [address] 7t [place] [address] Care Team Providers Care Concert Or Lecture Hall Manager Name Role Phone Dougie Vela MD [...] place referral Stage 3b chronic kidney disease (CMS/HCC) 2023 Assessment & Plan (02/26/2024 1:30 PM EDT): [...] she had herniated disc, s/p microdiscectomy in [place] in 2007. Closed fracture of right ankle 09/20/2016 Overview (05/31/2022): admitted to [facility] 07/2016 with possible Heroin OD and [...] Overview (05/31/2022): Has anxiety/depression, ADHD, following at [facility]. On meds. Dyslipidemia 09/20/2016 Assessment & Plan (02/26/2024 1:29 PM EDT): Ascvd 7.0% will start on atorvastatin, risk vs benefits discussed, follow up in 3 months Mild intermittent asthma without complication Obesity (BMI 30.0-34.9) 09/20/2016 Assessment & Plan (07/11/2024 3:49 PM EST): Will refer to bariatric surgery for evaluation Opioid abuse 09/20/2016 Overview (05/31/2022): H/O IV Heroin use, recent admission to [facility] 07/2016 with possible OD and right ankle displaced fracture, fracture of the base of the third, fourth and possible second metatarsals. Now in remission since 07/29/16, now in suboxone clinic through [facility]. Encounters Date Type Department Care Team Description 03/08/2025 Orders Only [facility] MED & PEDS [address] [place] [address] Dougie Vela MD 01/07/2025 Refill [facility] MED & PEDS [address] [place] [address] Dougie Vela MD Primary hypertension from Last 3 Months Immunizations Immunization Administration [...] 07/23/2024 07/23/2023 Depression Monitoring 08/25/2024 02/26/2024, 024 COVID-19 Vaccine ( season) 2025 09/24/2023, 05/03/2022, 08/27/2021, Additional history exists Influenza Vaccine (#1) 2025 SDOH Screening 02/25/2025 02/26/2024 Pap Smear 03/19/2025 03/19/2022 Colorectal Cancer Screening 12/09/2025 FIT DNA/Cologuard 12/09/2025 12/09/2022 Mammogram 03/08/2027 03/08/2025, 08, 12/23/2022, Additional history exists Cervical Cancer Screening 03/19/2027 HPV/Cotest 03/19/2027 03/19/2022 [...] Procedure Name Priority Date/Time Associated Diagnosis Comments BI MAMMOGRAM SCREENING TOMOSYNTHESIS BILATERAL Routine 03/08/2025 3:05 PM EDT LIPID PANEL, STANDARD Routine 01/29/2024 3:45 PM EDT Albuminuria HEPATITIS C AB W/REFL TO HCV RNA, [...] Recently Relevant to Health Maintenance Results * BI Mammogram Screening Tomosynthesis Bilateral (03/08/2025 3:05 PM EDT) Anatomical Region Laterality Modality Breast Bilateral Mammography 03/08/2025 3:05 PM EDT Narrative 03/11/2025 2:31 PM EDT [facility] [address] [place] [address] Mammography Report Signed Patient: Dana Reid MR#: [id number] : 1975 Acct:[id number] Age/Sex: 49 / F ADM Date: 03/08/25 Loc: HO.MAMMO Attending Dr: Dougie Cook MD Ordering Physician: Dougie Vela MD Res ults: 1Negative Date of Service: 03/08/25 Follow Up: 1 Year From Orig ina Mammogram Procedure(s): MM tomosynthesis screening BI Accession Number(s): [id number] cc: Dougie Vela MD Reason For Exam: SCREENING EXAMINATION: MM SCREENING DIGITAL BREAST TOMOSYNTHESIS, BILATERAL CLINICAL INFORMATION: Screening. Asymptomatic. COMPARISON: Mammography: Comparison is made with available priors TECHNIQUE: Digital breast mammography with tomosynthesis is performed in both the craniocaudal and mediolateral oblique views along with computer-aided detection (CAD). FINDINGS: There are scattered areas of fibroglandular density (ACR BI-RADS breast composition Category b). There are no significant masses, abnormal calcifications, or other abnormalities. MM/MM tomosynthesis screening BI IMPRESSION: No mammographic evidence of malignancy. ASSESSMENT: BI-RADS BI-RADS 1 - Negative RECOMMENDATION: Routine annual mammography screening. 1 year F/U This examination should not preclude the clinical evaluation of a suspicious palpable abnormality. This patient's information was entered into a reminder system with a target due date for their next mammogram. Electronically signed by: Janett Peters DO 03/11/2025 02:28 PM EDT Dictated By: Janett Peters DO Signed By: <Electronically signed by Janett Peters DO in OV> 03/11/25 1428 DD/ 1505 TD/TT: 03/08/25 1518 Utility Person: Procedure Note Donotolvininterpreter, Image - 03/11/2025 [facility] [address] [place] [address] Mammography Report Signed Patient: Angelica Reid#: [id number] : 1975Acct:[id number] Age/Sex: 49 / FADM Date: 03/08/25 Loc: HO.MAMMO Attending Dr: Dougie Cook MD Ordering Physician: Dougie Vela ults: 1Negative Date of Service: 03/08/25Follow Up: 1 Year From Orig inal Mammogram Procedure(s): MM tomosynthesis screening BI Accession Number(s): [id number] cc: Dougie Vela MD Reason For Exam: SCREENING EXAMINATION: MM SCREENING DIGITAL BREAST TOMOSYNTHESIS, BILATERAL CLINICAL INFORMATION: Screening. Asymptomatic. COMPARISON: Mammography: Comparison is made with available priors TECHNIQUE: Digital breast mammography with tomosynthesis is performed in both the craniocaudal and mediolateral oblique views along with computer-aided detection (CAD). FINDINGS: There are scattered areas of fibroglandular density (ACR BI-RADS breast composition Category b). There are no significant masses, abnormal calcifications, or other abnormalities. MM/MM tomosynthesis screening BI IMPRESSION: No mammographic evidence of malignancy. ASSESSMENT: BI-RADS BI-RADS 1 - Negative RECOMMENDATION: Routine annual mammography screening. 1 year F/U This examination should not preclude the clinical evaluation of a suspicious palpable abnormality. This patient's information was entered into a reminder system with a target due date for their next mammogram. Electronically signed by: Janett Peters DO 03/11/2025 02:28 PM EDT Dictated By: Janett Peters DO Signed By: <Electronically signed by Janett Peters DO in OV> 03/11/25 1428 DD/ 1505 TD/TT: 03/08/25 1518 Utility Person: Dougie Cook MD IMG BI PROCEDURES Edited Result - Final * (ABNORMAL) Lipid Panel, Standard (01/29/2024 3:45 PM EDT) Triglycerides 229(H) <150 mg/dL [facility] Comment:Desirable Triglyceri de: less than 150 mg/dLBorderline High Triglyceride 150-199 mg/dLHigh Triglyceride: 200-499 mg/dLVery High Triglyceride: greater than or equal to 5OO mg/dL Cholesterol 269(H) <200 mg/dL [facility] Comment:Desirable Cholestero l: less than 200 mg/dLBorderline High Cholesterol: 200-239 mg/dLHigh Cholesterol: greater than 239 mg/dL LDL Cholesterol Calculated 182(H) <100 mg/dL [facility] Comment:Desirable LDL: less than 100 mg/dLNear Optimal/Above Optimal LDL: 110- 129 mg/dLBorderline High LDL: 130-159 mg/dLHigh LDL: 160-189 mg/dLVery High LDL: greater than or equal to 190 mg/dL HDL Cholesterol 42 >40 mg/dL [facility] Comment:Desirable HDL: great er than 40 mg/dL Note: This HDL assay may give artificially low results in patients with liver disease. Blood Venous blood specimen / Unknown 01/29/2024 3:45 PM EDT 01/29/2024 5:43 PM EDT us Dougie Cook MD LAB BLOOD ORDERABL ES Final Result [facility] [address] [place], [place] [phone] * Hepatitis C Antibody with Reflex to HCV, RNA, Quantitative, Real-Time PCR (12/13/2022 2:32 PM EDT) Hepatitis C Antibody NON-REACT NELY NON-REACT NELY [facility] Comment: HCV antibody was non-reactive. There is no laboratory evidence of HCV infection. In most cases, no further action is required. However, if recent HCV exposure is suspected, a test for HCV RNA (test code 45400) is suggested. For additional information please refer to http://education.Telespree/faq/GBT85b5 (This link is being provided for informational/ educational purposes only.) Blood Venous blood specimen / Unknown 12/13/2022 2:32 PM EDT 12/13/2022 2:33 PM EDT Narrative [facility] - 12/14/2022 7:42 AM EDT FASTING:NO FASTING: NO Dougie Cook MD LAB BLOOD ORDERABL ES Final Result [address], [place] [address] [facility] [address] [place] [phone] * FIT DNA/Cologuard Cancer Screening (12/09/2022 4:01 PM EDT) Stool Kristel Provider HEALTH MAINTENANCE Final Result * THINPREP [...] been evaluated with computer assisted technology. [facility] Sole Splitter : SEE COMMENT [facility]VERTED [facility]GAC[facility] Comment: ED, CT(ASCP) CT screening location: [address] [address] HPV nRNA E6/E7 Not Detected Not Detected [facility] Comment: Methodology: Casino Attendant-Mediated Amplification This assay detects E6/E7 viral messenger RNA (mRNA) from 14 high-risk HPV types (16,18,31,33,35,39,45,51,52,56,58,59,66,68). Cervical sources are required for HPV testing. If a vaginal source from a patient who has had a total hysterectomy with removal of cervix was submitted, please contact the testing laboratory for alternative testing options. For additional information, please refer to http://education.Telespree/faq/ZBD570a6 (This link if provided for information/ educational purposes only.) Infection Shift in vaginal meenu suggestive of bacterial vaginosis. CONVERTED [facility]GAC[facility] LABS Interpretation/R esult: Negative for intraepithelial lesion or malignancy. CON[facility]ED [facility] LMP: 06/2021 CONVERTED [facility] Prev. BX: NONE GIVEN CONVERTED [facility]GAC[facility] LAB[facility] Prev. PAP: 4X ABNL PAP,COLPOSCOPY NIL AFTER CONVERTED [facility]GACY LABS Review Sole Splitter : SEE COMMENT CONVERTED [facility]GAC[facility] LAB[facility] Comment: SL, CT(ASCP) CT screening location: [place] [address] SOURCE: None given CONVERTED LEGACY LABS Statement Of Adequacy: SEE COMMENT [facility]ED [facility] Comment: Satisfactory for evaluation. Endocervical/transformation zone component absent. 03/19/2022 2:17 PM EDT Amalia Alcaraz [facility] LAB PATHOLOGY ORDERABLES Final Result CONVERTED [facility]GACY [facility] * (ABNORMAL) HIV 1/2 ANTIGEN/ANTIBODY,FOURTH GENERATION W/RFL (01/03/2022 12:04 PM EDT) Pathologist [facility] HIV-1/2 ANTIGEN AND ANTIBODIES, 4TH GENERATION W/ REFLEX REPEATEDLY REACTIVE(A) NON-REAC [facility] Comment: The repeatedly reactive screening [...] MD LAB BLOOD ORDERABL ES Final Result [facility] Anywhere [address] from Last 3 Months or Most Recently Relevant to Health Maintenance Insurance [employer] MEDICARE ADVANTAGE HMO Care Teams Concert Or Lecture Hall Manager Relationship Specialty Start Date End Date FossDougie Collins MD [address] [place] [phone] PCP - General Internal Medicine 03/28/20
--- OUTSIDE RECORDS SUMMARY | 2025-04-08 16:45 | XMS_ITS | Encounter Summary ---
Author Organization [employer] Address [address] [place] [address] [place] [address] Care Team Providers Care Tool Design Drafter Name Role Phone Dougie Vela MD Primary Care Prov ider Reason for Visit * Reason Onset Date Comments Appointment Request 09/01/2024 Encounter Details Date Type Department Care Team ([facility] st Contact Info) Description 09/01/2024 Telephone [facility] [address] [place] [address] Dougie Vela MD [address] [place] [address] Appointment Request Social History Tobacco Use Types [...] at hospital and needs reschedule telephone visit. Whiteprinting Machine Operator unable to cancel appt status was arrived . documented in this encounter Plan of Treatment Not on file documented as of this encounter Visit Diagnoses Not on filedocumented in this encounter Additional Health Concerns Assessment Noted Time PHQ-9 Depression Total Score: 10 024 12:43 PM EDT documented as of this encounter Care Teams Tool Design Drafter Relationship Specialty Start Date End Date Dougie Vela MD [address] [place] [address] PCP - General Internal Medicine 03/28/20 documented as of this encounter
--- OUTSIDE RECORDS SUMMARY | 2025-04-08 16:45 | XMS_ITS | Encounter Summary ---
Author Organization [employer] Address [address] [place] [address] 7t [place] [address] Care Team Providers Care Certified Pharmacy Technician Name Role Phone Dougie Vela MD Primary Care Prov ider Encounter Details Date Type Department Care Team (Late st Contact Info) Description 06/13/2022 Orders Only [facility] 230 [place] [address] Dougie Vela MD [address] [place] [address] Cellulitis of right breast (Primary Dx); Primary [...] EST) Glucose 71 65 - 139 mg/dL [facility] [place] [employer] Comment: Non-fasting reference interval Urea Nitrogen (BUN) 46(H) 7 - 25 mg/dL [facility] [place] [facility] Creatinine, Serum 2.44(H) 0.50 - 0.99 mg/dL [facility] [place] [facility] eGFR 24(L) > OR = 60 mL/min/1. 73m2 [facility] [place] [facility] Comment: The eGFR is based on the CKD-EPI 2020 equation. To calculate the new eGFR from a previous Creatinine or Cystatin C result, go to https://www.kidney.org/professionals/ kdoqi/gfr%5Fcalculator BUN/Creatinine Ratio 19 6 - 22 (calc) [facility] [place] [facility] Sodium 136 135 - 146 mmol/L [facility] [place] [facility] Potassium 5.0 3.5 - 5.3 mmol/L [place] [facility] Chloride 102 98 - 110 mmol/L [facility] [place] [facility] Carbon Dioxide 27 20 - 32 mmol/L [facility] [place] [facility] Calcium 9.6 8.6 - 10.2 mg/dL [facility] [place] [facility] Blood Venous blood specimen / Unknown 06/21/2022 3:34 PM EST 06/21/2022 3:34 PM EST Narrative [facility] - 06/22/2022 1:37 AM EST FASTING:NO FASTING: NO us Dougie Cook MD LAB BLOOD ORDERABL ES Final Result [facility] [address], [place] [address] [facility] [place] [facility] 200 [facility], (Nl2) [place] [address] documented in this encounter Visit Diagnoses Diagnosis Cellulitis of right breast- Primary Primary hypertension Unspecified essential hypertension documented in this encounter Care Teams Certified Pharmacy Technician Relationship Specialty Start Date End Date FossDougie Collins MD [address] [place] [address] PCP - General Internal Medicine 03/28/20 documented as of this encounter
== END 2025-04-08 14:29 | disposition home or self-care (01) ==
LOC: HO.HGS 14:02
PROVIDERS: PCP Internal Medicine; Visit Provider Surgery
DX: K80.50 Calculus of bile duct without cholangitis or cholecystitis without obstruction (principal)
CPT/HCPCS: 99204

== ENCOUNTER → 2025-04-08 14:01 | Outpatient (BNVA) | payer MEDICARE, MEDICAID, SELFPAY | PROVIDERS: PCP Internal Medicine; Visit Provider Surgery | DX: K80.50 Calculus of bile duct without cholangitis or cholecystitis without obstruction (principal); Z98.890 Other specified postprocedural states | CPT/HCPCS: 99202 ==

== ENCOUNTER → 2025-04-13 14:57 | Outpatient (REF) | payer MEDICARE, MEDICAID, SELFPAY ==
--- NOTE | 2025-04-13 15:00 | CA_ITS ---
Transthoracic Echocardiogram Patient (Last, First, Middle): Dana Reid, Gender: Female Date of : 1975 Age: 50 Procedure Date: 04/13/2025 Procedure Type: Transthoracic Echocardiogram Location: OP Height: 172.72 cm Weight: 99.79 kg BSA: 2.13 m2 Heart Rate: bpm BP: 150 / 70 mmHg [employer] Intermediary: TO/RC Referring MD: Palak Morales MD Supervisor Mapping: Sebastián Castaneda MD Symptoms: R60.0 - Localized edema Study Quality: Fair/no IV access ECG Rhythm: Sinus Conclusions: - 1. Normal LV ejection fraction 55-60% with grade 1 diastolic dysfunction 2. Normal cardiac valvular Dopplers 3. Normal right atrial pressures 4. No gross pericardial effusion Findings Left Ventricle Normal left ventricular size, thickness, and systolic function. The visually estimated ejection fraction is between 55-60%. Spectral Doppler is indicative of an impaired relaxation filling pattern. E/E prime ratio is <8, consistent with normal filling pressures. Evidence suggests grade I (mild) diastolic dysfunction. Right Ventricle Normal right ventricular cavity size and systolic function. Atria Both atria are normal in size. Interatrial shunt cannot be excluded. Aortic Valve The aortic valve structure and function is likely normal. There is no aortic valve stenosis. There is no aortic valve regurgitation. Mitral Valve Normal mitral valve structure and function. There is trace mitral valve regurgitation. There is no mitral valve stenosis. Pulmonic Valve The pulmonic valve is likely normal. Tricuspid Valve Likely normal tricuspid valve structure and function. Normal right atrial pressure. Great Vessels All visible segments of the aorta are normal in size. The pulmonary artery was not well visualized. There is no dilatation of the ascending aorta measuring 2.80 cm. Venous The inferior vena cava is normal in size and collapses greater than 50% with inspiration. Pericardium/Pleural There is no evidence of pericardial effusion. Prior Study Comparison No prior study available for comparison. Measurements 2D Linear Measurements IVSd: 0.90 0.6-0.9/0.6-1.0 cm LVIDd: 4.85 3.9-5.3/4.2-5.9 cm LVIDd Index: 2.28 2.4-3.2/2.2-3.1 cm/m2 LVIDs: 3.10 2.0-3.6 cm LVPWd: 0.85 0.7-1.1 cm LA Diam: 3.70 2.7-3.8/3.0-4.0 cm LAIDs Index: 1.74 1.5-2.3 cm/m2 LV Mass: 178.99 67-162/88-224 g LV Mass Index: 84.03 43-95/49-115 g/m2 LVOT Diam: 2.10 3.0+(-)1.3 cm 2D Systolic Function EF 4C: 62.70 >55% EF 2C: 51.10 >55% EF BiP: 57.70 >55% Mitral Valve MV Pk E: 0.67 MV PK A: 0.90 MV Decel Time: 187.00 E/A: 0.70 E'Lateral: 11.00 E/E' Lat: 6.10 PHT: 55.00 MVA PHT: 4.00 Decel [place]: 3.57 Aortic Valve AoV Pk Adrian: 1.78 AoV Mn Adrian: 1.30 AoV VTI: 0.30 AoV Pk Grad: 13.00 Aov Mn Grad: 7.00 MARCIA Cont.VTI: 2.85 LVOT LVOT Pk Adrian: 1.39 LVOT Mn Adrian: 0.97 LVOT VTI: 0.25 LVOT Pk Grad: 8.00 LVOT Mn Grad: 4.00 LVOT Diam: 2.10 LVOT Area: 3.46 Diastolic Function MV Pk E: 0.67 MV Pk A: 0.90 E/A: 0.70 E' Laterial: 11.00 E/E' Lat: 6.10 Right Ventricle TAPSE (mm): 20.00 TVS' Adrian: 27.80 Tricuspid Valve RA Press: 3.00 Great Vessels Aorta Sinus of Valsalva: 3.00 2.0-3.5 cm Ao Asc: 2.80 2.1-3.4 cm Pulmonary Veins Pulm Vein S/D 1.40 Pulmonary Valve PV Pk Adrian: 1.64 Peak PV Grad: 11.00 Updated in Other Vendor System with Status of Final Sebastián Castaneda MD electronically signed on 04/13/2025 5:18:17 PM with status of Final
--- OUTSIDE RECORDS SUMMARY | 2025-04-13 21:11 | XMS_ITS | Clinical Summary ---
Author Organization [employer] Address [address] [place] [address] 7t [place] [address] Care Team Providers Care Manager Pacu Name Role Phone Dougie Vela MD Primary [...] she had herniated disc, s/p microdiscectomy in [place] in 2007. Closed fracture of right ankle 09/20/2016 Overview (05/31/2022): admitted to [facility] 07/2016 with possible Heroin OD [...] Overview (05/31/2022): Has anxiety/depression, ADHD, following at [facility]. On meds. Dyslipidemia 09/20/2016 [...] H/O IV Heroin use, recent admission to [facility] 07/2016 with possible OD and right ankle displaced fracture, fracture of the base of the third, fourth and possible second metatarsals. Now in remission since 07/29/16, now in suboxone clinic through [facility]. Encounters Date Type Department Care Team Description 03/08/2025 Orders Only [facility] [address] [place] [address] Dougie Vela MD from Last 3 Months Immunizations Immunization Administration [...] t he electric, gas, oil or water [employer] threatened to shut off services in your [...] FIT DNA/Cologuard 12/09/2025 12/09/2022 Mammogram 03/08/2027 03/08/2025, 08/1 , 12/23/2022, Additional history exists Cervical Cancer Screening [...] PM EDT Narrative 03/11/2025 2:31 PM EDT [facility] [address] [place], [place] [address] Mammography Report Signed Patient: Dana Reid MR#: [id number] : 1975 Acct:[id number] Age/Sex: 49 / F ADM Date: 03/08/25 Loc: HO.MAMMO Attending Dr: Dougie Cook MD Ordering Physician: Dougie Vela MD Res ults: 1Negative Date of Service: 03/08/25 Follow Up: 1 Year From Orig inal Mammogram Procedure(s): MM tomosynthesis screening BI Accession Number(s): [id number] cc: Dougie Vela MD Reason For Exam: [...] 03/11/25 1428 DD/ 1505 TD/TT: 03/08/25 1518 Credit Control Assistant: Procedure Note Donotuseinterpreter, Image - 03/11/2025 [facility] [address] [place], [place] [address] Mammography Report Signed Patient: Angelica Reid#: [id number] : 1975Acct:[id number] Age/Sex: 49 / FADM Date: 03/08/25 Loc: HO.MAMMO Attending Dr: Dougie Cook MD Ordering Physician: Dougie Vela ults: 1Negative Date of Service: 03/08/25Follow Up: 1 Year From Orig inal Mammogram Procedure(s): MM tomosynthesis screening BI Accession Number(s): [id number] cc: Dougie Vela MD Reason For Exam: [...] 03/11/25 1428 DD/ 1505 TD/TT: 03/08/25 1518 Credit Control Assistant: us Dougie Cook MD IMG BI PROCEDURES Edited Result - Final * (ABNORMAL) Lipid Panel, Standard (01/29/2024 3:45 PM EDT) Triglycerides 229(H) <150 mg/dL [facility] Comment:Desirable Triglyceri de: less than 150 mg/dLBorderline High Triglyceride 150-199 mg/dLHigh Triglyceride: 200-499 mg/dLVery High Triglyceride: greater than or equal to 5OO mg/dL Cholesterol 269(H) <200 mg/dL [facility] Comment:Desirable Cholestero l: less than 200 mg/dLBorderline High Cholesterol: 200-239 mg/dLHigh Cholesterol: greater than 239 mg/dL LDL Cholesterol Calculated 182(H) <100 mg/dL [facility] Comment:Desirable LDL: less than 100 mg/dLNear Optimal/Above Optimal LDL: 110- 129 mg/dLBorderline High LDL: 130-159 mg/dLHigh LDL: 160-189 mg/dLVery High LDL: greater than or equal to 190 mg/dL HDL Cholesterol 42 >40 mg/dL [facility] Comment:Desirable HDL: great er than 40 mg/dL Note: This HDL assay may give artificially low results in patients with liver disease. Blood Venous blood specimen / Unknown 01/29/2024 3:45 PM EDT 01/29/2024 5:43 PM EDT Dougie Cook MD LAB BLOOD ORDERABL ES Final Result [facility] [address] [place] [phone] * Hepatitis C Antibody with Reflex to HCV, RNA, Quantitative, Real-Time PCR (12/13/2022 2:32 PM EDT) Hepatitis C Antibody NON-REACT NELY NON-REACT NELY [facility] Comment: HCV antibody was non-reactive. There is no laboratory evidence of HCV infection. In most cases, no further action is required. However, if recent HCV exposure is suspected, a test for HCV RNA (test code 35701) is suggested. For additional information please refer to http://education.OpenGamma/faq/CCE34b8 (This link is being provided for informational/ educational purposes only.) Blood Venous blood specimen / Unknown 12/13/2022 2:32 PM EDT 12/13/2022 2:33 PM EDT Narrative [facility] - 12/14/2022 7:42 AM EDT FASTING:NO FASTING: NO Dougie Cook MD LAB BLOOD ORDERABL ES Final Result [employer] [address] [place] [address], [place] [address] [facility] [address] [place] [phone] * FIT DNA/Cologuard Cancer Screening (12/09/2022 4:01 PM EDT) Stool Historical Provider HEALTH MAINTENANCE Final Result * THINPREP [...] with computer assisted technology. [facility] Propulsion Generator Repairer : SEE COMMENT [facility]S Comment: ED, CT(ASCP) CT screening location: [address] [address] HPV nRNA E6/E7 Not Detected Not Detected [facility] Comment: Methodology: Disease Case Manager Rn-Mediated Amplification This assay detects E6/E7 viral messenger RNA (mRNA) from 14 high-risk HPV types (16,18,31,33,35,39,45,51,52,56,58,59,66,68). Cervical sources are required for HPV testing. If a vaginal source from a patient who has had a total hysterectomy with removal of cervix was submitted, please contact the testing laboratory for alternative testing options. For additional information, please refer to http://education.OpenGamma/faq/XPM126j3 (This link if provided for information/ educational purposes only.) Infection Shift in vaginal meenu suggestive of bacterial vaginosis. CONVERTED LEGACY LABS Interpretation/R esult: Negative for intraepithelial lesion or malignancy. CON[facility]ED [facility]GAC[facility] LMP: 06/2021 CON[facility]GAC[facility] Prev. BX: NONE GIVEN CONVERTED [facility]GACY LABS Prev. PAP: 4X ABNL PAP,COLPOSCOPY NIL AFTER CONVERTED LEGACY LABS Review Propulsion Generator Repairer : SEE COMMENT CONVERTED [facility]GACY LABS Comment: SL, CT(ASCP) CT screening location: [place] [address] SOURCE: None given CONVERTED LEGACY LABS Statement Of Adequacy: SEE COMMENT [facility] Comment: Satisfactory for evaluation. Endocervical/transformation zone component absent. 03/19/2022 2:17 PM EDT [facility] LAB PATHOLOGY ORDERABLES Final Result CONVERTED [facility]GACY [facility] * (ABNORMAL) HIV 1/2 ANTIGEN/ANTIBODY,FOURTH GENERATION W/RFL (01/03/2022 12:04 PM EDT) Pathologist [facility] HIV-1/2 ANTIGEN AND ANTIBODIES, 4TH GENERATION W/ REFLEX REPEATEDLY REACTIVE(A) [facility] Comment: The repeatedly reactive screening [...] years old. 01/03/2022 12:0 4 PM EDT us Dougie Cook MD LAB BLOOD ORDERABL ES Final Result Performing Organization Address City/State/[facility] Phone Number [facility] [address] from Last 3 Months or Most Recently Relevant to Health Maintenance Insurance MEDICARE ADVANTAGE HMO Care Teams Manager Pacu Relationship Specialty Start Date End Date Dougie Vela MD [address] [place] [address] PCP - General Internal Medicine 03/28/20
--- OUTSIDE RECORDS SUMMARY | 2025-04-13 21:11 | XMS_ITS | Encounter Summary ---
Author Organization [employer] Address [address] [place] [address] 7 [place] [address] Care Team Providers Care Change Management Administrator Name Role Phone Dougie Vela MD Primary Care Prov ider Encounter Details Date Type Department Care Team ([facility] st Contact Info) Description 08/16/2024 Orders Only [facility]S [address] [place], [place] [phone] Dougie Vela MD 505 [place] [address] Social History Tobacco Use Types Packs/Day Years [...] documented as of this encounter Care Teams Change Management Administrator Relationship Specialty Start Date End Date Dougie Vela MD 505 [place] [address] PCP - General Internal Medicine 03/28/20 documented as of this encounter
--- OUTSIDE RECORDS SUMMARY | 2025-04-13 21:11 | XMS_ITS | Encounter Summary ---
Author Organization [employer] Address [address] [place] [address] [place] [address] Care Team Providers Care Millinery Salesperson Name Role Phone Dougie Vela MD Primary Care Prov ider Reason for Visit * Reason Onset Date Comments Medication Question 08/13/2024 Encounter Details Date Type Department Care Team ([facility] st Contact Info) Description 08/13/2024 Telephone [facility] [address] [place] [address] Dougie Vela MD [address] [place] [address] Medication Question Social History Tobacco Use Types [...] documented as of this encounter Care Teams Millinery Salesperson Relationship Specialty Start Date End Date Dougie Vela MD [address] [place] [address] PCP - General Internal Medicine 03/28/20 documented as of this encounter
--- OUTSIDE RECORDS SUMMARY | 2025-04-13 21:11 | XMS_ITS | Encounter Summary ---
Author Organization [employer] Address [address] [place] [address] [place] [address] Care Team Providers Care Managed Care Director Name Role Phone Dougie Vela MD Primary Care Prov ider Reason for Visit * Reason Onset Date Comments Appointment Request 09/01/2024 Encounter Details Date Type Department Care Team ([facility] st Contact Info) Description 09/01/2024 Telephone [facility] [address] [place] [address] Dougie Vela MD [address] [place] [address] Appointment Request Social History Tobacco Use Types [...] at hospital and needs reschedule telephone visit. Vp Public Relations unable to cancel appt status was arrived . documented in this encounter Plan of Treatment Not on file documented as of this encounter Visit Diagnoses Not on filedocumented in this encounter Additional Health Concerns Assessment Noted Time PHQ-9 Depression Total Score: 10 024 12:43 PM EDT documented as of this encounter Care Teams Managed Care Director Relationship Specialty Start Date End Date Dougie Vela MD [address] [place] [address] PCP - General Internal Medicine 03/28/20 documented as of this encounter
--- OUTSIDE RECORDS SUMMARY | 2025-04-13 21:11 | XMS_ITS | Clinical Summary ---
Author Organization [facility] Address [address] [place] [address] Care Team Providers Care Sludge Filtration Attendant Name Role Phone Shay Castro MD Primary Care Provider [phone] Allergies Active Allergy Reactions Criticality Noted Date [...] age to complete this topic Care Teams Sludge Filtration Attendant Relationship Specialty Start Date End Date Shay Castro MD PCP - General Family Medicine 02/07/20
--- OUTSIDE RECORDS SUMMARY | 2025-04-13 21:11 | XMS_ITS | Encounter Summary ---
Author Organization [employer] Address [address] [place] [address] 7 [place] [address] Care Team Providers Care Dance Artist Name Role Phone Dougie Vela MD Primary Care Prov ider Encounter Details Date Type Department Care Team ([facility] st Contact Info) Description 05/07/2024 Orders Only [facility] [address] [place], [place] [address] Dougie Vela MD [address] [place] [address] Social History Tobacco Use Types Packs/Day Years [...] documented as of this encounter Care Teams Dance Artist Relationship Specialty Start Date End Date Dougie Vela MD [address] [place] [address] PCP - General Internal Medicine 03/28/20 documented as of this encounter
--- OUTSIDE RECORDS SUMMARY | 2025-04-13 21:11 | XMS_ITS | Encounter Summary ---
Author Organization [employer] Address [address] [place] [address] 7t [place] [address] Care Team Providers Care Blanket Winder Operator Name Role Phone Dougie Vela MD Primary Care Prov ider Encounter Details Date Type Department Care Team (Late st Contact Info) Description 12/20/2024 Orders Only [facility] [address] [place] [address] ProviderKristel MD Social History Tobacco Use Types [...] t he electric, gas, oil or water [employer] threatened to shut off services in your [...] documented as of this encounter Care Teams Blanket Winder Operator Relationship Specialty Start Date End Date Dougie Vela MD [address] [place] [address] PCP - General Internal Medicine 03/28/20 documented as of this encounter
--- OUTSIDE RECORDS SUMMARY | 2025-04-13 21:11 | XMS_ITS | Encounter Summary ---
Author Organization [employer] Address [address] [place] [address] [place] [address] Care Team Providers Care Regional Account Manager Name Role Phone Dougie Vela MD Primary Care Prov ider Reason for Visit * Reason Onset Date Comments Medication Question 05/18/2024 Encounter Details Date Type Department Care Team ([facility] st Contact Info) Description 05/18/[address] [facility] [address] [place] [address] Dougie Vela MD [address] [place] [address] Medication Question Social History Tobacco Use Types [...] prescribed a GLP-1 drug like Wegovy to form setter helper in weight loss. The pt was [...] like some info on (wegovy) Callback number [phone] documented in this encounter Plan of Treatment Not on file documented as of this encounter Visit Diagnoses Not on filedocumented in this encounter Additional Health Concerns Assessment Noted Time PHQ-9 Depression Total Score: 10 024 12:43 PM EDT documented as of this encounter Care Teams Regional Account Manager Relationship Specialty Start Date End Date Dougie Vela MD [address] [place] [phone] PCP - General Internal Medicine 03/28/20 documented as of this encounter
--- OUTSIDE RECORDS SUMMARY | 2025-04-13 21:11 | XMS_ITS | Encounter Summary ---
Author Organization [employer] Address [address] [place] [address] 7t [place] [address] Care Team Providers Care Hotel Reservationist Name Role Phone Dougie Vela MD Primary Care Prov ider Encounter Details Date Type Department Care Team (Late st Contact Info) Description 06/13/2022 Orders Only [facility] 230 [place] [address] Dougie Vela MD 505 [place] [address] Cellulitis of right breast (Primary Dx); Primary [...] EST) Glucose 71 65 - 139 mg/dL [facility] [place] [employer] Comment: Non-fasting reference interval Urea Nitrogen (BUN) 46(H) 7 - 25 mg/dL [facility] [place] [employer] Creatinine, Serum 2.44(H) 0.50 - 0.99 mg/dL [facility] [place] [facility] eGFR 24(L) > OR = 60 mL/min/1. 73m2 [facility] [place] [facility] Comment: The eGFR is based on the CKD-EPI 2020 equation. To calculate the new eGFR from a previous Creatinine or Cystatin C result, go to https://www.kidney.org/professionals/ kdoqi/gfr%5Fcalculator BUN/Creatinine Ratio 19 6 - 22 (calc) [facility] [place] [facility] Sodium 136 135 - 146 mmol/L [facility] [place] [facility] Potassium 5.0 3.5 - 5.3 mmol/L [facility] [place] [facility] Chloride 102 98 - 110 mmol/L [facility] [place] [facility] Carbon Dioxide 27 20 - 32 mmol/L [facility] [place] [facility] Calcium 9.6 8.6 - 10.2 mg/dL [facility] [place] [facility] Blood Venous blood specimen / Unknown 06/21/2022 3:34 PM EST 06/21/2022 3:34 PM EST Narrative [facility] - 06/22/2022 1:37 AM EST FASTING:NO FASTING: NO us Dougie Cook MD LAB BLOOD ORDERABL ES Final Result [facility] [address], [place] [address] [facility] [place] [employer] 200 [facility], (Nl2) [place] [address] documented in this encounter Visit Diagnoses Diagnosis Cellulitis of right breast- Primary Primary hypertension Unspecified essential hypertension documented in this encounter Care Teams Hotel Reservationist Relationship Specialty Start Date End Date FossDougie Collins MD [address] [place] [address] PCP - General Internal Medicine 03/28/20 documented as of this encounter
--- OUTSIDE RECORDS SUMMARY | 2025-04-13 21:11 | XMS_ITS | Encounter Summary ---
Author Organization [employer] Address [address] [place] [address] [place] [address] Care Team Providers Care Medical Library Assistant Name Role Phone Dougie Vela MD Primary Care Prov ider Encounter Details Date Type Department Care Team ([facility] st Contact Info) Description 11/13/2022 Orders Only [facility]EDS [address] [place] [address] Sona Hart LPN Social History Tobacco Use [...] on filedocumented in this encounter Care Teams Medical Library Assistant Relationship Specialty Start Date End Date Dougie Vela MD [address] [place] [address] PCP - General Internal Medicine 03/28/20 documented as of this encounter
--- OUTSIDE RECORDS SUMMARY | 2025-04-13 21:11 | XMS_ITS | Encounter Summary ---
Author Organization [employer] Address [address] [place] [address] [place] [address] Care Team Providers Care Canceling Machine Operator Name Role Phone Dougie Vela MD Primary Care Prov ider Reason for Visit * Reason Comments Med Change Request Encounter Details Date Type Department Care Team ([facility] st Contact Info) Description 08/16/2024 Refill [facility] PEDS [address] [place], [place] [phone] Dougie Vela MD [address] [place] [address] Social History Tobacco Use Types Packs/Day Years [...] documented as of this encounter Care Teams Canceling Machine Operator Relationship Specialty Start Date End Date Dougie Vela MD [address] [place] [address] PCP - General Internal Medicine 03/28/20 documented as of this encounter
== END ==
LOC: HO.CARD 14:57
PROVIDERS: PCP Internal Medicine; Visit Provider Internal Medicine
DX: R60.0 Localized edema (principal)
CPT/HCPCS: 93306

== ENCOUNTER → 2025-04-13 15:00 | Outpatient (BNV) | payer MEDICARE, MEDICAID, SELFPAY | PROVIDERS: PCP Internal Medicine; Visit Provider Internal Medicine Cardiovascular Disease | DX: I51.89 Other ill-defined heart diseases (principal); R60.0 Localized edema | CPT/HCPCS: 93306 ==

== ENCOUNTER 2025-04-20 11:49 | Outpatient (AMB) | payer MEDICARE, MEDICAID, SELFPAY ==
--- OUTSIDE RECORDS SUMMARY | 2025-04-15 14:00 | XMS_ITS | Encounter Summary ---
Author Organization [employer] Address [address] [place] [address] Care Team Providers Care Barrel Painter Name Role Phone Dougie Vela MD Primary Care Prov ider Reason for Referral * Consultation (Routine) - Authorized Specialty Diagnoses / Procedures Referred By Michael tracy Referred To Contact Dermatology Diagnoses Dougie Duval MD [address] [place] [address] Phone: tel: fax: Referral ID Status Reason Start Date Expiration Date Visits Requested Visits Authorized [id number] Authorized Specialty Services Required 04/15/2026 1 1 Encounter Details Date Type Department Care Team (Late st Contact Info) Description 04/15/2025 2:00 PM EDT Office Visit [facility] MED & PEDS [address] [place] [address] Dougie Vela MD [address] [place] [address] Opioid dependence with opioid-induced disorder (CMS/HCC) (HCC) (Primary Dx); Stage 3b chronic kidney disease (CMS/HCC) (HCC); Dietary counseling; Exercise counseling; Primary hypertension; Sidckrosalind Social History Tobacco Use Types Packs/Day Years [...] AM EDT documented as of this encounter Last Filed Vital Signs Vital Sign Reading Time Taken Comments Blood Pressure 146/74 04/15/2025 2:00 PM EDT Pulse 72 04/15/2025 2:00 PM EDT Temperature 36.7 C (98.1 F) 04/15/2025 2:00 PM EDT Respiratory Rate 20 04/15/2025 2:00 PM EDT Oxygen Saturation - - Inhaled Oxygen Concentration - - Weight 98.4 kg (217 lb) 04/15/2025 2:00 PM EDT Height 172.7 cm (5' 8 ) 04/15/2025 2:00 PM EDT Body Mass Index 32.99 04/15/2025 2:00 PM EDT documented in this encounter Progress Notes * Dougie Cook MD - 04/15/2025 2:00 PM EDT Subjective Patient ID: Dana Reid is a 50 y.o. female who presents for No chief complaint on file.. Hypertension This is a chronic problem. The problem is uncontrolled. Pertinent negatives include no chest pain, headaches, palpitations or shortness of breath. Review of Systems Respiratory: Negative for shortness of breath. Cardiovascular: Negative for chest pain and palpitations. Neurological: Negative for headaches. Objective Physical Exam Constitutional: Appearance: Normal appearance. Cardiovascular: Rate and Rhythm: Normal rate. Heart sounds: No murmur heard. Pulmonary: Effort: Pulmonary effort is normal. No respiratory distress. Breath sounds: No stridor. No wheezing or rhonchi. Skin: Findings: Lesion present. Neurological: General: No focal deficit present. Mental Status: She is alert and oriented to person, place, and time. Psychiatric: Mood and Affect: Mood normal. Behavior: Behavior normal. Assessment/Plan Problem List Items Addressed This Visit Primary hypertension Uncontrolled, keep low sodium diet and exercise as tolerated, keep blood pressure log, will add losartan 25mg follow up in 1 monht Relevant Medications losartan (Cozaar) 25 MG tablet Stage 3b chronic kidney disease (CMS/HCC) (HCC) Relevant Medications losartan (Cozaar) 25 MG tablet Opioid dependence with opioid-induced disorder (CMS/HCC) (HCC) - Primary Freckle Will refer to dermatology for evaluation Other Visit Diagnoses Dietary counseling Exercise counseling documented in this encounter Miscellaneous Notes * Assessment & Plan Note - Dougie Cook MD - 04/15/2025 2:14 PM EDTAssociated Problem(s): Freckle Will refer to dermatology for evaluation * Assessment & Plan Note - Dougie Cook MD - 04/15/2025 2:13 PM EDTAssociated Problem(s): Primary hypertension Uncontrolled, keep low sodium diet and exercise as tolerated, keep blood pressure log, will add losartan 25mg follow up in documented in this encounter Plan of Treatment Scheduled Referrals Name Type Priority Associated Diagnoses Order Schedule Referral to Dermatology Outpatient Referral Routine Freckle Expected: 04/15/2025 (Approximate), Expires: 04/15/2026 documented as of this encounter Visit Diagnoses Diagnosis Opioid dependence with opioid-induced disorder (CMS/HCC) (HCC)- Primary Stage 3b chronic kidney disease (CMS/HCC) (HCC) Dietary counseling Dietary surveillance and counseling Exercise counseling Primary hypertension Unspecified essential hypertension Freckle Other dyschromia documented in this encounter Additional Health Concerns Assessment Noted Time PHQ-9 Depression Total Score: 10 024 12:43 PM EDT documented as of this encounter Care Teams Barrel Painter Relationship Specialty Start Date End Date Dougie Vela MD [address] [place] [address] PCP - General Internal Medicine 03/28/20 documented as of this encounter
[2025-04-20 11:52] VITALS: BP 112/60; PULSE 84; O2SAT 99; BMI 33.9
--- NOTE | 2025-04-20 11:52 | HO.NEPHOV_ITS ---
Vital Signs 04/20/25 11:52 Height 5 ft 8 in Weight 223 lb BMI 33.9 BP 112/60 Blood Pressure Location Lt brachial Position Sitting Pulse 84 Pulse Source Pulse Oximeter Pulse Oximetry (%) 99 Oxygen Delivery Method Room Air Intake Visit Reasons: 6 month follow up conf. Bone Drier Required: No Accompanied by: Self / Same As Patient Allergies haloperidol (From Haldol) Allergy (Unknown, Verified 04/20/25 11:55) Unknown nickel Allergy (Verified 04/20/25 11:55) Rash Medication List - Last Reconciled 04/20/25 by Lazarus Sykes MD amlodipine 5 mg PO DAILY bupropion HCl XL 300 mg PO DAILY dextroamphetamine-amphetamine 30 mg ER (Adderall XR) 60 caps PO DAILY gabapentin 100 mg PO Q8H methadone 115 mg PO DAILY rosuvastatin 10 mg PO BEDTIME trazodone 200 mg PO BEDTIME PRN HPI Comments Details: 49-year-old woman with a history of IV drug abuse referred for LUIS. She recently underwent back surgey Currently has Right foot drop She has a history of using IV HEroine 06/09/24; Tried statin, but stopepd due to knee pain. 04/20/2025 History of Present Illness - The patient is a 50-year-old female presenting with follow-up for Chronic Kidney Disease and Hypertension management. - Chronic Kidney Disease Stage 3: Stable with creatinine at 1.2 mg/dL. With EGFR of 54 mL/minute - Hypertension: Recent BP 180/95 mmHg, linked to missed medication doses. A new medication was added by PCP. She does not recall the name. However blood pressure is acceptable - Diabetes Mellitus: Lab A1c 5.7%, home reading 6.9% deemed inaccurate. - Methadone Maintenance Therapy: Reports adherence issues during travel. -schedule for-Cholecystectomy: 04/21/2022 by [facility] Medical History Ambulates with cane Asthma CKD (chronic kidney disease) IVDU (intravenous drug user) Foot drop, right Surgical History Hx of endoscopic retrograde cholangiopancreatography History of surgery on lower extremity History of back surgery Social History Household Members: Friend(s) Housing: House Are you a primary critical care registered nurse to a significant other at home: No Do you presently have visiting nurse or other home services: No Comment: right foot drop Patient Tobacco Use Status: Former Tobacco user Tobacco use type: Cigarette Substance Use Type: Heroin and IV Drugs Current occupational status: disabled Physical Exam Vital Signs: Last Vital Signs Pulse 84 04/20/25 11:52 BP 112/60 04/20/25 11:52 Pulse Ox 99 04/20/25 11:52 Oxygen Delivery Method Room Air 04/20/25 11:52 BMI result Body Mass Index 33.9 Awake. Comfortable. Neck is supple. Mucosa moist. Lungs air entry Heart S1-S2 heard no gallop. Abdomen soft. Extremities no edema. No involuntary movements. No myoclonus. Multiple scars from peripheral IV injection Results Reviewed Results Reviewed: RIGHT KIDNEY: 11 x 4 x 4 cm (SAG x AP x TRV). Volume is 96 cc solid or cystic lesion. No hydronephrosis. LEFT KIDNEY: 9 x 4 x 4 cm (SAG x AP x TRV). Volume is 79 cc. There is a 4 mm hyperechoic lesion in the anterior upper pole. No hydronephrosis. US/US renal BI IMPRESSION: 4 mm lesion, left kidney nonspecific. Recommend dedicated contrast enhanced CT renal mass protocol. No hydronephrosis.. Mar 2025 BUN 11 Cr 1.13 Aug 2024 MRI 1. Choledocholithiasis with CBD dilation up to 13 mm. 2. Splenomegaly measuring 16 cm. 3. Small left renal upper pole angiomyolipoma. 04/13/25 ECHO 1. Normal LV ejection fraction 55-60% with grade 1 diastolic dysfunction 2. Normal cardiac valvular Dopplers 3. Normal right atrial pressures 4. No gross pericardial effusion Nephrology Results: Renal US 03/31/24 Assessment & Plan Assessment & Plan (1) CKD (chronic kidney disease): Code(s): N18.9 - Chronic kidney disease, unspecified Category: Medical Plan 50-year-old woman with IV drug abuse/ Heroine - has CKD. creatinine was 1.3 mg/dL. Repeat creatinine was 1.44 and down to 1.2 as of September 2024 Recent creatinine is 1.21 as of April 01 No evidence of active Glomerulo nephritis No RBCs or protienuria No Obstruction based on USG Interstitial Nephritis cannot be ruled out yet UA has WBCs Repeat UA and urine culture was negative, will hold off on kidney biopsy continue current medications Maintain blood pressure less than 130/80 Continue to avoid nephrotoxic agents including NSAIDs. Discussed stopping heroine use. 4 mm renal cyst on left kidney Repeat USG in 6- 12 months Hypertension Blood pressure is well controlled today. I have not made any changes to her antihypertensive medications Increase her to stay on a low-sodium diet Orders: Orders Basic Metabolic Panel 4 Months N18.9 - Chronic kidney disease, unspecified Complete Blood Count no Diff 4 Months N18.9 - Chronic kidney disease, unspecified Hemoglobin A1c 4 Months N18.9 - Chronic kidney disease, unspecified Coding Level of Care Code Est Pt Level 4 (86821) Diagnoses CKD (chronic kidney disease) N18.9
--- OUTSIDE RECORDS SUMMARY | 2025-04-20 15:12 | XMS_ITS | Clinical Summary ---
Author Organization [facility] Address [address] [place] [address] Care Team Providers Care Database Developer Name Role Phone Unavailable Primary Care Provider [...] Overview (09/20/2016): Has anxiety/depression, ADHD, following at [facility]. On meds. Mild intermittent asthma without complication Opioid abuse 09/20/2016 Overview (09/20/2016): H/O IV Heroin use, recent admission to [facility] 07/2016 with possible OD and right ankle displaced fracture, fracture of the base of the third, fourth and possible second metatarsals. Now in remission since 07/29/16, now in suboxone clinic through general acute hospital. Closed fracture of right ankle 09/20/2016 Overview (09/20/2016): admitted to [facility] 07/2016 with possible Heroin OD and right [...] she had herniated disc, s/p microdiscectomy in [place] in 2007. Dyslipidemia 09/20/2016 Constipation 09/20/2016 Social [...] Group ID:Not on file Type:Medicaid Address: [facility] [address] [place] [address]
--- OUTSIDE RECORDS SUMMARY | 2025-04-20 15:12 | XMS_ITS | Encounter Summary ---
Author Organization [employer] Address [address] [place] [address] 7t [place] [address] Care Team Providers Care Grain Processor Name Role Phone Dougie Vela MD Primary Care Prov ider Encounter Details Date Type Department Care Team ([facility] st Contact Info) Description 05/07/2024 Orders Only [facility] CHC MED & PEDS [address] [place], [place] [phone] Dougie Vela MD [address] [place] [address] Social History Tobacco Use Types Packs/Day Years [...] documented as of this encounter Care Teams Grain Processor Relationship Specialty Start Date End Date Dougie Vela MD [address] [place] [address] PCP - General Internal Medicine 03/28/20 documented as of this encounter
--- OUTSIDE RECORDS SUMMARY | 2025-04-20 15:12 | XMS_ITS | Encounter Summary ---
Author Organization [employer] Address [address] [place] [address] 7 [place] [address] Care Team Providers Care Telehealth Coordinator Name Role Phone Dougie Vela MD Primary Care Prov ider Encounter Details Date Type Department Care Team ([facility] st Contact Info) Description 06/13/2022 Orders Only [facility] [address] [place] [address] Dougie Vela MD [address] [place] [address] Cellulitis of right breast (Primary Dx); Primary [...] EST) Glucose 71 65 - 139 mg/dL [employer] [place] [employer] Comment: Non-fasting reference interval Urea Nitrogen (BUN) 46(H) 7 - 25 mg/dL [employer] [place] [employer] Creatinine, Serum 2.44(H) 0.50 - 0.99 mg/dL [employer] [place] [employer] eGFR 24(L) > OR = 60 mL/min/1. 73m2 [employer] [place] [employer] Comment: The eGFR is based on the CKD-EPI 2020 equation. To calculate the new eGFR from a previous Creatinine or Cystatin C result, go to https://www.kidney.org/professionals/ kdoqi/gfr%5Fcalculator BUN/Creatinine Ratio 19 6 - 22 (calc) [employer] [place] [employer] Sodium 136 135 - 146 mmol/L [employer] [place] [employer] Potassium 5.0 3.5 - 5.3 mmol/L [employer] [place] [employer] [facility] Chloride 102 98 - 110 mmol/L [employer] [place] [employer] [facility] Carbon Dioxide 27 20 - 32 mmol/L [employer] [place] [employer] Calcium 9.6 8.6 - 10.2 mg/dL [employer] [place] [employer] Blood Venous blood specimen / Unknown 06/21/2022 3:34 PM EST 06/21/2022 3:34 PM EST Narrative [facility] - 06/22/2022 1:37 AM EST FASTING:NO FASTING: NO us Dougie Cook MD LAB BLOOD ORDERABL ES Final Result [facility] [address] [facility], [place] [address] [employer] [place] [employer] [address] [facility], (N[address]) [place] [address] documented in this encounter Visit Diagnoses Diagnosis Cellulitis of right breast- Primary Primary hypertension Unspecified essential hypertension documented in this encounter Care Teams Telehealth Coordinator Relationship Specialty Start Date End Date Dougie Vela MD [address] [place] [address] PCP - General Internal Medicine 03/28/20 documented as of this encounter
--- OUTSIDE RECORDS SUMMARY | 2025-04-20 15:12 | XMS_ITS | Encounter Summary ---
Author Organization [employer] Address [address] [place] [address] 7t [place] [address] Care Team Providers Care Coffee Supervisor Name Role Phone Dougie Vela MD Primary Care Prov ider Encounter Details Date Type Department Care Team ([facility] st Contact Info) Description 12/20/2024 Orders Only [facility] & PEDS [address] [place] [address] ProviderKristel MD Social History Tobacco Use Types [...] documented as of this encounter Care Teams Coffee Supervisor Relationship Specialty Start Date End Date Dougie Vela MD [address] [place] [address] PCP - General Internal Medicine 03/28/20 documented as of this encounter
--- OUTSIDE RECORDS SUMMARY | 2025-04-20 15:12 | XMS_ITS | Encounter Summary ---
Author Organization [employer] Address [address] [place] [address] [place] [address] Care Team Providers Care Glass Bulb Machine Adjuster Name Role Phone Dougie Vela MD Primary Care Prov ider Reason for Visit * Reason Onset Date Comments Medication Question 05/18/2024 Encounter Details Date Type Department Care Team ([facility] st Contact Info) Description 05/18/2024 Telephone [facility] MEDICINE [address] [place] [address] Dougie Vela MD 505 [place] [address] Medication Question Social History Tobacco Use Types [...] prescribed a GLP-1 drug like Wegovy to driver helper in weight loss. The pt was [...] like some info on (wegovy) Callback number [phone] documented in this encounter Plan of Treatment Not on file documented as of this encounter Visit Diagnoses Not on filedocumented in this encounter Additional Health Concerns Assessment Noted Time PHQ-9 Depression Total Score: 10 024 12:43 PM EDT documented as of this encounter Care Teams Glass Bulb Machine Adjuster Relationship Specialty Start Date End Date Dougie Vela MD [address] [place] [address] PCP - General Internal Medicine 03/28/20 documented as of this encounter
--- OUTSIDE RECORDS SUMMARY | 2025-04-20 15:12 | XMS_ITS | Encounter Summary ---
Author Organization [employer] Address [address] [place] [address] 7t [place] [address] Care Team Providers Care Envelope Sealing Machine Operator Name Role Phone Dougie Vela [...] documented as of this encounter Care Teams Envelope Sealing Machine Operator Relationship Specialty Start Date End Date Dougie Vela MD [address] [place] [address] PCP - General Internal Medicine 03/28/20 documented as of this encounter
--- OUTSIDE RECORDS SUMMARY | 2025-04-20 15:12 | XMS_ITS | Clinical Summary ---
Author Organization [facility] Address [address] [place] [address] Care Team Providers Care Manager Digital Ad Operations Name Role Phone Shay Castro MD Primary Care Provider [phone] Allergies Active Allergy Reactions Criticality Noted Date [...] age to complete this topic Care Teams Manager Digital Ad Operations Relationship Specialty Start Date End Date Shay Castro MD PCP - General Family Medicine 02/07/20
--- OUTSIDE RECORDS SUMMARY | 2025-04-20 15:12 | XMS_ITS | Encounter Summary ---
Author Organization [employer] Address [address] [place] [address] [place] [address] Care Team Providers Care Sales Office Assistant Name Role Phone Dougie Vela MD Primary Care Prov ider Reason for Visit * Reason Comments Med Change Request Encounter Details Date Type Department Care Team ([facility] Contact Info) Description 08/16/2024 Refill C [facility] [address] [place] [address] Dougie Vela MD 505 [place] [address] Social History Tobacco Use Types Packs/Day Years [...] documented as of this encounter Care Teams Sales Office Assistant Relationship Specialty Start Date End Date Dougie Vela MD [address] [place] [address] PCP - General Internal Medicine 03/28/20 documented as of this encounter
--- OUTSIDE RECORDS SUMMARY | 2025-04-20 15:12 | XMS_ITS | Encounter Summary ---
Author Organization [employer] Address [address] [place] [address] 7t [place] [address] Care Team Providers Care Proof Inspector Name Role Phone Dougie Vela MD Primary Care Prov ider Encounter Details Date Type Department Care Team ([facility] st Contact Info) Description 08/16/2024 Orders Only [facility] CH[facility] MED & PEDS [address] [place], [place] [phone] Dougie Vela MD 505 [place] [address] Social History Tobacco Use Types Packs/Day Years [...] documented as of this encounter Care Teams Proof Inspector Relationship Specialty Start Date End Date Dougie Vela MD [address] [place] [address] PCP - General Internal Medicine 03/28/20 documented as of this encounter
--- OUTSIDE RECORDS SUMMARY | 2025-04-20 15:12 | XMS_ITS | Encounter Summary ---
Author Organization [employer] Address [address] [place] [address] [place] [address] Care Team Providers Care Naval Gunfire Spotter Name Role Phone Dougie Vela MD Primary Care Prov ider Encounter Details Date Type Department Care Team ([facility] st Contact Info) Description 11/13/2022 Orders Only [facility] CHC MED & PEDS [address] [place] [address] Sona Hart LPN Social History Tobacco Use [...] on filedocumented in this encounter Care Teams Naval Gunfire Spotter Relationship Specialty Start Date End Date Dougie Vela MD [address] [place] [address] PCP - General Internal Medicine 03/28/20 documented as of this encounter
--- OUTSIDE RECORDS SUMMARY | 2025-04-20 15:12 | XMS_ITS | Encounter Summary ---
Author Organization [employer] Address [address] [place] [address] [place] [address] Care Team Providers Care Management Trainee Name Role Phone Dougie Vela MD Primary Care Prov ider Reason for Visit * Reason Onset Date Comments Appointment Request 09/01/2024 Encounter Details Date Type Department Care Team ([facility] st Contact Info) Description 09/01/2024 Telephone [facility] MEDICINE [address] [place] [address] Dougie Vela MD [address] [place] [address] Appointment Request Social History Tobacco Use Types [...] at hospital and needs reschedule telephone visit. Continuity Writer unable to cancel appt status was arrived . documented in this encounter Plan of Treatment Not on file documented as of this encounter Visit Diagnoses Not on filedocumented in this encounter Additional Health Concerns Assessment Noted Time PHQ-9 Depression Total Score: 10 024 12:43 PM EDT documented as of this encounter Care Teams Management Trainee Relationship Specialty Start Date End Date Dougie Vela MD [address] [place] [address] PCP - General Internal Medicine 03/28/20 documented as of this encounter
--- OUTSIDE RECORDS SUMMARY | 2025-04-20 15:12 | XMS_ITS | Encounter Summary ---
Author Organization [employer] Address [address] [place] [address] [place] [address] Care Team Providers Care Wiring Inspector Name Role Phone Dougie Vela MD Primary Care Prov ider Reason for Visit * Reason Onset Date Comments Medication Question 08/13/2024 Encounter Details Date Type Department Care Team ([facility] st Contact Info) Description 08/13/2024 Telephone [facility] [address] [place] [address] Dougie Vela MD [address] [place] [address] Medication Question Social History Tobacco Use Types [...] documented as of this encounter Care Teams Wiring Inspector Relationship Specialty Start Date End Date Dougie Vela MD [address] [place] [address] PCP - General Internal Medicine 03/28/20 documented as of this encounter
--- OUTSIDE RECORDS SUMMARY | 2025-04-20 15:12 | XMS_ITS | Clinical Summary ---
Author Organization [employer] Address [address] [place] [address] 7 [place] [address] Care Team Providers Care Cage Loader Name Role Phone Dougie Vela MD Primary [...] she had herniated disc, s/p microdiscectomy in [place] in 2007. Closed fracture of right ankle 09/20/2016 Overview (05/31/2022): [place] [facility] [place] with possible Heroin OD [...] Overview (05/31/2022): Has anxiety/depression, ADHD, following at [facility]. On meds. Dyslipidemia 09/20/2016 Assessment & Plan (02/26/2024 1:29 PM EDT): Ascvd 7.0% will start on atorvastatin, risk vs benefits discussed, follow up in 3 months Mild intermittent asthma without complication Obesity (BMI 30.0-34.9) 09/20/2016 Assessment & Plan (07/11/2024 3:49 PM EST): Will refer to bariatric surgery for evaluation Opioid abuse 09/20/2016 Overview (05/31/2022): H/O IV Heroin use, recent admission to [facility] [place] with possible OD and right ankle displaced fracture, fracture of the base of the third, fourth and possible second metatarsals. Now in remission since 07/29/16, now in suboxone clinic through [facility]. Encounters Date Type Department Care Team Description 04/15/2025 2:00 PM EDT Office Visit [facility] [address] [place] [address] Dougie Vela MD Opioid dependence with opioid-induced disorder (CMS/HCC) (HCC) (Primary Dx); Stage 3b chronic kidney disease (CMS/HCC) (HCC); Dietary counseling; Exercise counseling; Primary hypertension; Freckle 04/15/2025 Travel 04/14/2025 Telephone [facility] MEDICINE [address] [place], [place] [phone] Dougie Vela MD Nurse Triage 03/08/2025 Orders Only [facility] [address] [place] [address] Dougie Vela MD from Last 3 Months [...] PM EDT Narrative 03/11/2025 2:31 PM EDT [facility] [address] [place], [place] [address] Mammography Report Signed Patient: Dana Reid MR#: [id number] : 1975 Acct:[id number] Age/Sex: 49 / F ADM Date: 03/08/25 Loc: HO.MAMMO Attending Dr: Dougie Cook MD Ordering Physician: Dougie Vela MD Res ults: 1Negative Date of Service: 03/08/25 Follow Up: 1 Year From Orig inal Mammogram Procedure(s): MM tomosynthesis screening BI Accession Number(s): [id number] cc: Dougie Vela MD Reason For Exam: [...] 03/11/25 1428 DD/ 1505 TD/TT: 03/08/25 1518 Cattle Killer: Procedure Note Donotuseinterpreter, Image - 03/11/2025 [facility] [address] [place] [address] Mammography Report Signed Patient: Angelica Reid#: [id number] : 1975Acct:[id number] Age/Sex: 49 / FADM Date: 03/08/25 Loc: HO.MAMMO Attending Dr: Dougie Cook MD Ordering Physician: Dougie Vela ults: 1Negative Date of Service: 03/08/25Follow Up: 1 Year From Orig inal Mammogram Procedure(s): MM tomosynthesis screening BI Accession Number(s): [id number] cc: Dougie Vela MD Reason For Exam: [...] 03/11/25 1428 DD/ 1505 TD/TT: 03/08/25 1518 Cattle Killer: Dougie Cook MD [facility] BI PROCEDURES Edited Result - Final * (ABNORMAL) Lipid Panel, Standard (01/29/2024 3:45 PM EDT) Triglycerides 229(H) <150 mg/dL [facility] Comment:Desirable Triglyceri de: less than 150 mg/dLBorderline High Triglyceride 150-199 mg/dLHigh Triglyceride: 200-499 mg/dLVery High Triglyceride: greater than or equal to 5OO mg/dL Cholesterol 269(H) <200 mg/dL [facility] Comment:Desirable Cholestero l: less than 200 mg/dLBorderline High Cholesterol: 200-239 mg/dLHigh Cholesterol: greater than 239 mg/dL LDL Cholesterol Calculated 182(H) <100 mg/dL [facility] Comment:Desirable LDL: less than 100 [...] ORDERABL ES Final Result Performing Organization Address City/[facility]/ZIP Co de Phone Number [facility] [address] [place] [phone] * Hepatitis C Antibody with Reflex to HCV, RNA, Quantitative, Real-Time PCR (12/13/2022 2:32 PM EDT) Hepatitis C Antibody NON-REACT NELY NON-REACT NELY [employer] Comment: HCV antibody was non-reactive. There is no laboratory evidence of HCV infection. In most cases, no further action is required. However, if recent HCV exposure is suspected, a test for HCV RNA (test code 18503) is suggested. For additional information please refer to http://education.[employer]/faq/IXK30t8 (This link is being provided for informational/ educational purposes only.) Blood Venous blood specimen / Unknown 12/13/2022 2:32 PM EDT 12/13/2022 2:33 PM EDT Narrative [facility] - 12/14/2022 7:42 AM EDT FASTING:NO FASTING: NO Dougie Cook MD LAB BLOOD ORDERABL ES Final Result Performing Organization Address City/[facility]/ZIP Co de Phone Number [address], [place] [address] [employer] [address] [place] [phone] * FIT DNA/Cologuard Cancer Screening (12/09/2022 4:01 [...] with computer assisted technology. [facility] Harvesting Supervisor : SEE COMMENT [facility] Comment: ED, CT(ASCP) CT screening location: [address] [address] HPV nRNA E6/E7 Not Detected Not Detected [facility] [employer] [facility] Comment: Methodology: Driver License Agent-Mediated Amplification This assay detects E6/E7 viral messenger RNA (mRNA) from 14 high-risk HPV types (16,18,31,33,35,39,45,51,52,56,58,59,66,68). Cervical sources are required for HPV testing. If a vaginal source from a patient who has had a total hysterectomy with removal of cervix was submitted, please contact the testing laboratory for alternative testing options. For additional information, please refer to http://education.[employer]/faq/ABE534p2 (This link if provided for information/ educational purposes only.) Infection Shift in vaginal meenu suggestive of bacterial vaginosis. [facility] Interpretation/R esult: Negative for intraepithelial lesion or malignancy. [facility] LMP: 06/2021 [facility] Prev. BX: NONE GIVEN [facility] Prev. PAP: 4X ABNL PAP,COLPOSCOPY NIL AFTER [facility] Review Harvesting Supervisor : SEE COMMENT [facility] Comment: SL, CT(ASCP) CT screening location: [address] [address] SOURCE: None given [facility] Statement Of Adequacy: SEE COMMENT [facility] Comment: Satisfactory for evaluation. Endocervical/transformation zone component absent. 03/19/2022 2:17 PM EDT Amalia Alcaraz [facility] PATHOLOGY ORDERABLES Final Result [facility] * (ABNORMAL) HIV 1/2 ANTIGEN/ANTIBODY,FOURTH GENERATION W/RFL (01/03/2022 12:04 PM EDT) Pathologist [facility] HIV-1/2 ANTIGEN AND ANTIBODIES, 4TH GENERATION W/ REFLEX REPEATEDLY REACTIVE(A) [facility] Comment: The repeatedly reactive [...] LAB BLOOD ORDERABL ES Final Result [facility] [address] [place] [phone], from Last 3 Months or Most Recently Relevant to Health Maintenance Insurance MEDICARE ADVANTAGE HMO Care Teams Cage Loader Relationship Specialty Start Date End Date Dougie Vela MD [address] [place] [phone] PCP - General Internal Medicine 03/28/20
== END 2025-04-20 12:09 | disposition home or self-care (01) ==
LOC: HO.HKAS 11:50
PROVIDERS: PCP Internal Medicine; Visit Provider Internal Medicine Hypertension Specialist
DX: N18.9 Chronic kidney disease, unspecified (principal)
CPT/HCPCS: 99214

== ENCOUNTER → 2025-04-20 11:49 | Outpatient (BNVA) | payer MEDICARE, MEDICAID, SELFPAY | PROVIDERS: PCP Internal Medicine; Visit Provider Internal Medicine Hypertension Specialist | DX: N18.9 Chronic kidney disease, unspecified (principal); F11.10 Opioid abuse, uncomplicated | CPT/HCPCS: 99212 ==

== ENCOUNTER 2025-04-21 09:59 | Day surgery (SDC) | payer MEDICARE, MEDICAID, SELFPAY ==
--- OUTSIDE RECORDS SUMMARY | 2025-04-15 14:00 | XMS_ITS | Encounter Summary ---
Author Organization [employer] Address [address] [place] [address] Care Team Providers Care Mechanical Manufacturing Technician Name Role Phone Dougie Vela MD Primary Care Prov ider Reason for Referral * Consultation (Routine) - Authorized Specialty Diagnoses / Procedures Referred By Michael tracy Referred To Contact Dermatology Diagnoses Dougie Duval MD [address] [place] [address] Phone: tel: fax: Referral ID Status Reason Start Date Expiration Date Visits Requested Visits Authorized [id number] Authorized Specialty Services Required 04/15/2026 1 1 Encounter Details Date Type Department Care Team (Late st Contact Info) Description 04/15/2025 2:00 PM EDT Office Visit [facility] CHC MED & PEDS [address] [place] [address] Dougie Vela MD 505 [place] [address] Opioid dependence with opioid-induced disorder (CMS/HCC) (HCC) [...] documented as of this encounter Care Teams Mechanical Manufacturing Technician Relationship Specialty Start Date End Date Dougie Vela MD [address] [place] [address] PCP - General Internal Medicine 03/28/20 documented as of this encounter
--- OUTSIDE RECORDS SUMMARY | 2025-04-15 16:34 | XMS_ITS | Clinical Summary ---
Author Organization [facility] Address [address] [place] [address] Care Team Providers Care Keg Inspector Name Role Phone Unavailable Primary Care Provider [...] (09/20/2016): Has anxiety/depression, ADHD, following at [facility]. On meds. Mild intermittent asthma without complication Opioid abuse 09/20/2016 Overview (09/20/2016): H/O IV Heroin use, recent admission to [facility] 07/2016 with possible OD and right ankle displaced fracture, fracture of the base of the third, fourth and possible second metatarsals. Now in remission since 07/29/16, now in suboxone clinic through [facility]. Closed fracture of right ankle 09/20/2016 Overview (09/20/2016): admitted to [facility] 07/2016 with possible Heroin [...] she had herniated disc, s/p microdiscectomy in [place] in 2007. Dyslipidemia 09/20/2016 Constipation 09/20/2016 Social [...] Treatment Not on file Insurance [facility] Member Subscriber Plan / Payer (Ef fective 2015-Present) Name:Dana Reid Relation to Subscriber:Self Name:Dana Reid Payer ID:[id number] Group ID:Not on file Type:Medicaid Address: [facility] [id number] [place] [address]
--- OUTSIDE RECORDS SUMMARY | 2025-04-15 16:35 | XMS_ITS | Clinical Summary ---
Author Organization [email or web address] Address [address] [place] [address] 7 [place] [address] Care Team Providers Care Edging Machine Operator Name Role Phone Dougie Vela MD Primary Care Prov ider Allergies Active Allergy Reactions Criticality Noted Date Comments Haloperidol Hallucinations Low 05/31/2022 Medications albuterol (ProAir HFA) 108 (90 Base) MCG/ACT inhaler Inhale 2 puffs. 09/21/19 17 Active Adderall XR 30 MG 24 hr capsule TAKE 2 CAPSULE BY MOUTH ONCE A DAY BRAND NAME ONLY 05/05/20 22 Active Blood Pressure Monitoring (Omron 3 Series BP Monitor) device Check blood pressure on arm as directed 12/28/19 22 Active buPROPion XL (Wellbutrin XL) 300 MG 24 hr tablet Take 300 mg by mouth in the morning. 04/30/20 22 Active naloxone (Narcan) 4 mg/0.1 mL nasal spray 09/06/19 17 Active sertraline (Zoloft) 100 MG tablet 05/29/20 22 Active traZODone (Desyrel) 50 MG tablet Take 50 mg by mouth if needed at bedtime. 04/03/20 22 Active docusate sodium (Colace) 100 MG capsuleIndicatio ns:Drug-induced constipation TAKE 1 CAPSULE BY MOUTH TWICE A DAY 180 capsule 11/14/19 23 Active gabapentin (Neurontin) 100 MG capsule Take 1 capsule (100 mg) by mouth every 8 (eight) hours. 90 capsule 09/14/19 25 Active rosuvastatin (Crestor) 10 MG tablet Take 1 tablet (10 mg) by mouth Once per day. 30 tablet 11 09/14/19 25 026 Active amLODIPine (Norvasc) 5 MG tabletIndication s:Primary hypertension TAKE 1 TABLET BY MOUTH EVERY DAY 90 tablet 1 01/11/20 25 Active losartan (Cozaar) 25 MG tablet Take 1 tablet (25 mg) by mouth Once per day. 30 tablet 11 04/15/20 25 026 Active Tirzepatide-Weig ht Management (Zepbound) 2.5 MG/0.5ML solution auto-injector Inject 0.5 mL (2.5 mg) under the skin every 14 (fourteen) days. 1 mL 08/16/19 25 025 Discontinued Active Problems Problem Noted Date Diagnosed Date Opioid dependence with opioid-induced disorder ( CMS/HCC) 04/15/2025 Eloisa 04/15/2025 Assessment & Plan (04/15/2025 2:14 PM EDT): Will refer to dermatology for evaluation Chronic pain of right ankle 07/11/2024 Assessment [...] on Primary hypertension 07/01/2022 Assessment & Plan (04/15/2025 2:13 PM EDT): Uncontrolled, keep low sodium diet and exercise as tolerated, keep blood pressure log, will add losartan 25mg follow up in 1 monht Assessment & Plan (09/13/2024 3:11 PM EDT): [...] she had herniated disc, s/p microdiscectomy in [place] in 2007. Closed fracture of right ankle 09/20/2016 Overview (05/31/2022): admitted to [facility] 07/2016 with possible Heroin OD [...] Overview (05/31/2022): Has anxiety/depression, ADHD, following at [facility]. On meds. Dyslipidemia 09/20/2016 Assessment & Plan (02/26/2024 1:29 PM EDT): Ascvd 7.0% will start on atorvastatin, risk vs benefits discussed, follow up in 3 months Mild intermittent asthma without complication Obesity (BMI 30.0-34.9) 09/20/2016 Assessment & Plan (07/11/2024 3:49 PM EST): Will refer to bariatric surgery for evaluation Opioid abuse 09/20/2016 Overview (05/31/2022): H/O IV Heroin use, recent admission to [facility] 07/2016 with possible OD and right ankle displaced fracture, fracture of the base of the third, fourth and possible second metatarsals. Now in remission since 07/29/16, now in suboxone clinic through [facility]. Encounters Date Type Department Care Team Description 04/15/2025 2:00 PM EDT Office Visit [facility] MED & PEDS [address] [place] [address] Dougie Vela MD Opioid dependence with opioid-induced disorder (CMS/HCC) (HCC) (Primary Dx); Stage 3b chronic kidney disease (CMS/HCC) (HCC); Dietary counseling; Exercise counseling; Primary hypertension; Freckle 04/15/2025 Travel 04/14/2025 Telephone [facility] [address] [place], [place] [phone] Dougie Vela MD Nurse Triage 03/08/2025 Orders Only [facility] MED & PEDS [address] [place] [address] Dougie Vela MD from Last 3 Months [...] 20 04/15/2025 2:00 PM EDT Oxygen Saturation 98% 01/27/2024 3:41 PM EDT Inhaled Oxygen Concentration - - Weight 98.4 kg (217 lb) 04/15/2025 2:00 PM EDT Height 172.7 cm (5' 8 ) 04/15/2025 2:00 PM EDT Body Mass Index 32.99 04/15/2025 2:00 PM EDT Plan of Treatment Health Maintenance Due Date Last Done Comments CT Colonography 1973 Colonoscopy 1973 FIT 1973 Sigmoidoscopy 1973 Disability Screening 1973 Alcohol/Substance Use Screening 1985 Family Planning (PISQ) 1988 Hepatitis A Vaccines (1 of 2 - [...] Cancer Screening 12/09/2025 FIT DNA/Cologuard 12/09/2025 12/09/2022 DTaP/Tdap/Td Vaccines (2 - Td or Tdap) 07/29/2026 07/29/2016 Mammogram 03/08/2027 03/08/2025, 08/, 12/23/2022, Additional history exists Cervical Cancer Screening [...] PM EDT Narrative 03/11/2025 2:31 PM EDT [facility] [address] [place], [place] [address] Mammography Report Signed Patient: Dana Reid MR#: [id number] : 1975 Acct:[id number] Age/Sex: 49 / F ADM Date: 03/08/25 Loc: HO.MAMMO Attending Dr: Dougie Cook MD Ordering Physician: Dougie Vela MD Res ults: 1Negative Date of Service: 03/08/25 Follow Up: 1 Year From Orig inal Mammogram Procedure(s): MM tomosynthesis screening BI Accession Number(s): [id number] cc: Dougie Vela MD Reason For Exam: [...] 03/11/25 1428 DD/ 1505 TD/TT: 03/08/25 1518 Market Manager: Procedure Note Donotuseinterpreter, Image - 03/11/2025 [facility] [address] [place] [address] Mammography Report Signed Patient: Angelica Reid#: [id number] : 1975Acct:[id number] Age/Sex: 49 / FADM Date: 03/08/25 Loc: HO.MAMMO Attending Dr: Dougie Cook MD Ordering Physician: Dougie Vela ults: 1Negative Date of Service: 03/08/25Follow Up: 1 Year From Orig inal Mammogram Procedure(s): MM tomosynthesis screening BI Accession Number(s): [id number] cc: Dougie Vela MD Reason For Exam: [...] 03/11/25 1428 DD/ 1505 TD/TT: 03/08/25 1518 Market Manager: Dougie Cook MD [facility] BI PROCEDURES Edited Result - Final * (ABNORMAL) Lipid Panel, Standard (01/29/2024 3:45 PM EDT) Triglycerides 229(H) <150 mg/dL [facility] Comment:Desirable Triglyceri de: less than 150 mg/dLBorderline High Triglyceride 150-199 mg/dLHigh Triglyceride: 200-499 mg/dLVery High Triglyceride: greater than or equal to 5OO mg/dL Cholesterol 269(H) <200 mg/dL [facility] Comment:Desirable Cholestero l: less than 200 mg/dLBorderline High Cholesterol: 200-239 mg/dLHigh Cholesterol: greater than 239 mg/dL LDL Cholesterol Calculated 182(H) <100 mg/dL [facility] Comment:Desirable LDL: less than 100 mg/dLNear Optimal/Above Optimal LDL: 110- 129 mg/dLBorderline High LDL: 130-159 mg/dLHigh LDL: 160-189 mg/dLVery High LDL: greater than or equal to 190 mg/dL HDL Cholesterol 42 >40 mg/dL [facility] Comment:Desirable HDL: great er than 40 mg/dL Note: This HDL assay may give artificially low results in patients with liver disease. Blood Venous blood specimen / Unknown 01/29/2024 3:45 PM EDT 01/29/2024 5:43 PM EDT Dougie Cook MD LAB BLOOD ORDERABL ES Final Result Performing Organization Address City/[facility]/ZIP Co de Phone Number [facility] [address] [place] [phone] * Hepatitis C Antibody with Reflex to HCV, RNA, Quantitative, Real-Time PCR (12/13/2022 2:32 PM EDT) Hepatitis C Antibody NON-REACT NELY NON-REACT NELY [email or web address] [place] [employer] Comment: HCV antibody was non-reactive. There is no laboratory evidence of HCV infection. In most cases, no further action is required. However, if recent HCV exposure is suspected, a test for HCV RNA (test code 10916) is suggested. For additional information please refer to http://education.Pirate3D/faq/QZP37l2 (This link is being provided for informational/ educational purposes only.) Blood Venous blood specimen / Unknown 12/13/2022 2:32 PM EDT 12/13/2022 2:33 PM EDT Narrative [facility] - 12/14/2022 7:42 AM EDT FASTING:NO FASTING: NO Dougie Cook MD LAB BLOOD ORDERABL ES Final Result Performing Organization Address City/[facility]/ZIP Co de Phone Number [address], [place] [address] [facility] [address] [address] [place] [phone] * FIT DNA/Cologuard Cancer Screening (12/09/2022 4:01 PM EDT) Stool us Historical Provider HEALTH MAINTENANCE Final Result * [...] with computer assisted technology. [facility] Records And Tape Recordings Engineer : SEE COMMENT [facility] Comment: ED, CT(ASCP) CT screening location: [address] [address] HPV nRNA E6/E7 Not Detected Not Detected [facility] Comment: Methodology: Slitting Machine Feeder-Mediated Amplification This assay detects E6/E7 viral messenger RNA (mRNA) from 14 high-risk HPV types (16,18,31,33,35,39,45,51,52,56,58,59,66,68). Cervical sources are required for HPV testing. If a vaginal source from a patient who has had a total hysterectomy with removal of cervix was submitted, please contact the testing laboratory for alternative testing options. For additional information, please refer to http://education.Vungle.Signal Patterns/faq/GHD871h1 (This link if provided for information/ educational purposes only.) Infection Shift in vaginal meenu suggestive of bacterial vaginosis. [facility] Interpretation/R esult: Negative for intraepithelial lesion or malignancy. [facility] LMP: 06/2021 [facility] Prev. BX: NONE GIVEN [facility] Prev. PAP: 4X ABNL PAP,COLPOSCOPY NIL AFTER [facility] Review Records And Tape Recordings Engineer : SEE COMMENT [facility] Comment: SL, CT(ASCP) CT screening location: [address] [address] SOURCE: None given [facility] Statement Of Adequacy: SEE COMMENT [facility] Comment: Satisfactory for evaluation. Endocervical/transformation zone component absent. 03/19/2022 2:17 PM EDT Amalia Alcaraz [facility] PATHOLOGY ORDERABLES Final Result [facility] * (ABNORMAL) HIV 1/2 ANTIGEN/ANTIBODY,FOURTH GENERATION W/RFL (01/03/2022 12:04 PM EDT) Pathologist [facility] HIV-1/2 ANTIGEN AND ANTIBODIES, 4TH GENERATION W/ REFLEX REPEATEDLY REACTIVE(A) [facility] Comment: The repeatedly reactive screening [...] MD LAB BLOOD ORDERABL ES Final Result [facility] [address] [place] [id number], from Last 3 Months or Most Recently Relevant to Health Maintenance Insurance MEDICARE ADVANTAGE HMO Care Teams Edging Machine Operator Relationship Specialty Start Date End Date Dougie Vela MD [address] [place] [address] PCP - General Internal Medicine 03/28/20
--- OUTSIDE RECORDS SUMMARY | 2025-04-15 16:35 | XMS_ITS | Encounter Summary ---
Author Organization [employer] Address [address] [place] [address] [place] [address] Care Team Providers Care Senior Planning Manager Name Role Phone Dougie Vela MD Primary Care Prov ider Reason for Visit * Reason Onset Date Comments Appointment Request 09/01/2024 Encounter Details Date Type Department Care Team ([facility] st Contact Info) Description 09/01/2024 Telephone [facility] MEDICINE [address] [place] [address] Dougie Vela MD [address] [place] [address] Appointment Request Social History Tobacco Use Types [...] at hospital and needs reschedule telephone visit. Explosive Operator unable to cancel appt status was arrived . documented in this encounter Plan of Treatment Not on file documented as of this encounter Visit Diagnoses Not on filedocumented in this encounter Additional Health Concerns Assessment Noted Time PHQ-9 Depression Total Score: 10 024 12:43 PM EDT documented as of this encounter Care Teams Senior Planning Manager Relationship Specialty Start Date End Date Dougie Vela MD [address] [place] [address] PCP - General Internal Medicine 03/28/20 documented as of this encounter
--- OUTSIDE RECORDS SUMMARY | 2025-04-15 16:35 | XMS_ITS | Encounter Summary ---
Author Organization [employer] Address [address] [place] [address] 7 [place] [address] Care Team Providers Care Safety Instructor Name Role Phone Dougie Vela MD Primary Care Prov ider Encounter Details Date Type Department Care Team ([facility] st Contact Info) Description 06/13/2022 Orders Only [facility] [address] [place] [address] Dougie Vela MD [address] [place] [address] Cellulitis of right breast (Primary Dx); Primary [...] EST) Glucose 71 65 - 139 mg/dL [facility] [place] [facility] Comment: Non-fasting reference interval Urea Nitrogen (BUN) 46(H) 7 - 25 mg/dL [facility] [place] [facility] Creatinine, Serum 2.44(H) 0.50 - 0.99 mg/dL [facility] [place] [facility] eGFR 24(L) > OR = 60 mL/min/1. 73m2 [facility] [place] [facility] Comment: The eGFR is based on the CKD-EPI 2020 equation. To calculate the new eGFR from a previous Creatinine or Cystatin C result, go to https://www.kidney.org/professionals/ kdoqi/gfr%5Fcalculator BUN/Creatinine Ratio 19 6 - 22 (calc) [facility] [place] [facility] Sodium 136 135 - 146 mmol/L [facility] [place] [facility] Potassium 5.0 3.5 - 5.3 mmol/L [facility] [place] [facility] Chloride 102 98 - 110 mmol/L [facility] [place] [facility] Carbon Dioxide 27 20 - 32 mmol/L [facility] [place] [facility] Calcium 9.6 8.6 - 10.2 mg/dL [facility] [place] [facility] Blood Venous blood specimen / Unknown 06/21/2022 3:34 PM EST 06/21/2022 3:34 PM EST Narrative [facility] - 06/22/2022 1:37 AM EST FASTING:NO FASTING: NO us Dougie Cook MD LAB BLOOD ORDERABL ES Final Result [facility] [address] [facility], [place] [address] [facility] [place] [facility] [address] [facility], ([address]) [place] [address] documented in this encounter Visit Diagnoses Diagnosis Cellulitis of right breast- Primary Primary hypertension Unspecified essential hypertension documented in this encounter Care Teams Safety Instructor Relationship Specialty Start Date End Date Dougie Vela MD [address] [place] [address] PCP - General Internal Medicine 03/28/20 documented as of this encounter
--- OUTSIDE RECORDS SUMMARY | 2025-04-15 16:35 | XMS_ITS | Encounter Summary ---
Author Organization [employer] Address [address] [place] [address] [place] [address] Care Team Providers Care Hvac Refrigeration Technician Name Role Phone Dougie Vela MD Primary Care Prov ider Reason for Visit * Reason Comments Med Change Request Encounter Details Date Type Department Care Team ([facility] Contact Info) Description 08/16/2024 Refill [facility] [address] [place] [address] Dougie Vela MD [address] [place] [address] Social History Tobacco Use Types Packs/Day Years [...] documented as of this encounter Care Teams Hvac Refrigeration Technician Relationship Specialty Start Date End Date Dougie Vela MD [address] [place] [address] PCP - General Internal Medicine 03/28/20 documented as of this encounter
--- OUTSIDE RECORDS SUMMARY | 2025-04-15 16:35 | XMS_ITS | Encounter Summary ---
Author Organization [employer] Address [address] [place] [address] [place] [address] Care Team Providers Care Television Cable Installer Name Role Phone Dougie Vela MD Primary Care Prov ider Reason for Visit * Reason Onset Date Comments Nurse Triage 04/14/2025 Encounter Details Date Type Department Care Team ([facility] st Contact Info) Description 04/14/2025 Telephone [facility] MEDICINE [address] [place] [address] Dougie Vela MD [address] [place] [address] Nurse Triage Social History Tobacco Use Types Packs/Day Years [...] encounter Miscellaneous Notes * Telephone Encounter - Kimberli Oliver RN - 04/14/2025 11:45 AM EDT Telephone call to the pt regarding the previous message . Pt states she has a brown colored spot onher nose for about 2 months .States the area now is raised and rough to the touch . States the areais irregular in shape . States the area is bigger than a freckle . Denies redness , or any itching at this time . States she has greenlandic skin ,and has had many moles ,and freckles in the past . States her previous medical provider had removed ,and tested a few ,and they all tested negative . States she wears sunscreen in the summer . States there area was there before her summer vacation . Pt isrequesting an appt with her PCP . Appt was given for tomorrow at 2pm with Her PCP. Protocol Used: Skin Lesion - Moles or Growths (Adult) Protocol-Based Disposition: See in Office or Video Visit within 3 Days Video visit not offered Positive Triage Questions: * Patient wants to be seen * Skin growth or mole and border is irregular or blurry * Skin growth or mole and it is larger than a pencil eraser or increasing in size * Sticks up out of the skin (elevated), and feels rough to the touch * Caller is uncertain what lesion is * All higher-acuity triage questions were negative * Telephone Encounter - Brynn Neil Salas - 04/14/2025 11:05 AM EDT Symptom: Skin Spot Outcome: Schedule an appointment to be seen within 3 days Reason: Caller denied all higher acuity questions The caller accepted this outcome. Contact pt at [phone] documented in this encounter Plan of Treatment Not on file documented as of this encounter Visit Diagnoses Not on filedocumented in this encounter Additional Health Concerns Assessment Noted Time PHQ-9 Depression Total Score: 024 12:43 PM EDT documented as of this encounter Care Teams Television Cable Installer Relationship Specialty Start Date End Date Dougie Vela MD [address] [place] [id number] PCP - General Internal Medicine 03/28/20 documented as of this encounter
--- OUTSIDE RECORDS SUMMARY | 2025-04-15 16:35 | XMS_ITS | Encounter Summary ---
Author Organization [employer] Address [address] [place] [address] [place] [address] Care Team Providers Care Binding Cementer French Cord Name Role Phone Dougie Vela MD Primary Care Prov ider Reason for Visit * Reason Onset Date Comments Medication Question 08/13/2024 Encounter Details Date Type Department Care Team ([facility] st Contact Info) Description 08/13/2024 Telephone [facility] MEDICINE [address] [place] [address] Dougie Vela MD [address] [place] [address] Medication Question Social History Tobacco Use Types [...] as of this encounter Care Teams Binding Cementer French Cord Relationship Specialty Start Date End Date Dougie Vela MD [address] [place] [phone] PCP - General Internal Medicine 03/28/20 documented as of this encounter
--- OUTSIDE RECORDS SUMMARY | 2025-04-15 16:35 | XMS_ITS | Encounter Summary ---
Author Organization [employer] Address [address] [place] [address] [place] [address] Care Team Providers Care Events And Promotions Assistant Name Role Phone Dougie Vela MD Primary Care Prov ider Reason for Visit * Reason Onset Date Comments Medication Question 05/18/2024 Encounter Details Date Type Department Care Team ([facility] st Contact Info) Description 05/18/2024 Telephone [facility] MEDICINE [address] [place] [address] Dougie Vela MD [address] [place] [address] Medication Question Social History Tobacco Use Types [...] prescribed a GLP-1 drug like Wegovy to nut roaster helper in weight loss. The pt was [...] like some info on (wegovy) Callback number [phone] documented in this encounter Plan of Treatment Not on file documented as of this encounter Visit Diagnoses Not on filedocumented in this encounter Additional Health Concerns Assessment Noted Time PHQ-9 Depression Total Score: 10 024 12:43 PM EDT documented as of this encounter Care Teams Events And Promotions Assistant Relationship Specialty Start Date End Date Dougie Vela MD [address] [place] [phone] PCP - General Internal Medicine 03/28/20 documented as of this encounter
--- OUTSIDE RECORDS SUMMARY | 2025-04-15 16:35 | XMS_ITS | Encounter Summary ---
Author Organization [employer] Address [address] [place] [address] [address] [place] [address] Care Team Providers Care Automotive Heavy Mechanic Name Role Phone Dougie Vela MD Primary Care Prov ider Encounter Details Date Type Department Care Team ([facility] st Contact Info) Description 12/20/2024 Orders Only [facility] CHC MED & PEDS [address] [place] [address] ProviderKristel MD Social History Tobacco Use Types [...] us Historical Provider HEALTH MAINTENANCE Final Result documented in this encounter Visit Diagnoses Not on filedocumented in this encounter Additional Health Concerns Assessment Noted Time PHQ-9 Depression Total Score: 10 024 12:43 PM EDT documented as of this encounter Care Teams Automotive Heavy Mechanic Relationship Specialty Start Date End Date Dougie Vela MD [address] [place] [id number] PCP - General Internal Medicine 03/28/20 documented as of this encounter
--- OUTSIDE RECORDS SUMMARY | 2025-04-15 16:35 | XMS_ITS | Clinical Summary ---
Author Organization [facility] Address [address] [place] [address] Care Team Providers Care Technology Trainer Name Role Phone Shay Castro MD Primary Care Provider [phone] Allergies Active Allergy Reactions Criticality Noted Date [...] age to complete this topic Care Teams Technology Trainer Relationship Specialty Start Date End Date Shay Castro MD PCP - General Family Medicine 02/07/20
--- OUTSIDE RECORDS SUMMARY | 2025-04-15 16:35 | XMS_ITS | Encounter Summary ---
Author Organization [employer] Address [address] [place] [address] 7t [place] [address] Care Team Providers Care Payment Specialist Name Role Phone Dougie Vela MD Primary Care Prov ider Encounter Details Date Type Department Care Team (Latest Contact Info) Description 04/15/2025 Travel Social History Tobacco Use Types Packs/Day [...] documented as of this encounter Care Teams Payment Specialist Relationship Specialty Start Date End Date Dougie Vela MD [address] [place] [phone] PCP - General Internal Medicine 03/28/20 documented as of this encounter
--- OUTSIDE RECORDS SUMMARY | 2025-04-15 16:35 | XMS_ITS | Encounter Summary ---
Author Organization [employer] Address [address] [place] [address] 7[address] [place] [address] Care Team Providers Care Gamma Ray Operator Name Role Phone Dougie Vela MD Primary Care Prov ider Encounter Details Date Type Department Care Team ([facility] st Contact Info) Description 08/16/2024 Orders Only [facility] CHC MED & PEDS [address] [place], [place] [phone] Dougie Vela MD [address] [place] [address] Social History Tobacco Use Types Packs/Day Years [...] documented as of this encounter Care Teams Gamma Ray Operator Relationship Specialty Start Date End Date Dougie Vela MD [address] [place] [phone] PCP - General Internal Medicine 03/28/20 documented as of this encounter
--- OUTSIDE RECORDS SUMMARY | 2025-04-15 16:35 | XMS_ITS | Encounter Summary ---
Author Organization [employer] Address [address] [place] [address] [place] [address] Care Team Providers Care Care Management Coordinator Name Role Phone Dougie Vela MD Primary Care Prov ider Encounter Details Date Type Department Care Team ([facility] st Contact Info) Description 11/13/2022 Orders Only [facility] [facility] CHC MED & PEDS [address] [place] [address] Sona [place] LPN Social History Tobacco Use [...] on filedocumented in this encounter Care Teams Care Management Coordinator Relationship Specialty Start Date End Date Dougie Vela MD [address] [place] [address] PCP - General Internal Medicine 03/28/20 documented as of this encounter
--- OUTSIDE RECORDS SUMMARY | 2025-04-15 16:35 | XMS_ITS | Encounter Summary ---
Author Organization [employer] Address [address] [place] [address] 7t [place] [address] Care Team Providers Care Dental Prosthetist Name Role Phone Dougie Vela MD Primary Care Prov ider Encounter Details Date Type Department Care Team ([facility] st Contact Info) Description 05/07/2024 Orders Only [facility] CHC MED & PEDS [address] [place], [place] [phone] Dougie Vela MD [address] [place] [address] Social History Tobacco Use Types Packs/Day Years [...] documented as of this encounter Care Teams Dental Prosthetist Relationship Specialty Start Date End Date Dougie Vela MD [address] [place] [phone] PCP - General Internal Medicine 03/28/20 documented as of this encounter
--- NOTE | 2025-04-19 10:48 | HO.ANESPROP2 ---
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, on and off methadone CKD - follows [facility] renal, no recent labs Recent nml echo ordered by GI for ankle swelling (no ascites) Right foot drop PMFSH Active Problems Active Problems: All Active Problems Choledocholithiasis (Acute) Bilateral edema of lower extremity (Acute) Arthritis of left knee (Acute) Dilated bile duct (Acute) Elevated alkaline phosphatase level (Acute) IVDU (intravenous drug user) (Acute) Elevated LFTs (Acute) UTI (urinary tract infection) (Acute) CKD (chronic kidney disease) (Acute) Past Medical History Medical History HTN (hypertension) Ambulates with cane Asthma CKD (chronic kidney disease) IVDU (intravenous drug user) Foot drop, right Family History Family history of problems with anesthesia: No Surgical History Surgical History Hx of endoscopic retrograde cholangiopancreatography History of surgery on lower extremity History of back surgery History of Problems with Anesthesia: No Social History Social History Household Members: Friend(s) Housing: House Are you a primary coronary care unit nurse to a significant other at home: No Do you presently have visiting nurse or other home services: No Comment: right foot drop Patient Tobacco Use Status: Former Tobacco user Tobacco use type: Cigarette Use of substances other than those prescribed or required for medical reasons: Yes Substance Use Type: Heroin and IV Drugs Substance Use Type Other:: LD 04/20 am Substance Use Frequency: Daily Are you DNR?: No Advance Directives: No Advance Directives Information Provided: Yes Current occupational status: disabled Meds Allergies Allergy/AdvReac Type Severity Reaction Status Date / Time haloperidol (From Haldol) Allergy Unknown Unknown Verified 04/20/25 11:55 nickel Allergy Rash Verified 04/20/25 11:55 Home Medications ?Medication ?Instructions ?Recorded ?Confirmed ?Last Taken ?Type amlodipine 5 mg tablet 5 mg PO DAILY 03/24/24 04/21/25 Unknown History bupropion HCl 300 mg 24 hr tablet, 300 mg PO DAILY 03/24/24 04/21/25 Unknown History extended release dextroamphetamine-amphetamine ER 60 cap PO DAILY 07/05/24 04/21/25 Unknown History 30 mg 24hr capsule,extend release (Adderall XR) rosuvastatin 10 mg tablet 10 mg PO BEDTIME 10/13/24 04/21/25 Unknown History gabapentin 100 mg capsule 100 mg PO Q8H PRN Pain 03/02/25 04/21/25 Unknown History methadone 10 mg/5 mL oral solution 115 mg PO DAILY 03/02/25 04/21/25 Unknown History trazodone 100 mg tablet 200 mg PO BEDTIME PRN Insomnia 03/02/25 04/21/25 Unknown History losartan 25 mg tablet 25 mg PO DAILY 04/21/25 04/21/25 Unknown History Exam Narrative Narrative: ECHO 03/2025 Conclusions: - 1. Normal LV ejection fraction 55-60% with grade 1 diastolic dysfunction 2. Normal cardiac valvular Dopplers 3. Normal right atrial pressures 4. No gross pericardial effusion Assessment and Plan Assessment Anesthesia Assessment: Chart Reviewed Final Anesthetic Review Family History of Problems with Anesthesia: No History of Problems with Anesthesia: No Documented by User: Khadijah Dudley MD 04/21/25 11:11 PMFSH Past Medical History Medical History HTN (hypertension) Ambulates with cane Asthma CKD (chronic kidney disease) IVDU (intravenous drug user) Foot drop, right Surgical History Surgical History Hx of endoscopic retrograde cholangiopancreatography History of surgery on lower extremity History of back surgery Social History Social History Household Members: Friend(s) Housing: House Are you a primary coronary care unit nurse to a significant other at home: No Do you presently have visiting nurse or other home services: No Comment: right foot drop Patient Tobacco Use Status: Former Tobacco user Tobacco use type: Cigarette Use of substances other than those prescribed or required for medical reasons: Yes Substance Use Type: Heroin and IV Drugs Substance Use Type Other:: LD 04/20 am Substance Use Frequency: Daily Are you DNR?: No Advance Directives: No Advance Directives Information Provided: Yes Current occupational status: disabled Meds Allergies Allergy/AdvReac Type Severity Reaction Status Date / Time haloperidol (From Haldol) Allergy Unknown Unknown Verified 04/20/25 11:55 nickel Allergy Rash Verified 04/20/25 11:55 Home Medications ?Medication ?Instructions ?Recorded ?Confirmed ?Last Taken ?Type amlodipine 5 mg tablet 5 mg PO DAILY 03/24/24 04/21/25 Unknown History bupropion HCl 300 mg 24 hr tablet, 300 mg PO DAILY 03/24/24 04/21/25 Unknown History extended release dextroamphetamine-amphetamine ER 60 cap PO DAILY 07/05/24 04/21/25 Unknown History 30 mg 24hr capsule,extend release (Adderall XR) rosuvastatin 10 mg tablet 10 mg PO BEDTIME 10/13/24 04/21/25 Unknown History gabapentin 100 mg capsule 100 mg PO Q8H PRN Pain 03/02/25 04/21/25 Unknown History methadone 10 mg/5 mL oral solution 115 mg PO DAILY 03/02/25 04/21/25 Unknown History trazodone 100 mg tablet 200 mg PO BEDTIME PRN Insomnia 03/02/25 04/21/25 Unknown History losartan 25 mg tablet 25 mg PO DAILY 04/21/25 04/21/25 Unknown History Exam Airway Mallampati Class: II TM Dist: >3cm Neck ROM: Full Heart: rrr Lungs: cta Assessment and Plan Final Anesthetic Review NPO: Yes ASA Class: III (u tox positive for opioids, pt on methadone and uses heroin daily.) Final Preanesthetic Review: No Changes in Pt Med Stat, Meds/Allgs Chart Reviewed, Consent Obtained/Reviewed and Anes Risks/Benef Reviewed Patient Risk: Intermediate Procedure Risk: Intermediate Anesthetic Plan Anesthetic Plan: GA and Agree w/ Assess. and Plan Disposition: Standard PACU
[2025-04-21] VITALS (15 sets, daily range): BP systolic 106–139; BP diastolic 52–70; PULSE 67–99; RESP 12–20; TEMP 36.2–36.6; O2SAT 97–100; BMI 34.0
[2025-04-21 10:49] LABS: Cannabinoid Screen Urine Not Detected (Not Detect)
[2025-04-21] MEDS: Lactated Ringers 1,000 ML 100 ML IVCONT (11:03)
--- NOTE | 2025-04-21 11:24 | MHC.SHP ---
Pre-Procedural Eval Section A - 24 Hr Update-Section A only Date of Service: 04/21/25 The patient is an INPATIENT: No Changes since office visit: Yes Patient answered all questions; No Cold of Flu in the past 2 weeks, No New Medical Problems and No Changes in Medication The patient has been examined within 24 hours of the surgical procedure. The History & Physical has been completed within 30 days and I have reviewed it.: Yes Section B - Complete if H&P > 30 days Chief Complaint: Calculus of bile duct without cholangitis or anu Relevant Social History: Other (specify) Allergies: Allergies Allergy/AdvReac Type Severity Reaction Status Date / Time haloperidol (From Haldol) Allergy Unknown Unknown Verified 04/20/25 11:55 nickel Allergy Rash Verified 04/20/25 11:55 Plan Diagnosis/Plan: Unchanged I have reviewed the history and physical and performed a pertinent physical examination on my patient. No changes have occurred unless specified. Time Spent With Patient Time: Total time managing care of this patient today ____ minutes.
[2025-04-21 11:29] LABS: Hematocrit 36.4 % (37.0-47.0); Hemoglobin 12.2 g/dl (12.0-16.0); Mean Corpuscular HGB Conc 33.5 g/dl (31.0-35.0); Mean Corpuscular Hemoglobin 26.8 pg (27.0-33.0); Mean Corpuscular Volume 80.0 fL (80.0-98.0); NRBC Abs Auto 0.000 X10*3/uL (0.0-0.012); NRBC Pct Auto 0.0 /100WBC (0.0-0.2); PLT CLUMP 1; Red Blood Count 4.55 X10*6/uL (4.20-5.50)
[2025-04-21 11:42] LABS: Anion Gap 13 (12-20); Blood Urea Nitrogen 12 mg/dL (9-16); Calcium 9.7 mg/dL (8.4-10.2); Carbon Dioxide 27 mmol/L (22-29); Chloride 105 mmol/L (96-108); Creatinine Clr Calc Pharmacy 68.3; Estimated Glomerular Filt Rate 47; Potassium 4.3 mmol/L (3.3-5.1); Sodium 141 mmol/L (135-145)
[2025-04-21 11:49] LABS: White Blood Count 5.6 X10*3/uL (4.8-10.8)
[2025-04-21 11:50] LABS: Platelet Count 198 X10*3/uL (160-400)
[2025-04-21] MEDS: cefoTEtan disodium 2 GM VIAL IVPUSH (12:00)
--- NOTE | 2025-04-21 12:48 | W.PM.OPN ---
Operative Note Operative Note Date of Service: 04/21/25 Narrative: Preoperative diagnosis: Choledocholithiasis Postoperative diagnosis: Same Procedure: Laparoscopic cholecystectomy Surgeon: Wilfredo Wilburn MD Building Construction Inspector: Lion Maradiaga PA-C Anesthesia: General endotracheal Indications for procedure: 50-year-old female patient presenting with complaints of abdominal pain in the epigastrium and right upper quadrant found to have common bile duct stone. She underwent ERCP and now returns for elective laparoscopic cholecystectomy. Operative findings: Gallstones within the gallbladder Specimen: gallbladder Estimated blood loss: 2 mL Complications: None Procedure details: Patient was brought to the OR and placed in a supine position. After administering general anesthesia the patient's abdomen was prepped with ChloraPrep and draped in a sterile fashion. A surgical time-out was called the consent confirmed. Patient received preoperative antibiotics and Venodyne boots were in place. Local anesthesia consisting of 0.5% Sensorcaine without epinephrine was infiltrated in a periumbilical region. A 5 mm incision was made above the umbilicus in a transverse fashion. The Veress needle was then inserted while elevating abdominal cavity with towel clips. After positive drop test the abdomen was insufflated to a pressure of 15 mm of mercury. The Veress needle was then removed and a 5 mm trocar inserted. The camera was inserted in the abdomen explored. A 12 mm trocar was then placed in the epigastrium. Two 5 mm trocars placed in the right upper quadrant by the billing and accounting staff assistant. The patient was placed in reverse Trendelenburg positioning and rotated to the left. The gallbladder was grasped with the fundus and retracted cephalad by the billing and accounting staff assistant. The infundibulum was then grasped and retracted away from the liver bed, also by the billing and accounting staff assistant. The Dolphin dissected was then used by the surgeon to dissect the peritoneum off the infundibulum to reveal the junction with the cystic duct. Cystic artery was noted slightly medial and posterior to the cystic duct. After obtaining a critical view the cystic duct was doubly clipped and divided. The cystic artery was then doubly clipped and divided. The gallbladder was then dissected off the liver bed using electrocautery with an L hook. Hemostasis was assured all times using the electrocautery. When the gallbladder is completely dissected off the liver bed was placed in an Endo-Catch bag and brought out through the epigastric incision. The gallbladder was sent to pathology for further examination. The abdomen was then re-examined. The liver bed was irrigated and suctioned dry. No bleeding or bile leak could be identified. CO2 was then evacuated and all trocars removed. Fascia was closed at the epigastric incision using a [id number] 0 Polysorb suture. 8 mL of Zenrelef was instilled in all incisions for postoperative pain relief. Skin was closed in all incisions using a subcuticular 4 0 Polysorb suture by both the surgeon and billing and accounting staff assistant. Sterile dressings consisting of Steri-Strips, 2 x 2 gauze, and Tegaderm were then applied. The patient tolerated the procedure well. Sponge instrument and needle counts reported as correct. The patient was transferred to PACU in stable condition.
== END 2025-04-21 15:35 | disposition home or self-care (01) ==
PROVIDERS: Nurse Practitioner; PCP Internal Medicine; Visit Provider Surgery
PROC: 0FT44ZZ Resection of Gallbladder, Percutaneous Endoscopic Approach (ICD-10-PCS; CPT 47562; principal; 2025-04-21 11:50)
DX: K80.10 Calculus of gallbladder with chronic cholecystitis without obstruction (principal); K76.0 Fatty (change of) liver, not elsewhere classified; N18.9 Chronic kidney disease, unspecified; J45.909 Unspecified asthma, uncomplicated; F11.20 Opioid dependence, uncomplicated; F10.21 Alcohol dependence, in remission; M21.371 Foot drop, right foot; Z99.89 Dependence on other enabling machines and devices; Z79.899 Other long term (current) drug therapy; Z98.890 Other specified postprocedural states; Z88.8 Allergy status to other drugs, medicaments and biological substances; Z87.891 Personal history of nicotine dependence
CPT/HCPCS: 47562; 36415; 80048; 80307; 85027; 88304; J0131; J0525; J0668; J1100; J1171; J1200; J2250; J2405; J2704; J3010

== ENCOUNTER → 2025-04-21 09:59 | Outpatient (BNV) | payer MEDICARE, MEDICAID, SELFPAY | PROVIDERS: PCP Internal Medicine; Visit Provider Surgery | DX: K80.20 Calculus of gallbladder without cholecystitis without obstruction (principal) | CPT/HCPCS: 47562 ==

== ENCOUNTER 2025-05-05 10:47 | Outpatient (AMB) | payer MEDICARE, MEDICAID, SELFPAY ==
--- NOTE | 2025-05-05 10:52 | A.OFFVIS_ITS ---
Vital Signs 05/05/25 10:58 Height 5 ft 8 in Weight 218 lb BMI 33.1 BP 120/57 L Blood Pressure Location Rt brachial Position Sitting Pulse 83 Intake Visit Reasons: lap anu Intake Note: Patient here s/p Laparoscopic cholecystectomy. Patient c/o: abdomen feels sore. Steri strips present at mid abdomen incision site. No longer taking rx pain meds. Surgery (): 04-21-2025 Organizational Development Manager Required: No Accompanied by: Self / Same As Patient Allergies haloperidol (From Haldol) Allergy (Unknown, Verified 05/05/25 11:00) Unknown nickel Allergy (Verified 05/05/25 11:00) Rash HPI HPI lap anu: Details: 50 year old female presenting for follow up and wound check. She underwent a laparoscopic cholecystectomy on 04/21/[address] Payne for history of choledocolithiasis. She reports having difficulty with pain post operatively. She has a history of substance abuse and is on methadone and still uses heroin. She was not prescribed any narcotic and was given ibuprofen. She reports having severe right sided incisional pain that made it difficult to breath. She therefore sought care in the ED. She reports the pain remained severe until the end of last week. She does report some persistent pain with deep inspiration and movement. She is tolerating a solid diet without nausea or vomiting. She is passing flatus and moving her bowels. She does report baseline chronic constipation and normally has very hard stools due to her methadone. She reports occasionally taking a stool softener but this does not help. She denies fevers, chills, chest pain, diarrhea. [facility] Medical History HTN (hypertension) Ambulates with cane Asthma CKD (chronic kidney disease) IVDU (intravenous drug user) Foot drop, right Surgical History (Updated 05/05/25 @ 08:10 by PRIYANKA Caballero) S/P laparoscopic cholecystectomy (04/21/25) Hx laparoscopic cholecystectomy Hx of endoscopic retrograde cholangiopancreatography History of surgery on lower extremity History of back surgery Social History Household Members: Friend(s) Housing: House Are you a primary emergency care attendant to a significant other at home: No Do you presently have visiting nurse or other home services: No Comment: right foot drop Patient Tobacco Use Status: Former Tobacco user Tobacco use type: Cigarette Substance Use Type: Heroin and IV Drugs Current occupational status: disabled Review of Systems Const All systems reviewed & are unremarkable except as noted in HPI and below Physical Exam Vital Signs: Last Vital Signs Pulse 83 05/05/25 10:58 BP 120/57 L 05/05/25 10:58 BMI result Body Mass Index 33.1 Const General: comfortable, no acute distress and alert Orientation/consciousness: patient oriented x3 Resp Effort & Inspection: normal respiratory effort GI Other: mildly corpulent abdomen soft incision sites area well healed without erythema or edema mild right sided tenderness but no rebound, guarding or rigidity Inspection: No distended Skin General skin exam: no rashes or lesions noted and no jaundice Neuro General: patient oriented x3 Results Reviewed Results Reviewed: Gallbladder, cholecystectomy: Chronic cystitis and cholelithiasis Assessment & Plan Assessment & Plan (1) Hx laparoscopic cholecystectomy: Code(s): Z90.49 - Acquired absence of other specified parts of digestive tract Category: Surgical Plan 50 year old female s/p laparoscopic cholecystectomy on 04/21/25 for history of choledocolithiasis. She had difficulty with pain post operatively but this is somewhat improved now. She is clinically appearing well. Her abdomen is benign with clean appearing incisions and mild right sided tenderness. The continued pain sounds to be incisional/muscular in nature and is improving. Recommended she can continue over the counter analgesics as needed. Also recommended she start a fiber supplementation as well as increasing her water intake given her chronic constipation. She is to follow up in the office in 1 month or return sooner if she develops concerns. Coding Level of Care Code Global (81724) Diagnoses Hx laparoscopic cholecystectomy Z90.49
[2025-05-05 10:58] VITALS: BP 120/57; PULSE 83; BMI 33.1
--- OUTSIDE RECORDS SUMMARY | 2025-05-05 13:18 | XMS_ITS | Clinical Summary ---
Author Organization [facility] Address [address] [place] [address] Care Team Providers Care Specialized Developer Name Role Phone Shay Castro MD Primary Care Provider [phone] Allergies Active Allergy Reactions Criticality Noted Date [...] age to complete this topic Care Teams Specialized Developer Relationship Specialty Start Date End Date Shay Castro MD PCP - General Family Medicine 02/07/20
--- OUTSIDE RECORDS SUMMARY | 2025-05-05 13:18 | XMS_ITS | Encounter Summary ---
Author Organization [employer] Address [address] [place] [address] [place] [address] Care Team Providers Care Gear And Spline Grinder Name Role Phone Dougie Vela MD Primary Care Prov ider Reason for Visit * Reason Comments Med Change Request Encounter Details Date Type Department Care Team ([facility] Contact Info) Description 08/16/2024 Refill [facility] [address] [place] [address] Dougie Vela MD [address] [place] [address] Social History Tobacco Use Types Packs/Day Years [...] documented as of this encounter Care Teams Gear And Spline Grinder Relationship Specialty Start Date End Date Dougie Vela MD [address] [place] [address] PCP - General Internal Medicine 03/28/20 documented as of this encounter
--- OUTSIDE RECORDS SUMMARY | 2025-05-05 13:18 | XMS_ITS | Encounter Summary ---
Author Organization [employer] Address [address] [place] [address] [place] [address] Care Team Providers Care Loaders Name Role Phone Dougie Vela MD Primary Care Prov ider Reason for Visit * Reason Onset Date Comments Medication Question 08/13/2024 Encounter Details Date Type Department Care Team ([facility] st Contact Info) Description 08/13/2024 Telephone [facility] MEDICINE [address] [place] [address] Dougie Vela MD [address] [place] [address] Medication Question Social History Tobacco Use Types [...] documented as of this encounter Care Teams Loaders Relationship Specialty Start Date End Date Dougie Vela MD [address] [place] [address] PCP - General Internal Medicine 03/28/20 documented as of this encounter
--- OUTSIDE RECORDS SUMMARY | 2025-05-05 13:18 | XMS_ITS | Encounter Summary ---
Author Organization [employer] Address [address] [place] [address] [place] [address] Care Team Providers Care School Fundraising Director Name Role Phone Dougie Vela MD Primary Care Prov ider Encounter Details Date Type Department Care Team ([facility] st Contact Info) Description 11/13/2022 Orders Only [facility] MED [facility] PEDS [address] [place] [address] Sona Hart LPN Social History Tobacco Use [...] on filedocumented in this encounter Care Teams School Fundraising Director Relationship Specialty Start Date End Date Dougie Vela MD [address] [place] [address] PCP - General Internal Medicine 03/28/20 documented as of this encounter
--- OUTSIDE RECORDS SUMMARY | 2025-05-05 13:18 | XMS_ITS | Encounter Summary ---
Author Organization [employer] Address [address] [place] [address] 7t [place] [address] Care Team Providers Care Compressed Gas Equipment Mechanic Name Role Phone Dougie Vela MD Primary Care Prov ider Encounter Details Date Type Department Care Team ([facility] st Contact Info) Description 08/16/2024 Orders Only [facility] MED [facility] PEDS [address] [place], [place] [phone] Dougie Vela MD [address] [place] [address] Social History Tobacco Use Types Packs/Day Years [...] documented as of this encounter Care Teams Compressed Gas Equipment Mechanic Relationship Specialty Start Date End Date Dougie Vela MD [address] [place] [address] PCP - General Internal Medicine 03/28/20 documented as of this encounter
--- OUTSIDE RECORDS SUMMARY | 2025-05-05 13:18 | XMS_ITS | Data Portability ---
Author Organization [place] - [facility] Address [address] [place] [address] Care Team Providers Care Family Practice Nurse Practitioner Name Role Phone BEBETO LESLIE Primary Care Provider [phone] Assessment No assessment recorded. Plan of Treatment Reminders Order Date Submit Date Provider Last Modified By Organization Details Last Modified Time Details Appointments None recorded. Lab None recorded. Referral None recorded. Procedures None recorded. Surgeries None recorded. Imaging XR, ankle + foot - # 118 ---3V ANKLE WB, 2V FOOT WB NEW PATIENT [id number] [email or web address] [facility] Office, [address], [facility] [address], [place], [address], 14:35:46 Medication Orders None recorded. Patient TargetsNo targets recorded. Patient InstructionsNo instructions recorded. Reason for Referral None Reported. Results Created Date Observation Date Name Description Value Unit Range Abnormal Flag Note LastModifiedBy Organization Detail LastModifiedTime 07/23/1907/23/2024 XR, ankle + foot http:/ [email or web address] ?Encry pted=s hAaTro YD8dLq bEUv6g %2BXZw aYqtaq 0bqfl% 2Fg9IQ a4ajBk vP9nXo QUaueC m3YtLR FvZlgJ JJ8mAn HZtai3 1h8393 AC0Kqb H%2BNW aekKiQ trMwF INTERFACE [facility] [address], [place], [address], 07/23/2024 15:44:03 01/07/23/2024 XR, ankle + foot http:/ [email or web address] ?Encry pted=s hATimo YD8dLq bEUv6g %2BXZw aYqtaq 0bqfl% 2Fg9IQ a4ajBk vP9nXo QUaueC m3YtLR FvZlgJ JJ8mAn HZtai3 3z1347 AC0Kqb H%2BNW aekKiQ trMwF INTERFACE [facility] Office [address], [place], [address], 07/23/2024 15:44:05 Result Notes Documentation Provider Name and Address Organization Details Recorded Time Xr, Ankle + Foot : [email or web address]? Encrypted=pxVtLtrGS6rSxzB Uv6g%7NXGrvLavll6teop%2Fg 9NEi8gaFaxL0mZdYAxbtBz7Sz LGBzVhmMBR1lWmEZdyk75m215 8UR3NcxN%2BNWaekKiQtrMwF Not Available [facility] 07/23/2024 15:4 4:04 Xr, Ankle + Foot : [email or web address]? Encrypted=lnBfKpaTV0cRgdB Uv6g%9OKEhhKaxkb6atfo%2Fg 4IMx0hkEapF5dEdHTgylPp5Bl TREcIxyXZO5iNaZCgyk44h351 9DR3BbpR%2BNWaekKiQtrMwF Not Available [facility] 07/23/2024 15:4 4:05 Problems Name Problem SNOMED Code Status Onset Date Resolution Date Notes Provider Name and Address Organization Details Recorded Time No complaint s 956243368 Active Status: 'I'; Not Available [facility] 4 09:15:25 Closed trimalleo lar fracture 1038807 Active 2016 Problem Code: S82.851A ; Problem Code Type: ICD-10; Status: 'A'; Not Available [facility] 4 11:43:00 Ankle pain 565606034 Active 2024 Roxann Solis PA-C [address], [place], [address] , [facility] 5 14:32:34 Acquired cavovarus deformity of right foot 784529606630 9104 Active 2024 Roxann Solis PA-C [address], [place], [address] , [facility] 5 14:32:34 Problem Notes None recorded. Medical Equipment None Reported. Allergies Allergen ID Allergen Name Allergen Category Reaction Reaction Severity Criticality Documentation Date Start Date Code Code System Note Provider Name and Address Organization Details Recorded Time 10242 Haldol medicatio n Not available Not available Not available 08/25/20232016 68273 9 RxNorm Aller gyNam e: 'Hald ol Soln' ; Not Available [facility] 4 14:03:43 Medications Name Sig Start Date Stop [...] Updated DateTime 07/23/2024 172.72 cm 33.5 kg/m2 54163.32 g GABE DAVISOS [facility] 07/23/2024 16:16:58 Date Recorded Body height Body mass index (BMI) Body weight Provider Name and Address Organization Details Last Updated DateTime 10/15/2024 172.72 cm 34.2 kg/m2 042629.28 g Carolyn Meghan [facility] 10/15/2024 15:39:10 Social History None recorded. Functional Status None recorded. Mental Status None recorded. Family History Nothing Reported. Medical History No medical history recorded. Gynecological HistoryNo gynecological history recorded. Obstetrics History GPAL:G 0 P 0 0 0 0 Past Encounters Encounter ID Performer Location Encounter Start Date Encounter Closed Date Diagnosis/Indication Diagnosis SNOMED-CT Code Diagnosis ICD10 Code Diagnosis IMO Codes Diagnosis Note [id number] [facility] [address] [place] [address] 07/23/2024 15:28:02 08/02/2024 14:35:46 Ankle pain 209996294 M25.571 37160905 Acquired c avovarus deformity of right foot 5744474694 090771 M21.6X1 34197869 [id number] MARY JO Morales [address] [place] [address] 10/15/2024 15:35:03 10/22/2024 12:50:07 Acquired cavovarus deformity of right foot 5513000314 467969 M21.6X1 04187760 Health Concerns Section Related Observation LastModified by Organization Detai ls LastModified Time None Recorded Concern Status LastModified by Organization Details LastModified Time None Recorded Advance Directives Directive None Recorded Payers Insurance Date Sequence Insurance Name Policy Number Policy Roberts Covered Member ID Roberts Member ID Guarantor Name 10/22/2024 1 [facility] (MEDICARE REPLACEMENT/A DVANTAGE - PPO) [id number] Dana Reid [id number] Dana Reid 10/22/2024 2 [place] [facility] Dana Broderick Franklin [id number] Dana Reid Notes Date Note Type Note Provider Name [...] our office immediately. Roxann Solis PA-C [address], [place], [address], [facility] 07/27/2024 12:27:30 10/15/2024 text/html I am seeing [...] questions or concerns. Roxann Solis PA-C [address], [place], [address], [facility] 10/18/2024 14:32:48 OBGyn Episode No OBEpisode recorded.
--- OUTSIDE RECORDS SUMMARY | 2025-05-05 13:18 | XMS_ITS | Encounter Summary ---
Author Organization [employer] Address [address] [place] [address] 7t [place] [address] Care Team Providers Care Sales Support Administrator Name Role Phone Dougie Vela MD Primary Care Prov ider Encounter Details Date Type Department Care Team ([facility] st Contact Info) Description 05/07/2024 Orders Only [facility] MED & PEDS [address] [place], [place] [phone] Dougie Vela MD [address] [place] [address] Social History Tobacco Use Types Packs/Day Years [...] as of this encounter Care Teams Sales Support Administrator Relationship Specialty Start Date End Date Dougie Vela MD [address] [place] [address] PCP - General Internal Medicine 03/28/20 documented as of this encounter
--- OUTSIDE RECORDS SUMMARY | 2025-05-05 13:18 | XMS_ITS | Encounter Summary ---
Author Organization [employer] Address [address] [place] [address] 7 [place] [address] Care Team Providers Care Skiver Sock Linings Name Role Phone Dougie Vela MD Primary Care Prov ider Encounter Details Date Type Department Care Team ([facility] st Contact Info) Description 06/13/[address] [facility] MEDICINE [address] [place] [address] Dougie Vela MD [address] [place] [address] Cellulitis of right breast (Primary Dx); Primary [...] EST) Glucose 71 65 - 139 mg/dL [place] [place] [facility] Comment: Non-fasting reference interval Urea Nitrogen (BUN) 46(H) 7 - 25 mg/dL [facility] [place] [facility] Creatinine, Serum 2.44(H) 0.50 - 0.99 mg/dL [facility] [place] [facility] eGFR 24(L) > OR = 60 mL/min/1. 73m2 [facility] [place] [facility] Comment: The eGFR is based on the CKD-EPI 2020 equation. To calculate the new eGFR from a previous Creatinine or Cystatin C result, go to [email or web address]://www.[email or web address].org/professionals/ kdoqi/gfr%5Fcalculator BUN/Creatinine Ratio 19 6 - 22 (calc) [place] [place] [facility] Sodium 136 135 - 146 mmol/L [place] [facility] Potassium 5.0 3.5 - 5.3 mmol/L [place] [facility] Chloride 102 98 - 110 mmol/L [place] [facility] Carbon Dioxide 27 20 - 32 mmol/L [place] [facility] Calcium 9.6 8.6 - 10.2 mg/dL [facility] [place] [facility] Blood Venous blood specimen / Unknown 06/21/2022 3:34 PM EST 06/21/2022 3:34 PM EST Narrative [facility] - 06/22/2022 1:37 AM EST FASTING:NO FASTING: NO us Dougie Cook MD LAB BLOOD ORDERABL ES Final Result [facility] [address] [facility], [place] [address] [facility] [place] [facility] [address] [facility], ([address]) [place] [address] documented in this encounter Visit Diagnoses Diagnosis Cellulitis of right breast- Primary Primary hypertension Unspecified essential hypertension documented in this encounter Care Teams Skiver Sock Linings Relationship Specialty Start Date End Date Dougie Vela MD [address] [place] [address] PCP - General Internal Medicine 03/28/20 documented as of this encounter
--- OUTSIDE RECORDS SUMMARY | 2025-05-05 13:18 | XMS_ITS | Encounter Summary ---
Author Organization [employer] Address [address] [place] [address] [place] [address] Care Team Providers Care Mobile Device Developer Name Role Phone Dougie Vela MD Primary Care Prov ider Reason for Visit * Reason Onset Date Comments Appointment Request 09/01/2024 Encounter Details Date Type Department Care Team ([facility] st Contact Info) Description 09/01/2024 Telephone [facility] MEDICINE [address] [place] [address] Dougie Vela MD [address] [place] [address] Appointment Request Social History Tobacco Use Types [...] at hospital and needs reschedule telephone visit. Dairy Feed Mixing Operator unable to cancel appt status was arrived . documented in this encounter Plan of Treatment Not on file documented as of this encounter Visit Diagnoses Not on filedocumented in this encounter Additional Health Concerns Assessment Noted Time PHQ-9 Depression Total Score: 10 024 12:43 PM EDT documented as of this encounter Care Teams Mobile Device Developer Relationship Specialty Start Date End Date Dougie Vela MD [address] [place] [address] PCP - General Internal Medicine 03/28/20 documented as of this encounter
--- OUTSIDE RECORDS SUMMARY | 2025-05-05 13:18 | XMS_ITS | Clinical Summary ---
Author Organization [employer] Address [address] [place] [address] 7 [place] [address] Care Team Providers Care Lumber Loader Name Role Phone Dougie Vela MD [...] she had herniated disc, s/p microdiscectomy in [place] in 2007. Closed fracture of right ankle 09/20/2016 Overview (05/31/2022): [place] [facility] [place] with possible Heroin OD and right [...] Overview (05/31/2022): Has anxiety/depression, ADHD, following at [facility]. On meds. Dyslipidemia 09/20/2016 Assessment & Plan (02/26/2024 1:29 PM EDT): Ascvd 7.0% will start on atorvastatin, risk vs benefits discussed, follow up in 3 months Mild intermittent asthma without complication Obesity (BMI 30.0-34.9) 09/20/2016 Assessment & Plan (07/11/2024 3:49 PM EST): Will refer to bariatric surgery for evaluation Opioid abuse 09/20/2016 Overview (05/31/2022): H/O IV Heroin use, recent admission [place] [facility] [place] with possible OD and right ankle displaced fracture, fracture of the base of the third, fourth and possible second metatarsals. Now in remission since 07/29/16, now in suboxone clinic through [facility]. Encounters Date Type Department Care Team Description 04/21/2025 Orders Only GENERIC EXTERNAL DATA DEPARTMENT Provider, Generic External Data 04/15/2025 2:00 PM EDT Office Visit [facility] [address] [place] [address] Dougie Vela MD Opioid dependence with opioid-induced disorder (CMS/HCC) (HCC) (Primary Dx); Stage 3b chronic kidney disease (CMS/HCC) (HCC); Dietary counseling; Exercise counseling; Primary hypertension; Freckle 04/15/2025 Travel 04/14/2025 Telephone [facility] MEDICINE [address] [place] [address] Dougie Vela MD Nurse Triage 03/08/2025 Orders Only [facility] [address] [place] [address] Dougie Vela MD from Last 3 Months [...] Years (1 of 2 - PCV) 1992 RSV Patients and Patients Aged 60 years or older (1 - Risk 50-74 years 1-dose series) 2023 FOBT 12/10/2023 12/09/2022 Tobacco Screening 07/23/2024 07/23/2023 Depression Monitoring 08/25/2024 02/26/2024, 024 COVID-19 Vaccine ( season) 2025 09/24/2023, 05/03/2022, 08/27/2021, Additional history exists Influenza Vaccine (#1) 2025 SDOH Screening 02/25/2025 02/26/2024 Pap Smear 03/19/2025 03/19/2022 Colorectal Cancer Screening 12/09/2025 FIT DNA/Cologuard 12/09/2025 12/09/2022 DTaP/Tdap/Td Vaccines (2 - Td or Tdap) 07/29/2026 07/29/2016 Mammogram 03/08/2027 03/08/2025, 08, 12/23/2022, Additional history exists Cervical Cancer Screening 03/19/2027 HPV/Cotest 03/19/2027 03/19/2022 Lipid Panel 01/28/2029 01/29/2024, 01/03/2022 HIV Screening Completed 01/03/2022, 09/20/2016 Hepatitis C [...] Procedure Name Priority Date/Time Associated Diagnosis Comments GROSS AND MICROSCOPIC LEVEL 3 Routine 04/21/2025 12:32 PM EDT BASIC METABOLIC PANEL, FASTING Routine 04/21/2025 11:06 AM EDT CBC Routine 04/21/2025 11:06 AM EDT DRUG MONITOR, PANEL 1, SCREEN, URINE Routine 04/21/2025 10:20 AM EDT BI MAMMOGRAM SCREENING TOMOSYNTHESIS BILATERAL Routine 03/08/2025 [...] Recently Relevant to Health Maintenance Results * Gross and Microscopic Level 3 (04/21/2025 12:32 PM EDT) 04/21/2025 12:3 2 PM EDT 04/21/2025 1:13 PM EDT [facility]S - 04/25/2025 4:54 PM EST ----- ------- Name: Dana Reid Age/Sex: 50/F : 1975 Unit#: [id number] Attend Dr: Wilfredo Wilburn MD Re04/21/25 Status: [facility] Location: [facility] Disch: ----- ------- SPEC : [id number] RECD: 04/21/25 STATUS: ABDI BERRYDenise NUM: [id number] [place]: 04/21/251232 [facility] DR: Wiflredo Wilburn MD ENTERED: 04/21/25 SP TYPE: Surgical OTHR DR: Dougie Vela MD ORDERED: Gross Micro L3 Diagnosis Gallbladder, cholecystectomy: Chronic cystitis and cholelithiasis. Clinical History Calculus of bile duct without cholangitis or cholecystitis Microscopic Description Microscopic sections reviewed. Material Received Gallbladder Gross Description Received in formalin is a 6.8 x 2.7 x 1.5 cm intact gallbladder with a 0.2 cm segment of attached cystic duct. The cystic duct margin is inked. The serosa is villagran-yellow and smooth. A pericholecystic duct lymph node is not identified. The cystic duct margin is inked. Within the lumen there are multiple villagran-yellow, multifaceted calculi ranging from 0.6-0.8 cm in greatest dimension admixed with bile. The mucosa is bile-stained and congested and the wall averages 0.4 cm in thickness. Discrete lesions are not identified grossly. Material Assembler sections, including the inked cystic duct margin, are submitted in A1. (RJ D) IHC S/NG Disclaimer NOTE: Unless otherwise stated, all tissue is formalin-fixed and paraffin-embedded. Some or all of the immunohistochemical tests reported herein may have been developed and their performance characteristics determined by [facility]. They have not been cleared or approved by the U.S. Food and Drug Administration (FDA). However, the FDA has determined that such clearance or approval is not necessary. This laboratory is certified under the Clinical Laboratory Improvement Amendments of 1988 (CLIA) as qualified to perform high complexity clinical laboratory testing. Copies To: Dougie Vela MD [address] [address] CONTINUED ON NEXT PAGE ----- ------- Name: Dana Reid Age/Sex: 50/F : 1975 Unit#: [id number] Attend Dr: Wilfredo Wilburn MD Re04/21/25 Status: [facility] Location: [facility] Disch: ----- ------- SPEC : [id number] RECD: 04/21/25-500 STATUS: ABDI ZARAGOZA NUM: [id number] [place]: 04/21/251232 SUBM DR: Wilfredo Wilburn MD ENTERED: 04/21/251 SP TYPE: Surgical OTHR DR: Dougie Vela MD ORDERED: Gross Micro L3 Copies To: (Continued) Wilfredo Wilburn MD [facility] [address] [place] [address] ----- ------- Signed (signature on file) Spring Clements MD 04/25/25 0239 ----- ------- END OF REPORT Generic External Data Provider LAB CYTOLOGY JESSICA COLBERT Final Result [facility] [address] [place] [phone] [phone] * (ABNORMAL) Basic Metabolic Panel, Fasting (04/21/2025 11:06 AM EDT) Sodium 141 135 - 145 mmol/L [facility] Potassium 4.3 3.3 - 5.1 mmol/L [facility] Chloride 105 96 - 108 mmol/L [facility] Carbon Dioxide 27 22 - 29 mmol/L [facility] Anion Gap 13 12 - 20 [facility] Urea Nitrogen (BUN) 12 9 - 16 mg/dL [facility] Creatinine, Serum 1.20 0.5 - 1.4 mg/dL [facility] Creatinine Clr Calc Pharmacy 68.3 [facility] Comment:Provided height and weight: 172.72 cm,101.5 kg.eGFR (calculated from the MDRD study equation) and eCrCl(calculated from the Cockcroft-Gault equation) are based ondifferent parameters and may not yield comparable results.If eCrCl result is absurd, please check patient'sheight/weight. Estimated Glomerular Filt Rate 47 [facility] Comment:Chronic Kidney Disea se: Estimated GFR < 60 mL/min/1.19o3Gydday Kidney Disease: Estimated GFR < 15 mL/min/1.73m2 Glucose Fasting 116(H) 60 - 99 mg/dL [facility] Comment:A fasting glucose fr om 100-125 mg/dl is considered impaired(pre-diabetes). Calcium 9.7 8.4 - 10.2 mg/dL [facility] 04/21/2025 11:0 6 AM EDT 04/21/2025 11:19 AM EDT us Generic External Data Provider LAB BLOOD ORDERAB LES Final Result [facility] [address] [place] [phone] * (ABNORMAL) CBC (04/21/2025 11:06 AM EDT) White Blood Count 5.6 4.8 - 10.8 X10*3/uL [facility] Red Blood Count 4.55 4.20 - 5.50 X10*6/uL [facility] Hemoglobin 12.2 12.0 - 16.0 g/dl [facility] Hematocrit 36.4(L) 37.0 - 47.0 % [facility] Mean Corpuscular Volume 80.0 80.0 - 98.0 fL [facility] Mean Corpuscular Hemoglobin 26.8(L) 27.0 - 33.0 pg [facility] Mean Corpuscular HGB Conc 33.5 31.0 - 35.0 g/dl [facility] Red Cell Distribution Width 13.8 11.0 - 16.0 % [facility] Platelet Count 198 160 - 400 X10*3/uL [facility] Mean Platelet Volume 10.6 9.4 - 12.3 fL [facility] NRBC Pct Auto 0.0 0.0 - 0.2 /100WBC [facility] NRBC Abs Auto 0.000 0.0 - 0.012 X10*3/uL [facility] 04/21/2025 11:0 6 AM EDT 04/21/2025 11:19 AM EDT us Generic External Data Provider LAB BLOOD ORDERAB LES Final Result [facility] [address] [place] [phone] * (ABNORMAL) Drug Monitoring, Panel 1, Screen, Urine (04/21/2025 10:20 AM EDT) Opiate Screen Urine Not Detected Not Detect [facility] Comment:Opiate cut-off is 30 0 ng/mL.Positive results are unconfirmed and should not be used fornon-medical purposes. Barbiturates, Urine Not Detected Not Detect [facility] Comment:Barbiturate cut-off is 200 ng/mL.Positive results are unconfirmed and should not be used fornon-medical purposes. Phencyclidine Screen Urine Not Detected Not Detect [facility] Comment:Phencyclidine cut-of f is 25 ng/mL.Positive results are unconfirmed and should not be used fornon-medical purposes. Amphetamine Screen Urine Not Detected Not Detect [facility] Comment:Amphetamine cut-off is 1000 ng/mL.Positive results are unconfirmed and should not be used fornon-medical purposes. Benzodiazepines Screen Urine Not Detected Not Detect [facility] Comment:Benzodiazepine cut-o ff is 200 ng/mL.Positive results are unconfirmed and should not be used fornon-medical purposes. Cocaine Screen Urine Not Detected Not Detect [facility] Comment:Cocaine cut-off is 3 00 ng/mL.Positive results are unconfirmed and should not be used fornon-medical purposes. Cannabinoid Screen Urine Not Detected Not Detect [facility] Comment:Cannabinoid cut-off is 50 ng/mL.Positive results are unconfirmed and should not be used fornon-medical purposes. Methadone Screen, Urine Positive(A) Not Detect ng/mL [facility] Comment:Methadone cut-off is 300 ng/mL.Positive results are unconfirmed and should not be used fornon-medical purposes. FENTANYL URINE POSITIVE(A) Not Detect [facility] Comment:Fentanyl cut-off is 1 ng/mL.Positive results are unconfirmed and should not be used fornon-medical purposes. Oxycodone Urine Screen Not Detected Not Detect ng/mL [facility] Comment:Oxycodone cut-off is 100 ng/mL.Positive results are unconfirmed and should not be used fornon-medical purposes. Buprenorphine Screen Not Detected Not Detect ng/mL [facility] Comment:Buprenorphine cut-of f is 5 ng/mL.Positive results are unconfirmed and should not be used fornon-medical purposes. 04/21/2025 10:2 0 AM EDT 04/21/2025 10:27 AM EDT us Generic External Data Provider LAB URINE ORDERAB LES Final Result Performing Organization Address City/State/[facility] Co de Phone Number [facility] [address] [place] [address] [place] [phone] * BI Mammogram Screening Tomosynthesis Bilateral (03/08/2025 3:05 PM EDT) Anatomical Region Laterality Modality Breast Bilateral Mammography 03/08/2025 3:05 PM EDT Narrative 03/11/2025 2:31 PM EDT [facility] [address] [place] [address] Mammography Report Signed Patient: Dana Reid MR#: [id number] : 1975 Acct:[id number] Age/Sex: 49 / F ADM Date: 03/08/25 Loc: MAMMO Attending Dr: Dougie Cook MD Ordering Physician: Dougie Vela MD Res ults: 1Negative Date of Service: 03/08/25 Follow Up: 1 Year From Orig ina Mammogram Procedure(s): MM tomosynthesis screening BI Accession Number(s): [id number] cc: Dougie Vela MD Reason For Exam: [...] 03/11/25 1428 DD/ 1505 TD/TT: 03/08/25 1518 Shucker: Procedure Note Donotuseinterpreter, Image - 03/11/2025 [place] [facility] [address] [place], [place] [address] Mammography Report Signed Patient: Angelica Reid#: [id number] : 1975Acct:[id number] Age/Sex: 49 / FADM Date: 03/08/25 Loc: MAMMO Attending Dr: Dougie Cook MD Ordering Physician: Dougie Vela ults: 1Negative Date of Service: 03/08/25Follow Up: 1 Year From Orig inal Mammogram Procedure(s): MM tomosynthesis screening BI Accession Number(s): [id number] cc: Dougie Vela MD Reason For Exam: [...] 03/11/25 1428 DD/ 1505 TD/TT: 03/08/25 1518 Shucker: us Duogie Cook MD [facility] BI PROCEDURES Edited Result - Final * (ABNORMAL) Lipid Panel, Standard (01/29/2024 3:45 PM EDT) Triglycerides 229(H) <150 mg/dL [facility] Comment:Desirable Triglyceri de: less than 150 mg/dLBorderline High Triglyceride 150-199 mg/dLHigh Triglyceride: 200-499 mg/dLVery High Triglyceride: greater than or equal to 5OO mg/dL Cholesterol 269(H) <200 mg/dL [facility] Comment:Desirable Cholestero l: less than 200 mg/dLBorderline High Cholesterol: 200-239 mg/dLHigh Cholesterol: greater than 239 mg/dL LDL Cholesterol Calculated 182(H) <100 mg/dL [facility] Comment:Desirable LDL: less than 100 mg/dLNear Optimal/Above Optimal LDL: 110- 129 mg/dLBorderline High LDL: 130-159 mg/dLHigh LDL: 160-189 mg/dLVery High LDL: greater than or equal to 190 mg/dL HDL Cholesterol 42 >40 mg/dL [facility] Comment:Desirable HDL: great er than 40 mg/dL Note: This HDL assay may give artificially low results in patients with liver disease. Blood Venous blood specimen / Unknown 01/29/2024 3:45 PM EDT 01/29/2024 5:43 PM EDT Dougie Cook MD LAB BLOOD ORDERABL ES Final Result [facility] [address] [place] [phone] * Hepatitis C Antibody with Reflex to HCV, RNA, Quantitative, Real-Time PCR (12/13/2022 2:32 PM EDT) Pathologist [facility] Hepatitis C Antibody NON-REACT NELY NON-REACT NELY [email or web address] Comment: HCV antibody was non-reactive. There is no laboratory evidence of HCV infection. In most cases, no further action is required. However, if recent HCV exposure is suspected, a test for HCV RNA (test code 26350) is suggested. For additional information please refer to http://education.[employer]/faq/SOK80b6 (This link is being provided for informational/ educational purposes only.) Blood Venous blood specimen / Unknown 12/13/2022 2:32 PM EDT 12/13/2022 2:33 PM EDT Narrative [facility] - 12/14/2022 7:42 AM EDT FASTING:NO FASTING: NO Dougie Cook MD LAB BLOOD ORDERABL ES Final Result [facility] [address] [place] [address], [place] [address] [email or web address] [address] [place] [address] * FIT DNA/Cologuard Cancer Screening (12/09/2022 4:01 PM EDT) Stool us Historical Provider HEALTH MAINTENANCE Final Result * THINPREP TIS PAP AND HPV mRNA E6/E7 WITH REFLEX TO HPV 16,18/45 (03/19/2022 2:17 PM EDT) Clinical Information: None given [facility]VERTED [facility] COMMENT SEE COMMENT CONVERTE D [facility] Comment: EXPLANATORY NOTE: The Pap is [...] been evaluated with computer assisted technology. CONVERTED [employer] Team Member : SEE COMMENT [facility]VERTED [facility] Comment: ED, CT(ASCP) CT screening location: [address] [address] HPV nRNA E6/E7 Not Detected Not Detected CONVERTED [facility] Comment: Methodology: Government Relations Director-Mediated Amplification This assay detects E6/E7 viral messenger RNA (mRNA) from 14 high-risk HPV types (16,18,31,33,35,39,45,51,52,56,58,59,66,68). Cervical sources are required for HPV testing. If a vaginal source from a patient who has had a total hysterectomy with removal of cervix was submitted, please contact the testing laboratory for alternative testing options. For additional information, please refer to http://education.[employer]faq/PWF658p8 (This link if provided for information/ educational purposes only.) Infection Shift in vaginal meenu suggestive of bacterial vaginosis. [facility]ED [facility] Interpretation/R esult: Negative for intraepithelial lesion or malignancy. [facility] LMP: 06/2021 CON[facility]ED [facility] Prev. BX: NONE GIVEN [facility]ED [facility] Prev. PAP: 4X ABNL PAP,COLPOSCOPY NIL AFTER CONVERTED [facility] Review [employer] Team Member : SEE COMMENT [facility] Comment: SL, CT(ASCP) CT screening location: [place] [address] SOURCE: None given [facility] Statement Of Adequacy: SEE COMMENT [facility] Comment: Satisfactory for evaluation. Endocervical/transformation zone component absent. 03/19/2022 2:17 PM EDT Amalia SAHNI LAB PATHOLOGY ORDERABLES Final Result [facility] * (ABNORMAL) HIV 1/2 ANTIGEN/ANTIBODY,FOURTH GENERATION W/RFL (01/03/2022 12:04 PM EDT) HIV-1/2 ANTIGEN AND ANTIBODIES, 4TH GENERATION W/ REFLEX REPEATEDLY REACTIVE(A) [facility] Comment: The repeatedly reactive screening [...] LAB BLOOD ORDERABL ES Final Result [facility] [address] from Last 3 Months or Most Recently Relevant to Health Maintenance Insurance MEDICARE ADVANTAGE HMO Care Teams Lumber Loader Relationship Specialty Start Date End Date Dougie Vela MD [address] [place] [phone] PCP - General Internal Medicine 03/28/20
--- OUTSIDE RECORDS SUMMARY | 2025-05-05 13:18 | XMS_ITS | Encounter Summary ---
Author Organization [employer] Address [address] [place] [address] [place] [address] Care Team Providers Care Forest Economist Name Role Phone Dougie Vela MD Primary Care Prov ider Reason for Visit * Reason Onset Date Comments Medication Question 05/18/2024 Encounter Details Date Type Department Care Team ([facility] st Contact Info) Description 05/18/2024 Telephone [facility] MEDICINE [address] [place] [address] Dougie Vela MD [address] [place] [address] Medication Question Social History Tobacco Use Types [...] prescribed a GLP-1 drug like Wegovy to 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 The pt [...] like some info on (wegovy) Callback number [phone] documented in this encounter Plan of Treatment Not on file documented as of this encounter Visit Diagnoses Not on filedocumented in this encounter Additional Health Concerns Assessment Noted Time PHQ-9 Depression Total Score: 10 024 12:43 PM EDT documented as of this encounter Care Teams Forest Economist Relationship Specialty Start Date End Date Dougie Vela MD [address] [place] [phone] PCP - General Internal Medicine 03/28/20 documented as of this encounter
--- OUTSIDE RECORDS SUMMARY | 2025-05-05 13:18 | XMS_ITS | Clinical Summary ---
Author Organization [facility] Address [address] [place] [address] Care Team Providers Care Quiller Machine Fixer Name Role Phone Unavailable Primary Care Provider [...] Overview (09/20/2016): Has anxiety/depression, ADHD, following at [facility]. On meds. Mild intermittent asthma without complication Opioid abuse 09/20/2016 Overview (09/20/2016): H/O IV Heroin use, recent admission to [facility] 07/2016 with possible OD and right ankle displaced fracture, fracture of the base of the third, fourth and possible second metatarsals. Now in remission since 07/29/16, now in suboxone clinic through [facility]. Closed fracture of right ankle 09/20/2016 Overview (09/20/2016): admitted to [facility] 07/2016 with possible Heroin [...] she had herniated disc, s/p microdiscectomy in [place] in 2007. Dyslipidemia 09/20/2016 Constipation 09/20/2016 Social [...] Treatment Not on file Insurance [facility] Member Subscriber Plan / Payer (Ef fective 2015-Present) Name:Dana Reid Relation to Subscriber:Self Name:Dana Reid Payer ID:[id number] Group ID:Not on file Type:Medicaid Address: [facility] [address] [place] [address]
--- OUTSIDE RECORDS SUMMARY | 2025-05-05 13:18 | XMS_ITS | Encounter Summary ---
Author Organization [employer] Address [address] [place] [address] [address] [place] [address] Care Team Providers Care Therapeutic Assistant Name Role Phone Dougie Vela MD Primary Care Prov ider Encounter Details Date Type Department Care Team ([facility] st Contact Info) Description 12/20/2024 Orders Only [facility] [address] [place] [address] ProviderKristel MD Social History Tobacco Use Types [...] documented as of this encounter Care Teams Therapeutic Assistant Relationship Specialty Start Date End Date Dougie Vela MD [address] [place] [phone] PCP - General Internal Medicine 03/28/20 documented as of this encounter
== END 2025-05-05 11:14 | disposition home or self-care (01) ==
LOC: HO.HGS 10:48
PROVIDERS: PCP Internal Medicine; Visit Provider Physician Assistant Surgical
DX: Z90.49 Acquired absence of other specified parts of digestive tract (principal)
CPT/HCPCS: 99024

== ENCOUNTER → 2025-05-05 10:47 | Outpatient (BNVA) | payer MEDICARE, MEDICAID, SELFPAY | PROVIDERS: PCP Internal Medicine; Visit Provider Physician Assistant Surgical | DX: R10.84 Generalized abdominal pain (principal); Z90.49 Acquired absence of other specified parts of digestive tract; Z98.890 Other specified postprocedural states; Z87.891 Personal history of nicotine dependence; F11.20 Opioid dependence, uncomplicated; K59.09 Other constipation | CPT/HCPCS: 99212 ==